=== PATIENT | male | born 1945 | race Caucasian/White ===

== ENCOUNTER 2019-06-23 10:10 | Emergency (ER) | payer MEDICARE, OTHER, SELFPAY ==
[2019-06-23] VITALS (8 sets, daily range): BP systolic 133–153; BP diastolic 56–84; PULSE 67–78; RESP 16–18; TEMP 36.6; O2SAT 96–100
--- NOTE | ~2019-06-23 | XR_ITS ---
EXAMINATION: XR knee RT 3V DATE: 06/23/2019 11:10 INDICATION: Right knee pain. TECHNIQUE: 4 views of right knee were obtained. COMPARISON: None. FINDINGS: Bone alignment is normal. No fracture. There is mild tricompartment osteoarthritis. No knee joint effusion. IMPRESSION: 1. Mild right knee osteoarthritis. Reviewed, dictated and finalized at location A. NE CARGO INSPECTOR
--- NOTE | ~2019-06-23 | XR_ITS ---
EXAMINATION: XR femur RT min 2V DATE: 06/23/2019 11:10 INDICATION: Right knee pain. TECHNIQUE: 2 views of right femur on 5 radiographs were obtained. COMPARISON: None. FINDINGS: Bone alignment is normal. No fracture. There is mild osteoarthritis of right hip and right knee. No knee joint effusion. IMPRESSION: 1. Mild polyarticular osteoarthritis. Reviewed, dictated and finalized at location A. ER OPERATOR
--- NOTE | ~2019-06-23 | XR_ITS ---
EXAMINATION: XR hand LT min 3V DATE: 06/23/2019 11:10 INDICATION: Left hand injury. TECHNIQUE: 3 views of left hand were obtained. COMPARISON: None. 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 No fracture. There is mild osteoarthritis of lunate-cap itate joint, first carpometacarpal joint, fourth metacarpophalangeal joint, and some of the interphal angeal joints. IMPRESSION: 1. Scapholunate dissociation. 2. Mild polyarticular osteoarthritis. Reviewed, dictated and finalized at location A. ER TENDER
--- NOTE | 2019-06-23 11:23 | PC.NURSE ---
assumed pt care at this time.
--- NOTE | 2019-06-23 12:46 | ED.LOWEXIN ---
HPI - Extremity Injury (Lower) General Chief Complaint: Extremity Injury, Lower Stated Complaint: Slipped on ice - right leg pain Time Seen by Provider: 06/23/19 10:18 Source: patient Mode of arrival: EMS Limitations: no limitations History of Present Illness HPI Narrative: Patient presents with chief complaint of pain to the posterior aspect of right leg, right knee and, injury to the left middle finger that he sustained after slipping while trying to get into the car just prior to arrival. Patient and deny any head impact. Denies any loss of consciousness or changes in behavior. Patient reports he twisted when he landed he is not sure exactly how he fell. He denies any chest pain, shortness of breath, change in vision or hearing, nausea, vomiting, abdominal pain, back pain, head or neck pain. 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 They report healing has been going well and patient was on his way to a doctor's appointment when he fell. Patient is a diabetic and has had prior strokes. Patient has generalized left-sided weakness from prior strokes. Denies any changes to his left side of range of motion since falling. Related Data Home Medications Medication Instructions Recorded Confirmed alprazolam 05/07/19 aspirin-dipyridamole cap PO 05/07/19 brimonidine-timolol [Combigan] drp 05/07/19 05/07/19 ezetimibe mg 05/07/19 insulin aspart U-100 [Novolog CONTINUOUS SUBCUTANEOUS INFUSION 05/07/19 U-100 Insulin aspart] latanoprost 05/07/19 sertraline mg 05/07/19 sitagliptin [Januvia] mg 05/07/19 trazodone 05/07/19 valsartan 05/07/19 Allergies Allergy/AdvReac Type Severity Reaction Status Date / Time No Known Allergies Allergy Verified 04/28/18 09:24 Review of Systems Review of Systems: Narrative: CONSTITUTIONAL: Denies fever, chills, or sweats. EYES: Denies visual changes, redness, or discharge. ENT: Denies rhinorrhea, congestion, sore throat, or otalgia. CARDIOVASCULAR: Denies chest pain, palpitations, or edema. RESPIRATORY: Denies cough or dyspnea. GASTROINTESTINAL: Denies abdominal pain, nausea, vomiting, or diarrhea. GENITOURINARY: Denies dysuria or hematuria. SKIN: Abrasion left third digit denies rash or itching. MUSCULOSKELETAL: Reports right leg, knee, left hand pain denies back pain or myalgia. NEUROLOGIC: Denies headache, numbness, dizziness, or weakness. PSYCHIATRIC: Denies anxiety or depression. [facility] Past Medical History Medical History (Updated 06/23/19 @ 14:35 by Grzegorz Delgado PA-C) Diabetes Diabetic neuropathy Stroke Family History Family History (Updated 12/07/15 @ 23:19 by DOCTOR UNKNOWN) Father Cerebrovascular accident Family history of diabetes mellitus in first degree relative Mother Family history of diabetes mellitus in first degree relative Family history of congestive heart failure Social History Social History Smoking status: Never smoker Alcohol intake: current Exam Narrative: Exam Narrative: GENERAL: Well-appearing, well-nourished, and in no acute distress. HEAD: Normocephalic, atraumatic. No hematoma, swelling, abrasions or other signs of injury. EYES: PERRLA and EOMI. ENT: Nares clear, no rhinorrhea or epistaxis. Mucous membranes moist. Oropharynx without tonsillar hypertrophy exudate or other lesions. Bilateral TMs pearly lopez nonbulging no hemotympanum NECK: Supple. No adenopathy or masses. No tenderness with palpation. CHEST: Clear to auscultation. No respiratory distress. No wheezes rales or rhonchi HEART: Regular rate and rhythm. No murmur heard. Normal peripheral pulses. ABDOMEN: Soft, nontender, nondistended, normal active bowel sounds. EXTREMITIES: Abrasion to the tip of the left third digit. No active bleeding. Nail intact. Mild tenderness with palpation of the area. Range of motion intact. pain with palpation of the posterior aspect of right leg. Patient is able to flex and
--- NOTE | 2019-06-23 12:56 | PC.NURSE ---
Spoke with MOE Delgado after attempting to ambulate pt with LOC Marino per her order. Pt very unsteady on feet, unable to take steps away from bed without x2 assistance from RN, pt very weak and unsteady. MOE Delgado has stepped down to room at this time after I informed her with LOC Marino of pt ambulation attempt.
--- NOTE | 2019-06-23 13:43 | PC.NURSE ---
Spoke with Owner Manager at this time about PT consult placed by MOE Delgado. She states that she will take care of the consult.
--- NOTE | 2019-06-23 14:14 | PC.NURSE ---
PT AMBULATING PT IN [facility] AT THIS TIME.
== END 2019-06-23 15:32 | disposition home or self-care (01) ==
PROVIDERS: Emergency Provider Emergency Medicine
DX: S76.911A Strain of unspecified muscles, fascia and tendons at thigh level, right thigh, initial encounter (principal); S60.413A Abrasion of left middle finger, initial encounter; I69.954 Hemiplegia and hemiparesis following unspecified cerebrovascular disease affecting left non-dominant side; E11.52 Type 2 diabetes mellitus with diabetic peripheral angiopathy with gangrene; I96 Gangrene, not elsewhere classified; Z79.4 Long term (current) use of insulin; Z79.82 Long term (current) use of aspirin; M17.11 Unilateral primary osteoarthritis, right knee; M18.9 Osteoarthritis of first carpometacarpal joint, unspecified; M19.042 Primary osteoarthritis, left hand; M16.11 Unilateral primary osteoarthritis, right hip; W00.0XXA Fall on same level due to ice and snow, initial encounter
CPT/HCPCS: 73130; 73552; 73562; 97161; 99284; A9270

== ENCOUNTER 2019-08-12 05:37 | Day surgery (SDC) | payer MEDICARE, OTHER, SELFPAY ==
[2019-08-09 11:58] VITALS: BMI 34.4
[2019-08-12 07:00] VITALS: BP 136/73; PULSE 63; RESP 16; TEMP 36.3; O2SAT 96
[2019-08-12 07:13] VITALS: BMI 34.6
[2019-08-12] MEDS: LACTATED RINGERS 1,000 ML 30 ML IV CONT (08:00)
--- NOTE | 2019-08-12 08:10 | WPDANESEPPF ---
Anes - Initial Pre Proc Eval Procedure: Operation Date: 08/12/19 09:00 Proposed Procedures p Partial Right Hallux Amputation - Gómez Soto JR, MD Date/Time: 08/12/19 08:10 Surgeon: Gómez Soto JR, MD Pre Op Diagnosis: gangrene right hallux Patient Data Age: 73 Gender: M Height: 1.7 m Weight: 100.3 kg Allergies Allergy/AdvReac Type Severity Reaction Status Date / Time No Known Allergies Allergy Verified 08/12/19 07:41 Home Medications Medication Instructions Recorded Confirmed Type aspirin-dipyridamole 1 cap PO BID 05/07/19 08/12/19 History brimonidine-timolol [Combigan] 1 drp OPHTHALMIC (EYE) BID 05/07/19 08/12/19 History ezetimibe 10 mg PO DAILY 05/07/19 08/12/19 History insulin aspart U-100 [Novolog See Rx Instructions .ROUTE .COMPLEX 05/07/19 08/12/19 History U-100 Insulin aspart] latanoprost 1 drp LEFTEYE DAILY 05/07/19 08/12/19 History sertraline 25 mg PO DAILY 05/07/19 08/12/19 History sitagliptin [Januvia] 100 mg PO DAILY 05/07/19 08/12/19 History trazodone 100 mg PO DAILY 05/07/19 08/12/19 History valsartan 320 mg PO DAILY 05/07/19 08/12/19 History Vitamin C 1 tablet PO DAILY 08/09/19 08/12/19 History Vitamin D3 1 tablet PO DAILY 08/09/19 08/12/19 History alprazolam 0.25 mg PO HS 08/09/19 08/12/19 History clindamycin HCl 300 mg PO Q8H 08/12/19 08/12/19 History Patient hx anesthesia problems: none Family hx anesthesia problems: none PMFSH Past Medical History Medical History (Updated 08/12/19 @ 08:16 by Bo Marte MD) Arthritis Back pain SPINAL STENOSIS, cervical stenosis CKD (chronic kidney disease) stage 3, GFR 30-59 ml/min Diabetes Diabetic neuropathy Glaucoma L EYE WITH SHUNT PLACEMENT HTN (hypertension) Hypercholesterolemia Neurological disorder NEUROPATHY Obesity Secondary polycythemia Stroke x 4 Family History Family History (Updated 12/07/15 @ 23:19 by DOCTOR UNKNOWN) Father Cerebrovascular accident Family history of diabetes mellitus in first degree relative Mother Family history of diabetes mellitus in first degree relative Family history of congestive heart failure Social History Social History Smoking status: Never smoker Alcohol intake: current Anes - Eval Final PreProcedure Day of Procedure 08/12/19 08:10 Patient weight: obese Heart: regular rate and rhythm Lungs: clear to auscultation and normal air movement Airway: Mallampati scale class II Neurological: alert and oriented Last oral intake: >/= 8 hours ASA classification: III Emergent: yes Anesthetic plan: proceed Anesthesia type and monitoring: general GIVS and LMA Informed Consent: The patient's anesthetic plan and its attendant risks and benefits were discussed with the patient/family/POA. Questions were solicited and answers provided to the satisfaction of the patient/family/POA.
--- NOTE | 2019-08-12 08:49 | WPDHPUPDATE1 ---
History and Physical Update Update Date/Time: 08/12/19 08:49 History and Physical has been reviewed, including an updated exam of the patient. There are NO changes in the patient's condition. Risks, benefits, and alternatives have been discussed and questions answered. Patient agrees to proceed with procedure.
[2019-08-12] MEDS: ceFAZolin 2 GM/D5W 50 ML 2 GM/50 ML BAG IVPB (09:15)
[2019-08-12] MEDS: LIDOCAINE HCL 2% LOCAL INJ 20 ML VIAL 10 ML INFILTRATE (09:15)
[2019-08-12 09:24] LABS: Blood Urea Nitrogen 27 mg/dL (9-20); Carbon Dioxide 29 mmol/L (22-30); Chloride 103 mmol/L (98-107); Estimated CRCL calculation 73 ml/min; Estimated Glomerular Filt Rate > 60; Glucose 138 mg/dL (75-110); Potassium 4.7 mmol/L (3.4-5.0); Sodium 138 mmol/L (137-145)
--- NOTE | 2019-08-12 09:55 | PM.OP ---
Procedure Note - Brief Procedure Note - Brief Date of procedure: 08/12/19 Pre-op diagnosis: gangrene right hallux Post-op diagnosis: same Procedure performed: Partial right hallux amputation Anesthesia: GLMA Surgeon: Gómez Soto JR, DPM Estimated blood loss (mL): 10 Complications: No immediate complications Condition: stable Disposition: same day
--- NOTE | 2019-08-12 09:56 | SUR.OPER ---
EBL:20CC
[2019-08-12 10:05] VITALS: BP 112/65; PULSE 67; RESP 16; O2SAT 99
[2019-08-12 10:30] VITALS: BP 150/91; PULSE 66; RESP 16
--- NOTE | 2019-08-12 10:47 | OP_ITS ---
DATE OF PROCEDURE: 08/12/2019 PREOPERATIVE DIAGNOSES: 1. Gangrene of the right hallux. 2. Full-thickness ulceration to the right hallux probing to the distal phalanx with the distal phalanx exposed. PROCEDURE: Partial amputation of the right hallux. PATHOLOGY: Distal right hallux sent for gross and histopathology. ANESTHESIA: MAC with local. HEMOSTASIS: Pneumatic ankle tourniquet at 250 mmHg. ESTIMATED BLOOD LOSS: 10 cc. MATERIALS USED: 4-0 Vicryl and 3-0 Prolene. INJECTABLES: 20 cc of a mixture of 2% lidocaine plain, 0.5% Marcaine plain injected preoperatively. COMPLICATIONS: None. PROCEDURE IN DETAIL: Under mild sedation, the patient was brought to the operating room, placed on the operating table in the supine position. Pneumatic ankle tourniquet was placed about the patient's right ankle. Following IV sedation, local anesthesia was obtained about the right forefoot utilizing 20 cc of a 1:1 mixture of 2% lidocaine plain and 0.5% Marcaine plain. The foot was then scrubbed, prepped, and draped in the usual aseptic manner. An Esmarch bandage was then used to examine the patient's right foot. Pneumatic ankle tourniquet was inflated. The procedure began in the following manner. Attention was directed to the distal aspect of the right hallux where the distal phalanx was protruding from the open ulceration that had fibrotic and gangrenous changes. Two convex semielliptical incisions were made just distal to the interphalangeal joint to the right hallux. This was made in a modified fishmouth type incision. The incision was continued deep down through the subcutaneous tissues using sharp and blunt dissection. All bleeders were ligated and cauterized as necessary. At this point, the interphalangeal joint was visualized and then the distal phalanx was disarticulated at the joint level. The head of the proximal phalanx was noted to be intact. There was no denudation noted to the cartilage and there were no signs of infection present proximally. Once the distal portion of the hallux was disarticulated, it was sent for gross and histopathology. The wound site was flushed with copious amounts of sterile saline. There was no purulence noted along the remaining healthy viable tissue. Next, the subcutaneous structures were reapproximated and coapted utilizing 4-0 Vicryl. Next, the skin was reapproximated and coapted utilizing 3-0 Prolene in simple interrupted suture fashion technique. Upon completion of the procedure, the tourniquet was deflated. Capillary fill time was immediate to both the dorsal and plantar flaps of the amputation site. The incision was then dressed with Adaptic, 4 x 4's, Kerlix, and Coban. The pneumatic ankle tourniquet was then deflated and a prompt hyperemic response was noted to all digits of the right foot. Postop shoe was then applied. The patient did very well with the procedure and anesthesia. He was transferred to the recovery room with vital signs stable and vascular status intact to all remaining toes of the right foot. Following a period of postoperative monitoring, the patient will be discharged home on the following written and oral postoperative instructions: 1. Keep the dressing clean, dry, and intact. 2. Avoid excessive ambulation. 3. Elevate the right foot when at rest. 4. Wear surgical shoe at all times with ambulating using a knee scooter or walker. 5. The patient to follow up in 3 days in my office to have the incision inspected. Prescriptions were written for Percocet 5/325, dispensed 10, to be taken 1 p.o. q.4-6 hours as needed for severe pain. Shayy Akin MT: Yara
== END 2019-08-12 11:13 | disposition home or self-care (01) ==
PROVIDERS: Anesthesiology; PCP Internal Medicine; Visit Provider Podiatrist Foot & Ankle Surgery
PROC: (CPT 28825; principal; 2019-08-12 09:00)
DX: E11.52 Type 2 diabetes mellitus with diabetic peripheral angiopathy with gangrene (principal); I96 Gangrene, not elsewhere classified; M86.171 Other acute osteomyelitis, right ankle and foot; I12.9 Hypertensive chronic kidney disease with stage 1 through stage 4 chronic kidney disease, or unspecified chronic kidney disease; E11.22 Type 2 diabetes mellitus with diabetic chronic kidney disease; N18.3 Chronic kidney disease, stage 3 (moderate); E11.69 Type 2 diabetes mellitus with other specified complication; E11.40 Type 2 diabetes mellitus with diabetic neuropathy, unspecified; E11.319 Type 2 diabetes mellitus with unspecified diabetic retinopathy without macular edema; E78.00 Pure hypercholesterolemia, unspecified; D75.1 Secondary polycythemia; M19.90 Unspecified osteoarthritis, unspecified site; H40.9 Unspecified glaucoma; Z86.73 Personal history of transient ischemic attack (TIA), and cerebral infarction without residual deficits; E66.9 Obesity, unspecified; Z68.34 Body mass index [BMI] 34.0-34.9, adult; Z79.4 Long term (current) use of insulin; Z79.84 Long term (current) use of oral hypoglycemic drugs; Z79.82 Long term (current) use of aspirin; Z87.891 Personal history of nicotine dependence
CPT/HCPCS: 28825; 36415; 80048; 88305; 88311; J0690; J2370; J2704; J3010; J7120

== ENCOUNTER 2019-11-21 13:38 | Outpatient (CLI) | payer MEDICARE, OTHER, SELFPAY ==
[2019-11-21 14:03] LABS: Hematocrit 56.3 % (42.0-52.0); Hemoglobin 18.9 g/dL (14.0-18.0); Mean Corpuscular HGB Conc 33.6 g/dl (32-36); Mean Corpuscular Hemoglobin 30.1 pg (26-34); Mean Corpuscular Volume 89.6 fl (80-100); Mean Platelet Volume 9.4 fl (7.4-10.4); Platelet Count Result 189 k/mm3 (150-375); Red Blood Count 6.28 M/mm3 (4.6-6.20); Red Cell Distribution Width 13.5 % (11.5-14.5); White Blood Count 8.1 K/mm3 (4.5-10.0)
[2019-11-21 14:12] LABS: Calcium 9.8 mg/dL (8.4-10.2); Uric Acid 8.9 mg/dL (3.5-8.5)
[2019-11-21 14:25] LABS: Parathyroid Intact 49.8 pg/mL (7.5-53.5)
[2019-11-24 05:52] LABS: Ionized Calcium 5.2 mg/dL (4.8-5.6)
== END 2019-11-21 13:39 | disposition home or self-care (01) ==
PROVIDERS: PCP Internal Medicine; Visit Provider Internal Medicine
DX: R78.89 Finding of other specified substances, not normally found in blood (principal)
CPT/HCPCS: 36415; 82310; 82330; 83970; 84550; 85027

== ENCOUNTER 2020-02-29 09:29 | Emergency (ER) | payer MEDICARE, OTHER, SELFPAY ==
[2020-02-29 09:42] VITALS: BP 120/57; PULSE 67; RESP 16; TEMP 36.5; O2SAT 97
--- NOTE | 2020-02-29 10:07 | ED.EAR ---
HPI - Ear Problem General Chief complaint: Ear Stated complaint: Ear Pain Time Seen by Provider: 02/29/20 09:56 Source: patient, family and RN notes reviewed Mode of arrival: ambulatory Limitations: no limitations History of Present Illness HPI Narrative: Patient presents today complaining of 4 to 5-day history of right ear pain that has been worsening since onset with decreased hearing. Denies any known drainage or blood from the ear. Currently rates his pain 7/10 and has been taking Tylenol, old Percocet, and old benzocaine drops without much relief. Denies any recent sick symptoms to include cough, congestion, rhinorrhea, sore throat. MD Complaint: ear pain Related Data Home Medications Medication Instructions Recorded Confirmed Combigan 1 drp OPHTHALMIC (EYE) BID 05/07/19 02/29/20 Januvia 100 mg PO DAILY 05/07/19 02/29/20 aspirin-dipyridamole 1 cap PO BID 05/07/19 02/29/20 ezetimibe 10 mg PO DAILY 05/07/19 02/29/20 insulin aspart U-100 [Novolog See Rx Instructions .ROUTE .COMPLEX 05/07/19 02/29/20 U-100 Insulin aspart] latanoprost 1 drp LEFTEYE DAILY 05/07/19 02/29/20 sertraline 25 mg PO DAILY 05/07/19 02/29/20 trazodone 100 mg PO DAILY 05/07/19 02/29/20 valsartan 320 mg PO DAILY 05/07/19 02/29/20 alprazolam 0.25 mg PO HS 08/09/19 02/29/20 Allergies Allergy/AdvReac Type Severity Reaction Status Date / Time No Known Allergies Allergy Verified 02/29/20 09:48 Review of Systems Review of Systems: Narrative: CONSTITUTIONAL: Denies body aches, fever, chills, or sweats. EYES: Denies visual changes, redness, or discharge. ENT: Denies rhinorrhea, congestion, sore throat. + Right ear pain CARDIOVASCULAR: Denies chest pain, palpitations, or edema. RESPIRATORY: Denies cough or dyspnea. GASTROINTESTINAL: Denies abdominal pain, nausea, vomiting, or diarrhea. GENITOURINARY: Denies dysuria or hematuria. SKIN: Denies rash, itching, or wounds. MUSCULOSKELETAL: Denies back pain, joint pain, or myalgia. NEUROLOGIC: Denies headache, numbness, tingling, or weakness. PSYCH: Denies depression or anxiety. [facility] Past Medical History Medical History (Updated 02/29/20 @ 10:17 by Deneen Simpson, [facility], ) Arthritis Back pain SPINAL STENOSIS, cervical stenosis CKD (chronic kidney disease) stage 3, GFR 30-59 ml/min Diabetes Diabetic neuropathy Glaucoma L EYE WITH SHUNT PLACEMENT HTN (hypertension) Hypercholesterolemia Neurological disorder NEUROPATHY Obesity Secondary polycythemia Stroke x 4 Family History Family History (Updated 12/07/15 @ 23:19 by DOCTOR UNKNOWN) Father Cerebrovascular accident Family history of diabetes mellitus in first degree relative Mother Family history of diabetes mellitus in first degree relative Family history of congestive heart failure Social History Social History Smoking status: Never smoker Alcohol intake: current Gender identity (if verbalized by the patient): Male Comments At time of signature, I have reviewed and agree with nursing past medical, surgical, social and family history unless otherwise noted. Please see nursing chart for further information. There is no relevant family history pertinent to the presenting complaint Exam Narrative: Exam Narrative: GENERAL: Well-appearing, well-nourished, and in no acute distress. HEAD: Normocephalic, atraumatic. EYES: EOMI. No redness or drainage. Conjunctivae normal. ENT: Mucous membranes pink and moist. Nares clear. No rhinorrhea. Left TM and canal normal. Right canal is erythematous and mildly edematous with tragal tenderness. Canal is occluded by hard white material. Throat normal. Uvula midline. NECK: Normal AROM. Supple. No lymphadenopathy. CHEST: No respiratory distress. EXTREMITIES: Normal range of motion. No edema. SKIN: Warm, dry, no rash. Capillary refill normal. Normal skin turgor. NEURO: No focal deficits. Alert and oriented x3. Gait steady. PSYCH: Normal affect. No signs of depressio
== END 2020-02-29 10:23 | disposition home or self-care (01) ==
PROVIDERS: Emergency Provider Nurse Practitioner; PCP Internal Medicine
DX: H60.501 Unspecified acute noninfective otitis externa, right ear (principal); I12.9 Hypertensive chronic kidney disease with stage 1 through stage 4 chronic kidney disease, or unspecified chronic kidney disease; E11.22 Type 2 diabetes mellitus with diabetic chronic kidney disease; N18.30 Chronic kidney disease, stage 3 unspecified; Z79.4 Long term (current) use of insulin; M19.90 Unspecified osteoarthritis, unspecified site; E11.42 Type 2 diabetes mellitus with diabetic polyneuropathy; E78.00 Pure hypercholesterolemia, unspecified; Z86.73 Personal history of transient ischemic attack (TIA), and cerebral infarction without residual deficits; E11.39 Type 2 diabetes mellitus with other diabetic ophthalmic complication; H42 Glaucoma in diseases classified elsewhere; E66.9 Obesity, unspecified; Z68.34 Body mass index [BMI] 34.0-34.9, adult
CPT/HCPCS: 99213; G0463

== ENCOUNTER 2021-01-03 08:55 | Outpatient (CLI) | payer MEDICARE, OTHER, SELFPAY ==
--- NOTE | 2021-01-03 | EST_ITS ---
Patient Info Name: Tan Mendes Age: 75 years : 1945 Gender: Male Ht: 67 in Wt: 225 lbs BSA: 2.24 m2 HR: 66 bpm BP: 131 / 60 mmHg Heart Rhythm: Right Bundle Branch Block Exam Date: 01/03/2021 10:02 AM Exam Location: [facility] Stress Patient Status: Outpatient Admit Date: 01/03/2021 Staff Ordering Physician: Scot, Chris Hernandze MD Weaver [place]: Bobbi Christiansen RDCS Attending Provider: ColetteChris MD Exercise Technologist: Tyesha Killian RDCS Exercise Physician: Dallin Gonzalez MD Exam Type: CA echo dobutamine stress Study Info Indications R07.9 - Chest pain, unspecified Dobutamine stress echocardiogram is performed. Summary 1. Left ventricular chamber size, wall thickness, systolic and diastolic function are normal with no regional wall motion abnormalities with an estimated ejection fraction of 65-70%. 2. At low-dose dobutamine there were no wall motion abnormalities induced. 3. At sub maximal heart rate, no EKG changes to indicate ischemia. 4. Test was stopped before target heart rate was achieved as he became uncomfortable with the test. Given baseline EKG abnormalities and inability to walk on a treadmill, Lexiscan myocardial perfusion study is advised. Stress Echo Findings Left Ventricle At low-dose dobutamine there were no wall motion abnormalities induced. Left Ventricle Left ventricular chamber size, wall thickness, systolic and diastolic function are normal with no regional wall motion abnormalities with an estimated ejection fraction of 65-70%. Protocol: Doubutamine Stress ECG Details Stage: REST Duration (min): 1 min : 2 sec Dixon: --- Speed (mph): 0.0 Grade (%): 0 HR (bpm): 67 SBP (mmHg): 131 DBP (mmHg): 60 METS: --- Stage: REST Duration (min): 28 min : 53 sec Dixon: --- Speed (mph): 0.0 Grade (%): 0 HR (bpm): 63 SBP (mmHg): 131 DBP (mmHg): 60 METS: --- Stage: STAGE 1 Duration (min): 1 min : 0 sec Dixon: --- Speed (mph): 0.0 Grade (%): 0 HR (bpm): 63 SBP (mmHg): 131 DBP (mmHg): 60 METS: --- Stage: STAGE 1 Duration (min): 2 min : 0 sec Dixon: --- Speed (mph): 0.0 Grade (%): 0 HR (bpm): 63 SBP (mmHg): 155 DBP (mmHg): 65 METS: --- Stage: STAGE 1 Duration (min): 3 min : 0 sec Dixon: --- Speed (mph): 0.0 Grade (%): 0 HR (bpm): 64 SBP (mmHg): 155 DBP (mmHg): 65 METS: --- Stage: STAGE 2 Duration (min): 1 min : 0 sec Dixon: --- Speed (mph): 0.0 Grade (%): 0 HR (bpm): 64 SBP (mmHg): 128 DBP (mmHg): 69 METS: --- Stage: STAGE 2 Duration (min): 2 min : 0 sec Dixon: --- Speed (mph): 0.0 Grade (%): 0 HR (bpm): 68 SBP (mmHg): 128 DBP (mmHg): 69 METS: --- Stage: STAGE 2 Duration (min): 2 min : 14 sec Dixon: --- Speed (mph): 0.0 Grade (%): 0 HR (bpm): 67 SBP (mmHg): 129 DBP (mmHg): 54 METS: --- Stage: RECOVERY Duration (min): 0 min : 2 sec Dixon: --- Speed (mph): 0.0 Grade (%): 0 HR (b
== END 2021-01-03 08:56 | disposition home or self-care (01) ==
PROVIDERS: PCP Internal Medicine; Visit Provider Internal Medicine
DX: R07.9 Chest pain, unspecified (principal)
CPT/HCPCS: 93351; J0461; J1250

== ENCOUNTER 2021-02-04 10:36 | Outpatient (CLI) | payer MEDICARE, OTHER, SELFPAY ==
[2021-02-04 11:37] LABS: Basophils Absolute Auto 0.1 K/mm3 (0.0-0.1); Basophils Percent Auto 0.7 % (0.2-1.2); Eosinophils Absolute Auto 0.3 K/mm3 (0-0.3); Hematocrit 55.2 % (42.0-52.0); Hemoglobin 17.9 g/dL (14.0-18.0); Immature Granulocyte Absolute 0.03 K/mm3 (0.00-0.031); Immature Granulocyte Percent A 0.4 % (0-0.5); Lymphocytes Absolute Auto 2.26 K/mm3 (0.9-3.2); Lymphocytes Percent Auto 33.4 % (18.3-44.2); Mean Corpuscular HGB Conc 32.4 g/dl (32-36); Mean Corpuscular Hemoglobin 30.2 pg (26-34); Mean Corpuscular Volume 93.1 fl (80-100); Mean Platelet Volume 9.5 fl (7.4-10.4); Monocytes Absolute Auto 0.6 K/mm3 (0.1-0.6); Monocytes Percent Auto 9.3 % (2.6-8.5); Neutrophils Absolute Auto 3.5 K/mm3 (1.3-6.7); Neutrophils Percent Auto 52.2 % (45.5-73.1); Platelet Count Result 200 k/mm3 (150-375); Red Blood Count 5.93 M/mm3 (4.6-6.20); Red Cell Distribution Width 12.7 % (11.5-14.5); White Blood Count 6.8 K/mm3 (4.5-10.0)
[2021-02-04 11:52] LABS: Anion Gap 13 mmol/L (8-16); Blood Urea Nitrogen 34 mg/dL (9-20); Calcium 9.7 mg/dL (8.4-10.2); Carbon Dioxide 25 mmol/L (22-30); Chloride 103 mmol/L (98-107); Estimated Glomerular Filt Rate 50; Glucose 193 mg/dL (65-110); Potassium 4.8 mmol/L (3.4-5.0); Sodium 141 mmol/L (137-145)
== END 2021-02-04 10:37 | disposition home or self-care (01) ==
PROVIDERS: PCP Internal Medicine; Visit Provider Internal Medicine Cardiovascular Disease
DX: Z01.812 Encounter for preprocedural laboratory examination (principal); R94.39 Abnormal result of other cardiovascular function study; R06.00 Dyspnea, unspecified
CPT/HCPCS: 36415; 80048; 85025

== ENCOUNTER 2021-02-18 09:15 | Inpatient (IN) | payer MEDICARE, OTHER, SELFPAY ==
[2021-02-18] VITALS (9 sets, daily range): BP systolic 101–138; BP diastolic 52–60; PULSE 67–91; RESP 12–25; TEMP 36.4–37.3; O2SAT 96–99; BMI 34.6
--- NOTE | ~2021-02-18 | CT_ITS ---
EXAMINATION: CT cervical spine wo con EXAM DATE: 02/18/2021 10:30 INDICATION: Fall, head injury. Cervical fusion hardware. TECHNIQUE: Spiral CT of the cervical spine was performed without contrast. Axial images were reviewe d. Coronal and sagittal reformatted images cervical spine were also reviewed. The dose-length produc t (DLP) for this examination was 449.50 mGy-cm. The exposure was tailored according to patient size (auto mA exposure control), and iterative reconstruction (ASIR) was used as additional dose reduction technique. There is no prior study for comparison. FINDINGS: There is no evidence of acute cervical fracture. The odontoid process is intact. Pre-dens space is normal. Prevertebral soft tissue is normal. There are no soft tissue abnormalities identi fied. There is no disc space widening or traumatic vertebral body subluxation suspected. There is i ntact fusion hardware from C4-C6. There is advanced cervical arthropathy with significant narrowing of right-sided neural foramen. A detailed level by level evaluation of spondylosis can be added as a ddendum if requested. IMPRESSION: 1. No acute cervical fracture. 2. Intact cervical fusion C4-6. 3. Advanced arthropathy. Reviewed, dictated and finalized at location A.
--- NOTE | ~2021-02-18 | US_ITS ---
EXAMINATION: US venous doppler LE EXAM DATE: 02/18/2021 14:25 INDICATION: Elevated D-dimer . TECHNIQUE: Multiple grayscale, color flow and Doppler images of the lower extremity deep venous syste ms bilaterally were obtained and reviewed. There is no prior study for comparison. FINDINGS: Right side: The right common femoral, femoral and profunda veins demonstrate normal color flow, respi ratory variation, augmentation and compressibility. Compressibility, color flow confirmed within the right popliteal, posterior tibial, peroneal, and greater saphenous veins. Left side: The left common femoral, femoral and profunda veins demonstrate normal color flow, respira tory variation, augmentation and compressibility. Compressibility, color flow confirmed within the l eft popliteal, posterior tibial, peroneal, and greater saphenous veins. IMPRESSION: 1. No lower extremity deep venous thrombosis bilaterally. Reviewed, dictated and finalized at location A.
--- NOTE | ~2021-02-18 | XR_ITS ---
EXAMINATION: XR chest 2V DATE: 02/18/2021 10:17 INDICATION: Shortness of breath and weakness TECHNIQUE: frontal and lateral views of the chest were obtained. COMPARISON: Chest radiograph dated 04/12/2018 FINDINGS: Unchanged mild elevation of the right hemidiaphragm with mild basilar atelectasis. No airspace opacit ies, pulmonary edema, pleural effusion or pneumothorax. The cardiomediastinal silhouette is normal. A therosclerotic aorta and coronary artery calcifications. Mild thoracic spondylosis. IMPRESSION: 1. Chronic elevation of the right hemidiaphragm with mild atelectasis at the right lung base. Reviewed, dictated and finalized at location A. IMPRESSION: 1. Chronic elevation of the right hemidiaphragm with mild atelectasis at the ri t lung base.
--- NOTE | ~2021-02-18 | CT_ITS ---
EXAMINATION: CTA chest PE protocol EXAM DATE: 02/18/2021 14:04 INDICATION: Elevated d-dimer. TECHNIQUE: Spiral CTA of the chest (pulmonary arteries) was performed with 100 cc Omnipaque 350 intr avenous contrast injection. Images were acquired during the pulmonary arterial phase. Coronal maxi mum intensity projection 3D-reconstructions were created by the technologist on dedicated workstation . Axial, coronal and sagittal reformatted images were reviewed. The dose-length product (DLP) for t his examination was 786.81 mGy-cm. The exposure was tailored according to patient size (auto mA exp osure control), and iterative reconstruction (ASIR) was used as additional dose reduction technique. Comparison is made to prior examination from 04/12/2018. FINDINGS: Pulmonary arteries are well opacified and without intraluminal filling defects. No thora cic aortic dissection. There is right basilar subsegmental atelectasis and bilateral dependent subse gmental atelectasis. No evidence of pneumonia. Elevated right hemidiaphragm. There are no pleural or pericardial effusions. Tracheobronchial tree is patent. There is no mediastinal, hilar or axilla ry lymphadenopathy. There is no pneumothorax. Heart normal in size. There are dense coronary arteries, could be severe coronary arterial sclerosis and/or coronary artery stent(s), which are difficult to distinguish due to cardiac motion on this non-gated exam. Correlate with cardiac history and consider cardiology consult if not recently evaluated. Small bilateral ewelina al lesions which are hyperdense, statistically most likely hemorrhagic cysts. There is thoracic spon dylosis without osteoblastic or osteolytic lesions identified. IMPRESSION: 1. Chronic right hemidiaphragm elevation, bibasilar atelectasis. 2. Small homogeneous renal lesions most likely hemorrhagic cysts. 3. No pulmonary emboli Reviewed, dictated and finalized at location A.
--- NOTE | ~2021-02-18 | CT_ITS ---
EXAMINATION: CT brain wo con DATE: 02/18/2021 10:29 INDICATION: Found down post fall. Syncope. TECHNIQUE: Computed tomography (CT) of the head was performed without intravenous contrast. Sagittal and coronal reconstructions were performed. The mA was adjusted according to patient size. Iterative reconstruction technique was employed. The dose-length product was 681.00 mGy-cm. COMPARISON: head CT dated 03/25/2017 FINDINGS: No fracture. No acute intracranial hemorrhage, acute infarction or abnormal extra axial fluid collect ion. Small region of encephalomalacia in the right frontal lobe consistent with old infarct. Addition al small old lacunar infarcts in the bilateral thalami and left kin. There is moderate scattered whi te matter hypoattenuation consistent with chronic small vessel ischemic disease. Ventricles are daksha l and symmetric. No mass/mass effect. Changes of bilateral intraocular lens replacement. Unchanged ti ny metallic density along the anterior margin of the right globe, potentially for weighting of the up per eyelid. Mild mucosal thickening at the left maxillary and bilateral ethmoid sinuses. Mastoid air cells and middle ear cavities are clear. Intracranial calcified cerebral atherosclerosis is noted. IMPRESSION: 1. No fracture or acute intracranial process. 2. Small old infarcts in the right frontal lobe, bilateral thalami and left kin. 3. Moderate scattered periventricular predominant white matter hypoattenuation consistent with chroni c small vessel ischemic disease. Reviewed, dictated and finalized at location A. IMPRESSION: 1. No fracture or acute intracranial process. 2. Small old infarcts in the right frontal lobe, bilateral thalami and left ángel s. 3. Moderate scattered periventricular predominant white matter hypoattenuation consistent with chronic small vessel ischemic disease.
--- NOTE | ~2021-02-18 | US_ITS ---
EXAMINATION: US renal BI EXAM DATE: 02/22/2021 14:41 INDICATION: QUINN. Recent contrast injection with clinical concern for contrast-induced nephropathy. TECHNIQUE: Multiple grayscale and Doppler images of the kidneys were obtained (by a technologist who performed the scan) and subsequently reviewed. There is no prior study for comparison. FINDINGS: Right kidney: There is normal contour and echogenicity. It measures 10.1 x 5.6 x 5.8 centimeters. T here are no focal renal lesions identified. There is no hydronephrosis. Left kidney: There is normal contour and echogenicity. It measures 12.6 x 6.5 x 6.4 centimeters. The re is an exophytic cyst measuring 2 cm and more centrally located cyst measuring 1.5 cm. There is n o hydronephrosis. Patrick catheter within a collapsed bladder. IMPRESSION: 1. Left renal lesions consistent with cyst, corresponding to 2 of the lesions seen on CT. 2. No hydronephrosis. Reviewed, dictated and finalized at location B.
--- NOTE | 2021-02-18 09:23 | ECG_ITS ---
Measurements Intervals Cameron Rate: 73 P: 32 MA: 209 QRS: -40 QRSD: 146 T: 5 QT: 416 QTc: 459 Interpretive Statements SINUS RHYTHM WITH FIRST DEGREE AV BLOCK RIGHT BUNDLE BRANCH BLOCK BASELINE ARTIFACT- II, III ABNORMAL ECG Electronically Signed On 02-18-2021 14:32:37 CDT by Eugene Stevens D.O.
[2021-02-18 09:35] LABS: Basophils Percent Auto 0.2 % (0.2-1.2); Eosinophils Percent Auto 0.1 % (0-4.4); Hemoglobin 17.2 g/dL (14.0-18.0); Immature Granulocyte Absolute 0.08 K/mm3 (0.00-0.031); Immature Granulocyte Percent A 0.5 % (0-0.5); Lymphocytes Absolute Auto 1.19 K/mm3 (0.9-3.2); Lymphocytes Percent Auto 7.8 % (18.3-44.2); Mean Corpuscular HGB Conc 33.7 g/dl (32-36); Mean Corpuscular Hemoglobin 31.2 pg (26-34); Mean Corpuscular Volume 92.4 fl (80-100); Mean Platelet Volume 9.7 fl (7.4-10.4); Monocytes Absolute Auto 0.8 K/mm3 (0.1-0.6); Monocytes Percent Auto 5.2 % (2.6-8.5); Neutrophils Absolute Auto 13.2 K/mm3 (1.3-6.7); Neutrophils Percent Auto 86.2 % (45.5-73.1); Platelet Count Result 173 k/mm3 (150-375); Red Blood Count 5.52 M/mm3 (4.6-6.20); Red Cell Distribution Width 12.3 % (11.5-14.5); White Blood Count 15.3 K/mm3 (4.5-10.0)
[2021-02-18 09:46] LABS: Alanine Aminotransferase 44 U/L (4-50); Albumin Level 4.5 g/dL (3.5-5.1); Alkaline Phosphatase 77 U/L (38-126); Anion Gap 13 mmol/L (8-16); Aspartate Amino Transferase 40 U/L (17-59); Blood Urea Nitrogen 26 mg/dL (9-20); Calcium 9.2 mg/dL (8.4-10.2); Carbon Dioxide 23 mmol/L (22-30); Chloride 102 mmol/L (98-107); Estimated CRCL calculation 46 ml/min; Estimated Glomerular Filt Rate 50; Glucose 243 mg/dL (65-110); Potassium 4.6 mmol/L (3.4-5.0); Sodium 138 mmol/L (137-145)
--- NOTE | 2021-02-18 09:46 | ED.GENADULT ---
HPI - General Adult General Chief complaint: Weakness Stated complaint: WEAKNESS Time Seen by Provider: 02/18/21 09:40 Source: patient and family History of Present Illness HPI narrative: Patient is a 75 y/o male complaining of several generalized weakness starting today. He state that he cannot get out bed today due to weakness. He slid out bed and fell to the floor. He was not able to get up. He denies passing out. He has some abrasions on his knees due to the floor. He has no headache, chest pain or abdominal pain. He is normally able to ambulate with a walker. He is scheduled to have bypass surgery at [facility] in 2 days. Related Data Home Medications Medication Instructions Recorded Confirmed Combigan 1 drp OPHTHALMIC (EYE) BID 05/07/19 02/29/20 Januvia 100 mg PO DAILY 05/07/19 02/29/20 insulin aspart U-100 [Novolog See Rx Instructions .ROUTE .COMPLEX 05/07/19 02/29/20 U-100 Insulin aspart] latanoprost 1 drp LEFTEYE DAILY 05/07/19 02/29/20 sertraline 25 mg PO DAILY 05/07/19 02/29/20 trazodone 100 mg PO DAILY 05/07/19 02/29/20 valsartan 320 mg PO DAILY 05/07/19 02/29/20 aspirin [Adult Aspirin] 81 mg PO BID 02/18/21 metoprolol tartrate 12.5 mg PO BID 02/18/21 rosuvastatin 40 mg PO QPM 02/18/21 02/18/21 Allergies Allergy/AdvReac Type Severity Reaction Status Date / Time No Known Allergies Allergy Verified 02/18/21 10:21 Review of Systems Constitutional: Constitutional: Denies chills, Denies fever(s), Denies headache(s) and Reports weakness Eyes: Eyes: Denies blurry vision ENT: Denies headache(s) and Denies neck pain Cardiovascular: Cardiovascular: Denies chest pain and Denies dyspnea Respiratory: Respiratory: Denies cough and Denies dyspnea Gastrointestinal: Gastrointestinal: Denies abdominal pain, Denies diarrhea, Denies nausea and Denies vomiting Genitourinary: Genitourinary: Denies hematuria and Denies dysuria Musculoskeletal: Musculoskeletal: Denies back pain and Denies neck pain Neurologic: Denies headache(s) and Reports weakness PMFSH Past Medical History Medical History (Updated 03/01/20 @ 00:00 by Background Nemo) Arthritis Back pain SPINAL STENOSIS, cervical stenosis CKD (chronic kidney disease) stage 3, GFR 30-59 ml/min Diabetes Diabetic neuropathy Glaucoma L EYE WITH SHUNT PLACEMENT HTN (hypertension) Hypercholesterolemia Neurological disorder NEUROPATHY Obesity Secondary polycythemia Stroke x 4 Family History Family History (Updated 12/07/15 @ 23:19 by DOCTOR UNKNOWN) Father Cerebrovascular accident Family history of diabetes mellitus in first degree relative Mother Family history of diabetes mellitus in first degree relative Family history of congestive heart failure Social History Social History Smoking status: Never smoker Alcohol intake: current Gender identity (if verbalized by the patient): Male Exam Const: General: no acute distress and well developed Orientation/consciousness: oriented to person, oriented to place, oriented to time and patient oriented x3 HENMT: Head: normocephalic Ears: external ears normal General nose exam: Normal external nose present Eyes: General: appearance normal, both eyes and all related structures Conjunctivae: conjunctivae normal Neck: Neck: normal visual inspection and full ROM Chest: Chest palpation & inspection: normal inspection of the chest and no tenderness Resp: Effort & Inspection: normal respiratory effort Auscultation: clear to auscultation bilaterally Cardio: Rate: regular rate Rhythm: regular rhythm GI: GI Palp: No abdominal tenderness and Yes Soft to palpation Skin: General skin exam: normal color and turgor normal Trauma: abrasion (bilateral knees) Neuro: General: oriented to person, oriented to place, oriented to time and patient oriented x3 Cognition (Neuro): normal cognition Extrem: General: normal to inspection, full ROM and no pedal edema Psych: Appearance
[2021-02-18 09:58] LABS: Troponin I 0.019 ng/mL (0.000-0.034)
[2021-02-18] MEDS: SODIUM CHLORIDE 0.9% IV 1,000 ML 999 ML IV CONT ×3 (10:09→12:32)
--- NOTE | 2021-02-18 10:15 | PC.NURSE ---
Chart faxed to [facility], [place] and was received by their intake staff. Intake number is [phone]
[2021-02-18 10:20] LABS: Add Urine Microscopic? YES; Appearance Urine Cloudy (Clear); Bacteria Urine Trace /hpf; Bilirubin Urine Negative (Negative); Blood Urine 3+ (Negative); Color Urine Yellow (Yellow); Glucose Urine UA 2+ mg/dL (Negative); Ketones Urine Negative (Negative); Leukocyte Esterase Ur 2+ LEU/UL (Negative); Nitrate Urine Negative (Negative); Protein Urine 2+ mg/dL (Negative); Specific Grav Ur 1.015 (1.001-1.035); Urobilinogen Urine Negative mg/dL (<2.0); WBC Urine >75 /hpf
[2021-02-18 12:10] LABS: D Dimer 1.62 ug/mL (<0.48)
[2021-02-18 12:31] LABS: Reflex Lactic Acid Yes or No Add Lactic
--- NOTE | 2021-02-18 12:32 | PC.NURSE ---
pt sent to floor with IVF still infusing
--- NOTE | 2021-02-18 12:39 | PM.IMHP ---
H&P: HPI History of Present Illness Date/Time: 02/18/21 12:39 this is a 75 year old male patient with a history of coronary artery disease and diabetes adult onset type 1. The patient is scheduled to have open heart surgery at [facility] on Thursday. The patient had a full workup at [facility] for his cardiac condition. The patient had a stress test and was unable to completed and then went on to have a Lexiscan which he failed. The patient then had a cardiac catheterization by Dr. Noble at [facility] which shows several severe blockages and the patient was scheduled with Dr. Lozano this next Thursday of open heart surgery. The patient had a full workup on Thursday and was told that his white count was normal and is COVID-19 test was negative. Patient's urinalysis was negative at that time. The patient spent in evening with his children out eating dinner during the weekend. The patient was recently started on metoprolol and has been feeling weak. The patient came to the hospital today complaining of severe generalized weakness that started today. He could get out of bed due to the weakness. The patient fell on the floor and struggled for 45 minutes to get up off the floor. He denied passing out. However the stated that the patient does have a history of having syncopal episodes. The patient does have some abrasions to his knees. However he is not complaining of any discomfort at this time. The stated that the patient became diaphoretic when he was trying to get off the floor. He denies any chest pain. Patient's BUN is 26 creatinine 1.4 with a GFR 50. Blood sugars 253. Lactic is 3.0. The patient does have an insulin pump however he stated that he felt too ill to be able to manage it himself and it was removed. Cervical spine CT was read as no acute cervical fracture. Intact cervical fusion C4 through C6. Advanced arthropathy. Head CT was read as no fracture or acute intracranial process. Small old infarctions in the right frontal lobe, bilateral thalami and left kin. Moderate scattered periventricular predominant white matter hypoattenuation consistent with chronic small vessel ischemic disease. Chest x-ray was read as chronic elevation the right hemidiaphragm with mild atelectasis at the right lung base. The patient does not typically wear oxygen at home but was short of breath and was placed on oxygen at 2 L per nasal cannula. Patient's D-dimer was noted to be 1.62. Urinalysis has 3+ blood 2+ leukocyte esterase rbc's 6-10 and greater than 75 wbc's. Trace bacteria. The patient was started on normal saline and ceftriaxone in the emergency room. I did speak with Dr. Richardson nurse practitioner [facility] and she stated that his open heart surgery will be canceled and she will also be contacting the . I also spoke with his Lesvai. The patient has blood and urine cultures pending. The patient is being admitted to inpatient services on 02/18/2021. Chief Complaint: Weakness Review of Systems Review of Systems: ROS unobtainable: Yes unobtainable due to medical condition PMFSH Past Medical History Medical History (Updated 02/18/21 @ 13:30 by Ariela Fofana NP) Amputation toe Partial right toe amputation Arthritis Back pain SPINAL STENOSIS, cervical stenosis CKD (chronic kidney disease) stage 3, GFR 30-59 ml/min Diabetes Adult onset type 1 according to the with an insulin pump Diabetic neuropathy Glaucoma L EYE WITH SHUNT PLACEMENT HTN (hypertension) Hypercholesterolemia Neurological disorder NEUROPATHY Obesity Secondary polycythemia Secondary to heart disease. Stroke x 4 Surgical History Surgical History (Updated 02/18/21 @ 13:16 by Ariela Fofana NP) H/O bilateral cataract extraction H/O cataract extraction H/O cervical spine surgery Fusion H/O toe surgery Partial right toe amputated due to infected H/O umbilical hernia repair Family History Family
--- NOTE | 2021-02-18 12:41 | ADMGEN ---
This patient, Tan Mendes, was admitted to [facility] Room 314-01 at 1230. Patient/family oriented to hospital policies and general routines including ID bracelet, bed and alarms, visiting hours, pain management, procedures, bathroom and other care routines, personal items, smoking policy, room service/diet, and visiting hours. Patient arrived with glucose monitor to right abdomen, insulin pump to left abdomen, hearing aid to left ear and smart watch on. Pump disconnected upon admission to room. Information on how to activate the Rapid Response Team has been discussed. Patient/Family are encouraged to report perceived risks to care and to ask questions if they do not understand what they are told or what they should do.
[2021-02-18 13:32] LABS: Lactic Acid Reflex 1.1 mmol/L (0.7-2.1)
[2021-02-18 13:46] LABS: Hemoglobin A1C 7.6 % (<5.7)
[2021-02-18] MEDS: SODIUM CHLORIDE 0.9% IV 1,000 ML 100 ML IV CONT (14:33)
[2021-02-18 16:49] LABS: Glucose Point of Care 198 mg/dl (65-105)
[2021-02-18] MEDS: LORazepam INJ (*CRX) 2 MG/ML VIAL 0.5 MG IV PUSH ×2 (17:00→22:36)
[2021-02-18] MEDS: ASPIRIN 81 MG ENTERIC TABLET PO (17:06)
[2021-02-18] MEDS: BRIMONIDINE TARTRATE 0.2% OP SOLN 5 ML BTL 2 DROP EACH EYE (17:06)
[2021-02-18] MEDS: TIMOLOL MALEATE 0.5% OP SOLN 5 ML BOTTLE 2 DROP EACH EYE (17:10)
[2021-02-18] MEDS: LATANOPROST 0.005% OP SOLN 2.5 ML BTL 1 DROP LEFT EYE (20:44)
[2021-02-18] MEDS: traZODone HCL 50 MG TABLET 100 MG PO (20:44)
[2021-02-18] MEDS: ROSUVASTATIN 10 MG TABLET 40 MG PO (20:44)
[2021-02-18 21:00] LABS: Glucose Point of Care 245 mg/dl (65-105)
[2021-02-18] MEDS: INSULIN ASPART (*BKC) 100 UNITS/ML SUB-Q (22:36)
[2021-02-19] VITALS (11 sets, daily range): BP systolic 116–161; BP diastolic 62–74; PULSE 64–89; RESP 16–20; TEMP 36.7–37.2; O2SAT 92–96
[2021-02-19] MEDS: SODIUM CHLORIDE 0.9% IV 1,000 ML 100 ML IV CONT (00:25)
[2021-02-19 06:46] LABS: Basophils Percent Auto 0.2 % (0.2-1.2); Eosinophils Percent Auto 0.3 % (0-4.4); Hematocrit 50.9 % (42.0-52.0); Hemoglobin 16.6 g/dL (14.0-18.0); Immature Granulocyte Absolute 0.06 K/mm3 (0.00-0.031); Immature Granulocyte Percent A 0.5 % (0-0.5); Lymphocytes Absolute Auto 1.62 K/mm3 (0.9-3.2); Lymphocytes Percent Auto 12.5 % (18.3-44.2); Mean Corpuscular HGB Conc 32.6 g/dl (32-36); Mean Corpuscular Hemoglobin 30.6 pg (26-34); Mean Corpuscular Volume 93.7 fl (80-100); Mean Platelet Volume 9.6 fl (7.4-10.4); Monocytes Absolute Auto 1.2 K/mm3 (0.1-0.6); Monocytes Percent Auto 9.1 % (2.6-8.5); Neutrophils Absolute Auto 10.1 K/mm3 (1.3-6.7); Neutrophils Percent Auto 77.4 % (45.5-73.1); Platelet Count Result 162 k/mm3 (150-375); Red Blood Count 5.43 M/mm3 (4.6-6.20); Red Cell Distribution Width 12.5 % (11.5-14.5)
[2021-02-19 06:47] LABS: Lactic Acid Reflex 1.1 mmol/L (0.7-2.1)
[2021-02-19 06:55] LABS: Alanine Aminotransferase 37 U/L (4-50); Albumin Level 4.2 g/dL (3.5-5.1); Alkaline Phosphatase 70 U/L (38-126); Anion Gap 11 mmol/L (8-16); Aspartate Amino Transferase 50 U/L (17-59); Bilirubin,Total 0.9 mg/dL (0.2-1.3); Blood Urea Nitrogen 19 mg/dL (9-20); CRP 6.2 mg/dL (<1.0); Calcium 8.4 mg/dL (8.4-10.2); Carbon Dioxide 24 mmol/L (22-30); Chloride 104 mmol/L (98-107); Estimated CRCL calculation 65 ml/min; Estimated Glomerular Filt Rate > 60; Glucose 190 mg/dL (65-110); Lactate Dehydrogenase 518 U/L (313-618); Magnesium 1.5 mg/dL (1.6-2.3); Potassium 3.9 mmol/L (3.4-5.0); Sodium 139 mmol/L (137-145)
[2021-02-19 07:53] LABS: Glucose Point of Care 219 mg/dl (65-105)
[2021-02-19] MEDS: METOPROLOL TARTRATE 12.5 MG TABLET PO ×2 (09:14→22:07)
[2021-02-19] MEDS: TIMOLOL MALEATE 0.5% OP SOLN 5 ML BOTTLE 2 DROP EACH EYE ×2 (09:15→18:13)
[2021-02-19] MEDS: ENOXAPARIN 40 MG/0.4 ML SYRINGE SUB-Q (09:15)
[2021-02-19] MEDS: BRIMONIDINE TARTRATE 0.2% OP SOLN 5 ML BTL 2 DROP EACH EYE ×2 (09:16→18:13)
[2021-02-19] MEDS: ASPIRIN 81 MG ENTERIC TABLET PO ×2 (09:16→18:13)
[2021-02-19] MEDS: SERTRALINE HCL 25 MG TABLET PO (09:16)
[2021-02-19] MEDS: EUCERIN CREAM 120 GM JAR 1 APPLIC TOPICAL (09:16)
[2021-02-19] MEDS: INSULIN ASPART (*BKC) 100 UNITS/ML SUB-Q ×3 (09:17→18:12)
--- NOTE | 2021-02-19 09:26 | PM.CNCAR ---
Assessment and Plan Assessment and plan (1) UTI (urinary tract infection): Code(s): N39.0 - Urinary tract infection, site not specified Status: Acute Assessment and Plan: 75-year-old male with multivessel CAD (awaiting surgical revascularization with CABG), hypertension, type 2 diabetes mellitus, history of CVA, secondary polycythemia. Patient admitted to the hospital with generalized weakness, found to have UTI. -appropriate antibiotics as per primary team -patient was scheduled to undergo CABG on 02/20/2021 which has been postponed for now. (2) CAD (coronary artery disease): Code(s): I25.10 - Atherosclerotic heart disease of [place] coronary artery without angina pectoris Status: Acute Assessment and Plan: Patient has multivessel CAD and is awaiting CABG. Surgery has been postponed due to current UTI. No active ischemic symptoms at present. No acute ST changes on the EKG. -continue aspirin, low-dose beta-suresh, statin I spoke with patient's - Yumi over the phone and updated her about patient's clinical condition and management plan. History of Present Illness History of Present Illness Consult date/time: 02/19/21 09:26 DATE OF CONSULT: 02/19/2021 REASON FOR CONSULT: Coronary artery disease REQUESTING PHYSICIAN:Ariela Fofana NP CHIEF COMPLAINT: Generalized weakness HPI: 75-year-old male with multivessel CAD (awaiting surgical revascularization with CABG), hypertension, type 2 diabetes mellitus, history of CVA, secondary polycythemia. Patient was recently found to have multivessel CAD. His cardiac catheterization was performed in the setting of symptoms and abnormal MPI. Cardiac catheterization performed on 02/07/2021 showed multivessel CAD. The case was discussed with CT surgery at [facility], and patient was scheduled to undergo surgical revascularization 02/20/2021. Patient presented to [facility] on 02/18/2021 with severe generalized weakness. Information was gathered from the patient, from the staff, from review of chart and from patient's who I called over the phone. According to patient's , patient had generalized weakness, and slid off the bed. It was difficult to get him back to the bed. Patient had abrasions on the knees. EKG on my personal evaluation showed sinus rhythm, first-degree AV block, right bundle-branch block. First set of troponins were negative. Patient was found to have leukocytosis with left shift and UA was suggestive of UTI. Lactate was elevated at 3.0. Patient is receiving antibiotic treatment for UTI. CT chest reported chronic right hemidiaphragm elevation, bibasilar atelectasis, small homogeneous renal lesions most likely hemorrhagic cysts, no pulmonary emboli. Venous Doppler negative for DVT bilaterally. CABG has CABG has been postponed. Reason For Visit: Weakness/UTI Review of Systems Review of Systems: General: Positive for generalized weakness Psychological: Positive for anxiety Ophthalmic: negative for loss of vision ENT: Negative for epistaxis, headaches Allergy and immunology: Negative for hives, nasal congestion Hematologic and lymphatic: Negative for overt bleeding problems Endocrine: Negative for hot flashes, palpitations Respiratory: Positive for dyspnea on exertion Cardiovascular: Negative for chest pain, positive for dyspnea Gastrointestinal: Positive for abdominal pain Musculoskeletal: Positive for generalized fatigue and unstable gait Neurological: Positive for generalized weakness Genitourinary: Positive for dysuria Dermatological: Abrasions on the knees PMFSH Past Medical History Medical History Amputation toe Partial right toe amputation Arthritis Back pain SPINAL STENOSIS, cervical stenosis CKD (chronic kidney disease) stage 3, GFR 30-59 ml/min Diabetes Adult onset type 1 according to the with an insulin pump Di
[2021-02-19 11:57] LABS: Glucose Point of Care 276 mg/dl (65-105)
--- NOTE | 2021-02-19 15:12 | P.PNIM_ITS ---
Progress Note: A&P Assessment and Plan (1) UTI (urinary tract infection): Code(s): N39.0 - Urinary tract infection, site not specified Status: Acute Assessment and Plan: Presented with increased weakness and found to have abnormal UA * Continue with empiric IV Rocephin * Urine cultures are pending. Await results and tailor antibiotics accordingly (2) Sepsis: Code(s): A41.9 - Sepsis, unspecified organism Status: Acute Assessment and Plan: Septic on presentation with leukocytosis, fever, hypotension. Lactic acid 3.0 on presentation, improved to 1.1. * Continue empiric IV antibiotics as above * Blood cultures pending * Discontinue IV fluids as he has been adequately rehydrated and is tolerating p.o. intake * Monitor vital signs, intake and output, and labs (3) Fall: Code(s): W19.XXXA - Unspecified fall, initial encounter Status: Acute Assessment and Plan: Fell from his bed onto the floor. He hit his knees. He had no precipitating symptoms. He did not hit his head. * Denies knee pain or other body aches * Head CT and cervical spine CT with no evidence of injury. No acute intracranial findings. * Fall precautions * Appreciate PT/OT evals (4) Generalized weakness: Code(s): R53.1 - Weakness Status: Acute Assessment and Plan: May be secondary to UTI. * Treatment for UTI as above * Fall precautions, PT/OT as above * TSH is within normal limits. Will check B12 and folate. (5) CAD (coronary artery disease): Code(s): I25.10 - Atherosclerotic heart disease of [place] coronary artery without angina pectoris Status: Acute Assessment and Plan: Was scheduled for CABG at [facility] tomorrow, 02/20. * CABG has been postponed * He is being seen in consultation by Cardiology. Input is appreciated * He is asymptomatic at this time. * Continue aspirin, metoprolol, and rosuvastatin (6) CKD (chronic kidney disease) stage 3, GFR 30-59 ml/min: Code(s): N18.3 - Chronic kidney disease, stage 3 (moderate) Status: Acute Assessment and Plan: Patient reportedly has history of CKD stage 3 per EMR. Creatinine was 1.4 on presentation but has normalized with IV fluid rehydration. Creatinine is 1.0 today and GFR is >60 * Will continue to monitor renal function * IV fluids being discontinued as above * Avoid nephrotoxic agents (7) Secondary polycythemia: Code(s): D75.1 - Secondary polycythemia Status: Chronic Assessment and Plan: He is established with Hematology. Recently underwent workup that was reportedly negative for cancer or polycythemia vera. * Continue to monitor CBC * Outpatient hematology follow-up (8) Diabetes: Code(s): E11.9 - Type 2 diabetes mellitus without complications Status: Chronic Assessment and Plan: A1c is 7.6. * Typically uses insulin pump but did not want to continue upon admission as he reported feeling too ill * Continue with Accu-Cheks, sliding scale insulin, and hypoglycemic protocol * Continue home Januvia (9) HTN (hypertension): Code(s): I10 - Essential (primary) hypertension Status: Chronic Assessment and Plan: Blood pressure has been stable. Last BP 116/62. * Resume home metoprolol * Monitor blood pressure trends and adjust as needed. Subjective Date/time seen: 02/19/21 15:12 Interval histor
--- NOTE | 2021-02-19 15:12 | PM.IMPN ---
Progress Note: A&P Assessment and Plan (1) UTI (urinary tract infection): Code(s): N39.0 - Urinary tract infection, site not specified Status: Acute Assessment and Plan: Presented with increased weakness and found to have abnormal UA Continue with empiric IV Rocephin Urine cultures are pending. Await results and tailor antibiotics accordingly (2) Sepsis: Code(s): A41.9 - Sepsis, unspecified organism Status: Acute Assessment and Plan: Septic on presentation with leukocytosis, fever, hypotension. Lactic acid 3.0 on presentation, improved to 1.1. Continue empiric IV antibiotics as above Blood cultures pending Discontinue IV fluids as he has been adequately rehydrated and is tolerating p.o. intake Monitor vital signs, intake and output, and labs (3) Fall: Code(s): W19.XXXA - Unspecified fall, initial encounter Status: Acute Assessment and Plan: Fell from his bed onto the floor. He hit his knees. He had no precipitating symptoms. He did not hit his head. Denies knee pain or other body aches Head CT and cervical spine CT with no evidence of injury. No acute intracranial findings. Fall precautions Appreciate PT/OT evals (4) Generalized weakness: Code(s): R53.1 - Weakness Status: Acute Assessment and Plan: May be secondary to UTI. Treatment for UTI as above Fall precautions, PT/OT as above TSH is within normal limits. Will check B12 and folate. (5) CAD (coronary artery disease): Code(s): I25.10 - Atherosclerotic heart disease of [place] coronary artery without angina pectoris Status: Acute Assessment and Plan: Was scheduled for CABG at [facility] tomorrow, 02/20. CABG has been postponed He is being seen in consultation by Cardiology. Input is appreciated He is asymptomatic at this time. Continue aspirin, metoprolol, and rosuvastatin (6) CKD (chronic kidney disease) stage 3, GFR 30-59 ml/min: Code(s): N18.3 - Chronic kidney disease, stage 3 (moderate) Status: Acute Assessment and Plan: Patient reportedly has history of CKD stage 3 per EMR. Creatinine was 1.4 on presentation but has normalized with IV fluid rehydration. Creatinine is 1.0 today and GFR is >60 Will continue to monitor renal function IV fluids being discontinued as above Avoid nephrotoxic agents (7) Secondary polycythemia: Code(s): D75.1 - Secondary polycythemia Status: Chronic Assessment and Plan: He is established with Hematology. Recently underwent workup that was reportedly negative for cancer or polycythemia vera. Continue to monitor CBC Outpatient hematology follow-up (8) Diabetes: Code(s): E11.9 - Type 2 diabetes mellitus without complications Status: Chronic Assessment and Plan: A1c is 7.6. Typically uses insulin pump but did not want to continue upon admission as he reported feeling too ill Continue with Accu-Cheks, sliding scale insulin, and hypoglycemic protocol Continue home Januvia (9) HTN (hypertension): Code(s): I10 - Essential (primary) hypertension Status: Chronic Assessment and Plan: Blood pressure has been stable. Last BP 116/62. Resume home metoprolol Monitor blood pressure trends and adjust as needed. Subjective Date/time seen: 02/19/21 15:12 Interval history: Date of service: 02/19/2021 Tan Mendes is a 75-year-old male with a history of CKD, diabetes, hypertension, polycythemia, and stroke who is seen in follow-up for UTI. He is feeling pretty weak today. He states he was able to get up with assistance and ate lunch in chair. He felt very wobbly on his feet. He also felt a little dizzy when he first sat up. He denies nausea or vomiting. No fevers or chills. He denies dysuria, hematuria, urgency, or frequency. He stated last night he was up multiple times g
[2021-02-19 17:45] LABS: Glucose Point of Care 341 mg/dl (65-105)
[2021-02-19] MEDS: ROSUVASTATIN 10 MG TABLET 40 MG PO (22:07)
[2021-02-19] MEDS: LATANOPROST 0.005% OP SOLN 2.5 ML BTL 1 DROP LEFT EYE (22:07)
[2021-02-19] MEDS: traZODone HCL 50 MG TABLET 100 MG PO (22:07)
[2021-02-19 22:27] LABS: Glucose Point of Care 232 mg/dl (65-105)
[2021-02-20] VITALS (11 sets, daily range): BP systolic 121–160; BP diastolic 74–95; PULSE 60–84; RESP 18–20; TEMP 36.6–36.9; O2SAT 96–97
[2021-02-20 06:28] LABS: Hematocrit 49.7 % (42.0-52.0); Hemoglobin 16.6 g/dL (14.0-18.0); Mean Corpuscular HGB Conc 33.4 g/dl (32-36); Mean Corpuscular Hemoglobin 31.1 pg (26-34); Mean Corpuscular Volume 93.1 fl (80-100); Mean Platelet Volume 9.7 fl (7.4-10.4); Platelet Count Result 149 k/mm3 (150-375); Red Blood Count 5.34 M/mm3 (4.6-6.20); Red Cell Distribution Width 12.3 % (11.5-14.5); White Blood Count 12.8 K/mm3 (4.5-10.0)
[2021-02-20 07:03] LABS: Anion Gap 13 mmol/L (8-16); Blood Urea Nitrogen 30 mg/dL (9-20); Calcium 8.7 mg/dL (8.4-10.2); Carbon Dioxide 20 mmol/L (22-30); Chloride 103 mmol/L (98-107); Estimated CRCL calculation 50 ml/min; Estimated Glomerular Filt Rate 54; Glucose 265 mg/dL (65-110); Potassium 4.3 mmol/L (3.4-5.0); Sodium 136 mmol/L (137-145)
[2021-02-20 09:51] LABS: Glucose Point of Care 271 mg/dl (65-105)
[2021-02-20] MEDS: METOPROLOL TARTRATE 12.5 MG TABLET PO ×2 (10:23→21:47)
[2021-02-20] MEDS: TIMOLOL MALEATE 0.5% OP SOLN 5 ML BOTTLE 2 DROP EACH EYE ×2 (10:23→16:45)
[2021-02-20] MEDS: BRIMONIDINE TARTRATE 0.2% OP SOLN 5 ML BTL 2 DROP EACH EYE ×2 (10:23→16:45)
[2021-02-20] MEDS: ENOXAPARIN 40 MG/0.4 ML SYRINGE SUB-Q (10:23)
[2021-02-20] MEDS: ASPIRIN 81 MG ENTERIC TABLET PO ×2 (10:23→16:47)
[2021-02-20] MEDS: INSULIN ASPART (*BKC) 100 UNITS/ML SUB-Q (10:24)
[2021-02-20] MEDS: EUCERIN CREAM 120 GM JAR 1 APPLIC TOPICAL (10:24)
[2021-02-20] MEDS: SERTRALINE HCL 25 MG TABLET PO (10:24)
--- NOTE | 2021-02-20 11:01 | P.PNIM_ITS ---
Progress Note: A&P Assessment and Plan (1) UTI (urinary tract infection): Code(s): N39.0 - Urinary tract infection, site not specified Status: Acute Assessment and Plan: Presented with increased weakness and found to have abnormal UA * Continue with empiric IV Rocephin * Urine culture with >100,000 CFU E coli, susceptible to Rocephin (2) Sepsis: Code(s): A41.9 - Sepsis, unspecified organism Status: Acute Assessment and Plan: Septic on presentation with leukocytosis, fever, hypotension. Lactic acid 3.0 on presentation, improved to 1.1. * Continue IV antibiotics as above * Blood cultures pending; no growth to date * Fever has resolved, leukocytosis improving, blood pressure is remaining stable * Monitor vital signs, intake and output, and labs (3) Fall: Code(s): W19.XXXA - Unspecified fall, initial encounter Status: Acute Assessment and Plan: Fell from his bed onto the floor. He hit his knees. He had no precipitating symptoms. He did not hit his head. * Denies knee pain or other body aches * Head CT and cervical spine CT with no evidence of injury. No acute intracranial findings. * Fall precautions * Appreciate PT/OT evals (4) Generalized weakness: Code(s): R53.1 - Weakness Status: Acute Assessment and Plan: Acute on chronic issue. May be worsended secondary to UTI. He reports chronic weakness due to stroke and his notes recent deconditioning with him having lesser and lesser activity * Treatment for UTI as above * Fall precautions * Continue PT/OT. He wishes to return home with home health but is unable to get up from bed. Discussed skilled rehab with him but he would prefer not to. We will monitor todays therapy sessions. Appreciate care coordination consultation * TSH is within normal limits. B12 and folate pending (5) CAD (coronary artery disease): Code(s): I25.10 - Atherosclerotic heart disease of [place] coronary artery without angina pectoris Status: Acute Assessment and Plan: Was scheduled for CABG at [facility] [place] today * CABG has been postponed * He is being seen in consultation by Cardiology. Input is appreciated * He is asymptomatic at this time. * Continue aspirin, metoprolol, and rosuvastatin (6) CKD (chronic kidney disease) stage 3, GFR 30-59 ml/min: Code(s): N18.3 - Chronic kidney disease, stage 3 (moderate) Status: Acute Assessment and Plan: Patient reportedly has history of CKD stage 3 per EMR. Creatinine is stable and consistent with baseline. * Continue to monitor renal function * Avoid nephrotoxic agents (7) Secondary polycythemia: Code(s): D75.1 - Secondary polycythemia Status: Chronic Assessment and Plan: He is established with Hematology. Recently underwent workup that was reportedly negative for cancer or polycythemia vera. * Continue to monitor CBC * Outpatient hematology follow-up (8) Diabetes: Code(s): E11.9 - Type 2 diabetes mellitus without complications Status: Chronic Assessment and Plan: A1c is 7.6. Blood sugars elevated above target today in the 200s. * Discussed with patient and his . Pt would like to resume insulin pump. Will place orders to do so. * Continue with Accu-Cheks, sliding scale insulin, and hypoglycemic protocol * Continue home Januvia * Monitor glucose trends and adjust medication regimen as needed (9) HTN (hypertensio
--- NOTE | 2021-02-20 11:01 | PM.IMPN ---
Progress Note: A&P Assessment and Plan (1) UTI (urinary tract infection): Code(s): N39.0 - Urinary tract infection, site not specified Status: Acute Assessment and Plan: Presented with increased weakness and found to have abnormal UA Continue with empiric IV Rocephin Urine culture with >100,000 CFU E coli, susceptible to Rocephin (2) Sepsis: Code(s): A41.9 - Sepsis, unspecified organism Status: Acute Assessment and Plan: Septic on presentation with leukocytosis, fever, hypotension. Lactic acid 3.0 on presentation, improved to 1.1. Continue IV antibiotics as above Blood cultures pending; no growth to date Fever has resolved, leukocytosis improving, blood pressure is remaining stable Monitor vital signs, intake and output, and labs (3) Fall: Code(s): W19.XXXA - Unspecified fall, initial encounter Status: Acute Assessment and Plan: Fell from his bed onto the floor. He hit his knees. He had no precipitating symptoms. He did not hit his head. Denies knee pain or other body aches Head CT and cervical spine CT with no evidence of injury. No acute intracranial findings. Fall precautions Appreciate PT/OT evals (4) Generalized weakness: Code(s): R53.1 - Weakness Status: Acute Assessment and Plan: Acute on chronic issue. May be worsended secondary to UTI. He reports chronic weakness due to stroke and his notes recent deconditioning with him having lesser and lesser activity Treatment for UTI as above Fall precautions Continue PT/OT. He wishes to return home with home health but is unable to get up from bed. Discussed skilled rehab with him but he would prefer not to. We will monitor todays therapy sessions. Appreciate care coordination consultation TSH is within normal limits. B12 and folate pending (5) CAD (coronary artery disease): Code(s): I25.10 - Atherosclerotic heart disease of [place] coronary artery without angina pectoris Status: Acute Assessment and Plan: Was scheduled for CABG at [facility] today CABG has been postponed He is being seen in consultation by Cardiology. Input is appreciated He is asymptomatic at this time. Continue aspirin, metoprolol, and rosuvastatin (6) CKD (chronic kidney disease) stage 3, GFR 30-59 ml/min: Code(s): N18.3 - Chronic kidney disease, stage 3 (moderate) Status: Acute Assessment and Plan: Patient reportedly has history of CKD stage 3 per EMR. Creatinine is stable and consistent with baseline. Continue to monitor renal function Avoid nephrotoxic agents (7) Secondary polycythemia: Code(s): D75.1 - Secondary polycythemia Status: Chronic Assessment and Plan: He is established with Hematology. Recently underwent workup that was reportedly negative for cancer or polycythemia vera. Continue to monitor CBC Outpatient hematology follow-up (8) Diabetes: Code(s): E11.9 - Type 2 diabetes mellitus without complications Status: Chronic Assessment and Plan: A1c is 7.6. Blood sugars elevated above target today in the 200s. Discussed with patient and his . Pt would like to resume insulin pump. Will place orders to do so. Continue with Accu-Cheks, sliding scale insulin, and hypoglycemic protocol Continue home Januvia Monitor glucose trends and adjust medication regimen as needed (9) HTN (hypertension): Code(s): I10 - Essential (primary) hypertension Status: Chronic Assessment and Plan: Blood pressure has been stable. Last BP 144/78 Continue home metoprolol Monitor blood pressure trends and adjust as needed. Subjective Date/time seen: 02/20/21 11:01 Interval history: Date of service: 02/20/2021 Tan Mendes is a 75-year-old male with a history of CKD, diabetes, hypertension, polycythemia, and stroke who is seen in follow-up
[2021-02-20 13:07] LABS: Glucose Point of Care 256 mg/dl (65-105)
[2021-02-20 17:57] LABS: Glucose Point of Care 227 mg/dl (65-105)
--- NOTE | 2021-02-20 18:00 | PC.NURSE ---
Pt has a continuous insulin monitor. At 1755, pt monitor was reading 166, but our monitor read 227. He said he would not slide himself at all. I called Dr. De Oliveira. She said to use his monitor reading. When I went in to change his tele battery, he pulled up his monitor which showed a reading of 225 at 1805. He slid himself 10 units. I will pass this on to manufacturing supervisor 2nd shift.
[2021-02-20] MEDS: traZODone HCL 50 MG TABLET 100 MG PO (21:47)
[2021-02-20] MEDS: ROSUVASTATIN 10 MG TABLET 40 MG PO (21:47)
[2021-02-20] MEDS: LATANOPROST 0.005% OP SOLN 2.5 ML BTL 1 DROP LEFT EYE (21:51)
[2021-02-20 23:06] LABS: Glucose Point of Care 114 mg/dl (65-105)
[2021-02-21] VITALS (11 sets, daily range): BP systolic 130–148; BP diastolic 72–81; PULSE 58–72; RESP 18–20; TEMP 35.9–36.9; O2SAT 95–99
[2021-02-21 06:39] LABS: Hematocrit 48.7 % (42.0-52.0); Hemoglobin 16.3 g/dL (14.0-18.0); Mean Corpuscular HGB Conc 33.5 g/dl (32-36); Mean Corpuscular Hemoglobin 30.5 pg (26-34); Mean Platelet Volume 9.9 fl (7.4-10.4); Platelet Count Result 195 k/mm3 (150-375); Red Blood Count 5.35 M/mm3 (4.6-6.20); Red Cell Distribution Width 12.2 % (11.5-14.5); White Blood Count 11.3 K/mm3 (4.5-10.0)
[2021-02-21 06:49] LABS: Anion Gap 13 mmol/L (8-16); Blood Urea Nitrogen 37 mg/dL (9-20); Calcium 8.9 mg/dL (8.4-10.2); Carbon Dioxide 22 mmol/L (22-30); Chloride 102 mmol/L (98-107); Estimated CRCL calculation 41 ml/min; Estimated Glomerular Filt Rate 42; Glucose 112 mg/dL (65-110); Potassium 3.6 mmol/L (3.4-5.0); Sodium 137 mmol/L (137-145)
[2021-02-21] MEDS: ENOXAPARIN 40 MG/0.4 ML SYRINGE SUB-Q (09:07)
[2021-02-21] MEDS: METOPROLOL TARTRATE 12.5 MG TABLET PO ×2 (09:08→20:53)
[2021-02-21] MEDS: BRIMONIDINE TARTRATE 0.2% OP SOLN 5 ML BTL 2 DROP EACH EYE ×2 (09:09→17:13)
[2021-02-21] MEDS: SERTRALINE HCL 25 MG TABLET PO (09:09)
[2021-02-21] MEDS: EUCERIN CREAM 120 GM JAR 1 APPLIC TOPICAL (09:09)
[2021-02-21] MEDS: TIMOLOL MALEATE 0.5% OP SOLN 5 ML BOTTLE 2 DROP EACH EYE ×2 (09:09→17:14)
[2021-02-21 10:26] LABS: Glucose Point of Care 133 mg/dl (65-105)
[2021-02-21] MEDS: SODIUM CHLORIDE 0.9% IV 1,000 ML 100 ML IV CONT ×2 (10:26→21:20)
[2021-02-21] MEDS: ASPIRIN 81 MG ENTERIC TABLET PO ×2 (10:26→17:13)
[2021-02-21 11:54] LABS: Glucose Point of Care 157 mg/dl (65-105)
[2021-02-21 15:44] LABS: Albumin Level 4.2 g/dL (3.5-5.1); Anion Gap 13 mmol/L (8-16); Blood Urea Nitrogen 41 mg/dL (9-20); Calcium 8.6 mg/dL (8.4-10.2); Carbon Dioxide 22 mmol/L (22-30); Chloride 100 mmol/L (98-107); Estimated CRCL calculation 37 ml/min; Estimated Glomerular Filt Rate 37; Glucose 113 mg/dL (65-110); Phosphorus 4.5 mg/dL (2.5-4.5); Potassium 4.1 mmol/L (3.4-5.0); Sodium 135 mmol/L (137-145)
--- NOTE | 2021-02-21 16:02 | P.PNIM_ITS ---
Progress Note: A&P Assessment and Plan (1) UTI (urinary tract infection): Code(s): N39.0 - Urinary tract infection, site not specified Status: Acute Assessment and Plan: Presented with increased weakness and found to have abnormal UA * Continue with empiric IV Rocephin * Urine culture with >100,000 CFU E coli, susceptible to Rocephin (2) Sepsis: Code(s): A41.9 - Sepsis, unspecified organism Status: Acute Assessment and Plan: Septic on presentation with leukocytosis, fever, hypotension. Lactic acid 3.0 on presentation, improved to 1.1. * Continue IV antibiotics as above * Blood cultures pending; no growth to date * Fever has resolved, leukocytosis improving, blood pressure is remaining stable * Monitor vital signs, intake and output, and labs (3) Fall: Code(s): W19.XXXA - Unspecified fall, initial encounter Status: Acute Assessment and Plan: Fell from his bed onto the floor. He hit his knees. He had no precipitating symptoms. He did not hit his head. * Denies knee pain or other body aches * Head CT and cervical spine CT with no evidence of injury. No acute intracranial findings. * Fall precautions * Appreciate PT/OT evals (4) Generalized weakness: Code(s): R53.1 - Weakness Status: Acute Assessment and Plan: Acute on chronic issue. May be worsened secondary to UTI. He reports chronic weakness due to stroke and his notes recent deconditioning with him having lesser and lesser activity * Treatment for UTI as above * Fall precautions * Continue PT/OT. * TSH is within normal limits. B12 and folate pending * He has agreed to proceed with skilled rehab and has placement at [facility]. (5) CKD (chronic kidney disease) stage 3, GFR 30-59 ml/min: Code(s): N18.3 - Chronic kidney disease, stage 3 (moderate) Status: Acute Assessment and Plan: Baseline GFR is around 50-55. Patient is unaware of history of CKD. Creatinine increased up to 1.8 today with GFR down to 37. * Restarted on IV fluids. Patient admits he has not been drinking much. This may be acute on chronic prerenal etiology * No evidence of obstructive etiology. Bladder scan performed today with no evidence of retention. * May be related to infection, although he is improving from an infectious standpoint * Consider renal US and/or nephrology consultation if no improvement * Avoid nephrotoxic agents * Repeat BMP tomorrow (6) CAD (coronary artery disease): Code(s): I25.10 - Atherosclerotic heart disease of [place] coronary artery without angina pectoris Status: Acute Assessment and Plan: Was scheduled for CABG at [facility] yesterday, 02/20/2021 * CABG has been postponed * He is being seen in consultation by Cardiology. Input is appreciated * He is asymptomatic at this time. * Continue aspirin, metoprolol, and rosuvastatin (7) Secondary polycythemia: Code(s): D75.1 - Secondary polycythemia Status: Chronic Assessment and Plan: He is established with Hematology. Recently underwent workup that was reportedly negative for cancer or polycythemia vera. * Continue to monitor CBC * Outpatient hematology follow-up (8) Diabetes: Code(s): E11.9 - Type 2 diabetes mellitus without complications Status: Chronic Assessment and Plan: A1c is 7.6. Blood sugars improved since restarting insulin pump * Initially patient removed his insulin
--- NOTE | 2021-02-21 16:02 | PM.IMPN ---
Progress Note: A&P Assessment and Plan (1) UTI (urinary tract infection): Code(s): N39.0 - Urinary tract infection, site not specified Status: Acute Assessment and Plan: Presented with increased weakness and found to have abnormal UA Continue with empiric IV Rocephin Urine culture with >100,000 CFU E coli, susceptible to Rocephin (2) Sepsis: Code(s): A41.9 - Sepsis, unspecified organism Status: Acute Assessment and Plan: Septic on presentation with leukocytosis, fever, hypotension. Lactic acid 3.0 on presentation, improved to 1.1. Continue IV antibiotics as above Blood cultures pending; no growth to date Fever has resolved, leukocytosis improving, blood pressure is remaining stable Monitor vital signs, intake and output, and labs (3) Fall: Code(s): W19.XXXA - Unspecified fall, initial encounter Status: Acute Assessment and Plan: Fell from his bed onto the floor. He hit his knees. He had no precipitating symptoms. He did not hit his head. Denies knee pain or other body aches Head CT and cervical spine CT with no evidence of injury. No acute intracranial findings. Fall precautions Appreciate PT/OT evals (4) Generalized weakness: Code(s): R53.1 - Weakness Status: Acute Assessment and Plan: Acute on chronic issue. May be worsened secondary to UTI. He reports chronic weakness due to stroke and his notes recent deconditioning with him having lesser and lesser activity Treatment for UTI as above Fall precautions Continue PT/OT. TSH is within normal limits. B12 and folate pending He has agreed to proceed with skilled rehab and has placement at [facility]. (5) CKD (chronic kidney disease) stage 3, GFR 30-59 ml/min: Code(s): N18.3 - Chronic kidney disease, stage 3 (moderate) Status: Acute Assessment and Plan: Baseline GFR is around 50-55. Patient is unaware of history of CKD. Creatinine increased up to 1.8 today with GFR down to 37. Restarted on IV fluids. Patient admits he has not been drinking much. This may be acute on chronic prerenal etiology No evidence of obstructive etiology. Bladder scan performed today with no evidence of retention. May be related to infection, although he is improving from an infectious standpoint Consider renal US and/or nephrology consultation if no improvement Avoid nephrotoxic agents Repeat BMP tomorrow (6) CAD (coronary artery disease): Code(s): I25.10 - Atherosclerotic heart disease of [place] coronary artery without angina pectoris Status: Acute Assessment and Plan: Was scheduled for CABG at [facility] yesterday, 02/20/2021 CABG has been postponed He is being seen in consultation by Cardiology. Input is appreciated He is asymptomatic at this time. Continue aspirin, metoprolol, and rosuvastatin (7) Secondary polycythemia: Code(s): D75.1 - Secondary polycythemia Status: Chronic Assessment and Plan: He is established with Hematology. Recently underwent workup that was reportedly negative for cancer or polycythemia vera. Continue to monitor CBC Outpatient hematology follow-up (8) Diabetes: Code(s): E11.9 - Type 2 diabetes mellitus without complications Status: Chronic Assessment and Plan: A1c is 7.6. Blood sugars improved since restarting insulin pump Initially patient removed his insulin pump as he was feeling ill and did not want to manage this on his own. He has improved significantly and yesterday requested to resume insulin pump. Blood sugars remaining stable on pump. Continue with Accu-Cheks, sliding scale insulin, and hypoglycemic protocol Continue home Januvia Monitor glucose trends and adjust medication regimen as needed (9) HTN (hypertension): Code(s): I10 - Essential (primary) hypertension Status: Chronic Assessme
[2021-02-21 17:00] LABS: Glucose Point of Care 116 mg/dl (65-105)
[2021-02-21] MEDS: LORazepam INJ (*CRX) 2 MG/ML VIAL 0.5 MG IV PUSH (20:51)
[2021-02-21] MEDS: ROSUVASTATIN 10 MG TABLET 40 MG PO (20:52)
[2021-02-21] MEDS: traZODone HCL 50 MG TABLET 100 MG PO (20:52)
[2021-02-21] MEDS: LATANOPROST 0.005% OP SOLN 2.5 ML BTL 1 DROP LEFT EYE (20:54)
[2021-02-21 21:32] LABS: Glucose Point of Care 98 mg/dl (65-105)
[2021-02-22] VITALS (9 sets, daily range): BP systolic 139–141; BP diastolic 59–67; PULSE 60–80; RESP 12–18; TEMP 36.4–36.6; O2SAT 96–97
[2021-02-22] MEDS: LORazepam INJ (*CRX) 2 MG/ML VIAL 0.5 MG IV PUSH (00:50)
[2021-02-22] MEDS: SODIUM CHLORIDE 0.9% IV 1,000 ML 100 ML IV CONT ×2 (07:13→19:56)
[2021-02-22 07:35] LABS: Hematocrit 50.3 % (42.0-52.0); Mean Corpuscular HGB Conc 33.8 g/dl (32-36); Mean Corpuscular Volume 91.8 fl (80-100); Mean Platelet Volume 9.7 fl (7.4-10.4); Platelet Count Result 225 k/mm3 (150-375); Red Blood Count 5.48 M/mm3 (4.6-6.20); Red Cell Distribution Width 12.1 % (11.5-14.5); White Blood Count 11.3 K/mm3 (4.5-10.0)
[2021-02-22 07:56] LABS: Anion Gap 11 mmol/L (8-16); Blood Urea Nitrogen 39 mg/dL (9-20); Calcium 8.9 mg/dL (8.4-10.2); Carbon Dioxide 25 mmol/L (22-30); Chloride 103 mmol/L (98-107); Estimated CRCL calculation 39 ml/min; Estimated Glomerular Filt Rate 40; Glucose 141 mg/dL (65-110); Magnesium 1.9 mg/dL (1.6-2.3); Sodium 139 mmol/L (137-145)
[2021-02-22 08:06] LABS: Glucose Point of Care 143 mg/dl (65-105)
--- NOTE | 2021-02-22 08:59 | P.PNIM_ITS ---
Progress Note: A&P Assessment and Plan (1) UTI (urinary tract infection): Code(s): N39.0 - Urinary tract infection, site not specified Status: Acute Assessment and Plan: Presented with increased weakness and found to have abnormal UA * Continue with empiric IV Rocephin #5 * Urine culture with >100,000 CFU E coli, susceptible to Rocephin (2) Sepsis: Code(s): A41.9 - Sepsis, unspecified organism Status: Acute Assessment and Plan: Septic on presentation with leukocytosis, fever, hypotension. Lactic acid 3.0 on presentation, improved to 1.1. * Continue IV antibiotics as above * Blood cultures pending; no growth to date * Fever has resolved, leukocytosis improving, blood pressure is remaining stable * Monitor vital signs, intake and output, and labs (3) Fall: Code(s): W19.XXXA - Unspecified fall, initial encounter Status: Acute Assessment and Plan: Fell from his bed onto the floor. He hit his knees. He had no precipitating symptoms. He did not hit his head. * Denies knee pain or other body aches * Head CT and cervical spine CT with no evidence of injury. No acute intracranial findings. * Fall precautions * Appreciate PT/OT evals (4) Generalized weakness: Code(s): R53.1 - Weakness Status: Acute Assessment and Plan: Acute on chronic issue. May be worsened secondary to UTI. He reports chronic weakness due to stroke and his notes recent deconditioning with him having lesser and lesser activity * Treatment for UTI as above * Fall precautions * Continue PT/OT. * TSH is within normal limits. * B12 was low and so he will be started on IM Cyanocobalamin 1000 mcg for 3 days, then D/c on Cyanobalamin 1000 mcg PO daily to follow up with PCP * Folate normal * He has agreed to proceed with skilled rehab and has placement at [facility]. (5) CKD (chronic kidney disease) stage 3, GFR 30-59 ml/min: Code(s): N18.3 - Chronic kidney disease, stage 3 (moderate) Status: Acute Assessment and Plan: Baseline GFR is around 50-55. Patient is unaware of history of CKD. * 02/21: Creatinine increased up to 1.8 today with GFR down to 37. Restarted on IV fluids. Patient admits he has not been drinking much. This may be acute on chronic prerenal etiology vs IV Contrast from [facility] on 02/18 afternoon. * 02/22: Slight improvement with IV fluids, Cr 1.7, BUN 39 * Will order another Bladder Scan - * May be related to infection, although he is improving from an infectious standpoint * Will order a Renal US -____ * Avoid nephrotoxic agents * Repeat BMP tomorrow (6) CAD (coronary artery disease): Code(s): I25.10 - Atherosclerotic heart disease of [place] coronary artery without angina pectoris Status: Acute Assessment and Plan: Was scheduled for CABG at [facility] yesterday, 02/20/2021 * CABG has been postponed * He is being seen in consultation by Cardiology. Input is appreciated * He is asymptomatic at this time. * Continue aspirin, metoprolol, and rosuvastatin * Denies chest pain sx (7) Secondary polycythemia: Code(s): D75.1 - Secondary polycythemia Status: Chronic Assessment and Plan: He is established with Hematology. Recently underwent workup that was reportedly negative for cancer or polycythemia vera. * Continue to monitor CBC * Outpatient hematology follow-up (8) Diabetes: Code(s): E11.9 - Type 2 diabete
--- NOTE | 2021-02-22 08:59 | PM.IMPN ---
Progress Note: A&P Assessment and Plan (1) UTI (urinary tract infection): Code(s): N39.0 - Urinary tract infection, site not specified Status: Acute Assessment and Plan: Presented with increased weakness and found to have abnormal UA Continue with empiric IV Rocephin #5 Urine culture with >100,000 CFU E coli, susceptible to Rocephin (2) Sepsis: Code(s): A41.9 - Sepsis, unspecified organism Status: Acute Assessment and Plan: Septic on presentation with leukocytosis, fever, hypotension. Lactic acid 3.0 on presentation, improved to 1.1. Continue IV antibiotics as above Blood cultures pending; no growth to date Fever has resolved, leukocytosis improving, blood pressure is remaining stable Monitor vital signs, intake and output, and labs (3) Fall: Code(s): W19.XXXA - Unspecified fall, initial encounter Status: Acute Assessment and Plan: Fell from his bed onto the floor. He hit his knees. He had no precipitating symptoms. He did not hit his head. Denies knee pain or other body aches Head CT and cervical spine CT with no evidence of injury. No acute intracranial findings. Fall precautions Appreciate PT/OT evals (4) Generalized weakness: Code(s): R53.1 - Weakness Status: Acute Assessment and Plan: Acute on chronic issue. May be worsened secondary to UTI. He reports chronic weakness due to stroke and his notes recent deconditioning with him having lesser and lesser activity Treatment for UTI as above Fall precautions Continue PT/OT. TSH is within normal limits. B12 was low and so he will be started on IM Cyanocobalamin 1000 mcg for 3 days, then D/c on Cyanobalamin 1000 mcg PO daily to follow up with PCP Folate normal He has agreed to proceed with skilled rehab and has placement at [facility]. (5) CKD (chronic kidney disease) stage 3, GFR 30-59 ml/min: Code(s): N18.3 - Chronic kidney disease, stage 3 (moderate) Status: Acute Assessment and Plan: Baseline GFR is around 50-55. Patient is unaware of history of CKD. 02/21: Creatinine increased up to 1.8 today with GFR down to 37. Restarted on IV fluids. Patient admits he has not been drinking much. This may be acute on chronic prerenal etiology vs IV Contrast from CTA on 02/18 afternoon. 02/22: Slight improvement with IV fluids, Cr 1.7, BUN 39 Will order another Bladder Scan - May be related to infection, although he is improving from an infectious standpoint Will order a Renal US -____ Avoid nephrotoxic agents Repeat BMP tomorrow (6) CAD (coronary artery disease): Code(s): I25.10 - Atherosclerotic heart disease of [place] coronary artery without angina pectoris Status: Acute Assessment and Plan: Was scheduled for CABG at [facility] yesterday, 02/20/2021 CABG has been postponed He is being seen in consultation by Cardiology. Input is appreciated He is asymptomatic at this time. Continue aspirin, metoprolol, and rosuvastatin Denies chest pain sx (7) Secondary polycythemia: Code(s): D75.1 - Secondary polycythemia Status: Chronic Assessment and Plan: He is established with Hematology. Recently underwent workup that was reportedly negative for cancer or polycythemia vera. Continue to monitor CBC Outpatient hematology follow-up (8) Diabetes: Code(s): E11.9 - Type 2 diabetes mellitus without complications Status: Chronic Assessment and Plan: A1c is 7.6. Blood sugars improved since restarting insulin pump Initially patient removed his insulin pump as he was feeling ill and did not want to manage this on his own. He has improved significantly and yesterday requested to resume insulin pump. Blood sugars remaining stable on pump. Continue with Accu-Cheks, sliding scale insulin, and hypoglycemic protocol Continue home Shabnam Jeter
[2021-02-22] MEDS: METOPROLOL TARTRATE 12.5 MG TABLET PO ×2 (09:25→19:58)
[2021-02-22] MEDS: ENOXAPARIN 40 MG/0.4 ML SYRINGE SUB-Q (09:25)
[2021-02-22] MEDS: SERTRALINE HCL 25 MG TABLET PO (09:25)
[2021-02-22] MEDS: ASPIRIN 81 MG ENTERIC TABLET PO ×2 (09:25→17:09)
[2021-02-22] MEDS: CYANOCOBALAMIN INJ 1,000 MCG/ML VIAL 1000 MCG IM (09:27)
[2021-02-22] MEDS: TIMOLOL MALEATE 0.5% OP SOLN 5 ML BOTTLE 2 DROP EACH EYE ×2 (09:27→17:09)
[2021-02-22] MEDS: BRIMONIDINE TARTRATE 0.2% OP SOLN 5 ML BTL 2 DROP EACH EYE ×2 (09:27→17:09)
[2021-02-22] MEDS: EUCERIN CREAM 120 GM JAR 1 APPLIC TOPICAL (09:28)
[2021-02-22 12:10] LABS: Add Urine Microscopic? YES; Appearance Urine Clear (Clear); Bilirubin Urine Negative (Negative); Blood Urine 2+ (Negative); Color Urine Yellow (Yellow); Glucose Urine UA 2+ mg/dL (Negative); Ketones Urine Negative (Negative); Leukocyte Esterase Ur Trace LEU/UL (NEGATIVE); Nitrate Urine Negative (Negative); Protein Urine 1+ mg/dL (Negative); Specific Grav Ur 1.009 (1.001-1.035); Squamous Epithelial Cell Urine Rare /hpf (Few); Urobilinogen Urine Negative mg/dL (<2.0)
[2021-02-22 12:14] LABS: Glucose Point of Care 151 mg/dl (65-105)
[2021-02-22 16:59] LABS: Glucose Point of Care 92 mg/dl (65-105)
--- NOTE | 2021-02-22 18:01 | PC.NURSE ---
pt's called wanting an update on pt's status specifically if he was going to be discharged today. I answered her questions. I also informed her that pt c/o abdominal pain so I did a bladder scan which revealed that pt had more than 1000 mL of urine in the bladder. I also explained that the hospitalist ordered for a gonzales catheter to be inserted into pt which caused an immediate output of 2000 mL of urine. As a result of this, it is unlikely that pt would be discharged today as she was desiring. Pt's then stated that she believed the problem to this was pt's prostate.
[2021-02-22] MEDS: LATANOPROST 0.005% OP SOLN 2.5 ML BTL 1 DROP LEFT EYE (19:57)
[2021-02-22] MEDS: ROSUVASTATIN 10 MG TABLET 40 MG PO (20:03)
[2021-02-22] MEDS: traZODone HCL 50 MG TABLET 100 MG PO (20:03)
[2021-02-22 23:05] LABS: Glucose Point of Care 148 mg/dl (65-105)
[2021-02-23] VITALS (10 sets, daily range): BP systolic 140–156; BP diastolic 76–87; PULSE 58–76; RESP 16–19; TEMP 36.3–36.9; O2SAT 97–98
[2021-02-23 00:34] LABS: Glucose Point of Care 116 mg/dl (65-105)
[2021-02-23 07:17] LABS: Anion Gap 13 mmol/L (8-16); Blood Urea Nitrogen 29 mg/dL (9-20); Carbon Dioxide 21 mmol/L (22-30); Chloride 106 mmol/L (98-107); Estimated CRCL calculation 54 ml/min; Estimated Glomerular Filt Rate 59; Glucose 114 mg/dL (65-110); Potassium 4.1 mmol/L (3.4-5.0); Sodium 140 mmol/L (137-145)
[2021-02-23 08:32] LABS: Glucose Point of Care 122 mg/dl (65-105)
[2021-02-23] MEDS: TIMOLOL MALEATE 0.5% OP SOLN 5 ML BOTTLE 2 DROP EACH EYE ×2 (08:57→17:18)
[2021-02-23] MEDS: METOPROLOL TARTRATE 12.5 MG TABLET PO ×2 (08:58→19:44)
[2021-02-23] MEDS: BRIMONIDINE TARTRATE 0.2% OP SOLN 5 ML BTL 2 DROP EACH EYE ×2 (08:58→17:18)
[2021-02-23] MEDS: ENOXAPARIN 40 MG/0.4 ML SYRINGE SUB-Q (08:59)
[2021-02-23] MEDS: SERTRALINE HCL 25 MG TABLET PO (08:59)
[2021-02-23] MEDS: EUCERIN CREAM 120 GM JAR 1 APPLIC TOPICAL (08:59)
--- NOTE | 2021-02-23 09:42 | PM.IMPN ---
Progress Note: A&P Assessment and Plan (1) Urinary retention: Code(s): R33.9 - Retention of urine, unspecified Status: Acute Assessment and Plan: Found to be retaining 2L of urine in his bladder. Gonzales catheter placed and patient feeling much better. Now patients urine is blood tinged and dark in color. Talked to the Urologist who states its normal with the bladder being that distended and compresses to have some blood. As long as Gonzales is draining then not much else to be completed right now. Started Flomax Will continue IV fluids at this time and monitor gonzales color. Consulted Urology and appreciate input. (2) UTI (urinary tract infection): Code(s): N39.0 - Urinary tract infection, site not specified Status: Acute Assessment and Plan: Presented with increased weakness and found to have abnormal UA Continue with empiric IV Rocephin #6 Urine culture with >100,000 CFU E coli, susceptible to Rocephin (3) Sepsis: Code(s): A41.9 - Sepsis, unspecified organism Status: Acute Assessment and Plan: Septic on presentation with leukocytosis, fever, hypotension. Lactic acid 3.0 on presentation, improved to 1.1. Continue IV antibiotics as above Blood cultures pending; no growth to date Fever has resolved, leukocytosis improving, blood pressure is remaining stable Monitor vital signs, intake and output, and labs (4) Fall: Code(s): W19.XXXA - Unspecified fall, initial encounter Status: Acute Assessment and Plan: Fell from his bed onto the floor. He hit his knees. He had no precipitating symptoms. He did not hit his head. Denies knee pain or other body aches Head CT and cervical spine CT with no evidence of injury. No acute intracranial findings. Fall precautions Appreciate PT/OT evals (5) Generalized weakness: Code(s): R53.1 - Weakness Status: Acute Assessment and Plan: Acute on chronic issue. May be worsened secondary to UTI. He reports chronic weakness due to stroke and his notes recent deconditioning with him having lesser and lesser activity Treatment for UTI as above Fall precautions Continue PT/OT. TSH is within normal limits. B12 was low and so he will be started on IM Cyanocobalamin 1000 mcg for 3 days, then D/c on Cyanobalamin 1000 mcg PO daily to follow up with PCP Folate normal He has agreed to proceed with skilled rehab and has placement at [place]. (6) CKD (chronic kidney disease) stage 3, GFR 30-59 ml/min: Code(s): N18.3 - Chronic kidney disease, stage 3 (moderate) Status: Acute Assessment and Plan: Baseline GFR is around 50-55. Patient is unaware of history of CKD. 02/21: Creatinine increased up to 1.8 today with GFR down to 37. Restarted on IV fluids. Patient admits he has not been drinking much. This may be acute on chronic prerenal etiology vs IV Contrast from CTA on 02/18 afternoon. 02/22: Slight improvement with IV fluids, Cr 1.7, BUN 39 02/23: Cr 1.2 after urinary retention was resolved with Gonzales. Will continue IV fluids due to color or urine in gonzales bag. Renal US showed Left renal lesions consistent with cyst, corresponding to 2 of the lesions seen on CT. No hydronephrosis. Avoid nephrotoxic agents Repeat BMP tomorrow (7) CAD (coronary artery disease): Code(s): I25.10 - Atherosclerotic heart disease of [place] coronary artery without angina pectoris Status: Acute Assessment and Plan: Was scheduled for CABG at [facility] yesterday, 02/20/2021 CABG has been postponed He is being seen in consultation by Cardiology. Input is appreciated He is asymptomatic at this time. Continue aspirin, metoprolol, and rosuvastatin Denies chest pain sx (8) Secondary polycythemia: Code(s): D75.1 - Secondary polycythemia Status: Chronic Assessment and Plan: He is established with He
[2021-02-23] MEDS: ASPIRIN 81 MG ENTERIC TABLET PO ×2 (10:02→17:18)
[2021-02-23] MEDS: CYANOCOBALAMIN INJ 1,000 MCG/ML VIAL 1000 MCG IM (10:02)
[2021-02-23] MEDS: TAMSULOSIN HCL 0.4 MG CAPSULE PO (10:02)
[2021-02-23] MEDS: SODIUM CHLORIDE 0.9% IV 1,000 ML 100 ML IV CONT ×2 (10:03→21:50)
--- NOTE | 2021-02-23 10:10 | PC.NURSE ---
pt's called and wanted to know status of pt and whether he was being discharged today. I informed her that the hospitalist had called me to tell me she was discharging pt and to ignore the order to pull the gonzales as she wanted left in for another week. When I went to give pt his meds, he informed me that the hospitalist had been in 10 minutes earlier and she said he was not going to be discharged because of the color of his urine; however, she never said anything to me. I told pt's that once I knew something definitive, I would give her a call with an update.
--- NOTE | 2021-02-23 11:43 | PC.NURSE ---
spoke with pt's who had asked that I call her once I knew what was happening with pt and his possible discharge. I explained the hospitalist's concern regarding the color of pt's urine. I informed her that a consult with a urologist had been ordered and that we were waiting for that as to how to proceed.
[2021-02-23 11:53] LABS: Add Urine Microscopic? YES; Appearance Urine Clear (Clear); Bilirubin Urine Negative (Negative); Blood Urine 3+ (Negative); Color Urine Red (Yellow); Glucose Urine UA 1+ mg/dL (Negative); Ketones Urine Negative (Negative); Leukocyte Esterase Ur Trace LEU/UL (NEGATIVE); Mucus Urine Rare /lpf; Nitrate Urine Negative (Negative); Protein Urine 2+ mg/dL (Negative); RBC Urine >75 /hpf (0-2); Urobilinogen Urine Negative mg/dL (<2.0); WBC Urine >75 /hpf (0-3)
[2021-02-23 12:14] LABS: Glucose Point of Care 127 mg/dl (65-105)
--- NOTE | 2021-02-23 14:49 | PCOTNOTE ---
Attempted to see pt 2x this PM for Occupational therapy, however, pt refused both times due to poor sleep the night before and feeling fatigued. RN was made aware of pt's refusal. Will continue per poc duration/frequency tomorrow.
[2021-02-23 17:10] LABS: Glucose Point of Care 142 mg/dl (65-105)
[2021-02-23] MEDS: ROSUVASTATIN 10 MG TABLET 40 MG PO (19:49)
[2021-02-23] MEDS: traZODone HCL 50 MG TABLET 100 MG PO (19:49)
[2021-02-23] MEDS: LATANOPROST 0.005% OP SOLN 2.5 ML BTL 1 DROP LEFT EYE (19:50)
[2021-02-23] MEDS: LORazepam INJ (*CRX) 2 MG/ML VIAL 0.5 MG IV PUSH (20:24)
[2021-02-23 22:13] LABS: Glucose Point of Care 168 mg/dl (65-105)
[2021-02-24 06:00] VITALS: BP 143/88; PULSE 69; RESP 18; TEMP 36.2; O2SAT 99
[2021-02-24 07:40] LABS: Hematocrit 47.8 % (42.0-52.0); Hemoglobin 16.2 g/dL (14.0-18.0); Mean Corpuscular HGB Conc 33.9 g/dl (32-36); Mean Corpuscular Hemoglobin 30.7 pg (26-34); Mean Corpuscular Volume 90.7 fl (80-100); Mean Platelet Volume 9.5 fl (7.4-10.4); Platelet Count Result 218 k/mm3 (150-375); Red Blood Count 5.27 M/mm3 (4.6-6.20); Red Cell Distribution Width 11.9 % (11.5-14.5); White Blood Count 11.2 K/mm3 (4.5-10.0)
[2021-02-24 07:58] LABS: Anion Gap 10 mmol/L (8-16); Blood Urea Nitrogen 17 mg/dL (9-20); Calcium 8.9 mg/dL (8.4-10.2); Carbon Dioxide 30 mmol/L (22-30); Chloride 101 mmol/L (98-107); Estimated CRCL calculation 65 ml/min; Estimated Glomerular Filt Rate > 60; Glucose 160 mg/dL (65-110); Potassium 3.6 mmol/L (3.4-5.0); Sodium 141 mmol/L (137-145)
[2021-02-24 08:21] LABS: Glucose Point of Care 149 mg/dl (65-105)
[2021-02-24] MEDS: SODIUM CHLORIDE 0.9% IV 1,000 ML 100 ML IV CONT (08:50)
[2021-02-24] MEDS: TIMOLOL MALEATE 0.5% OP SOLN 5 ML BOTTLE 2 DROP EACH EYE ×2 (08:51→17:04)
[2021-02-24 08:52] VITALS: PULSE 70
[2021-02-24] MEDS: METOPROLOL TARTRATE 12.5 MG TABLET PO ×2 (08:52→20:26)
[2021-02-24] MEDS: EUCERIN CREAM 120 GM JAR 1 APPLIC TOPICAL (08:52)
[2021-02-24] MEDS: ENOXAPARIN 40 MG/0.4 ML SYRINGE SUB-Q (08:52)
[2021-02-24] MEDS: BRIMONIDINE TARTRATE 0.2% OP SOLN 5 ML BTL 2 DROP EACH EYE ×2 (08:52→17:05)
[2021-02-24] MEDS: ASPIRIN 81 MG ENTERIC TABLET PO ×2 (08:53→17:04)
[2021-02-24] MEDS: TAMSULOSIN HCL 0.4 MG CAPSULE PO ×2 (08:54→20:25)
[2021-02-24] MEDS: SERTRALINE HCL 25 MG TABLET PO (08:54)
[2021-02-24] MEDS: CYANOCOBALAMIN INJ 1,000 MCG/ML VIAL 1000 MCG IM (08:56)
[2021-02-24 11:54] LABS: Glucose Point of Care 199 mg/dl (65-105)
--- NOTE | 2021-02-24 13:22 | P.PNIM_ITS ---
Progress Note: A&P Assessment and Plan (1) Urinary retention: Code(s): R33.9 - Retention of urine, unspecified Status: Acute Assessment and Plan: Found to be retaining 2L of urine in his bladder. Gonzales catheter placed and patient feeling much better. Now patients urine is blood tinged and dark in color. * Talked to the Urologist who states its normal with the bladder being that distended and compresses to have some blood. As long as Gonzales is draining then not much else to be completed right now. * Continue Flomax Will continue IV fluids at this time and monitor gonzales color. Consulted Urology and appreciate input. (2) UTI (urinary tract infection): Code(s): N39.0 - Urinary tract infection, site not specified Status: Acute Assessment and Plan: Presented with increased weakness and found to have abnormal UA * Continue with empiric IV Rocephin #7- Will need 10 days for UTI in males * Urine culture with >100,000 CFU E coli, susceptible to Rocephin (3) Sepsis: Code(s): A41.9 - Sepsis, unspecified organism Status: Acute Assessment and Plan: Septic on presentation with leukocytosis, fever, hypotension. Lactic acid 3.0 on presentation, improved to 1.1. * Continue IV antibiotics as above * Blood cultures pending; no growth to date * Fever has resolved, leukocytosis improving, blood pressure is remaining stable * Monitor vital signs, intake and output, and labs (4) Fall: Code(s): W19.XXXA - Unspecified fall, initial encounter Status: Acute Assessment and Plan: Fell from his bed onto the floor. He hit his knees. He had no precipitating symptoms. He did not hit his head. * Denies knee pain or other body aches * Head CT and cervical spine CT with no evidence of injury. No acute intracranial findings. * Fall precautions * Appreciate PT/OT evals (5) Generalized weakness: Code(s): R53.1 - Weakness Status: Acute Assessment and Plan: Acute on chronic issue. May be worsened secondary to UTI. He reports chronic weakness due to stroke and his notes recent deconditioning with him having lesser and lesser activity * Treatment for UTI as above * Fall precautions * Continue PT/OT. * TSH is within normal limits. * B12 was low and so he will be started on IM Cyanocobalamin 1000 mcg for 3 days, then D/c on Cyanobalamin 1000 mcg PO daily to follow up with PCP * Folate normal * He has agreed to proceed with skilled rehab and has placement at [facility]. (6) CKD (chronic kidney disease) stage 3, GFR 30-59 ml/min: Code(s): N18.3 - Chronic kidney disease, stage 3 (moderate) Status: Acute Assessment and Plan: Baseline GFR is around 50-55. Patient is unaware of history of CKD. * 02/21: Creatinine increased up to 1.8 today with GFR down to 37. Restarted on IV fluids. Patient admits he has not been drinking much. This may be acute on chronic prerenal etiology vs IV Contrast from CTA on 02/18 afternoon. * 02/22: Slight improvement with IV fluids, Cr 1.7, BUN 39 * 02/23: Cr 1.2 after urinary retention was resolved with Gonzales. Will continue IV fluids due to color or urine in gonzales bag. * 02/24: Cr 1.0 improved. Will discontinue IV fluids * Renal US showed Left renal lesions consistent with cyst, corresponding to 2 of the lesions seen on CT. No hydronephrosis. * Avoid nephrotoxic agents * Repeat BMP tomorrow (7) CAD (coronary artery disease): Code(s): I25.10 - Atherosclerotic heart disease of [place]
--- NOTE | 2021-02-24 13:22 | PM.IMPN ---
Progress Note: A&P Assessment and Plan (1) Urinary retention: Code(s): R33.9 - Retention of urine, unspecified Status: Acute Assessment and Plan: Found to be retaining 2L of urine in his bladder. Gonzales catheter placed and patient feeling much better. Now patients urine is blood tinged and dark in color. Talked to the Urologist who states its normal with the bladder being that distended and compresses to have some blood. As long as Gonzales is draining then not much else to be completed right now. Continue Flomax Will continue IV fluids at this time and monitor gonzales color. Consulted Urology and appreciate input. (2) UTI (urinary tract infection): Code(s): N39.0 - Urinary tract infection, site not specified Status: Acute Assessment and Plan: Presented with increased weakness and found to have abnormal UA Continue with empiric IV Rocephin #7- Will need 10 days for UTI in males Urine culture with >100,000 CFU E coli, susceptible to Rocephin (3) Sepsis: Code(s): A41.9 - Sepsis, unspecified organism Status: Acute Assessment and Plan: Septic on presentation with leukocytosis, fever, hypotension. Lactic acid 3.0 on presentation, improved to 1.1. Continue IV antibiotics as above Blood cultures pending; no growth to date Fever has resolved, leukocytosis improving, blood pressure is remaining stable Monitor vital signs, intake and output, and labs (4) Fall: Code(s): W19.XXXA - Unspecified fall, initial encounter Status: Acute Assessment and Plan: Fell from his bed onto the floor. He hit his knees. He had no precipitating symptoms. He did not hit his head. Denies knee pain or other body aches Head CT and cervical spine CT with no evidence of injury. No acute intracranial findings. Fall precautions Appreciate PT/OT evals (5) Generalized weakness: Code(s): R53.1 - Weakness Status: Acute Assessment and Plan: Acute on chronic issue. May be worsened secondary to UTI. He reports chronic weakness due to stroke and his notes recent deconditioning with him having lesser and lesser activity Treatment for UTI as above Fall precautions Continue PT/OT. TSH is within normal limits. B12 was low and so he will be started on IM Cyanocobalamin 1000 mcg for 3 days, then D/c on Cyanobalamin 1000 mcg PO daily to follow up with PCP Folate normal He has agreed to proceed with skilled rehab and has placement at [place]. (6) CKD (chronic kidney disease) stage 3, GFR 30-59 ml/min: Code(s): N18.3 - Chronic kidney disease, stage 3 (moderate) Status: Acute Assessment and Plan: Baseline GFR is around 50-55. Patient is unaware of history of CKD. 02/21: Creatinine increased up to 1.8 today with GFR down to 37. Restarted on IV fluids. Patient admits he has not been drinking much. This may be acute on chronic prerenal etiology vs IV Contrast from CTA on 02/18 afternoon. 02/22: Slight improvement with IV fluids, Cr 1.7, BUN 39 02/23: Cr 1.2 after urinary retention was resolved with Gonzales. Will continue IV fluids due to color or urine in gonzales bag. 02/24: Cr 1.0 improved. Will discontinue IV fluids Renal US showed Left renal lesions consistent with cyst, corresponding to 2 of the lesions seen on CT. No hydronephrosis. Avoid nephrotoxic agents Repeat BMP tomorrow (7) CAD (coronary artery disease): Code(s): I25.10 - Atherosclerotic heart disease of [place] coronary artery without angina pectoris Status: Acute Assessment and Plan: Was scheduled for CABG at [facility] yesterday, 02/20/2021 CABG has been postponed He is being seen in consultation by Cardiology. Input is appreciated He is asymptomatic at this time. Continue aspirin, metoprolol, and rosuvastatin Denies chest pain sx (8) Secondary polycythemia: Code(s): D75.1 - Secondary
[2021-02-24 14:00] VITALS: BP 140/73; PULSE 66; RESP 24; TEMP 36.5; O2SAT 97
--- NOTE | 2021-02-24 14:27 | WPDURCON ---
Assessment and Plan Assessment and plan (1) Urinary retention: Code(s): R33.9 - Retention of urine, unspecified Status: Acute Assessment and Plan: Multifactorial. Could be due to a combination of things including BPH, urinary tract infection, weakness. Two years noted upon Patrick catheter placement. His urine is clearing. His prostate is 30 g on exam. I would initiate tamsulosin 0.4 mg nightly. Continue Patrick catheter for now. Can have a voiding trial once he has been on tamsulosin for 4-5 days. If he still here in the hospital should be discharged home with a Patrick catheter and outpatient follow-up. If still hospital CT was voiding trial here (2) UTI (urinary tract infection): Code(s): N39.0 - Urinary tract infection, site not specified Status: Acute Assessment and Plan: Previous culture showed E coli. Current culture is pending. Treat with culture specific antibiotics Urology Consult Note HPI Date Seen: 02/24/21 Requesting Physician: Shira Krishna PA-C Primary Care Provider: Chris Ellison, Consult Narrative Narrative: Tan Mendes is a 75 year old male who is admitted to the hospital for weakness and a fall. He was said to have open heart surgery a week ago. He was found have a positive urine culture of E coli on 02/18/2021. Patrick catheter was placed during this admission with 2 L residual urine. The patient states he has not been on prostate medication in the past. He does not to torse a weak urinary stream that is been going on for quite a while. It is somewhat difficult to get a full history from him. He denies symptoms of urinary tract infection or recurrent urinary tract infections. He is tolerating his Patrick catheter. Review of Systems Review of Systems: As per history of present illness. But most notable for generalized weakness All systems reviewed & are unremarkable except as noted in HPI and below PMFSH Past Medical History Medical History Amputation toe Partial right toe amputation Arthritis Back pain SPINAL STENOSIS, cervical stenosis CKD (chronic kidney disease) stage 3, GFR 30-59 ml/min Diabetes Adult onset type 1 according to the with an insulin pump Diabetic neuropathy Glaucoma L EYE WITH SHUNT PLACEMENT HTN (hypertension) Hypercholesterolemia Neurological disorder NEUROPATHY Obesity Secondary polycythemia Secondary to heart disease. Stroke x 4 Surgical History Surgical History H/O bilateral cataract extraction H/O cataract extraction H/O cervical spine surgery Fusion H/O toe surgery Partial right toe amputated due to infected H/O umbilical hernia repair Family History Family History Father Cerebrovascular accident Family history of diabetes mellitus in first degree relative Mother Family history of diabetes mellitus in first degree relative Family history of congestive heart failure Social History Social History Social History: The patient lives with his Lesvia who is the durable power upholstery department supervisor for healthcare. She is agreeable to keeping the patient full code at this time however the patient does not want to live in a vegetative state. The patient is a former smoker. He occasionally has a glass wine maybe twice a month. He has 4 children. 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 Code status full Years smoked: 20 Smoking status: Former smoker Alcohol intake: current Drinks per week: 2 Substance use: never Gender identity (if verbalized by the patient): Male Spiritual care concerns: No Meds Home Medications and Allergies Home Medications Medication Instructions Recorded Confirmed Type Combigan 2 drp OPHTHALMIC (EYE) BID 05/07/19 02/18/21 History Januvia 100 mg PO
[2021-02-24 17:10] LABS: Glucose Point of Care 173 mg/dl (65-105)
[2021-02-24 20:00] VITALS: PULSE 64; RESP 18; O2SAT 96
[2021-02-24 20:19] LABS: Glucose Point of Care 153 mg/dl (65-105)
[2021-02-24] MEDS: ROSUVASTATIN 10 MG TABLET 40 MG PO (20:23)
[2021-02-24] MEDS: LATANOPROST 0.005% OP SOLN 2.5 ML BTL 1 DROP LEFT EYE (20:23)
[2021-02-24] MEDS: traZODone HCL 50 MG TABLET 100 MG PO (20:25)
[2021-02-24 20:26] VITALS: PULSE 60
[2021-02-24] MEDS: LORazepam INJ (*CRX) 2 MG/ML VIAL 0.5 MG IV PUSH (21:57)
[2021-02-24 22:00] VITALS: BP 150/54; PULSE 64; RESP 18; TEMP 36.7; O2SAT 96
[2021-02-25 06:00] VITALS: BP 128/70; PULSE 73; RESP 18; TEMP 36.2; O2SAT 96
[2021-02-25 06:47] LABS: Anion Gap 11 mmol/L (8-16); Blood Urea Nitrogen 15 mg/dL (9-20); Calcium 8.9 mg/dL (8.4-10.2); Carbon Dioxide 27 mmol/L (22-30); Chloride 100 mmol/L (98-107); Estimated CRCL calculation 71 ml/min; Estimated Glomerular Filt Rate > 60; Glucose 149 mg/dL (65-110); Potassium 3.6 mmol/L (3.4-5.0); Sodium 138 mmol/L (137-145)
[2021-02-25 08:22] LABS: Glucose Point of Care 157 mg/dl (65-105)
[2021-02-25 09:23] VITALS: PULSE 70
[2021-02-25] MEDS: CYANOCOBALAMIN 1,000 MCG TABLET 1000 MCG PO (09:23)
[2021-02-25] MEDS: METOPROLOL TARTRATE 12.5 MG TABLET PO (09:23)
[2021-02-25] MEDS: ASPIRIN 81 MG ENTERIC TABLET PO (09:23)
[2021-02-25] MEDS: BRIMONIDINE TARTRATE 0.2% OP SOLN 5 ML BTL 2 DROP EACH EYE (09:24)
[2021-02-25] MEDS: ENOXAPARIN 40 MG/0.4 ML SYRINGE SUB-Q (09:24)
[2021-02-25] MEDS: TIMOLOL MALEATE 0.5% OP SOLN 5 ML BOTTLE 2 DROP EACH EYE (09:25)
[2021-02-25] MEDS: EUCERIN CREAM 120 GM JAR 1 APPLIC TOPICAL (09:25)
[2021-02-25] MEDS: SERTRALINE HCL 25 MG TABLET PO (09:25)
--- NOTE | 2021-02-25 09:53 | PM.DS ---
DS: Admitting Diagnosis Discharge Date 02/25/21 Admitting Diagnosis Weakness DS: Discharge Diagnosis Discharge Diagnosis (1) Urinary retention: Code(s): R33.9 - Retention of urine, unspecified Status: Acute Assessment and Plan: Patient is a 75-year-old man with a history of coronary artery disease, who is scheduled to have an open heart surgery for CABG on 02/21/2021 at [facility], who presented to the emergency room with increased weakness and he had fallen and was unable to get himself up. He is brought to emergency room by his for further evaluation and monitoring. Initial vitals showed low-normal blood pressure 102/52, normal heart rate 70, low-grade fever 99.2, and 96% on 4 L of oxygen after being found hypoxic via EMS in 80s. Initial labs showed leukocytosis at 15,000, normal H&H. Elevated D-dimer 1.62. Creatinine 1.4, BUN 26 which shows QUINN. Elevated lactic at 3.0. Normal LFTs. Normal troponin. Urinalysis showing cloudy urine with 3+ blood, 2+ leukocyte esterase, greater than 75 WBCs concerning for UTI. Chest x-ray showed no acute signs of pneumonia. CT brain and cervical spine showed no acute changes. CTA chest showed no PE and no acute changes. The patient was admitted to the hospital with IV antibiotics with improvement of his symptoms. Urine culture grew E coli with sensitivity to IV Rocephin. During the patient's admission he reported some lower abdominal pain and was found to have urinary retention retaining 2 L of urine in his bladder. A Patrick catheter was placed and Flomax was started. His urine remained dark in color and blood tinged so Urology was consulted for further recommendations. Each day his urine has cleared up and was last dark today. Urology recommends continuing Patrick catheter at this time for at least 5 days and can attempt a voiding trial. I also recommend follow up with Urology in 1 week for further Urology testing and workup. Continue on Flomax. Continue on oral antibiotics for few more days for UTI treatment, 10 days in men. He is otherwise feeling well without any concerns at this time. He needs to follow-up with cardiology for further recommendations and rescheduling of his CABG surgery. Follow-up with PCP in 1 week. Return to ER warnings given. The patient understands agrees the plan all questions answered. (2) UTI (urinary tract infection): Code(s): N39.0 - Urinary tract infection, site not specified Status: Acute Assessment and Plan: Presented with increased weakness and found to have abnormal UA Continue with empiric IV Rocephin #8- Will need 10 days for UTI in males Urine culture with >100,000 CFU E coli, susceptible to Rocephin (3) Sepsis: Code(s): A41.9 - Sepsis, unspecified organism Status: Acute Assessment and Plan: Resolved. (4) Fall: Code(s): W19.XXXA - Unspecified fall, initial encounter Status: Acute Assessment and Plan: He is going to [facility] facility for further PT/OT therapy. (5) Generalized weakness: Code(s): R53.1 - Weakness Status: Acute Assessment and Plan: Chronic from UTI but also found to have low B12 and was again IM Cyanocobalamin 1000 mcg for 3 days, then D/c on Cyanobalamin 1000 mcg PO daily to follow up with PCP (6) CKD (chronic kidney disease) stage 3, GFR 30-59 ml/min: Code(s): N18.3 - Chronic kidney disease, stage 3 (moderate) Status: Acute Assessment and Plan: Baseline GFR is around 50-55. Patient is unaware of history of CKD. 02/21: Creatinine increased up to 1.8 today with GFR down to 37. Restarted on IV fluids. Patient admits he has not been drinking much. This may be acute on chronic prerenal etiology vs IV Contrast from CTA on 02/18 afternoon. 02/22: Slight improvement with IV fluids, Cr 1.7, BUN 39 02/23: Cr 1.2 after urinary retention was resolved with Patrick. Will continue IV fluids due to color
[2021-02-25 10:41] LABS: EDCOVIDSCREEN Negative (Negative)
== END 2021-02-25 11:20 | DRG 872 ==
LOC: ANHED 09:40 → ANH3MEDSUR 02-19 07:55
PROVIDERS: Nurse Practitioner; Physician Assistant; Admitting Provider Internal Medicine; Emergency Provider Emergency Medicine; PCP Internal Medicine; Visit Provider Physician Assistant
DX: A41.9 Sepsis, unspecified organism (principal); N39.0 Urinary tract infection, site not specified; B96.20 Unspecified Escherichia coli [E. coli] as the cause of diseases classified elsewhere; Z20.822 Contact with and (suspected) exposure to COVID-19; I12.9 Hypertensive chronic kidney disease with stage 1 through stage 4 chronic kidney disease, or unspecified chronic kidney disease; E10.22 Type 1 diabetes mellitus with diabetic chronic kidney disease; N18.30 Chronic kidney disease, stage 3 unspecified; E10.42 Type 1 diabetes mellitus with diabetic polyneuropathy; D75.1 Secondary polycythemia; I25.10 Atherosclerotic heart disease of native coronary artery without angina pectoris; R33.9 Retention of urine, unspecified; W19.XXXA Unspecified fall, initial encounter; M19.90 Unspecified osteoarthritis, unspecified site; H40.9 Unspecified glaucoma; E66.9 Obesity, unspecified; Z68.34 Body mass index [BMI] 34.0-34.9, adult; Z95.1 Presence of aortocoronary bypass graft; Z86.73 Personal history of transient ischemic attack (TIA), and cerebral infarction without residual deficits; Z98.42 Cataract extraction status, left eye; Z98.41 Cataract extraction status, right eye; Z98.1 Arthrodesis status; Z87.891 Personal history of nicotine dependence; Z79.4 Long term (current) use of insulin
CPT/HCPCS: 36415; 70450; 71046; 71275; 72125; 76775; 80048; 80053; 80069; 81001; 82607; 82728; 82746; 82948; 83036; 83605; 83615; 83735; 84443; 84484; 85025; 85027; 85380; 86140; 87040; 87077; 87086; 87088; 87186; 87426; 93005; 93970; 96360; 97110; 97116; 97162; 97166; 97530; 97535; 99285; A9270; C9803; J0696; J1650; J1815; J2060; J3420; J7030; J7050; Q9967

== ENCOUNTER 2021-07-23 07:14 | Emergency (ER) | payer MEDICARE, SELFPAY ==
[2021-07-23] VITALS (12 sets, daily range): BP systolic 102–132; BP diastolic 52–78; PULSE 72–77; RESP 14–25; TEMP 37.2; O2SAT 92–98
--- NOTE | ~2021-07-23 | CT_ITS ---
EXAMINATION: CT cervical spine wo con DATE: 07/23/2021 07:46 INDICATION: Fall with head injury TECHNIQUE: Computed tomography (CT) of the cervical spine was performed without intravenous contrast. Automated exposure control and iterative reconstruction technique were employed. The dose-length pro duct was 453.71 mGy-cm. COMPARISON: 02/18/2021 FINDINGS: Alignment is normal. Severe osteoarthritis at the atlantoaxial articulation. Anterior spinal fusion w ith anterior plate and screw fixation at C4-C6. Vertebral body heights are normal. No fracture. Moder ate disc height loss at C6-C7, mild disc height loss at C2-C3, C3-C4 and at the visualized upper thor acic spine. Severe facet osteoarthritis on the right at C2-C3 and C3-C4 and bilaterally at C7-T1 and moderate throughout the remainder of the cervical spine. Disc bulges at C2-C3, C3-C4 and C6-C7 result ing in mild central canal stenosis at these levels. There is also multilevel mild to moderate neural foraminal stenosis throughout the cervical spine with slight right-sided predominance. A few likely b enign subcentimeter thyroid nodules. Atherosclerotic calcification at the bilateral carotid bulbs. Ce rvical soft tissues are otherwise unremarkable. Visualized airway and apices of the lungs are clear. IMPRESSION: 1. No acute osseous abnormality. 2. Intact instrumented anterior spinal fusion at C4-C6. 3. Moderate to severe cervical spondylosis. Reviewed, dictated and finalized at location A.
--- NOTE | ~2021-07-23 | CT_ITS ---
EXAMINATION: CT brain wo con DATE: 07/23/2021 07:46 INDICATION: Anticoagulated patient with head injury post fall with facial abrasions. TECHNIQUE: Computed tomography (CT) of the head was performed without intravenous contrast. Sagittal and coronal reconstructions were performed. The mA was adjusted according to patient size. Iterative reconstruction technique was employed. The dose-length product was 605.33 mGy-cm. COMPARISON: head CT dated 02/18/2021 FINDINGS: Left frontal scalp hematoma. High attenuation layering fluid likely blood within the right maxillary sinus. No evident calvarial or maxillofacial fractures identified. Small regions of encephalomalacia in the right frontal lobe consistent with chronic infarcts. Additional small old lacunar infarcts at the bilateral thalami and left kin. There is moderate scattered white matter hypoattenuation consist ent with chronic small vessel ischemic disease. No acute intracranial hemorrhage, acute infarction or abnormal extra axial fluid collection. Symmetric prominence of the sulci consistent with mild age-ap propriate diffuse cerebral volume loss. Ventricles are normal and symmetric. No mass/mass effect. Th e orbits and mastoid air cells are normal. Additional mild mucosal thickening the left maxillary and bilateral ethmoid sinuses. Intracranial calcified cerebral atherosclerosis is noted. IMPRESSION: 1. Left frontal scalp hematoma and layering blood in the right maxillary sinus without evident calvar ial or maxillofacial fractures. 2. Chronic infarcts in the right frontal lobe, bilateral thalami and left kin. No acute intracranial process. 3. Age-related changes including mild diffuse volume loss and moderate scattered white matter hypoatt enuation consistent with chronic small vessel ischemic disease. Reviewed, dictated and finalized at location A. IMPRESSION: 1. Left frontal scalp hematoma and layering blood in the right maxillary sinus without evident calvarial or maxillofacial fractures. 2. Chronic infarcts in the right frontal lobe, bilateral thalami and left kin. No acute intracranial process. 3. Age-related changes including mild diffuse volume loss and moderate scattere d white matter hypoattenuation consistent with chronic small vessel ischemic di sease.
--- NOTE | 2021-07-23 07:32 | PC.NURSE ---
Bed alarm pt under pt. Yellow sign placed outside door. Yellow fall risk band applied. Pt informed to stay in strecher. Pt continues to ask Can you please take me outside RN informed pt of need to stay in bed and be seen by doctor. Pt verbalized understadning
--- NOTE | 2021-07-23 08:04 | ED.FALL ---
HPI - Fall General Chief Complaint: Fall Stated Complaint: fall with head injury Time Seen by Provider: 07/23/21 07:32 Source: family, EMS, RN notes reviewed and old records reviewed Mode of arrival: EMS Limitations: clinical condition History of Present Illness HPI Narrative: Patient is wheelchair-bound, somehow fell out of it, no loss of consciousness, presents with left forehead hematoma. Patient does not look in pain or distress on arrival to the emergency room. Patient is DNR, Related Data Home Medications Medication Instructions Recorded Confirmed Combigan 2 drp OPHTHALMIC (EYE) BID 05/07/19 02/18/21 latanoprost 1 drp LEFTEYE HS 05/07/19 02/18/21 Allergies Allergy/AdvReac Type Severity Reaction Status Date / Time No Known Allergies Allergy Verified 07/23/21 07:23 Review of Systems Review of Systems: ROS unobtainable: Yes unobtainable due to mental status PMFSH Past Medical History Medical History Amputation toe Partial right toe amputation Arthritis Back pain SPINAL STENOSIS, cervical stenosis CKD (chronic kidney disease) stage 3, GFR 30-59 ml/min CVA, old, 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 Stroke x 4 Surgical History Surgical History H/O bilateral cataract extraction H/O cataract extraction H/O cervical spine surgery Fusion H/O toe surgery Partial right toe amputated due to infected H/O umbilical hernia repair Family History Family History Father Cerebrovascular accident Family history of diabetes mellitus in first degree relative Mother Family history of diabetes mellitus in first degree relative Family history of congestive heart failure Social History Social History Social History: The patient lives with his Lesvia who is the durable power associate attorney for healthcare. She is agreeable to keeping the patient full code at this time however the patient does not want to live in a vegetative state. The patient is a former smoker. He occasionally has a glass wine maybe twice a month. He has 4 children. 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 Code status full Years smoked: 20 Smoking status: Former smoker Tobacco type: cigarettes Alcohol intake: current Drinks per week: 2 Substance use: never Gender identity (if verbalized by the patient): Male Spiritual care concerns: No Exam Narrative: General appearance: Well-developed, well-nourished Skin: Normal color Head: Normocephalic, left forehead hematoma, abrasion Neck: Supple, nontender Chest and respiratory: Airway patent, no respiratory distress, no accessory muscle use Heart: Regular rate/rhythm Abdomen: Soft, nontender, no organomegaly, quiet bowel sounds Vascular: Normal peripheral pulses, normal capillary refill. Neurologic: Alert, disoriented x4, left hemiplegia Course Course Emergency Course: Stable Vital Signs Vital signs: Vital Signs Temperature 37.2 C 07/23/21 07:23 Pulse Rate 74 07/23/21 07:23 Respiratory Rate 18 07/23/21 07:23 Blood Pressure 113/61 07/23/21 07:23 Pulse Oximetry 94 07/23/21 07:23 Temperature 37.2 C 07/23/21 07:23 Pulse Rate 74 07/23/21 09:21 Respiratory Rate 17 07/23/21 09:21 Blood Pressure 132/6
[2021-07-23] MEDS: TETANUS,DIPHTHERIA,AC PERTUSSIS ADULT (0.5 ML) BOOSTRIX IM (08:30)
== END 2021-07-23 11:01 ==
PROVIDERS: Emergency Provider Emergency Medicine; PCP Family Medicine
DX: S00.83XA Contusion of other part of head, initial encounter (principal); Z23 Encounter for immunization; I12.9 Hypertensive chronic kidney disease with stage 1 through stage 4 chronic kidney disease, or unspecified chronic kidney disease; N18.30 Chronic kidney disease, stage 3 unspecified; E10.22 Type 1 diabetes mellitus with diabetic chronic kidney disease; E10.40 Type 1 diabetes mellitus with diabetic neuropathy, unspecified; Z79.4 Long term (current) use of insulin; Z96.41 Presence of insulin pump (external) (internal); Z66 Do not resuscitate; E78.00 Pure hypercholesterolemia, unspecified; E66.9 Obesity, unspecified; Z68.30 Body mass index [BMI] 30.0-30.9, adult; I69.919 Unspecified symptoms and signs involving cognitive functions following unspecified cerebrovascular disease; D75.1 Secondary polycythemia; H40.9 Unspecified glaucoma; M19.90 Unspecified osteoarthritis, unspecified site; Z89.421 Acquired absence of other right toe(s); Z98.42 Cataract extraction status, left eye; Z98.41 Cataract extraction status, right eye; Z98.1 Arthrodesis status; Z87.891 Personal history of nicotine dependence; Z79.82 Long term (current) use of aspirin; M47.812 Spondylosis without myelopathy or radiculopathy, cervical region; W05.0XXA Fall from non-moving wheelchair, initial encounter
CPT/HCPCS: 70450; 72125; 90471; 90715; 99284

== ENCOUNTER 2022-01-11 09:58 | Emergency (ER) | payer MEDICARE, SELFPAY ==
[2022-01-11] VITALS (19 sets, daily range): BP systolic 120–139; BP diastolic 63–73; PULSE 59–63; RESP 16–22; TEMP 36.6; O2SAT 98
[2022-01-11 10:41] LABS: Basophils Percent Auto 0.3 % (0.2-1.2); Eosinophils Absolute Auto 0.1 K/mm3 (0-0.3); Eosinophils Percent Auto 1.3 % (0-4.4); Hematocrit 43.5 % (42.0-52.0); Hemoglobin 12.9 g/dL (14.0-18.0); Immature Granulocyte Absolute 0.02 K/mm3 (0.00-0.031); Immature Granulocyte Percent A 0.3 % (0-0.5); Immature Platelet Fraction Pct 2.7 % (0.9-11.2); Lymphocytes Absolute Auto 1.94 K/mm3 (0.9-3.2); Lymphocytes Percent Auto 28.9 % (18.3-44.2); Mean Corpuscular HGB Conc 29.7 g/dl (32-36); Mean Corpuscular Hemoglobin 23.7 pg (26-34); Mean Platelet Volume 9.3 fl (7.4-10.4); Monocytes Absolute Auto 0.5 K/mm3 (0.1-0.6); Monocytes Percent Auto 6.7 % (2.6-8.5); Neutrophils Absolute Auto 4.2 K/mm3 (1.3-6.7); Neutrophils Percent Auto 62.5 % (45.5-73.1); Platelet Count Result 237 k/mm3 (150-375); Red Blood Count 5.44 M/mm3 (4.6-6.20); Red Cell Distribution Width 21.9 % (11.5-14.5); White Blood Count 6.7 K/mm3 (4.5-10.0)
[2022-01-11 10:50] LABS: INR 1.1; Prothrombin Time 13.4 Seconds (11.1-14.7)
[2022-01-11 10:51] LABS: Partial Thromboplastin Time 28.1 SECONDS (22.3-36.8)
[2022-01-11 10:53] LABS: Alanine Aminotransferase 24 U/L (6-50); Albumin Level 3.4 g/dL (3.5-5.1); Alkaline Phosphatase 159 U/L (38-126); Anion Gap 10 mmol/L (8-16); Aspartate Amino Transferase 27 U/L (17-59); Bilirubin,Total 0.4 mg/dL (0.2-1.3); Blood Urea Nitrogen 19 mg/dL (9-20); Calcium 8.5 mg/dL (8.4-10.2); Carbon Dioxide 25 mmol/L (22-30); Chloride 105 mmol/L (98-107); Estimated CRCL calculation 73 ml/min; Estimated Glomerular Filt Rate > 60; Glucose 209 mg/dL (65-110); Potassium 3.8 mmol/L (3.4-5.0); Sodium 140 mmol/L (137-145)
[2022-01-11 10:56] LABS: Add Urine Microscopic? YES; Appearance Urine Cloudy (Clear); Bilirubin Urine 2+ (Negative); Blood Urine 3+ (Negative); Color Urine Red (Yellow); Glucose Urine UA Negative (Negative); Ketones Urine Trace mg/dL (Negative); Leukocyte Esterase Ur 3+ LEU/UL (Negative); Nitrate Urine Positive (Negative); Protein Urine 3+ mg/dL (Negative); pH Urine 5.5 (5.0-9.0)
--- NOTE | 2022-01-11 11:02 | PC.NURSE ---
Patient report given to LOC Fatima. All questions answered and care of patient transferred.
[2022-01-11 11:17] LABS: Crenated RBC 1+ (NORMAL); Ovalocytes 1+ (NORMAL); Platelet Estimate Adequate (Adequate)
[2022-01-11 11:33] LABS: WBC Clumps Urine Present /hpf
[2022-01-11 11:34] LABS: RBC Urine >75 /hpf (0-2); WBC Urine >75 /hpf (0-3)
[2022-01-11 11:52] LABS: Bacteria Urine 1+ /hpf; Mucus Urine Few /lpf
--- NOTE | 2022-01-11 12:28 | ED.GENADULT ---
HPI - General Adult General Chief complaint: Urogenital-Male Stated complaint: blood in catheter Source: RN notes reviewed History of Present Illness HPI narrative: Patient presents emergency room from [facility] via EMS for hematuria. Patient states he has a history of chronic indwelling Patrick catheter he states that this morning it was noted that he had blood in his Patrick patient states has had the Patrick catheter for over a year states that he did notice blood in this morning but it is flowing he denies any fevers or chills abdominal pain nausea vomiting or any other symptoms he had been sent to the emergency department for further evaluation he is on Plavix and aspirin Related Data Home Medications Medication Instructions Recorded Confirmed brimonidine 0.2 %-timolol 0.5 % 2 drp ophthalmic (eye) BID 05/07/19 02/18/21 eye drops (Combigan) latanoprost 0.005 % eye drops 1 drp LEFT EYE HS 05/07/19 02/18/21 Allergies Allergy/AdvReac Type Severity Reaction Status Date / Time No Known Allergies Allergy Verified 07/23/21 07:23 Review of Systems Review of Systems: Gen.: Denies fevers or chills ENT: Denies congestion Respiratory: Denies shortness of breath or cough CV: Denies chest pain or palpitations GI: Denies abdominal pain nausea, emesis or diarrhea see HPI Musculoskeletal: Denies back pain or muscle pain Neuro: Denies numbness, tingling, weakness or focal weakness Skin: Denies rash Except as documented, all other systems reviewed and negative PMFSH Past Medical History Medical History Amputation toe Partial right toe amputation Arthritis Back pain SPINAL STENOSIS, cervical stenosis CKD (chronic kidney disease) stage 3, GFR 30-59 ml/min CVA, old, 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 Stroke x 4 Surgical History Surgical History H/O bilateral cataract extraction H/O cataract extraction H/O cervical spine surgery Fusion H/O toe surgery Partial right toe amputated due to infected H/O umbilical hernia repair Family History Family History Father Cerebrovascular accident Family history of diabetes mellitus in first degree relative Mother Family history of diabetes mellitus in first degree relative Family history of congestive heart failure Social History Social History Social History: The patient lives with his Lesvia who is the durable power ip technology transactions attorney for healthcare. She is agreeable to keeping the patient full code at this time however the patient does not want to live in a vegetative state. The patient is a former smoker. He occasionally has a glass wine maybe twice a month. He has 4 children. 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 Code status full Years smoked: 20 Smoking status: Former smoker Tobacco type: cigarettes Alcohol intake: current Drinks per week: 2 Substance use: never Gender identity (if verbalized by the patient): Male Spiritual care concerns: No Exam Narrative: APPEARANCE: No acute distress, nontoxic, resting in bed EYES: EOMI HEENT: Normocephalic, atraumatic, OMM RESPIRATORY: No respiratory distress Clear to auscultation bilaterally with no rhonchi wheezing or rales. CARDIOVASCULAR: Regular rate and rhythm without murmurs rubs or gallops. ABDOMINAL: Soft, nontender, nondistended, no rebound or guarding : Patrick catheter present and draining red urine no skin lesions no scrotal swelling MUSCULOSKELETAl: Moves all extremities. No clubbing, cyanosis or edema. NEURO: Awake and alert. F
--- NOTE | 2022-01-11 13:12 | PC.NURSE ---
report called to [facility]. ems enroute to transport
== END 2022-01-11 13:44 ==
PROVIDERS: Emergency Provider Emergency Medicine; PCP Family Medicine
DX: N39.0 Urinary tract infection, site not specified (principal); Z87.891 Personal history of nicotine dependence; Z98.42 Cataract extraction status, left eye; Z98.41 Cataract extraction status, right eye; M19.90 Unspecified osteoarthritis, unspecified site; I12.9 Hypertensive chronic kidney disease with stage 1 through stage 4 chronic kidney disease, or unspecified chronic kidney disease; E10.22 Type 1 diabetes mellitus with diabetic chronic kidney disease; N18.30 Chronic kidney disease, stage 3 unspecified; Z79.4 Long term (current) use of insulin; Z96.41 Presence of insulin pump (external) (internal); E78.00 Pure hypercholesterolemia, unspecified; I69.319 Unspecified symptoms and signs involving cognitive functions following cerebral infarction; E66.9 Obesity, unspecified; Z68.34 Body mass index [BMI] 34.0-34.9, adult; E10.39 Type 1 diabetes mellitus with other diabetic ophthalmic complication; H40.9 Unspecified glaucoma; E10.40 Type 1 diabetes mellitus with diabetic neuropathy, unspecified; Z96.0 Presence of urogenital implants
CPT/HCPCS: 36415; 80053; 81001; 85025; 85055; 85610; 85730; 87077; 87086; 87186; 96365; 99284; J0696

== ENCOUNTER 2022-12-17 02:43 | Inpatient (IN) | payer MEDICARE, SELFPAY ==
[2022-12-17] VITALS (20 sets, daily range): BP systolic 93–147; BP diastolic 48–85; PULSE 64–74; RESP 12–22; TEMP 36.2–37.1; O2SAT 95–100
--- NOTE | ~2022-12-17 | CT_ITS ---
CT of the Abdomen and Pelvis: Indication: Hematuria Technique: 2.5 mm axial scans were obtained through the abdomen and pelvis prior to and following in travenous administration of 100 cc of Omnipaque 350. Dose reduction technique was used on this scan b y utilizing automated exposure control and iterative reconstruction technique. The dose-length produc t (DLP) was 2232.44 mGy-cm. Findings: Scans through the lung bases are unremarkable. The liver, spleen, pancreas, and adrenal glands are within normal limits. Gallbladder is absent. Ther e are bilateral hyperdense renal cysts. No renal stones or hydronephrosis seen. There are atheroscler otic calcifications of the aorta. No lymphadenopathy. No bowel obstruction or bowel wall thickening. There is sigmoid diverticulosis. Large stool burden vieira ggests constipation.. Images through the pelvis were performed. Patrick catheter in place. Large amount of hyperdense hemorrh agic material/blood products is present within the urinary bladder lumen. No definite bladder wall th ickening. Prostate gland is markedly enlarged, and appears to indent through the bladder base. Impression: Large amount of hemorrhagic material/blood products in the urinary bladder lumen. Patrick catheter in p lace. Markedly enlarged prostate gland which appears to into the bladder base. Large stool burden suggests constipation. Hyperdense bilateral renal cysts. Reviewed, dictated and finalized at location M. Impression: Large amount of hemorrhagic material/blood products in the urinary bladder lume n. Patrick catheter in place. Markedly enlarged prostate gland which appears to into the bladder base. Large stool burden suggests constipation. Hyperdense bilateral renal cysts.
[2022-12-17 03:30] LABS: Basophils Percent Auto 0.2 % (0.2-1.2); Eosinophils Absolute Auto 0.2 K/mm3 (0-0.3); Eosinophils Percent Auto 2.2 % (0-4.4); Hemoglobin 14.6 g/dL (14.0-18.0); Immature Granulocyte Absolute 0.06 K/mm3 (0.00-0.031); Immature Granulocyte Percent A 0.7 % (0-0.5); Lymphocytes Absolute Auto 3.33 K/mm3 (0.9-3.2); Lymphocytes Percent Auto 38.2 % (18.3-44.2); Mean Corpuscular HGB Conc 31.1 g/dl (32-36); Mean Corpuscular Hemoglobin 27.2 pg (26-34); Mean Corpuscular Volume 87.5 fl (80-100); Mean Platelet Volume 10.2 fl (7.4-10.4); Monocytes Absolute Auto 0.6 K/mm3 (0.1-0.6); Monocytes Percent Auto 6.9 % (2.6-8.5); Neutrophils Absolute Auto 4.5 K/mm3 (1.3-6.7); Neutrophils Percent Auto 51.8 % (45.5-73.1); Platelet Count Result 227 k/mm3 (150-375); Red Blood Count 5.37 M/mm3 (4.6-6.20); Red Cell Distribution Width 18.6 % (11.5-14.5); White Blood Count 8.7 K/mm3 (4.5-10.0)
[2022-12-17 03:39] LABS: Anion Gap 6 mmol/L (8-16); Blood Urea Nitrogen 20 mg/dL (9-20); Calcium 8.3 mg/dL (8.4-10.2); Carbon Dioxide 27 mmol/L (22-30); Chloride 104 mmol/L (98-107); Estimated CRCL calculation 59 ml/min; Estimated Glomerular Filt Rate > 60; Glucose 151 mg/dL (65-110); Potassium 3.9 mmol/L (3.4-5.0); Sodium 137 mmol/L (137-145)
[2022-12-17 04:34] LABS: Bilirubin Urine 1+ (Negative); Blood Urine 3+ (Negative); Glucose Urine UA Negative (Negative); Ketones Urine Trace mg/dL (Negative); Leukocyte Esterase Ur Trace LEU/UL (Negative); Nitrate Urine Positive (Negative); Protein Urine 3+ mg/dL (Negative)
[2022-12-17 04:37] LABS: Color Urine Red (Yellow)
[2022-12-17 04:38] LABS: Add Urine Microscopic? YES; Appearance Urine Turbid (Clear); RBC Urine >100 /hpf (0-2)
[2022-12-17 04:44] LABS: Need Manual Microscopic Yes
[2022-12-17 05:00] LABS: Squamous Epithelial Cell Urine Occasional /hpf (Few); WBC Urine Unable to determine /hpf (0-3)
--- NOTE | 2022-12-17 06:19 | ED.MALEGU ---
HPI - Male Genitourinary General Chief complaint: Urogenital-Male Stated complaint: BLOOD IN BUNDY Time Seen by Provider: 12/17/22 02:48 History of Present Illness HPI Narrative: Patient sent from residential for large amount of hematuria. He is on aspirin and Plavix. He is denying any pain he does have a chronic indwelling Bundy catheter. Related Data Home Medications Medication Instructions Recorded Confirmed brimonidine 0.2 %-timolol 0.5 % 2 drp ophthalmic (eye) BID 05/07/19 02/18/21 eye drops (Combigan) latanoprost 0.005 % eye drops 1 drp LEFT EYE HS 05/07/19 02/18/21 Allergies Allergy/AdvReac Type Severity Reaction Status Date / Time No Known Allergies Allergy Verified 12/17/22 02:54 Review of Systems Review of Systems: CONST: No fever. HEENT: No sore throat C/V: No chest pain RESP: No cough GI: No abdominal pain : Hematuria. M/S: No joint pain. SKIN: No rash. NEURO: [No headache or focal numbness or weakness] PSYCH: [No depression] [facility] Past Medical History Medical History Amputation toe Partial right toe amputation Arthritis Back pain SPINAL STENOSIS, cervical stenosis CKD (chronic kidney disease) stage 3, GFR 30-59 ml/min CVA, old, 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 Stroke x 4 Surgical History Surgical History H/O bilateral cataract extraction H/O cataract extraction H/O cervical spine surgery Fusion H/O toe surgery Partial right toe amputated due to infected H/O umbilical hernia repair Family History Family History Father Cerebrovascular accident Family history of diabetes mellitus in first degree relative Mother Family history of diabetes mellitus in first degree relative Family history of congestive heart failure Social History Social History Social History: The patient lives with his Lesvia who is the durable power adult probation officer for healthcare. She is agreeable to keeping the patient full code at this time however the patient does not want to live in a vegetative state. The patient is a former smoker. He occasionally has a glass wine maybe twice a month. He has 4 children. 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 Code status full Years smoked: 20 Smoking status: Former smoker Tobacco type: cigarettes Alcohol intake: current Drinks per week: 2 Substance use: never Gender identity (if verbalized by the patient): Male Spiritual care concerns: No Exam Narrative: EXAMINATION OF ORGAN SYSTEMS/BODY AREAS: Constitutional: Vital signs per nursing GENERAL:[No acute distress, non-toxic appearing.] HEAD: Normal with no signs of head trauma. EYES: EOMI, conjunctiva normal ENT: Hearing grossly intact LUNGS: Nonlabored breathing. HEART: [Regular rate and rhythm] ABD: [Soft], [nontender to palpation] : Bundy eroded through phallus with purulent drainage and gross blood in Bundy SKIN: [No rashes or lesions.] NEURO: [Alert.] PSYCH: Normal affect Course Vital Signs Vital signs: Vital Signs Temperature 97.2 F L 12/17/22 02:46 Pulse Rate 65 12/17/22 02:46 Respiratory Rate 22 H 12/17/22 02:46 Blood Pressure 93/48 L 12/17/22 02:46 Pulse Oximetry 98 12/17/22 02:46 Oxygen Delivery Room Air 12/17/22 02:46 Temperature 97.2 F L 12/17/22 02:46 Pulse Rate 64 12/17/22 04:01 Respiratory Rate 22 H 12/17/22 02:46 Blood Pressure 103/71 12/17/22 04:01 Pulse Oximetry 97 12/17/22 05:20 Oxygen Delivery Room Air 12/17/22 02:46 MDM -
--- NOTE | 2022-12-17 06:30 | PC.NURSE ---
Pt arrived to Ed with a urinary catheter intake, pt was noted to have bright red urine draining from urinary catheter. Per EDP catheter was discontinued and a new 3 way catheter was initiated along with a continuous bladder irrigation.
--- NOTE | 2022-12-17 08:05 | ADMGEN ---
This patient, Tan Mendes, was admitted to Medical Room 261-01. Patient/family oriented to hospital policies and general routines including ID bracelet, bed and alarms, visiting hours, pain management, procedures, bathroom and other care routines, personal items, smoking policy, room service/diet, and visiting hours. Information on how to activate the Rapid Response Team has been discussed. Patient/Family are encouraged to report perceived risks to care and to ask questions if they do not understand what they are told or what they should do.
--- NOTE | 2022-12-17 08:20 | WPDURCON ---
Assessment and Plan Assessment and plan (1) Gross hematuria: Code(s): R31.0 - Gross hematuria Status: Acute Assessment and Plan: Proceed with cysto with clot evacuation in the operating room today. Will need upper tract studies if he has not had that done. (2) Clot retention of urine: Code(s): R33.8 - Other retention of urine Status: Acute Assessment and Plan: See above Urology Consult Note HPI Date Seen: 12/17/22 Time Seen: 08:20 Requesting Physician: Lisa Collier MD Primary Care Provider: Gabby Benavidez MD Consult Narrative Reason for consult: Gross hematuria with clots Narrative: Tan Mendes is a 77 year old male with history of CVA and chronic indwelling Patrick who resides in a custodial. Patient is on blood thinners and developed gross hematuria. Evaluation emergency room with a CT scan reveals significant clot burden with difficulty irrigating catheter. Patient will be taken to the operating room for cysto with clot evacuation this morning Review of Systems Review of Systems: All systems reviewed & are unremarkable except as noted in HPI and below PMFSH Past Medical History Medical History Amputation toe Partial right toe amputation Arthritis Back pain SPINAL STENOSIS, cervical stenosis CKD (chronic kidney disease) stage 3, GFR 30-59 ml/min CVA, old, 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 Stroke x 4 Surgical History Surgical History H/O bilateral cataract extraction H/O cataract extraction H/O cervical spine surgery Fusion H/O toe surgery Partial right toe amputated due to infected H/O umbilical hernia repair Family History Family History Father Cerebrovascular accident Family history of diabetes mellitus in first degree relative Mother Family history of diabetes mellitus in first degree relative Family history of congestive heart failure Social History Social History Social History: The patient lives with his Lesvia who is the durable power trust and estates attorney for healthcare. She is agreeable to keeping the patient full code at this time however the patient does not want to live in a vegetative state. The patient is a former smoker. He occasionally has a glass wine maybe twice a month. He has 4 children. 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 Code status full Smoking packs per day: 1 Smoking cigarettes per day: 20.0 Years smoked: 15 Smoking pack-years: 15.00 Smoking status: Former smoker Tobacco type: cigarettes Alcohol intake: never Drinks per week: 2 Substance use: never Substance use type: does not use Lack of Transportation: No Lack of Food: Never True Current Housing: I Have Housing Concerned About Future Housing: No Difficulty Paying Gas/Electric Bills: No Difficulty Paying for Meds: No Currently Unemployed: No Education: Don't Know Difficulty w/ Childcare or Family Care: No Gender identity (if verbalized by the patient): Male Spiritual care concerns: No Meds Home Medications and Allergies Home Medications Medication Instructions Recorded Confirmed Type brimonidine 0.2 %-timolol 0.5 % 2 drp ophthalmic (eye) BID 05/07/19 02/18/21 History eye drops (Combigan) latanoprost 0.005 % eye drops 1 drp LEFT EYE HS 05/07/19 02/18/21 History Saccharomyces boulardii 250 mg 250 mg PO BID 6 days #12 caps 02/23/21 Rx capsule (Florastor) Nonformulary Drug 1 ea topical BID ##0 05/20/21 R
[2022-12-17 08:43] LABS: Glucose Point of Care 184 mg/dl (65-105)
--- NOTE | 2022-12-17 08:44 | PM.IMHP ---
H&P: HPI History of Present Illness Date/Time: 12/17/22 08:44 Chief Complaint: hematuria Narrative: Tan Mendes is a 77 year old male with history of CVA and chronic indwelling Patrick who resides in a intermediate.? Patient is on blood thinners and developed gross hematuria.? Evaluation in emergency room with a CT scan reveals significant clot burden with difficulty irrigating catheter.? Urology consulted. patient will be taken to the operating room for cysto with clot evacuation this morning Review of Systems Review of Systems: All systems reviewed & are unremarkable except as noted in HPI and below PMFSH Past Medical History Medical History Amputation toe Partial right toe amputation Arthritis Back pain SPINAL STENOSIS, cervical stenosis CKD (chronic kidney disease) stage 3, GFR 30-59 ml/min CVA, old, 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 Stroke x 4 Surgical History Surgical History H/O bilateral cataract extraction H/O cataract extraction H/O cervical spine surgery Fusion H/O toe surgery Partial right toe amputated due to infected H/O umbilical hernia repair Family History Family History Father Cerebrovascular accident Family history of diabetes mellitus in first degree relative Mother Family history of diabetes mellitus in first degree relative Family history of congestive heart failure Social History Social History Social History: The patient lives with his Lesvia who is the durable power certified maintenance welder for healthcare. She is agreeable to keeping the patient full code at this time however the patient does not want to live in a vegetative state. The patient is a former smoker. He occasionally has a glass wine maybe twice a month. He has 4 children. 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 Code status full Smoking packs per day: 1 Smoking cigarettes per day: 20.0 Years smoked: 15 Smoking pack-years: 15.00 Smoking status: Former smoker Tobacco type: cigarettes Alcohol intake: never Drinks per week: 2 Substance use: never Substance use type: does not use Lack of Transportation: No Lack of Food: Never True Current Housing: I Have Housing Concerned About Future Housing: No Difficulty Paying Gas/Electric Bills: No Difficulty Paying for Meds: No Currently Unemployed: No Education: Don't Know Difficulty w/ Childcare or Family Care: No Gender identity (if verbalized by the patient): Male Spiritual care concerns: No Meds Home Medications and Allergies Home Medications Medication Instructions Recorded Confirmed Type brimonidine 0.2 %-timolol 0.5 % 2 drp ophthalmic (eye) BID 05/07/19 02/18/21 History eye drops (Combigan) latanoprost 0.005 % eye drops 1 drp LEFT EYE HS 05/07/19 02/18/21 History Saccharomyces boulardii 250 mg 250 mg PO BID 6 days #12 caps 02/23/21 Rx capsule (Florastor) Nonformulary Drug 1 ea topical BID ##0 05/20/21 Rx acetaminophen 325 mg tablet (Mapap 650 mg PO Q6H PRN Mild Pain (1-3) 05/20/21 Rx (acetaminophen)) Or Fever #0 tabs amiodarone 200 mg tablet (Pacerone) 200 mg PO DAILY@0800 #0 tabs 05/20/21 Rx aspirin 81 mg chewable tablet 81 mg PO DAILY@0800 #0 tabs 05/20/21 Rx (Children's Aspirin) atorvastatin 40 mg tablet 40 mg PO DAILY #0 tabs 05/20/21 Rx baclofen 10 mg tablet 5 mg PO Q8HR #0 tabs 05/20/21 Rx bisacodyl 10 mg rectal suppository 10 mg RECTAL QPM PRN Constipation 05/20/21 Rx #0 ea carvedilol 3.125 mg tablet (Coreg) 3.125 mg PO BID
--- NOTE | 2022-12-17 09:22 | WPDANESEPPF ---
Anes - Initial Pre Proc Eval Procedure: Operation Date: 12/17/22 10:00 Proposed Procedures p Cystoscopy, Evacuation Bladder Clot - Juanjose Cote MD Date/Time: 12/17/22 09:22 Surgeon: Lisa Collier MD Pre Op Diagnosis: Hematuria Patient Data Age: 77 Gender: M Height: 1.73 m Weight: 84 kg Last Vital Signs Temp 36.3 C L 12/17/22 08:42 Pulse 67 12/17/22 08:42 Resp 16 12/17/22 08:42 BP 136/70 12/17/22 08:42 Pulse Ox 98 12/17/22 08:42 O2 Del Method Room Air 12/17/22 08:42 Allergies Allergy/AdvReac Type Severity Reaction Status Date / Time No Known Allergies Allergy Verified 12/17/22 02:54 Home Medications Medication Instructions Recorded Confirmed Type brimonidine 0.2 %-timolol 0.5 % 2 drp ophthalmic (eye) BID 05/07/19 02/18/21 History eye drops (Combigan) latanoprost 0.005 % eye drops 1 drp LEFT EYE HS 05/07/19 02/18/21 History Saccharomyces boulardii 250 mg 250 mg PO BID 6 days #12 caps 02/23/21 Rx capsule (Florastor) Nonformulary Drug 1 ea topical BID ##0 05/20/21 Rx acetaminophen 325 mg tablet (Mapap 650 mg PO Q6H PRN Mild Pain (1-3) 05/20/21 Rx (acetaminophen)) Or Fever #0 tabs amiodarone 200 mg tablet (Pacerone) 200 mg PO DAILY@0800 #0 tabs 05/20/21 Rx aspirin 81 mg chewable tablet 81 mg PO DAILY@0800 #0 tabs 05/20/21 Rx (Children's Aspirin) atorvastatin 40 mg tablet 40 mg PO DAILY #0 tabs 05/20/21 Rx baclofen 10 mg tablet 5 mg PO Q8HR #0 tabs 05/20/21 Rx bisacodyl 10 mg rectal suppository 10 mg RECTAL QPM PRN Constipation 05/20/21 Rx #0 ea carvedilol 3.125 mg tablet (Coreg) 3.125 mg PO BIDAC #0 tabs 05/20/21 Rx cholecalciferol (vitamin D3) 25 2,000 units PO DAILY #0 tabs 05/20/21 Rx mcg (1,000 unit) tablet (Vitamin D3) ciprofloxacin HCl 500 mg tablet 500 mg PO Q12HR #5 tabs 05/20/21 Rx clopidogrel 75 mg tablet 75 mg PO QAM #0 tabs 05/20/21 Rx dextrose 40 % oral gel (Glutose-15) 15 g PO PRN PRN Hypoglycemia #0 05/20/21 Rx grams gabapentin 100 mg capsule 100 mg PO HS #0 caps 05/20/21 Rx glucagon 1 mg/mL solution for 1 mg IM PRN PRN Hypoglycemia #0 ea 05/20/21 Rx injection (GlucaGen Diagnostic Kit) insulin glargine 100 unit/mL 32 units (0.32 mL) subcut BIDAC #0 05/20/21 Rx subcutaneous solution (Semglee mL U-100 Insulin) insulin lispro 100 unit/mL 2 - 5 units subcut TID.ARISSI #0 mL 05/20/21 Rx subcutaneous solution (Humalog U-100 Insulin) melatonin 3 mg tablet 6 mg PO HS #0 tabs 05/20/21 Rx midodrine 5 mg tablet 20 mg PO QID #0 tabs 05/20/21 Rx polyethylene glycol 3350 17 gram 17 g PO QAM #0 ea 05/20/21 Rx oral powder packet (Miralax) quetiapine 50 mg tablet 12.5 mg PO BID #0 tabs 05/20/21 Rx sennosides 8.6 mg-docusate sodium 1 tab PO HS #0 tabs 05/20/21 Rx 50 mg tablet (Senokot-S) tamsulosin 0.4 mg capsule 0.4 mg PO QAM #0 caps 05/20/21 Rx trazodone 50 mg tablet 50 mg PO HS #0 tabs 05/20/21 Rx lorazepam 0.5 mg tablet 0.5 mg PO Q12H PRN Anxiety #60 tabs 05/21/21 Rx temazepam 15 mg capsule 45 mg PO QHS PRN sleep #90 caps 09/03/21 Rx sulfamethoxazole 800 1 tablet PO Q12H #14 tabs 01/11/22 Rx mg-trimethoprim 160 mg tablet (Bactrim DS) sulfamethoxazole 800 1 tablet PO Q12H #14 tabs 01/11/22 Rx mg-trimethoprim 160 mg tablet (Bactrim DS) Laboratory Tests 12/17/22 12/17/22 12/17/22 03:21 03:22 08:37 WBC 8.7 K/mm3 (4.5-10.0) RBC 5.37 M/mm3 (4.6-6.20) Hgb 14.6 g/dL (14.0-18.0) Hct 47.0 % (42.0-52.0) MCV 87.5 fl (80-100) MCH 27.2 pg (26-34) MCHC 31.1 L g/dl (32-36) RDW 18.6 H % (11.5-14.5) Plt Count 227 k/mm3 (150-375) MPV 10.2 fl (7.4-10.4) Immature Gran % (Auto) 0.7 H % (0-0.5) Neut % (Auto) 51.8 % (45.5-73.1) Lymph % (Auto) 38.2 % (18.3-44.2) [place] % (Auto) 6.9 % (2.6-8.5) Eos % (Auto) 2.2 %
--- NOTE | 2022-12-17 09:35 | WPDHPUPDATE1 ---
History and Physical Update Update Date/Time: 12/17/22 09:35 History and Physical has been reviewed, including an updated exam of the patient. There are NO changes in the patient's condition. Risks, benefits, and alternatives have been discussed and questions answered. Patient agrees to proceed with procedure. Proceed with cystoscopy with clot evacuation
[2022-12-17] MEDS: fentaNYL CITRATE INJ (*CRX) 100 MCG/2 ML VIAL 25 MCG IV PUSH ×2 (09:49→09:50)
[2022-12-17] MEDS: LACTATED RINGERS 1,000 ML 30 ML IV CONT (09:50)
--- NOTE | 2022-12-17 10:26 | P.OP_ITS ---
Procedure Note - Detailed Date of Procedure 12/17/22 Pre-op Diagnosis Hematuria with clot retention Post-op Diagnosis Same Procedure Performed Cystoscopy with fulguration of prostate at 6:00 o'oclock position at bladder neck location, clot evacuation, Patrick placement [address] Surgeon Juanjose Cote MD Anesthesia General Description of Procedure Patient is taken to the operative suite correctly identified. Once anesthesia was obtained was placed in dorsal lithotomy position prepped draped usual sterile fashion. Prior CIS catheter had been removed. Twenty-two Italian scope was inserted in direct vision. No urethral strictures prostate has some lateral lobe hypertrophy and a little vascularity at the bladder neck area. Using a Vega syringe we evacuated out approximately 400 cc of clots. Reinspection revealed no tumors in the bladder. He has moderate trabeculation. There was some mild oozing at the bladder neck at 6:00 a.m. position. Using a Bugbee electrode I fulgurated this area. There appeared to be good hemostasis at this point time. 2% viscous lidocaine was inserted into the urethra. Twenty-two Italian Patrick was inserted inflated with 15 cc sterile water. This was connected to continuous bladder irrigation. Patient is taken recovery room stable condition. Estimated Blood Loss 0 Urine Output 1,200 Drains Yes Packing No Pathology None sent Complications No immediate complications Condition Stable Disposition PACU
[2022-12-17 12:10] LABS: Glucose Point of Care 204 mg/dl (65-105)
[2022-12-17 17:18] LABS: Glucose Point of Care 177 mg/dl (65-105)
[2022-12-17 20:09] LABS: Glucose Point of Care 293 mg/dl (65-105)
[2022-12-18] VITALS (10 sets, daily range): BP systolic 105–133; BP diastolic 63–81; PULSE 54–73; RESP 16–18; TEMP 36–37.1; O2SAT 95–99
[2022-12-18 08:03] LABS: Glucose Point of Care 193 mg/dl (65-105)
--- NOTE | 2022-12-18 08:11 | PM.IMPN ---
Progress Note: A&P Assessment and Plan (1) Clot retention of urine: Code(s): R33.8 - Other retention of urine Status: Acute Assessment and Plan: Urology consulted, cystoscopy 12/17 clot removal. Hold aspirin and Plavix. 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 Hold aspirin Plavix for now. (3) Atrial fibrillation: Code(s): I48.91 - Unspecified atrial fibrillation Status: Acute Assessment and Plan: Rate controlled. Resume amiodarone 1 med rec available. Hold aspirin Plavix for now Plan DVT prophylaxis with SCDs GI prophylaxis not indicated Code status DNR Subjective Date/time seen: 12/18/22 08:11 Interval history: 77-year-old male history of CVA and indwelling [place] from a nursing facility is presenting with hematuria being treated for UTI with bladder clot burden and urology consult. No overnight events noted. No chest pain or shortness of breath. No nausea, vomiting or diarrhea. No fevers or chills. Eager to go home. Still with blood in gonzales bag. Review of Systems Review of Systems: 12 point review of systems was assessed and was negative except as noted in the HPI Exam Narrative: General: No acute distress, alert and oriented per baseline HEENT: Atraumatic, normocephalic, mucous membranes moist CV: Regular rate and rhythm, S1, S2 Lungs: Clear to auscultation bilaterally, no rales or crackles noted, no wheezes, good air entry Abdomen: Soft, nontender, nondistended Extremities: Normal to inspection, blood noted in gonzales bag Skin: No rashes noted, no lesions or wounds seen Psych: Euthymic, normal affect Objective Data Vital Signs Vital Signs: Vital Signs - 24 hr 12/17/22 08:42 12/17/22 10:33 12/17/22 10:48 Temperature 97.4 F L 98.7 F Pulse Rate 67 72 68 Respiratory Rate 16 12 13 Blood Pressure 136/70 137/68 127/65 Pulse Oximetry 98 100 100 Oxygen Delivery Room Air Simple Face Mask Simple Face Mask Oxygen Flow Rate 8 8 12/17/22 11:01 12/17/22 11:15 12/17/22 11:30 Temperature Pulse Rate 69 69 67 Respiratory Rate 14 14 15 Blood Pressure 133/75 126/69 134/70 Pulse Oximetry 97 96 96 Oxygen Delivery Room Air Room Air Room Air Oxygen Flow Rate 12/17/22 11:45 12/17/22 12:05 12/17/22 12:20 Temperature 97.6 F 97.6 F Pulse Rate 69 66 67 Respiratory Rate 14 14 15 Blood Pressure 128/71 141/67 H 128/85 Pulse Oximetry 96 95 98 Oxygen Delivery Room Air Oxygen Flow Rate 12/17/22 12:50 12/17/22 13:50 12/17/22 18:05 Temperature 97.6 F 97.6 F 97.6 F Pulse Rate 67 68 64 Respiratory Rate 15 15 16 Blood Pressure 134/61 147/70 H 138/68 Pulse Oximetry 99 97 98 Oxygen Delivery Oxygen Flow Rate 12/17/22 21:21 12/17/22 20:00 12/18/22 01:48 Temperature 98.4 F 98.1 F Pulse Rate 74 72 Respiratory Rate 18 17 Blood Pressure 142/75 H 133/63 Pulse Oximetry 96 96 Oxygen Delivery Room Air Oxygen Flow Rate 12/18/22 05:39 12/18/22 07:56 Temperature 98.8 F 96.8 F L Pulse Rate 70 65 Respiratory Rate 18 16 Blood Pressure 131/71 122/81 Pulse Oximetry 95 98 Oxygen Delivery Oxygen Flow Rate Intake/Output Intake/Output: Intake & Output 12/15/22 12/16/22 12/17/22 12/18/22 23:59 23:59 23:59 23:59 Intake Total 390 100 Output Total 9825 Balance -9435 100 Meds/Results Medications: Active Medications Generic Name Dose Route Start Last Admin Trade Name Freq PRN Reason Stop Dose Admin Fentanyl Citrate 25 mcg 12/17/22 09:21 12/17/22 09:50 Fentanyl Citrate Inj (*Crx) 100 Mcg/2 Ml Vial IV PUSH 25 mcg Q2M PRN Administration Pain Fentanyl Citrate 25 mcg 12/17/22 09:38 Fentanyl Citrate Inj (*Crx) 100 Mcg/2 Ml Vial IV PUSH ONCE PRN Pain Rated 7-10 Ondansetron HCl 4 mg 12/17/22 09:21 Ondansetron Inj 4 M
[2022-12-18] MEDS: MIDODRINE HCL 10 MG TABLET 20 MG PO ×4 (09:25→20:11)
[2022-12-18] MEDS: AMIODARONE HCL 200 MG TABLET PO (09:25)
[2022-12-18] MEDS: ASPIRIN 81 MG CHEWABLE TABLET PO (09:25)
[2022-12-18] MEDS: GABAPENTIN 100 MG CAPSULE PO ×3 (09:26→17:56)
[2022-12-18] MEDS: CHOLECALCIFEROL 1,000 UNITS TABLET 2000 UNITS PO (09:26)
[2022-12-18] MEDS: carvediloL 3.125 MG TABLET PO ×2 (09:27→17:56)
[2022-12-18] MEDS: MULTIVITAMINS /C LUTEIN (CENTRUM SILVER) TABLET *BKC 1 TAB PO (09:28)
[2022-12-18] MEDS: LORATADINE 10 MG TABLET PO (09:28)
[2022-12-18] MEDS: ATORVASTATIN 40 MG TABLET PO (09:28)
[2022-12-18] MEDS: ZINC OXIDE 20% OINT 30 GM TUBE 1 APPLIC TOPICAL ×2 (09:30→18:02)
[2022-12-18] MEDS: BRIMONIDINE TARTRATE 0.2% OP SOLN 5 ML BTL 2 DROP LEFT EYE ×2 (09:31→17:57)
[2022-12-18] MEDS: TIMOLOL MALEATE 0.5% OP SOLN 5 ML BOTTLE 2 DROP LEFT EYE ×2 (09:33→17:57)
[2022-12-18 09:36] LABS: Alanine Aminotransferase 29 U/L (6-50); Albumin Level 3.8 g/dL (3.5-5.1); Alkaline Phosphatase 164 U/L (38-126); Anion Gap 7 mmol/L (8-16); Aspartate Amino Transferase 31 U/L (17-59); Bilirubin,Total 0.7 mg/dL (0.2-1.3); Blood Urea Nitrogen 14 mg/dL (9-20); Calcium 8.8 mg/dL (8.4-10.2); Carbon Dioxide 28 mmol/L (22-30); Chloride 99 mmol/L (98-107); Estimated CRCL calculation 54 ml/min; Estimated Glomerular Filt Rate > 60; Glucose 225 mg/dL (65-110); Sodium 134 mmol/L (137-145)
[2022-12-18 09:49] LABS: Basophils Percent Auto 0.5 % (0.2-1.2); Eosinophils Absolute Auto 0.1 K/mm3 (0-0.3); Eosinophils Percent Auto 0.8 % (0-4.4); Hematocrit 46.2 % (42.0-52.0); Hemoglobin 14.3 g/dL (14.0-18.0); Immature Granulocyte Absolute 0.04 K/mm3 (0.00-0.031); Immature Granulocyte Percent A 0.5 % (0-0.5); Lymphocytes Absolute Auto 2.54 K/mm3 (0.9-3.2); Mean Corpuscular Hemoglobin 27.2 pg (26-34); Mean Platelet Volume 10.2 fl (7.4-10.4); Monocytes Absolute Auto 0.7 K/mm3 (0.1-0.6); Monocytes Percent Auto 7.9 % (2.6-8.5); Neutrophils Absolute Auto 5.1 K/mm3 (1.3-6.7); Neutrophils Percent Auto 60.3 % (45.5-73.1); Platelet Count Result 242 k/mm3 (150-375); Red Blood Count 5.25 M/mm3 (4.6-6.20); Red Cell Distribution Width 18.5 % (11.5-14.5); White Blood Count 8.5 K/mm3 (4.5-10.0)
[2022-12-18] MEDS: TAMSULOSIN HCL 0.4 MG CAPSULE PO (11:11)
[2022-12-18 12:16] LABS: Glucose Point of Care 243 mg/dl (65-105)
[2022-12-18] MEDS: INSULIN GLARGINE (*BKC) 100 UNITS/ML 25 UNITS SUB-Q (14:01)
--- NOTE | 2022-12-18 15:06 | WPDANESPN ---
Anes - Prog Note Post-Op Date/Time: 12/18/22 15:06 Cardiovascular status: normal Respiratory status: normal Airway patency: baseline Mental status: baseline Post-Op hydration status: normal Vital Signs: Last Vital Signs Temp 36.2 C L 12/18/22 12:17 Pulse 62 12/18/22 12:17 Resp 17 12/18/22 12:17 BP 125/67 12/18/22 12:17 Pulse Ox 99 12/18/22 12:17 O2 Del Method Room Air 12/18/22 09:20 O2 Flow Rate 8 12/17/22 10:48 Pain Score (VAS): 07/18 I/O: Intake & Output 12/17/22 12/18/22 12/18/22 23:59 07:59 15:59 Intake Total 240 100 360 Output Total 225 Balance 15 100 360 Laboratory Tests 12/18/22 09:10 12/18/22 09:10 12/17/22 12/17/22 12/18/22 17:05 20:07 07:59 WBC RBC Hgb Hct MCV MCH MCHC RDW Plt Count MPV Immature Gran % (Auto) Neut % (Auto) Lymph % (Auto) [place] % (Auto) Eos % (Auto) Baso % (Auto) Lymph # (Auto) [place] # (Auto) Eos # (Auto) Baso # (Auto) Abs Immat Gran (auto) Absolute Neuts (auto) Absolute Nucleated RBC Nucleated RBC % Sodium Potassium Chloride Carbon Dioxide Anion Gap BUN Creatinine Estim Creat Clear Calc Estimated GFR Glucose POC Capillary Glucose 177 H 293 H 193 H Calcium Total Bilirubin AST ALT Alkaline Phosphatase Total Protein Albumin 12/18/22 12/18/22 09:10 12:13 WBC 8.5 RBC 5.25 Hgb 14.3 Hct 46.2 MCV 88.0 MCH 27.2 MCHC 31.0 L RDW 18.5 H Plt Count 242 MPV 10.2 Immature Gran % (Auto) 0.5 Neut % (Auto) 60.3 Lymph % (Auto) 30.0 [place] % (Auto) 7.9 Eos % (Auto) 0.8 Baso % (Auto) 0.5 Lymph # (Auto) 2.54 [place] # (Auto) 0.7 H Eos # (Auto) 0.1 Baso # (Auto) 0.0 Abs Immat Gran (auto) 0.04 H Absolute Neuts (auto) 5.1 Absolute Nucleated RBC 0.0 Nucleated RBC % 0.0 Sodium 134 L Potassium 4.0 Chloride 99 Carbon Dioxide 28 Anion Gap 7 L BUN 14 D Creatinine 1.00 Estim Creat Clear Calc 54 Estimated GFR > 60 Glucose 225 H POC Capillary Glucose 243 H Calcium 8.8 Total Bilirubin 0.7 AST 31 ALT 29 Alkaline Phosphatase 164 H Total Protein 7.0 Albumin 3.8 Post-procedural complaints: none Patient Feedback: Patient satisfied with anesthetic care.
--- NOTE | 2022-12-18 15:51 | WPDUROPN2 ---
Progress Note: A&P Assessment and Plan (1) Clot retention of urine: Code(s): R33.8 - Other retention of urine Status: Acute Assessment and Plan: Resolved. (2) Gross hematuria: Code(s): R31.0 - Gross hematuria Status: Acute Assessment and Plan: Continue CBI until urine clears, then wean to off. If bleeding re-occurs restart CBI then wean to off. Hold Plavix until urine is clear off CBI. Subjective Subjective Date/Time Seen: 12/18/22 15:51 Post Op day: 1 Interval history: POD #1 Cystoscopy with fulguration of prostate at 6:00 o'clock position at bladder neck location, clot evacuation, Patrick placement [address] [place] [address] Patient doing well, no pain, tolerating diet and activity, urine is pink on CBI. Review of Systems Cardiovascular: Cardiovascular: Reports no additional cardiovascular complaints Respiratory: Respiratory: Reports no additional respiratory complaints Gastrointestinal: Gastrointestinal: Denies abdominal pain, Denies nausea and Denies vomiting Genitourinary: Genitourinary: Reports hematuria, Denies dysuria, Denies flank pain, Denies urinary frequency, Denies urinary hesitancy and Denies urinary urgency Exam Const: General: cooperative and comfortable Resp: Effort & Inspection: normal respiratory effort Cardio: Rate: regular rate GI: GI Palp: Yes Soft to palpation and No Tenderness to palpation present (GI) : Meatus: meatus normal Urinary Catheter: Urinary Catheter: patent and draining and urine pink Extrem: Right lower extremity: no edema Left lower extremity: no edema Objective Data Vital Signs Vital Signs: Vital Signs - 24 hr 12/17/22 18:05 12/17/22 21:21 12/17/22 20:00 Temperature 97.6 F 98.4 F Pulse Rate 64 74 Respiratory Rate 16 18 Blood Pressure 138/68 142/75 H Pulse Oximetry 98 96 Oxygen Delivery Room Air 12/18/22 01:48 12/18/22 05:39 12/18/22 07:56 Temperature 98.1 F 98.8 F 96.8 F L Pulse Rate 72 70 65 Respiratory Rate 17 18 16 Blood Pressure 133/63 131/71 122/81 Pulse Oximetry 96 95 98 Oxygen Delivery 12/18/22 09:18 12/18/22 09:25 12/18/22 09:27 Temperature Pulse Rate 73 73 73 Respiratory Rate Blood Pressure 121/69 Pulse Oximetry 97 Oxygen Delivery 12/18/22 09:20 12/18/22 12:17 Temperature 97.2 F L Pulse Rate 62 Respiratory Rate 17 Blood Pressure 125/67 Pulse Oximetry 99 Oxygen Delivery Room Air Intake/Output Intake/Output: Intake & Output 12/15/22 12/16/22 12/17/22 12/18/22 23:59 23:59 23:59 23:59 Intake Total 390 460 Output Total 9840 Balance -9435 460 Meds/Results Medications: Active Medications Generic Name Dose Route Start Last Admin Trade Name Freq PRN Reason Stop Dose Admin Acetaminophen 650 mg 12/18/22 08:29 Acetaminophen 325 Mg Tablet PO Q6H PRN Mild Pain (1-3) Or Fever Amiodarone HCl 200 mg 12/18/22 08:40 12/18/22 09:25 Amiodarone Hcl 200 Mg Tablet PO 200 mg DAILY@0800 CASA Administration Aspirin 81 mg 12/18/22 08:40 12/18/22 09:25 Aspirin 81 Mg Chewable Tablet PO 81 mg DAILY@0800 CASA Administration Atorvastatin Calcium 40 mg 12/18/22 09:00 12/18/22 09:28 Atorvastatin 40 Mg Tablet PO 40 mg DAILY CASA Administration Bisacodyl 10 mg 12/18/22 08:29 Bisacodyl 10 Mg Suppository RECTAL QPM PRN Constipation Brimonidine Tartrate 2 drop 12/18/22 09:00 12/18/22 09:31 Brimonidine Tartrate 0.2% Op Soln 5 Ml Btl LEFT EYE 01/17/23 08:59 2 drop BID CASA Administration Carvedilol 3.125 mg 12/18/22 09:00 12/18/22 09:27 Carvedilol 3.125 Mg Tablet PO 3.125 mg BID CASA Administration Clopidogrel Bisulfate 75 mg 12/18/22 09:00 12/18/22 11:07 Clopidogrel Bisulfate 75 Mg Tablet PO Not Given QAM [facility] Dextrose 12.5 gm 12/18/22 11:10 Dextrose 50% 25 Gm/50 Ml Syringe IV PUSH PRN PRN Hypoglycemia Protocol Gabapentin 100 mg 12/18/22 09:00 08
[2022-12-18 16:48] LABS: Glucose Point of Care 234 mg/dl (65-105)
[2022-12-18] MEDS: INSULIN ASPART (*BKC) 100 UNITS/ML SUB-Q (17:57)
[2022-12-18 19:55] LABS: Glucose Point of Care 245 mg/dl (65-105)
[2022-12-18] MEDS: ZOLPIDEM TARTRATE (*CRX) 5 MG TABLET PO (20:12)
[2022-12-18] MEDS: MELATONIN 3 MG TABLET 6 MG PO (20:12)
[2022-12-18] MEDS: SENNA/DOCUSATE SODIUM TABLET 1 TAB PO (20:12)
[2022-12-18] MEDS: LATANOPROST 0.005% OP SOLN 2.5 ML BTL 1 DROP LEFT EYE (21:41)
[2022-12-19] VITALS (8 sets, daily range): BP systolic 108–122; BP diastolic 54–69; PULSE 52–68; RESP 16–18; TEMP 36.4–37.3; O2SAT 95–97
--- NOTE | 2022-12-19 02:48 | PC.NURSE ---
12/18/22 at 0600: reviewed all charting and documentation by mady vivar
[2022-12-19 05:27] LABS: Alanine Aminotransferase 27 U/L (6-50); Albumin Level 3.2 g/dL (3.5-5.1); Alkaline Phosphatase 123 U/L (38-126); Anion Gap 2 mmol/L (8-16); Aspartate Amino Transferase 28 U/L (17-59); Bilirubin,Total 0.6 mg/dL (0.2-1.3); Blood Urea Nitrogen 15 mg/dL (9-20); Calcium 8.7 mg/dL (8.4-10.2); Carbon Dioxide 31 mmol/L (22-30); Chloride 100 mmol/L (98-107); Estimated CRCL calculation 54 ml/min; Estimated Glomerular Filt Rate > 60; Glucose 133 mg/dL (65-110); Potassium 3.6 mmol/L (3.4-5.0); Sodium 133 mmol/L (137-145)
[2022-12-19] MEDS: LEVOTHYROXINE SODIUM 25 MCG TABLET PO (05:38)
[2022-12-19 06:11] LABS: Basophils Percent Auto 0.4 % (0.2-1.2); Eosinophils Absolute Auto 0.1 K/mm3 (0-0.3); Eosinophils Percent Auto 1.3 % (0-4.4); Hematocrit 41.7 % (42.0-52.0); Hemoglobin 12.7 g/dL (14.0-18.0); Immature Granulocyte Absolute 0.04 K/mm3 (0.00-0.031); Immature Granulocyte Percent A 0.4 % (0-0.5); Lymphocytes Percent Auto 29.1 % (18.3-44.2); Mean Corpuscular HGB Conc 30.5 g/dl (32-36); Mean Corpuscular Hemoglobin 26.8 pg (26-34); Mean Corpuscular Volume 88.2 fl (80-100); Mean Platelet Volume 10.3 fl (7.4-10.4); Monocytes Absolute Auto 0.6 K/mm3 (0.1-0.6); Monocytes Percent Auto 7.2 % (2.6-8.5); Neutrophils Absolute Auto 5.5 K/mm3 (1.3-6.7); Neutrophils Percent Auto 61.6 % (45.5-73.1); Platelet Count Result 199 k/mm3 (150-375); Red Blood Count 4.73 M/mm3 (4.6-6.20); Red Cell Distribution Width 17.9 % (11.5-14.5)
[2022-12-19 08:19] LABS: Glucose Point of Care 129 mg/dl (65-105)
--- NOTE | 2022-12-19 09:23 | PM.IMPN ---
Progress Note: A&P Assessment and Plan (1) Clot retention of urine: Code(s): R33.8 - Other retention of urine Status: Acute Assessment and Plan: Hematuria with cystoscopy 12/17 clot removal. Hold aspirin and Plavix. 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 Hold aspirin Plavix for now. (3) Atrial fibrillation: Code(s): I48.91 - Unspecified atrial fibrillation Status: Acute Assessment and Plan: Rate controlled, continue amio. Hold aspirin Plavix for now Plan DVT prophylaxis with SCDs GI prophylaxis not indicated Code status DNR Subjective Date/time seen: 12/19/22 09:23 Interval history: 77-year-old male history of CVA and indwelling [place] from a nursing facility is presenting with hematuria being treated for UTI with bladder clot burden and urology consult. No overnight events noted. No chest pain or shortness of breath. No nausea, vomiting or diarrhea. No fevers or chills. Still with blood in gonzales bag. Review of Systems Review of Systems: 12 point review of systems was assessed and was negative except as noted in the HPI Exam Narrative: General: No acute distress, alert and oriented per baseline HEENT: Atraumatic, normocephalic, mucous membranes moist CV: Regular rate and rhythm, S1, S2 Lungs: Clear to auscultation bilaterally, no rales or crackles noted, no wheezes, good air entry Abdomen: Soft, nontender, nondistended Extremities: Normal to inspection, blood noted in gonzales bag Skin: No rashes noted, no lesions or wounds seen Psych: Euthymic, normal affect Objective Data Vital Signs Vital Signs: Vital Signs - 24 hr 12/18/22 09:25 12/18/22 09:27 12/18/22 12:17 Temperature 97.2 F L Pulse Rate 73 73 62 Respiratory Rate 17 Blood Pressure 125/67 Pulse Oximetry 99 Oxygen Delivery 12/18/22 16:49 12/18/22 17:56 12/18/22 20:50 Temperature 96.8 F L 98.4 F Pulse Rate 63 63 54 L Respiratory Rate 16 17 Blood Pressure 108/78 105/63 Pulse Oximetry 97 98 Oxygen Delivery 12/18/22 20:00 12/19/22 04:00 Temperature 98.0 F Pulse Rate 52 L Respiratory Rate 17 Blood Pressure 109/69 Pulse Oximetry 95 Oxygen Delivery Room Air Intake/Output Intake/Output: Intake & Output 12/16/22 12/17/22 12/18/22 12/19/22 23:59 23:59 23:59 23:59 Intake Total 390 1250 360 Output Total 9825 1250 950 Balance -9435 0 -590 Meds/Results Medications: Active Medications Generic Name Dose Route Start Last Admin Trade Name Freq PRN Reason Stop Dose Admin Acetaminophen 650 mg 12/18/22 08:29 Acetaminophen 325 Mg Tablet PO Q6H PRN Mild Pain (1-3) Or Fever Amiodarone HCl 200 mg 12/18/22 08:40 12/18/22 09:25 Amiodarone Hcl 200 Mg Tablet PO 200 mg DAILY@0800 CASA Administration Aspirin 81 mg 12/18/22 08:40 12/18/22 09:25 Aspirin 81 Mg Chewable Tablet PO 81 mg DAILY@0800 CASA Administration Atorvastatin Calcium 40 mg 12/18/22 09:00 12/18/22 09:28 Atorvastatin 40 Mg Tablet PO 40 mg DAILY CASA Administration Bisacodyl 10 mg 12/18/22 08:29 Bisacodyl 10 Mg Suppository RECTAL QPM PRN Constipation Brimonidine Tartrate 2 drop 12/18/22 09:00 12/18/22 17:57 Brimonidine Tartrate 0.2% Op Soln 5 Ml Btl LEFT EYE 01/17/23 08:59 2 drop BID CASA Administration Carvedilol 3.125 mg 12/18/22 09:00 12/18/22 17:56 Carvedilol 3.125 Mg Tablet PO 3.125 mg BID CASA Administration Clopidogrel Bisulfate 75 mg 12/18/22 09:00 12/18/22 11:07 Clopidogrel Bisulfate 75 Mg Tablet PO Not Given QAM [facility] Dextrose 12.5 gm 12/18/22 11:10 Dextrose 50% 25 Gm/50 Ml Syringe IV PUSH PRN PRN Hypoglycemia Protocol Gabapentin 100 mg 12/18/22 09:00 12/18/22 17:56 G
[2022-12-19] MEDS: INSULIN GLARGINE (*BKC) 100 UNITS/ML 25 UNITS SUB-Q (10:41)
[2022-12-19] MEDS: polyethylene glycoL 3350 17 GM POWD.PACK PO (10:43)
[2022-12-19] MEDS: AMIODARONE HCL 200 MG TABLET PO (10:43)
[2022-12-19] MEDS: CLOPIDOGREL BISULFATE 75 MG TABLET PO (10:43)
[2022-12-19] MEDS: ATORVASTATIN 40 MG TABLET PO (10:43)
[2022-12-19] MEDS: MIDODRINE HCL 10 MG TABLET 20 MG PO ×4 (10:43→20:38)
[2022-12-19] MEDS: TAMSULOSIN HCL 0.4 MG CAPSULE PO (10:43)
[2022-12-19] MEDS: LORATADINE 10 MG TABLET PO (10:44)
[2022-12-19] MEDS: GABAPENTIN 100 MG CAPSULE PO ×3 (10:44→17:43)
[2022-12-19] MEDS: carvediloL 3.125 MG TABLET PO ×2 (10:44→17:43)
[2022-12-19] MEDS: BRIMONIDINE TARTRATE 0.2% OP SOLN 5 ML BTL 2 DROP LEFT EYE ×2 (10:44→17:43)
[2022-12-19] MEDS: CHOLECALCIFEROL 1,000 UNITS TABLET 2000 UNITS PO (10:44)
[2022-12-19] MEDS: MULTIVITAMINS /C LUTEIN (CENTRUM SILVER) TABLET *BKC 1 TAB PO (10:44)
[2022-12-19] MEDS: ASPIRIN 81 MG CHEWABLE TABLET PO (10:44)
[2022-12-19] MEDS: ZINC OXIDE 20% OINT 30 GM TUBE 1 APPLIC TOPICAL ×2 (10:45→17:44)
[2022-12-19] MEDS: TIMOLOL MALEATE 0.5% OP SOLN 5 ML BOTTLE 2 DROP LEFT EYE ×2 (10:45→17:43)
[2022-12-19 12:05] LABS: Glucose Point of Care 172 mg/dl (65-105)
--- NOTE | 2022-12-19 16:00 | WPDUROPN2 ---
Progress Note: A&P Assessment and Plan (1) Clot retention of urine: Code(s): R33.8 - Other retention of urine Status: Acute Assessment and Plan: Resolved. Continue CBI until urine is clear, then wean to off. Will plan to do a voiding trial when urine is clear off CBI. (2) Gross hematuria: Code(s): R31.0 - Gross hematuria Status: Acute Subjective Subjective Date/Time Seen: 12/19/22 16:00 Post Op day: 2 Interval history: POD #2 Cystoscopy with fulguration of prostate at 6:00 o'clock position at bladder neck location, clot evacuation, Patrick placement [address] Patient doing well, no pain, tolerating diet and activity, urine is pink on CBI. Review of Systems Review of Systems: 12 point review of systems was assessed and was negative except as noted in the HPI Cardiovascular: Cardiovascular: Denies chest pain Respiratory: Respiratory: Reports no additional respiratory complaints Gastrointestinal: Gastrointestinal: Denies abdominal pain, Denies nausea and Denies vomiting Genitourinary: Genitourinary: Denies hematuria, Denies dysuria, Denies flank pain, Denies urinary frequency, Denies urinary hesitancy, Denies urinary incontinence and Denies urinary urgency Exam Const: General: cooperative and comfortable Resp: Effort & Inspection: normal respiratory effort Cardio: Rate: regular rate GI: GI Palp: Yes Soft to palpation and No Tenderness to palpation present (GI) : General: Yes no CVA tenderness Urinary Catheter: Urinary Catheter: patent and draining, urine clear and urine pink Extrem: Right lower extremity: no edema Left lower extremity: no edema Objective Data Vital Signs Vital Signs: Vital Signs - 24 hr 12/18/22 16:49 12/18/22 17:56 12/18/22 20:50 Temperature 96.8 F L 98.4 F Pulse Rate 63 63 54 L Respiratory Rate 16 17 Blood Pressure 108/78 105/63 Pulse Oximetry 97 98 Oxygen Delivery 12/18/22 20:00 12/19/22 04:00 12/19/22 10:40 Temperature 98.0 F Pulse Rate 52 L 64 Respiratory Rate 17 16 Blood Pressure 109/69 122/57 L Pulse Oximetry 95 95 Oxygen Delivery Room Air 12/19/22 10:43 12/19/22 10:44 12/19/22 13:23 Temperature 97.5 F L Pulse Rate 68 68 62 Respiratory Rate 16 Blood Pressure 113/57 L Pulse Oximetry 96 Oxygen Delivery 12/19/22 10:30 Temperature Pulse Rate Respiratory Rate Blood Pressure Pulse Oximetry Oxygen Delivery Room Air Intake/Output Intake/Output: Intake & Output 12/16/22 12/17/22 12/18/22 12/19/22 23:59 23:59 23:59 23:59 Intake Total 390 1250 600 Output Total 9825 1250 950 Balance -9435 0 -350 Meds/Results Medications: Active Medications Generic Name Dose Route Start Last Admin Trade Name Freq PRN Reason Stop Dose Admin Acetaminophen 650 mg 12/18/22 08:29 Acetaminophen 325 Mg Tablet PO Q6H PRN Mild Pain (1-3) Or Fever Amiodarone HCl 200 mg 12/18/22 08:40 12/19/22 10:43 Amiodarone Hcl 200 Mg Tablet PO 200 mg DAILY@0800 CASA Administration Aspirin 81 mg 12/18/22 08:40 12/19/22 10:44 Aspirin 81 Mg Chewable Tablet PO 81 mg DAILY@0800 CASA Administration Atorvastatin Calcium 40 mg 12/18/22 09:00 12/19/22 10:43 Atorvastatin 40 Mg Tablet PO 40 mg DAILY CASA Administration Bisacodyl 10 mg 12/18/22 08:29 Bisacodyl 10 Mg Suppository RECTAL QPM PRN Constipation Brimonidine Tartrate 2 drop 12/18/22 09:00 12/19/22 10:44 Brimonidine Tartrate 0.2% Op Soln 5 Ml Btl LEFT EYE 01/17/23 08:59 2 drop BID CASA Administration Carvedilol 3.125 mg 12/18/22 09:00 12/19/22 10:44 Carvedilol 3.125 Mg Tablet PO 3.125 mg BID CASA Administration Clopidogrel Bisulfate 75 mg 12/18/22 09:00 12/19/22 10:43 Clopidogrel Bisulfate 75 Mg Tablet PO 75 mg QAM CSAA Administration Dextrose 12.5 gm 12/18/22 11:10 Dextrose 50% 25 Gm/50 Ml Syringe IV PUSH PRN PRN Hypoglycemia Anibal
[2022-12-19 16:51] LABS: Glucose Point of Care 193 mg/dl (65-105)
[2022-12-19] MEDS: MELATONIN 3 MG TABLET 6 MG PO (20:37)
[2022-12-19] MEDS: LATANOPROST 0.005% OP SOLN 2.5 ML BTL 1 DROP LEFT EYE (20:37)
[2022-12-19] MEDS: ZOLPIDEM TARTRATE (*CRX) 5 MG TABLET PO (20:38)
[2022-12-19] MEDS: SENNA/DOCUSATE SODIUM TABLET 1 TAB PO (20:38)
[2022-12-19 21:02] LABS: Glucose Point of Care 332 mg/dl (65-105)
[2022-12-20] MEDS: LEVOTHYROXINE SODIUM 25 MCG TABLET PO (05:37)
[2022-12-20 05:40] LABS: Basophils Percent Auto 0.3 % (0.2-1.2); Eosinophils Absolute Auto 0.1 K/mm3 (0-0.3); Eosinophils Percent Auto 1.4 % (0-4.4); Hemoglobin 12.5 g/dL (14.0-18.0); Immature Granulocyte Absolute 0.05 K/mm3 (0.00-0.031); Immature Granulocyte Percent A 0.6 % (0-0.5); Lymphocytes Absolute Auto 3.16 K/mm3 (0.9-3.2); Lymphocytes Percent Auto 35.6 % (18.3-44.2); Mean Corpuscular HGB Conc 31.3 g/dl (32-36); Mean Corpuscular Hemoglobin 27.5 pg (26-34); Mean Corpuscular Volume 88.1 fl (80-100); Monocytes Absolute Auto 0.7 K/mm3 (0.1-0.6); Monocytes Percent Auto 7.3 % (2.6-8.5); Neutrophils Absolute Auto 4.9 K/mm3 (1.3-6.7); Neutrophils Percent Auto 54.8 % (45.5-73.1); Platelet Count Result 194 k/mm3 (150-375); Red Blood Count 4.54 M/mm3 (4.6-6.20); Red Cell Distribution Width 17.7 % (11.5-14.5); White Blood Count 8.9 K/mm3 (4.5-10.0)
[2022-12-20 05:50] LABS: Alanine Aminotransferase 33 U/L (6-50); Albumin Level 3.2 g/dL (3.5-5.1); Alkaline Phosphatase 128 U/L (38-126); Anion Gap 3 mmol/L (8-16); Aspartate Amino Transferase 34 U/L (17-59); Bilirubin,Total 0.6 mg/dL (0.2-1.3); Blood Urea Nitrogen 16 mg/dL (9-20); Calcium 8.7 mg/dL (8.4-10.2); Carbon Dioxide 30 mmol/L (22-30); Chloride 101 mmol/L (98-107); Estimated CRCL calculation 54 ml/min; Estimated Glomerular Filt Rate > 60; Glucose 140 mg/dL (65-110); Potassium 3.8 mmol/L (3.4-5.0); Sodium 134 mmol/L (137-145)
[2022-12-20 06:00] VITALS: BP 114/64; PULSE 65; RESP 18; TEMP 36.5; O2SAT 95
[2022-12-20 08:27] LABS: Glucose Point of Care 121 mg/dl (65-105)
--- NOTE | 2022-12-20 09:24 | PM.IMPN ---
Progress Note: A&P Assessment and Plan (1) Clot retention of urine: Code(s): R33.8 - Other retention of urine Status: Acute Assessment and Plan: Hematuria with cystoscopy 12/17 clot removal. Hold aspirin and Plavix. 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 Hold aspirin Plavix for now. (3) Atrial fibrillation: Code(s): I48.91 - Unspecified atrial fibrillation Status: Acute Assessment and Plan: Rate controlled, continue amio. Hold aspirin Plavix for now Plan DVT prophylaxis with SCDs GI prophylaxis not indicated Code status DNR Subjective Date/time seen: 12/20/22 09:24 Interval history: 77-year-old male history of CVA and indwelling Gonzales from a nursing facility is presenting with hematuria being treated for UTI with bladder clot burden and urology consult. No overnight events noted. No chest pain or shortness of breath. No nausea, vomiting or diarrhea. No fevers or chills. Gonzales bag almost clear, pink-tinged. Review of Systems Review of Systems: 12 point review of systems was assessed and was negative except as noted in the HPI Exam Narrative: General: No acute distress, alert and oriented per baseline HEENT: Atraumatic, normocephalic, mucous membranes moist CV: Regular rate and rhythm, S1, S2 Lungs: Clear to auscultation bilaterally, no rales or crackles noted, no wheezes, good air entry Abdomen: Soft, nontender, nondistended Extremities: Normal to inspection, blood noted in gonzales bag Skin: No rashes noted, no lesions or wounds seen Psych: Euthymic, normal affect Objective Data Vital Signs Vital Signs: Vital Signs - 24 hr 12/19/22 10:40 12/19/22 10:43 12/19/22 10:44 Temperature Pulse Rate 64 68 68 Respiratory Rate 16 Blood Pressure 122/57 L Pulse Oximetry 95 Oxygen Delivery 12/19/22 13:23 12/19/22 10:30 12/19/22 17:43 Temperature 97.5 F L Pulse Rate 62 68 Respiratory Rate 16 Blood Pressure 113/57 L Pulse Oximetry 96 Oxygen Delivery Room Air 12/19/22 19:40 12/19/22 20:00 12/20/22 06:00 Temperature 99.2 F 97.7 F Pulse Rate 62 62 65 Respiratory Rate 18 18 18 Blood Pressure 108/54 L 114/64 Pulse Oximetry 97 97 95 Oxygen Delivery Room Air Intake/Output Intake/Output: Intake & Output 12/17/22 12/18/22 12/19/22 12/20/22 23:59 23:59 23:59 23:59 Intake Total 390 1250 1190 Output Total 9854 1257 8146 3069 [facility] -95 9 -[phone] -9737 Meds/Results Medications: Active Medications Generic Name Dose Route Start Last Admin Trade Name Freq PRN Reason Stop Dose Admin Acetaminophen 650 mg 12/18/22 08:29 Acetaminophen 325 Mg Tablet PO Q6H PRN Mild Pain (1-3) Or Fever Amiodarone HCl 200 mg 12/18/22 08:40 12/19/22 10:43 Amiodarone Hcl 200 Mg Tablet PO 200 mg DAILY@0800 CASA Administration Aspirin 81 mg 12/18/22 08:40 12/19/22 10:44 Aspirin 81 Mg Chewable Tablet PO 81 mg DAILY@0800 CASA Administration Atorvastatin Calcium 40 mg 12/18/22 09:00 12/19/22 10:43 Atorvastatin 40 Mg Tablet PO 40 mg DAILY CASA Administration Bisacodyl 10 mg 12/18/22 08:29 Bisacodyl 10 Mg Suppository RECTAL QPM PRN Constipation Brimonidine Tartrate 2 drop 12/18/22 09:00 12/19/22 17:43 Brimonidine Tartrate 0.2% Op Soln 5 Ml Btl LEFT EYE 01/17/23 08:59 2 drop BID CASA Administration Carvedilol 3.125 mg 12/18/22 09:00 12/19/22 17:43 Carvedilol 3.125 Mg Tablet PO 3.125 mg BID CASA Administration Clopidogrel Bisulfate 75 mg 12/18/22 09:00 12/19/22 10:43 Clopidogrel Bisulfate 75 Mg Tablet PO 75 mg QAM CASA Administration Dextrose 12.5 gm 12/18/22 11:10 Dextrose 50% 25 Gm/50 Ml Syringe IV PUSH PRN PRN Hypoglycemia Protocol
[2022-12-20 10:07] VITALS: BP 104/64; PULSE 68; RESP 16; O2SAT 96
[2022-12-20 10:09] VITALS: PULSE 70
[2022-12-20] MEDS: CLOPIDOGREL BISULFATE 75 MG TABLET PO (10:09)
[2022-12-20] MEDS: MULTIVITAMINS /C LUTEIN (CENTRUM SILVER) TABLET *BKC 1 TAB PO (10:09)
[2022-12-20] MEDS: LORATADINE 10 MG TABLET PO (10:09)
[2022-12-20] MEDS: carvediloL 3.125 MG TABLET PO ×2 (10:09→17:55)
[2022-12-20] MEDS: ATORVASTATIN 40 MG TABLET PO (10:09)
[2022-12-20] MEDS: GABAPENTIN 100 MG CAPSULE PO ×3 (10:09→17:55)
[2022-12-20] MEDS: ASPIRIN 81 MG CHEWABLE TABLET PO (10:09)
[2022-12-20] MEDS: MIDODRINE HCL 10 MG TABLET 20 MG PO ×4 (10:09→20:33)
[2022-12-20] MEDS: TAMSULOSIN HCL 0.4 MG CAPSULE PO (10:09)
[2022-12-20] MEDS: CHOLECALCIFEROL 1,000 UNITS TABLET 2000 UNITS PO (10:09)
[2022-12-20] MEDS: AMIODARONE HCL 200 MG TABLET PO (10:09)
[2022-12-20] MEDS: TIMOLOL MALEATE 0.5% OP SOLN 5 ML BOTTLE 2 DROP LEFT EYE ×2 (10:10→17:56)
[2022-12-20] MEDS: BRIMONIDINE TARTRATE 0.2% OP SOLN 5 ML BTL 2 DROP LEFT EYE ×2 (10:10→17:56)
[2022-12-20] MEDS: INSULIN GLARGINE (*BKC) 100 UNITS/ML 25 UNITS SUB-Q (10:11)
[2022-12-20] MEDS: ZINC OXIDE 20% OINT 30 GM TUBE 1 APPLIC TOPICAL ×2 (10:11→17:56)
[2022-12-20 11:51] LABS: Glucose Point of Care 208 mg/dl (65-105)
[2022-12-20] MEDS: INSULIN ASPART (*BKC) 100 UNITS/ML SUB-Q (12:05)
[2022-12-20 14:00] VITALS: BP 105/68; PULSE 60; RESP 17; TEMP 36.5; O2SAT 97
[2022-12-20 16:54] LABS: Glucose Point of Care 146 mg/dl (65-105)
[2022-12-20 17:55] VITALS: PULSE 66
--- NOTE | 2022-12-20 18:09 | WPDUROPN2 ---
Progress Note: A&P Assessment and Plan (1) Clot retention of urine: Code(s): R33.8 - Other retention of urine Status: Acute Assessment and Plan: Doing well at this time. Wean CBI to off in a.m.. If urine remains clear can be discharged home from urology standpoint with Patrick catheter. He can follow up with Dr. Hunter for further management and possible suprapubic tube placement (2) Urinary retention: Code(s): R33.9 - Retention of urine, unspecified Status: Acute Assessment and Plan: See above Subjective Subjective Date/Time Seen: 12/20/22 18:09 Principal diagnosis: Hematuria with clot retention Interval history: Patient is doing well at this time. Patrick is draining fairly clear urine. Will wean CBI to off in morning. If remains clear can be discharged home with Patrick catheter. This is chronic in nature. Will not attempt any voiding trials here in the hospital. Review of Systems Review of Systems: All systems reviewed & are unremarkable except as noted in HPI and below Exam Const: General: cooperative and comfortable Resp: Effort & Inspection: normal respiratory effort Cardio: Rate: regular rate Rhythm: regular rhythm : Meatus: other (Urethral erosion secondary to chronic Patrick catheter) Urinary Catheter: Urinary Catheter: patent and draining and urine clear Objective Data Vital Signs Vital Signs: Vital Signs - 24 hr 12/19/22 19:40 12/19/22 20:00 12/20/22 06:00 Temperature 37.3 C 36.5 C Pulse Rate 62 62 65 Respiratory Rate 18 18 18 Blood Pressure 108/54 L 114/64 Pulse Oximetry 97 97 95 Oxygen Delivery Room Air 12/20/22 10:07 12/20/22 10:09 12/20/22 10:09 Temperature Pulse Rate 68 70 70 Respiratory Rate 16 Blood Pressure 104/64 Pulse Oximetry 96 Oxygen Delivery 12/20/22 10:30 12/20/22 14:00 12/20/22 17:55 Temperature 36.5 C Pulse Rate 60 66 Respiratory Rate 17 Blood Pressure 105/68 Pulse Oximetry 97 Oxygen Delivery Room Air Intake/Output Intake/Output: Intake & Output 12/17/22 12/18/22 12/19/22 12/20/22 23:59 23:59 23:59 23:59 Intake Total 390 1250 1190 360 Output Total 6589 9033 6985 8022 Balance -3569 3 -7144 -7531 Meds/Results Medications: Active Medications Generic Name Dose Route Start Last Admin Trade Name Freq PRN Reason Stop Dose Admin Acetaminophen 650 mg 12/18/22 08:29 Acetaminophen 325 Mg Tablet PO Q6H PRN Mild Pain (1-3) Or Fever Amiodarone HCl 200 mg 12/18/22 08:40 12/20/22 10:09 Amiodarone Hcl 200 Mg Tablet PO 200 mg DAILY@0800 CASA Administration Aspirin 81 mg 12/18/22 08:40 12/20/22 10:09 Aspirin 81 Mg Chewable Tablet PO 81 mg DAILY@0800 CASA Administration Atorvastatin Calcium 40 mg 12/18/22 09:00 12/20/22 10:09 Atorvastatin 40 Mg Tablet PO 40 mg DAILY CASA Administration Bisacodyl 10 mg 12/18/22 08:29 Bisacodyl 10 Mg Suppository RECTAL QPM PRN Constipation Brimonidine Tartrate 2 drop 12/18/22 09:00 12/20/22 17:56 Brimonidine Tartrate 0.2% Op Soln 5 Ml Btl LEFT EYE 01/17/23 08:59 2 drop BID CASA Administration Carvedilol 3.125 mg 12/18/22 09:00 12/20/22 17:55 Carvedilol 3.125 Mg Tablet PO 3.125 mg BID CASA Administration Clopidogrel Bisulfate 75 mg 12/18/22 09:00 12/20/22 10:09 Clopidogrel Bisulfate 75 Mg Tablet PO 75 mg QAM CASA Administration Dextrose 12.5 gm 12/18/22 11:10 Dextrose 50% 25 Gm/50 Ml Syringe IV PUSH PRN PRN Hypoglycemia Protocol Gabapentin 100 mg 12/18/22 09:00 12/20/22 17:55 Gabapentin 100 Mg Capsule PO 100 mg TID CASA Administration Glucagon 1 mg 12/18/22 11:10 Glucagon For Inj 1 Mg Vial IM PRN PRN Hypoglycemia Protocol Glucose 15 gm 12/18/22 11:10 Glucose Oral Gel 15 Gm Of Glucse In 37.5 Gm Tube PO PRN PRN Hypoglycemia Protocol Dextrose 1,000 mls @ 100 mls/hr 12/18/22 11:10
[2022-12-20 20:13] VITALS: BP 118/79; PULSE 51; RESP 18; TEMP 36.6; O2SAT 97
[2022-12-20 20:23] LABS: Glucose Point of Care 173 mg/dl (65-105)
[2022-12-20] MEDS: ZOLPIDEM TARTRATE (*CRX) 5 MG TABLET PO (20:33)
[2022-12-20] MEDS: MELATONIN 3 MG TABLET 6 MG PO (20:33)
[2022-12-20] MEDS: LATANOPROST 0.005% OP SOLN 2.5 ML BTL 1 DROP LEFT EYE (20:34)
[2022-12-21 05:26] LABS: Basophils Percent Auto 0.4 % (0.2-1.2); Eosinophils Absolute Auto 0.2 K/mm3 (0-0.3); Eosinophils Percent Auto 2.5 % (0-4.4); Hematocrit 41.8 % (42.0-52.0); Immature Granulocyte Absolute 0.04 K/mm3 (0.00-0.031); Immature Granulocyte Percent A 0.5 % (0-0.5); Lymphocytes Absolute Auto 3.02 K/mm3 (0.9-3.2); Lymphocytes Percent Auto 37.8 % (18.3-44.2); Mean Corpuscular HGB Conc 31.1 g/dl (32-36); Mean Corpuscular Hemoglobin 27.5 pg (26-34); Mean Corpuscular Volume 88.4 fl (80-100); Mean Platelet Volume 10.1 fl (7.4-10.4); Monocytes Absolute Auto 0.7 K/mm3 (0.1-0.6); Monocytes Percent Auto 8.4 % (2.6-8.5); Neutrophils Percent Auto 50.4 % (45.5-73.1); Platelet Count Result 201 k/mm3 (150-375); Red Blood Count 4.73 M/mm3 (4.6-6.20); Red Cell Distribution Width 17.8 % (11.5-14.5)
[2022-12-21 05:38] LABS: Alanine Aminotransferase 38 U/L (6-50); Albumin Level 3.3 g/dL (3.5-5.1); Alkaline Phosphatase 135 U/L (38-126); Anion Gap 6 mmol/L (8-16); Aspartate Amino Transferase 33 U/L (17-59); Bilirubin,Total 0.5 mg/dL (0.2-1.3); Blood Urea Nitrogen 17 mg/dL (9-20); Calcium 8.7 mg/dL (8.4-10.2); Carbon Dioxide 27 mmol/L (22-30); Chloride 102 mmol/L (98-107); Estimated CRCL calculation 49 ml/min; Estimated Glomerular Filt Rate > 60; Glucose 102 mg/dL (65-110); Potassium 3.8 mmol/L (3.4-5.0); Sodium 135 mmol/L (137-145)
[2022-12-21 05:53] VITALS: BP 124/64; PULSE 52; RESP 18; TEMP 36.6; O2SAT 94
[2022-12-21] MEDS: LEVOTHYROXINE SODIUM 25 MCG TABLET PO (06:05)
[2022-12-21 08:16] LABS: Glucose Point of Care 100 mg/dl (65-105)
[2022-12-21 09:59] VITALS: PULSE 58
[2022-12-21] MEDS: AMIODARONE HCL 200 MG TABLET PO (09:59)
[2022-12-21] MEDS: ASPIRIN 81 MG CHEWABLE TABLET PO (09:59)
[2022-12-21 10:00] VITALS: PULSE 58
[2022-12-21] MEDS: ATORVASTATIN 40 MG TABLET PO (10:00)
[2022-12-21] MEDS: carvediloL 3.125 MG TABLET PO ×2 (10:00→17:10)
[2022-12-21] MEDS: BRIMONIDINE TARTRATE 0.2% OP SOLN 5 ML BTL 2 DROP LEFT EYE ×2 (10:00→17:09)
[2022-12-21] MEDS: CHOLECALCIFEROL 1,000 UNITS TABLET 2000 UNITS PO (10:00)
[2022-12-21] MEDS: TIMOLOL MALEATE 0.5% OP SOLN 5 ML BOTTLE 2 DROP LEFT EYE ×2 (10:01→17:09)
[2022-12-21] MEDS: TAMSULOSIN HCL 0.4 MG CAPSULE PO (10:01)
[2022-12-21] MEDS: MULTIVITAMINS /C LUTEIN (CENTRUM SILVER) TABLET *BKC 1 TAB PO (10:01)
[2022-12-21] MEDS: MIDODRINE HCL 10 MG TABLET 20 MG PO ×3 (10:01→17:10)
[2022-12-21] MEDS: polyethylene glycoL 3350 17 GM POWD.PACK PO (10:01)
[2022-12-21] MEDS: LORATADINE 10 MG TABLET PO (10:01)
[2022-12-21] MEDS: CLOPIDOGREL BISULFATE 75 MG TABLET PO (10:01)
[2022-12-21] MEDS: GABAPENTIN 100 MG CAPSULE PO ×3 (10:01→17:10)
[2022-12-21] MEDS: ZINC OXIDE 20% OINT 30 GM TUBE 1 APPLIC TOPICAL (10:02)
[2022-12-21] MEDS: INSULIN GLARGINE (*BKC) 100 UNITS/ML 25 UNITS SUB-Q (10:10)
--- NOTE | 2022-12-21 10:13 | PM.DS ---
DS: Admitting Diagnosis Discharge Date 12/21/22 Admitting Diagnosis hematuria DS: Discharge Diagnosis Discharge Diagnosis (1) Clot retention of urine: Code(s): R33.8 - Other retention of urine Status: Acute Assessment and Plan: Hematuria with cystoscopy 12/17 clot removal. Hold aspirin and Plavix. 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 Hold aspirin Plavix for now. (3) Atrial fibrillation: Code(s): I48.91 - Unspecified atrial fibrillation Status: Acute Assessment and Plan: Rate controlled, continue amio. Hold aspirin Plavix for now Plan DVT prophylaxis with SCDs GI prophylaxis not indicated Code status DNR DS: Summary Hospital Course Hospital Course: 77-year-old male history of CVA and indwelling Gonzales from a nursing facility is presenting with hematuria being treated for UTI with bladder clot burden and urology consult. Patient is doing well at this time.? Gonzales is draining fairly clear urine.? Will wean CBI to off in morning.? If remains clear can be discharged home with Gonzales catheter.? This is chronic in nature.? Will not attempt any voiding trials here in the hospital. Follow up with Dr Hunter for further management and discussion of possible suprapubic catheter placement. Please see above and med rec for details. Time Spent with Patient Time attestation: Total time spent providing and/or coordinating discharge services: Exam Narrative: General: No acute distress, alert and oriented per baseline HEENT: Atraumatic, normocephalic, mucous membranes moist CV: Regular rate and rhythm, S1, S2 Lungs: Clear to auscultation bilaterally, no rales or crackles noted, no wheezes, good air entry Abdomen: Soft, nontender, nondistended Extremities: Normal to inspection, blood noted in gonzales bag Skin: No rashes noted, no lesions or wounds seen Psych: Euthymic, normal affect DS: Data Data Completed and Pending Labs on day of discharge: Labs from last 24 hours 12/21/22 12/21/22 12/20/22 08:12 05:11 20:20 WBC 8.0 RBC 4.73 Hgb 13.0 L Hct 41.8 L MCV 88.4 MCH 27.5 MCHC 31.1 L RDW 17.8 H Plt Count 201 MPV 10.1 Immature Gran % (Auto) 0.5 Neut % (Auto) 50.4 Lymph % (Auto) 37.8 [place] % (Auto) 8.4 Eos % (Auto) 2.5 Baso % (Auto) 0.4 Lymph # (Auto) 3.02 [place] # (Auto) 0.7 H Eos # (Auto) 0.2 Baso # (Auto) 0.0 Abs Immat Gran (auto) 0.04 H Absolute Neuts (auto) 4.0 Absolute Nucleated RBC 0.0 Nucleated RBC % 0.0 Sodium 135 L Potassium 3.8 Chloride 102 Carbon Dioxide 27 Anion Gap 6 L BUN 17 Creatinine 1.10 Estim Creat Clear Calc 49 Estimated GFR > 60 Glucose 102 POC Capillary Glucose 100 173 H Calcium 8.7 Total Bilirubin 0.5 AST 33 ALT 38 Alkaline Phosphatase 135 H Total Protein 6.0 L Albumin 3.3 L 12/20/22 12/20/22 16:41 11:47 WBC RBC Hgb Hct MCV MCH MCHC RDW Plt Count MPV Immature Gran % (Auto) Neut % (Auto) Lymph % (Auto) [place] % (Auto) Eos % (Auto) Baso % (Auto) Lymph # (Auto) [place] # (Auto) Eos # (Auto) Baso # (Auto) Abs Immat Gran (auto) Absolute Neuts (auto) Absolute Nucleated RBC Nucleated RBC % Sodium Potassium Chloride Carbon Dioxide Anion Gap BUN Creatinine Estim Creat Clear Calc Estimated GFR Glucose POC Capillary Glucose 146 H 208 H Calcium Total Bilirubin AST ALT Alkaline Phosphatase Total Protein Albumin Discharge Plan Discharge Attending physician on discharge: Cathy Jaramillo Consulting providers: Juanjose Cote Discharging Clinician: Cathy Jaramillo Patient Disposition: Home, Self-Care
[2022-12-21 11:50] LABS: Glucose Point of Care 184 mg/dl (65-105)
[2022-12-21 14:00] VITALS: BP 113/68; PULSE 56; RESP 17; TEMP 36.8; O2SAT 94
--- NOTE | 2022-12-21 14:12 | PC.NURSE ---
engineering writer reviewed Alisia Garg charting/ assessments and agree with findings
[2022-12-21 15:39] LABS: SARS-CoV-2 RNA PCR Negative (Negative)
[2022-12-21 17:03] LABS: Glucose Point of Care 152 mg/dl (65-105)
[2022-12-21 17:10] VITALS: PULSE 62
== END 2022-12-21 17:20 | disposition home or self-care (01) | DRG 663 ==
LOC: ANHED 03:30 → ANH2MED 07:24
PROVIDERS: Urology; Admitting Provider Internal Medicine; Emergency Provider Emergency Medicine; PCP Family Medicine; Visit Provider Student in an Organized Health Care Education/Training Program
PROC: 0TCB8ZZ Extirpation of Matter from Bladder, Via Natural or Artificial Opening Endoscopic (ICD-10-PCS; CPT 52001; principal; 2022-12-17 10:00)
DX: T83.83XA Hemorrhage due to genitourinary prosthetic devices, implants and grafts, initial encounter (principal); I48.20 Chronic atrial fibrillation, unspecified; R31.0 Gross hematuria; N32.89 Other specified disorders of bladder; I12.9 Hypertensive chronic kidney disease with stage 1 through stage 4 chronic kidney disease, or unspecified chronic kidney disease; N18.30 Chronic kidney disease, stage 3 unspecified; I69.319 Unspecified symptoms and signs involving cognitive functions following cerebral infarction; H40.9 Unspecified glaucoma; E10.40 Type 1 diabetes mellitus with diabetic neuropathy, unspecified; E78.5 Hyperlipidemia, unspecified; D75.1 Secondary polycythemia; E10.22 Type 1 diabetes mellitus with diabetic chronic kidney disease; Y84.6 Urinary catheterization as the cause of abnormal reaction of the patient, or of later complication, without mention of misadventure at the time of the procedure; Z20.822 Contact with and (suspected) exposure to COVID-19; Z79.01 Long term (current) use of anticoagulants; Z79.82 Long term (current) use of aspirin; Z79.4 Long term (current) use of insulin; Z89.421 Acquired absence of other right toe(s); Z98.1 Arthrodesis status; Z87.891 Personal history of nicotine dependence
CPT/HCPCS: 36415; 74178; 80048; 80053; 81001; 82948; 85025; 86850; 86900; 86901; 87635; 96365; 99285; A9270; J0696; J1100; J1815; J2371; J2405; J2704; J3010; J7120; Q9967

== ENCOUNTER 2022-12-30 17:43 | Inpatient (IN) | payer MEDICARE, SELFPAY ==
--- NOTE | ~2022-12-30 | CT_ITS ---
EXAMINATION: CT abdomen pelvis wo/w con DATE: 12/31/2022 11:50 INDICATION: Gross hematuria TECHNIQUE: Computed tomography (CT) of the abdomen and pelvis was performed without and with 130 cc O mnipaque 350 intravenous contrast. The dose-length product was 1308.63 mGy-cm. Automated exposure con trol and iterative reconstruction technique were employed. COMPARISON: CT dated 12/17/2022. FINDINGS: There are multiple bilateral hyperdense masses which are indeterminate for enhancement post contrast, most likely complicated cysts, although further evaluation with MRI without and with contra st recommended. There is a large amount of debris in the bladder lumen, most likely blood clots. Ther e is hyperdense material in the gallbladder which may represent vicarious excretion of contrast. Mode rate colonic fecal loading. Enlarged prostate gland. Moderate atherosclerosis of the aorta without an eurysm. Mild lumbar spondylosis. No focal lytic or blastic lesions. No free air or free fluid. IMPRESSION: 1. Large amount of persistent debris in the bladder lumen, likely blood clot. Severely enlarged prost ate gland. 2: Multiple hyperdense bilateral renal masses with indeterminate enhancement. Recommend correlation w ith MRI without and with contrast. 3: Fecal impaction of the colon. Colonic diverticulosis. Reviewed, dictated and finalized at location B. IMPRESSION: 1. Large amount of persistent debris in the bladder lumen, likely blood clot. S everely enlarged prostate gland. 2: Multiple hyperdense bilateral renal masses with indeterminate enhancement. R ecommend correlation with MRI without and with contrast. 3: Fecal impaction of the colon. Colonic diverticulosis.
--- NOTE | ~2022-12-30 | XR_ITS ---
XR abdomen/kub 1V 12/31/2022 10:42 INDICATION: Gross hematuria TECHNIQUE: KUB COMPARISON: None FINDINGS: Bowel gas pattern is normal. Large amount of retained fecal material in the colon. There is no evidence of free air, mass, organomegaly, ascites or obstruction. No abnormal calculi are seen. The bones appear intact. There is atherosclerosis. Mild lumbar spondylosis. IMPRESSION: 1: No acute abdominal abnormality identified. Reviewed, dictated and finalized at location B.
[2022-12-30 18:38] VITALS: BP 117/67; PULSE 60; RESP 18; TEMP 36.6; O2SAT 99
[2022-12-30 18:56] LABS: Basophils Percent Auto 0.5 % (0.2-1.2); Eosinophils Absolute Auto 0.2 K/mm3 (0-0.3); Eosinophils Percent Auto 2.5 % (0-4.4); Hematocrit 40.8 % (42.0-52.0); Hemoglobin 12.8 g/dL (14.0-18.0); Immature Granulocyte Absolute 0.04 K/mm3 (0.00-0.031); Immature Granulocyte Percent A 0.5 % (0-0.5); Lymphocytes Absolute Auto 2.72 K/mm3 (0.9-3.2); Lymphocytes Percent Auto 30.9 % (18.3-44.2); Mean Corpuscular HGB Conc 31.4 g/dl (32-36); Mean Corpuscular Hemoglobin 27.3 pg (26-34); Mean Platelet Volume 9.4 fl (7.4-10.4); Monocytes Absolute Auto 0.6 K/mm3 (0.1-0.6); Monocytes Percent Auto 6.8 % (2.6-8.5); Neutrophils Absolute Auto 5.2 K/mm3 (1.3-6.7); Neutrophils Percent Auto 58.8 % (45.5-73.1); Platelet Count Result 315 k/mm3 (150-375); Red Blood Count 4.69 M/mm3 (4.6-6.20); Red Cell Distribution Width 17.2 % (11.5-14.5); White Blood Count 8.8 K/mm3 (4.5-10.0)
[2022-12-30 19:09] LABS: Alanine Aminotransferase 23 U/L (6-50); Albumin Level 3.6 g/dL (3.5-5.1); Alkaline Phosphatase 159 U/L (38-126); Anion Gap 8 mmol/L (8-16); Aspartate Amino Transferase 26 U/L (17-59); Bilirubin,Total 0.4 mg/dL (0.2-1.3); Blood Urea Nitrogen 24 mg/dL (9-20); Calcium 8.6 mg/dL (8.4-10.2); Carbon Dioxide 25 mmol/L (22-30); Chloride 103 mmol/L (98-107); Estimated CRCL calculation 54 ml/min; Estimated Glomerular Filt Rate 59; Glucose 222 mg/dL (65-110); Potassium 4.5 mmol/L (3.4-5.0); Sodium 136 mmol/L (137-145)
[2022-12-30 22:26] VITALS: BP 125/72; PULSE 61; RESP 12; TEMP 36.6; O2SAT 94
--- NOTE | 2022-12-30 23:10 | ED.MALEGU ---
HPI - Male Genitourinary General Chief complaint: Urogenital-Male <Brittany Isabel PA-C - Last Filed: 12/31/22 01:58> Stated complaint: hematuria <ABDIRAHMAN Bunch Last Filed: 12/31/22 01:58> Time Seen by Provider: 12/30/22 22:50 <Brittany Isabel PA-C - Last Filed: 12/31/22 01:58> Source: patient and family <ABDIRAHMAN Bunch Last Filed: 12/31/22 01:58> Mode of arrival: EMS <ABDIRAHMAN Bunch Last Filed: 12/31/22 01:58> Limitations: other (history of CVA) <ABDIRAHMAN Bunch Last Filed: 12/31/22 01:58> History of Present Illness HPI Narrative: This is a 77 year old male that presents to the ER for hematuria. Patient's reports he was recently admitted for same. Had cystoscopy and CBI for several days. Urine had cleared, today noted to have hematuria once again and was sent in for evaluation. He takes aspirin and plavix. Denies fever. <Brittany Isabel PA-C - Last Filed: 12/31/22 01:58> Related Data Home medications: Home Medications Medication Instructions Recorded Confirmed latanoprost 0.005 % eye drops 1 drp LEFT EYE HS 05/07/19 12/31/22 brimonidine-timolol 2 drp LEFT EYE BID 12/17/22 12/31/22 carvedilol 3.125 mg tablet (Coreg) 3.125 mg PO BID 12/17/22 12/31/22 gabapentin 100 mg capsule 100 mg PO TID 12/17/22 12/31/22 insulin glargine 100 unit/mL (3 25 unit subcut DAILY 12/17/22 12/31/22 mL) subcutaneous pen (Lantus Solostar U-100 Insulin) insulin lispro 100 unit/mL 0 - 18 units subcut TID.ARISSI 12/17/22 12/31/22 subcutaneous solution (Humalog U-100 Insulin) levothyroxine 25 mcg tablet 25 mcg PO DAILY 12/17/22 12/31/22 loratadine 10 mg tablet 10 mg PO DAILY 12/17/22 12/31/22 multivit with minerals-iron 18 1 tablet PO DAILY 12/17/22 12/31/22 mg-folic ac 400 mcg-vit K 25 mcg tablet (Adults Multivitamin) zolpidem 6.25 mg tablet,extended 6.25 mg PO HS 12/17/22 12/31/22 release,multiphase amino acids-protein hydrolysate 17 1 ea PO DAILY 12/31/22 12/31/22 gram-100 kcal/30 mL oral liquid (Pro-Stat AWC) artificial tears solution eye drops 2 drp ophthalmic (eye) PRN PRN Dry 12/31/22 12/31/22 Eyes collagenase clostridium histo. 250 1 applic topical DAILY 12/31/22 12/31/22 unit/gram topical ointment (Santyl) ferrous sulfate 325 tablet PO DAILY 12/31/22 12/31/22 menthol 0.44 %-zinc oxide 20.6 % 1 applic topical DAILY 12/31/22 12/31/22 topical ointment (CalProtect) zinc oxide 1 applic topical BID 12/31/22 12/31/22 zinc oxide 5 % topical cream (Skin 1 applic topical DAILY 12/31/22 12/31/22 Protectant) <Brittany Isabel PA-C - Last Filed: 12/31/22 01:58> Allergies/Adverse reactions: Allergies Allergy/AdvReac Type Severity Reaction Status Date / Time No Known Allergies Allergy Verified 12/30/22 18:43 <Brittany Isabel PA-C - Last Filed: 12/31/22 01:58> Review of Systems Review of Systems: CONSTITUTIONAL: Denies fever GASTROINTESTINAL: Reports bladder discomfort. Denies vomiting GENITOURINARY: Reports hematuria. <ABDIRAHMAN Bunch Last Filed: 12/31/22 01:58> All systems reviewed & are unremarkable except as noted in HPI and below <Brittany Isabel PA-C - Last Filed: 12/31/22 01:58> PMFSH Past Medical History Medical History: Medical History Amputation toe Partial right toe amputation Arthritis Back pain SPINAL STENOSIS, cervical stenosis CKD (chronic kidney disease) stage 3, GFR 30-59 ml/min CVA, old, 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 Stroke x 4 <Brittany Isabel PA-C - Last Filed: 12/31/22 01:58> Surgical History Surgical History: Surgical History (Reviewed
--- NOTE | 2022-12-30 23:31 | PC.NURSE ---
Patient is draining with three way Patrick catheter. Per EDP MOE Green bladder scan not needed at patient is irrigating well.
[2022-12-30 23:32] LABS: Prothrombin Time 13.8 Seconds (11.1-14.7)
[2022-12-30 23:33] LABS: Partial Thromboplastin Time 27.2 SECONDS (22.3-36.8)
[2022-12-31] VITALS (11 sets, daily range): BP systolic 106–141; BP diastolic 51–76; PULSE 60–71; RESP 13–18; TEMP 36.4–37.1; O2SAT 95–100; BMI 27.5; BMI 27.1
--- NOTE | 2022-12-31 00:58 | PM.IMHP ---
H&P: HPI History of Present Illness Date/Time: 12/31/22 00:58 Chief Complaint: Hematuria Narrative: This is a 77-year-old male with past medical history significant for insulin-dependent diabetes mellitus, a stroke, aphasia, chronic kidney disease, peripheral diabetic neuropathy, hypertension, secondary polycythemia, benign prostatic hyperplasia, glaucoma. Patient comes to the emergency room after having episode of lisa hematuria. Review of Systems Review of Systems: Hematuria Constitutional: Constitutional: Denies chills, Denies fatigue, Denies fever(s) and Denies night sweats Eyes: Eyes: Denies change in vision ENT: Denies dysphagia, Denies vertigo and Denies dizziness Cardiovascular: Cardiovascular: Denies chest pain at rest, Denies pedal edema, Denies radiating jaw, neck or arm pain and Denies palpitations Respiratory: Respiratory: Denies chest congestion, Denies cough, Denies excessive phlegm production and Denies dyspnea on exertion Gastrointestinal: Gastrointestinal: Denies dyspepsia, Denies heartburn, Denies diarrhea, Denies nausea and Denies vomiting Genitourinary: Genitourinary: Reports other (Hematuria suprapubic pain) Musculoskeletal: Musculoskeletal: Denies back pain, Denies myalgias, Denies arthralgias and Denies joint swelling Integumentary/Breasts: Skin/Breast: Denies rash Neurologic: Denies focal weakness and Denies Sensory deficit (Neuro) Psychiatric: Psychiatric: Reports no additional psychiatric complaints and Reports as per HPI Endocrine: Endocrine: Denies cold intolerance, Denies excessive sweating, Denies fatigue, Denies heat intolerance, Denies polyuria and Denies palpitations Hematologic/Lymphatic: Hematologic/Lymphatic: Reports no additional hematologic/lymphatic complaints and Reports as per HPI Allergic/Immunologic: Allergic/Immunologic: Reports no additional allergic/immunologic complaints and Reports as per HPI PMF Past Medical History Medical History Amputation toe Partial right toe amputation Arthritis Back pain SPINAL STENOSIS, cervical stenosis CKD (chronic kidney disease) stage 3, GFR 30-59 ml/min CVA, old, 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 Stroke x 4 Surgical History Surgical History H/O bilateral cataract extraction H/O cataract extraction H/O cervical spine surgery Fusion H/O toe surgery Partial right toe amputated due to infected H/O umbilical hernia repair Family History Family History Father Cerebrovascular accident Family history of diabetes mellitus in first degree relative Mother Family history of diabetes mellitus in first degree relative Family history of congestive heart failure Social History Social History Social History: The patient lives with his Lesvia who is the durable power district attorney for healthcare. She is agreeable to keeping the patient full code at this time however the patient does not want to live in a vegetative state. The patient is a former smoker. He occasionally has a glass wine maybe twice a month. He has 4 children. 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 Code status full Smoking packs per day: 1 Smoking cigarettes per day: 20.0 Years smoked: 40 Smoking pack-years: 40.00 Smoking status: Former smoker Tobacco type: cigarettes Alcohol intake: never Drinks per week: 2 Substance use: never Substance use type: does not use Lack of Transportation: No Lack of Food: Never True Current Housing: I Have Housing
[2022-12-31 01:30] LABS: Appearance Urine Turbid (Clear); Bilirubin Urine 1+ (Negative); Blood Urine 3+ (Negative); Glucose Urine UA Negative (Negative); Ketones Urine Negative (Negative); Leukocyte Esterase Ur 2+ LEU/UL (Negative); Nitrate Urine Negative (Negative); Protein Urine 1+ mg/dL (Negative); Specific Grav Ur 1.005 (1.001-1.035); Urobilinogen Urine 0.2 mg/dL (<2.0)
[2022-12-31 01:31] LABS: Bacteria Urine None Seen /hpf; Color Urine Light Red (Yellow); Non Pathogenic Casts 0-2; RBC Urine >100 /hpf (0-2); Squamous Epithelial Cell Urine None seen /hpf (Few); WBC Urine 21-50 /hpf
[2022-12-31 01:32] LABS: Add Urine Microscopic? YES
--- NOTE | 2022-12-31 02:59 | ADMGEN ---
This patient, Tan Mendes, was admitted to Medical Room 345-01. Patient/family oriented to hospital policies and general routines including ID bracelet, bed and alarms, visiting hours, pain management, procedures, bathroom and other care routines, personal items, smoking policy, room service/diet, and visiting hours. Information on how to activate the Rapid Response Team has been discussed. Patient/Family are encouraged to report perceived risks to care and to ask questions if they do not understand what they are told or what they should do.
[2022-12-31] MEDS: SODIUM CHLORIDE 0.9% IV 1,000 ML 100 ML IV CONT ×2 (04:02→17:05)
[2022-12-31 08:11] LABS: Glucose Point of Care 165 mg/dl (65-105)
--- NOTE | 2022-12-31 09:42 | PM.IMPN ---
Progress Note: A&P Assessment and Plan (1) Gross hematuria: Code(s): R31.0 - Gross hematuria Status: Acute Assessment and Plan: Urology consultation, will continue to hold aspirin and Plavix at present time and re start once clot is better. (2) Clot retention of urine: Code(s): R33.8 - Other retention of urine Status: Acute Assessment and Plan: Urology consultation, continue irrigation. (3) S/P CABG x 3: Code(s): Z95.1 - Presence of aortocoronary bypass graft Status: Acute Assessment and Plan: Stable on current meds, continue current treatment. (4) Atrial fibrillation: Code(s): I48.91 - Unspecified atrial fibrillation Status: Acute Assessment and Plan: Stable, continue current treatment. Will hold aspirin and Plavix for now because of hematuria. (5) Back pain: Code(s): M54.9 - Dorsalgia, unspecified Status: Acute Assessment and Plan: Stable, continue current treatment. (6) Diabetic neuropathy: Code(s): E11.40 - Type 2 diabetes mellitus with diabetic neuropathy, unspecified Status: Chronic Assessment and Plan: Stable, continue current treatment. (7) HTN (hypertension): Code(s): I10 - Essential (primary) hypertension Status: Chronic Assessment and Plan: Stable, continue current treatment. 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 Subjective Date/time seen: 12/31/22 09:42 Interval history: Patient was seen during the morning rounds today. Patient urine is much better. Patient denies any shortness of breath or chest pain. No abdominal pain, nausea, no vomiting. Mood stable. Review of Systems Review of Systems: All systems reviewed & are unremarkable except as noted in HPI and below (the history and physical exam.) Exam Narrative: GENERAL: Elderly, well-nourished, and in no acute distress. HEAD: Normocephalic, atraumatic. EYES: EOMI. CHEST: Clear to auscultation. No respiratory distress. No wheezes rales or rhonchi HEART: irregular rate and rhythm. No murmur heard. Normal peripheral pulses. ABDOMEN: Soft, nondistended, normal active bowel sounds. Tender to palpation of the lower abdomen/bladder. Gross blood noted in Patrick catheter EXTREMITIES: Right big toe partial amp SKIN: Warm, dry, no rash. NEURO: Old Cva with residual left side weakness Alert and oriented x3. PSYCH: Normal mood and affect Objective Data Vital Signs Vital Signs: Vital Signs - 24 hr 12/30/22 18:38 12/30/22 22:26 12/31/22 00:27 Temperature 36.6 C 36.6 C Pulse Rate 60 61 65 Respiratory Rate 18 12 13 Blood Pressure 117/67 125/72 120/74 Pulse Oximetry 99 94 100 Oxygen Delivery Room Air 12/31/22 06:00 12/31/22 08:00 Temperature 36.8 C Pulse Rate 60 Respiratory Rate 18 Blood Pressure 141/76 H Pulse Oximetry 100 Oxygen Delivery Room Air Intake/Output Intake/Output: Intake & Output 12/28/22 12/29/22 12/30/22 12/31/22 23:59 23:59 23:59 23:59 Output Total 4050 Balance -4050 Meds/Results Medications: Active Medications Generic Name Dose Route Start Last Admin Trade Name Freq PRN Reason Stop Dose Admin Acetaminophen 650 mg 12/31/22 09:38 Acetaminophen 325 Mg Tablet PO Q6H PRN Mild Pain (1-3) Or Fever Amiodarone HCl 200 mg 01/01/23 08:00 Amiodarone Hcl 200 Mg Tablet PO DAILY@0800 [facility] Aspirin 81 mg 01/01/23 08:00 Aspirin 81 Mg Chewable Tablet PO DAILY@0800 [facility] Collagenase 1 applic 01/01/23 09:00 Co
--- NOTE | 2022-12-31 09:52 | WPDURCON ---
Assessment and Plan Assessment and plan (1) Gross hematuria: Code(s): R31.0 - Gross hematuria Status: Acute Assessment and Plan: Continue CBI at this time. Irrigated with >300cc of saline and 60cc catheter tip syringe removing many small to medium sized clots. I was unable to clear urine. Patient remains tender in his abdomen. Get a STAT CT to confirm bladder clots. Keep NPO. Obtain Consent for Cystoscopy with clot evacuation. (2) Clot retention of urine: Code(s): R33.8 - Other retention of urine Status: Acute Urology Consult Note HPI Date Seen: 12/31/22 Time Seen: 09:52 Requesting Physician: Lisa Collier MD Primary Care Provider: Gabby Benavidez MD Consult Narrative Reason for consult: Hematuria Narrative: Tan Mendes is a 77 year old male who presented to the ER yesterday for acute onset of gross hematuria. He was recently admitted for the same diagnosis at [place] and underwent a Cystoscopy with fulguration of prostate and 0600 o'clock position at the bladder neck, clot evacuation and gonzales placement. He remained on CBI after the procedure until his urine was clear then he was discharged home on 12/21/22. He is on ASA and Plavix at home. A previous CT scan on 12/17/22 shows a large amount of hemorrhagic material/blood products in the urinary bladder lumen, gonzales catheter in place and markedly enlarged prostate gland which appears to into the bladder base. Otherwise upper tracts appears normal. He c/o a tender lower abdomen at this time, but is afebrile, WBC is 8.8 and creatinine is 1.20 as of yesterday, no labs were drawn today. Urine culture is pending. Review of Systems Cardiovascular: Cardiovascular: Denies chest pain Respiratory: Respiratory: Reports no additional respiratory complaints Gastrointestinal: Gastrointestinal: Reports abdominal pain, Denies nausea and Denies vomiting Genitourinary: Genitourinary: Reports hematuria and Reports urinary hesitancy PMFSH Past Medical History Medical History Amputation toe Partial right toe amputation Arthritis Back pain SPINAL STENOSIS, cervical stenosis CKD (chronic kidney disease) stage 3, GFR 30-59 ml/min CVA, old, 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 Stroke x 4 Surgical History Surgical History H/O bilateral cataract extraction H/O cataract extraction H/O cervical spine surgery Fusion H/O toe surgery Partial right toe amputated due to infected H/O umbilical hernia repair Family History Family History Father Cerebrovascular accident Family history of diabetes mellitus in first degree relative Mother Family history of diabetes mellitus in first degree relative Family history of congestive heart failure Social History Social History Social History: The patient lives with his Lesvia who is the durable power cutter inspector for healthcare. She is agreeable to keeping the patient full code at this time however the patient does not want to live in a vegetative state. The patient is a former smoker. He occasionally has a glass wine maybe twice a month. He has 4 children. 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 Code status full Smoking packs per day: 1 Smoking cigarettes per day: 20.0 Years smoked: 40 Smoking pack-years: 40.00 Smoking status: Former smoker Tobacco type: cigarettes Alcohol intake: never Drinks per week: 2 Substance use: never Substance use type: does not use Lack of Transportation: No
--- NOTE | 2022-12-31 10:27 | PHAR ---
TALKED TO DR ANDRADE ABOUT HIGH HOME DOSE OF MIDODRINE (20 MG QID). ORDER WAS CHANGED TO 10 MG TID (= MANUFACTURES MAX RECOMMENDED DAILY DOSE).
[2022-12-31 12:14] LABS: Glucose Point of Care 138 mg/dl (65-105)
[2022-12-31] MEDS: LACTATED RINGERS 1,000 ML 30 ML IV CONT (13:00)
--- NOTE | 2022-12-31 13:12 | WPDANESEPPF ---
Anes - Initial Pre Proc Eval Procedure: Operation Date: 12/31/22 13:30 Proposed Procedures p Cystoscopy, Evacuation Bladder Clots - Guerda Brock MD Date/Time: 12/31/22 13:12 Surgeon: Lias Collier MD Pre Op Diagnosis: Hematuria Patient Data Age: 77 Gender: M Height: 1.73 m Weight: 81 kg Last Vital Signs Temp 36.8 C 12/31/22 06:00 Pulse 60 12/31/22 06:00 Resp 18 12/31/22 06:00 BP 141/76 H 12/31/22 06:00 Pulse Ox 100 12/31/22 06:00 O2 Del Method Room Air 12/31/22 08:00 Allergies Allergy/AdvReac Type Severity Reaction Status Date / Time No Known Allergies Allergy Verified 12/31/22 13:22 Home Medications Medication Instructions Recorded Confirmed Type latanoprost 0.005 % eye drops 1 drp LEFT EYE HS 05/07/19 12/31/22 History acetaminophen 325 mg tablet (Mapap 650 mg PO Q6H PRN Mild Pain (1-3) 05/20/21 12/31/22 Rx (acetaminophen)) Or Fever #0 tabs amiodarone 200 mg tablet (Pacerone) 200 mg PO DAILY@0800 #0 tabs 05/20/21 12/31/22 Rx aspirin 81 mg chewable tablet 81 mg PO DAILY@0800 #0 tabs 05/20/21 12/31/22 Rx (Children's Aspirin) atorvastatin 40 mg tablet 40 mg PO DAILY #0 tabs 05/20/21 12/31/22 Rx bisacodyl 10 mg rectal suppository 10 mg RECTAL QPM PRN Constipation 05/20/21 12/31/22 Rx #0 ea cholecalciferol (vitamin D3) 25 2,000 units PO DAILY #0 tabs 05/20/21 12/31/22 Rx mcg (1,000 unit) tablet (Vitamin D3) clopidogrel 75 mg tablet 75 mg PO QAM #0 tabs 05/20/21 12/31/22 Rx dextrose 40 % oral gel (Glutose-15) 15 g PO PRN PRN Hypoglycemia #0 05/20/21 12/31/22 Rx grams glucagon 1 mg/mL solution for 1 mg IM PRN PRN Hypoglycemia #0 ea 05/20/21 12/31/22 Rx injection (GlucaGen Diagnostic Kit) melatonin 3 mg tablet 6 mg PO HS #0 tabs 05/20/21 12/31/22 Rx midodrine 5 mg tablet 20 mg PO QID #0 tabs 05/20/21 12/31/22 Rx polyethylene glycol 3350 17 gram 17 g PO QAM #0 ea 05/20/21 12/31/22 Rx oral powder packet (Miralax) sennosides 8.6 mg-docusate sodium 1 tab PO HS #0 tabs 05/20/21 12/31/22 Rx 50 mg tablet (Senokot-S) tamsulosin 0.4 mg capsule 0.4 mg PO QAM #0 caps 05/20/21 12/31/22 Rx brimonidine-timolol 2 drp LEFT EYE BID 12/17/22 12/31/22 History carvedilol 3.125 mg tablet (Coreg) 3.125 mg PO BID 12/17/22 12/31/22 History gabapentin 100 mg capsule 100 mg PO TID 12/17/22 12/31/22 History insulin glargine 100 unit/mL (3 25 unit subcut DAILY 12/17/22 12/31/22 History mL) subcutaneous pen (Lantus Solostar U-100 Insulin) insulin lispro 100 unit/mL 0 - 18 units subcut TID.ARISSI 12/17/22 12/31/22 History subcutaneous solution (Humalog U-100 Insulin) levothyroxine 25 mcg tablet 25 mcg PO DAILY 12/17/22 12/31/22 History loratadine 10 mg tablet 10 mg PO DAILY 12/17/22 12/31/22 History multivit with minerals-iron 18 1 tablet PO DAILY 12/17/22 12/31/22 History mg-folic ac 400 mcg-vit K 25 mcg tablet (Adults Multivitamin) zolpidem 6.25 mg tablet,extended 6.25 mg PO HS 12/17/22 12/31/22 History release,multiphase amino acids-protein hydrolysate 17 1 ea PO DAILY 12/31/22 12/31/22 History gram-100 kcal/30 mL oral liquid (Pro-Stat AWC) artificial tears solution eye drops 2 drp ophthalmic (eye) PRN PRN Dry 12/31/22 12/31/22 History Eyes collagenase clostridium histo. 250 1 applic topical DAILY 12/31/22 12/31/22 History unit/gram topical ointment (Santyl) ferrous sulfate 325 tablet PO DAILY 12/31/22 12/31/22 History menthol 0.44 %-zinc oxide 20.6 % 1 applic topical DAILY 12/31/22 12/31/22 History topical ointment (CalProtect) zinc oxide 1 applic topical BID 12/31/22 12/31/22 History zinc oxide 5 % topical cream (Skin 1 applic topical DAILY 12/31/22 12/31/22 History Protectant) Laboratory Tests 12/30/22 12/30/22 12/31/22 18:48 23:18 01:14 WBC 8.8 K/mm3 (4.5-10.0) RBC 4.69 M/mm3 (4.6-6.20) Hgb 12.8 L g/dL (14.0-18.0) Hct 40.8 L % (42.0-52.0) MCV 87.0 fl (80-
--- NOTE | 2022-12-31 13:22 | WPDHPUPDATE1 ---
History and Physical Update Update Date/Time: 12/31/22 13:22 History and Physical has been reviewed, including an updated exam of the patient. There are NO changes in the patient's condition. Risks, benefits, and alternatives have been discussed and questions answered. Patient agrees to proceed with procedure.
[2022-12-31] MEDS: LIDOCAINE HCL 2% GEL UROJET 10 ML PKG MUCOUS MEM (13:54)
--- NOTE | 2022-12-31 14:05 | W.PM.PROC2 ---
Procedure Note - Detailed Date of Procedure 12/31/22 Pre-op Diagnosis Hematuria with clot retention Post-op Diagnosis Same Procedure Performed Cystoscopy, clot evacuation Surgeon Guerda Brock MD Anesthesia General Findings 200cc of clot. No active bleeding. Enlarged prostate Description of Procedure Informed consent was obtained. Patient taken. He was given preoperative IV antibiotics on the floor. He was induced anesthesia. He was placed in dorsal thigh incision. He was prepped and draped normal sterile fashion. Patient had a penile hypospadias due to chronic Patrick catheter. We then entered with a 22 F cystoscope and encountered significantly enlarged bilobar prostatic hyperplasia. Inspection the bladder revealed significant clot present. We then advanced a 24 F resectoscope into the bladder and used a Vega syringe turned to evacuate clot. [id number] of dark clot were be removed. We then inspected the bladder and there was no residual clot. Inspection was performed with a 30degree and 70degree lens and no areas of active bleeding were noted. The patient had bilateral orthotopic ureteral orifices, there was bladder trabeculation and no other mucosal abnormalities. We placed a [address] Patrick catheter with 30cc in the balloon. This point CBI was restarted and the urine was clear. The patient was taken to recovery room in stable condition Complications No immediate complications Condition Stable Disposition PACU
[2022-12-31 14:28] LABS: Glucose Point of Care 110 mg/dl (65-105)
[2022-12-31 17:03] LABS: Glucose Point of Care 120 mg/dl (65-105)
[2022-12-31] MEDS: SILVERGEL (ELTA) 45 ML 1 APPLIC TOPICAL (17:05)
[2022-12-31] MEDS: GABAPENTIN 100 MG CAPSULE PO (17:06)
[2022-12-31] MEDS: MIDODRINE HCL 10 MG TABLET PO (17:06)
[2022-12-31] MEDS: ZINC OXIDE 20% OINT 30 GM TUBE 1 APPLIC TOPICAL (17:07)
[2022-12-31] MEDS: LATANOPROST 0.005% OP SOLN 2.5 ML BTL 1 DROP LEFT EYE (19:59)
[2022-12-31] MEDS: MELATONIN 3 MG TABLET 6 MG PO (20:00)
[2022-12-31] MEDS: carvediloL 3.125 MG TABLET PO (20:00)
[2022-12-31] MEDS: SENNA/DOCUSATE SODIUM TABLET 1 TAB PO (20:01)
[2022-12-31] MEDS: TIMOLOL MALEATE 0.5% OP SOLN 5 ML BOTTLE 2 DROP LEFT EYE (20:01)
[2022-12-31 20:59] LABS: Glucose Point of Care 93 mg/dl (65-105)
[2023-01-01 05:04] VITALS: BP 109/56; PULSE 57; RESP 17; TEMP 36.9; O2SAT 95
[2023-01-01] MEDS: LEVOTHYROXINE SODIUM 25 MCG TABLET PO (05:48)
[2023-01-01] MEDS: SODIUM CHLORIDE 0.9% IV 1,000 ML 100 ML IV CONT ×2 (05:49→17:30)
[2023-01-01 05:59] LABS: Hematocrit 35.7 % (42.0-52.0); Hemoglobin 10.9 g/dL (14.0-18.0); Mean Corpuscular HGB Conc 30.5 g/dl (32-36); Mean Corpuscular Hemoglobin 27.4 pg (26-34); Mean Corpuscular Volume 89.7 fl (80-100); Mean Platelet Volume 9.2 fl (7.4-10.4); Platelet Count Result 248 k/mm3 (150-375); Red Blood Count 3.98 M/mm3 (4.6-6.20); Red Cell Distribution Width 17.2 % (11.5-14.5); White Blood Count 8.2 K/mm3 (4.5-10.0)
[2023-01-01 06:21] LABS: Alanine Aminotransferase 17 U/L (6-50); Albumin Level 2.9 g/dL (3.5-5.1); Alkaline Phosphatase 110 U/L (38-126); Anion Gap -1 mmol/L (8-16); Aspartate Amino Transferase 20 U/L (17-59); Bilirubin,Total 0.4 mg/dL (0.2-1.3); Blood Urea Nitrogen 14 mg/dL (9-20); Calcium 8.1 mg/dL (8.4-10.2); Carbon Dioxide 27 mmol/L (22-30); Chloride 107 mmol/L (98-107); Estimated CRCL calculation 59 ml/min; Estimated Glomerular Filt Rate > 60; Glucose 71 mg/dL (65-110); Sodium 133 mmol/L (137-145)
[2023-01-01 08:55] LABS: Glucose Point of Care 82 mg/dl (65-105)
[2023-01-01] MEDS: LORATADINE 10 MG TABLET PO (09:07)
[2023-01-01] MEDS: GABAPENTIN 100 MG CAPSULE PO ×3 (09:08→17:29)
[2023-01-01] MEDS: polyethylene glycoL 3350 17 GM POWD.PACK PO (09:08)
[2023-01-01] MEDS: MIDODRINE HCL 10 MG TABLET PO ×3 (09:08→17:29)
[2023-01-01] MEDS: ATORVASTATIN 40 MG TABLET PO (09:08)
[2023-01-01] MEDS: FERROUS SULFATE 325 MG TABLET DR PO (09:08)
[2023-01-01] MEDS: CHOLECALCIFEROL 1,000 UNITS TABLET 2000 UNITS PO (09:08)
[2023-01-01] MEDS: MULTIVITAMINS /C LUTEIN (CENTRUM SILVER) TABLET *BKC 1 TAB PO (09:08)
[2023-01-01] MEDS: ZINC OXIDE 20% OINT 30 GM TUBE 1 APPLIC TOPICAL ×4 (09:09→17:29)
[2023-01-01 09:32] VITALS: PULSE 63
[2023-01-01] MEDS: AMIODARONE HCL 200 MG TABLET PO (09:32)
[2023-01-01 09:33] VITALS: PULSE 63
[2023-01-01] MEDS: carvediloL 3.125 MG TABLET PO ×2 (09:33→20:45)
[2023-01-01] MEDS: TIMOLOL MALEATE 0.5% OP SOLN 5 ML BOTTLE 2 DROP LEFT EYE ×2 (09:33→20:36)
[2023-01-01 11:51] LABS: Glucose Point of Care 93 mg/dl (65-105)
--- NOTE | 2023-01-01 12:41 | WPDANESPN ---
Anes - Prog Note Post-Op Date/Time: 01/01/23 12:41 Cardiovascular status: normal Respiratory status: normal Airway patency: baseline Mental status: baseline Post-Op hydration status: normal Vital Signs: Last Vital Signs Temp 36.9 C 01/01/23 05:04 Pulse 63 01/01/23 09:33 Resp 17 01/01/23 05:04 BP 109/56 L 01/01/23 05:04 Pulse Ox 95 01/01/23 05:04 O2 Del Method Room Air 01/01/23 08:00 O2 Flow Rate 8 12/31/22 14:11 Pain Score (VAS): 0 I/O: Intake & Output 12/31/22 01/01/23 01/01/23 23:59 07:59 15:59 Intake Total 50 1000 Output Total 8475 1300 Balance -8425 -300 Laboratory Tests 01/01/23 05:45 01/01/23 05:45 12/31/22 12/31/22 12/31/22 14:24 16:58 20:57 WBC RBC Hgb Hct MCV MCH MCHC RDW Plt Count MPV Sodium Potassium Chloride Carbon Dioxide Anion Gap BUN Creatinine Estim Creat Clear Calc Estimated GFR Glucose POC Capillary Glucose 110 H 120 H 93 Calcium Total Bilirubin AST ALT Alkaline Phosphatase Total Protein Albumin 01/01/23 01/01/23 01/01/23 05:45 08:45 11:47 WBC 8.2 RBC 3.98 L Hgb 10.9 L Hct 35.7 L MCV 89.7 MCH 27.4 MCHC 30.5 L RDW 17.2 H Plt Count 248 MPV 9.2 Sodium 133 L Potassium 4.0 Chloride 107 Carbon Dioxide 27 Anion Gap -1 L BUN 14 D Creatinine 0.90 Estim Creat Clear Calc 59 Estimated GFR > 60 Glucose 71 POC Capillary Glucose 82 93 Calcium 8.1 L Total Bilirubin 0.4 AST 20 ALT 17 Alkaline Phosphatase 110 Total Protein 6.0 L Albumin 2.9 L Microbiology 12/31/22 01:14 Urine Catheterized Urine Culture - Final Post-procedural complaints: none Patient Feedback: Patient satisfied with anesthetic care.
--- NOTE | 2023-01-01 12:57 | WPDUROPN2 ---
Progress Note: A&P Assessment and Plan (1) Clot retention of urine: Code(s): R33.8 - Other retention of urine Status: Acute Assessment and Plan: Resolved s/p clot evacuation yesterday. This is his second one in three weeks. Dr. Brock recommends d/t his immobility, to be transferred to [place] for a PAE (Prostate Artery Embolization), to prevent further bleeding and clot evacuations. He has a chronic gonzales. CBI was turned to off today. (2) Gross hematuria: Code(s): R31.0 - Gross hematuria Status: Acute Assessment and Plan: Resolved Cystoscopy was otherwise normal. (3) BPH (benign prostatic hyperplasia): Code(s): N40.0 - Benign prostatic hyperplasia without lower urinary tract symptoms Status: Acute (4) Bilateral renal masses: Code(s): N28.89 - Other specified disorders of kidney and ureter Status: Acute Assessment and Plan: Will get an MRI to further evaluate while in house, likely complicated cysts. Subjective Subjective Date/Time Seen: 01/01/23 12:57 Post Op day: 1 Interval history: S/P Cytsoscopy with clot evacuation. Patient doing well, urine is clear on slow CBI. He has no pain or bladder distention today. Review of Systems Cardiovascular: Cardiovascular: Denies chest pain Respiratory: Respiratory: Reports no additional respiratory complaints Gastrointestinal: Gastrointestinal: Denies abdominal pain, Denies nausea and Denies vomiting Genitourinary: Genitourinary: Denies hematuria, Denies dysuria, Denies flank pain, Denies urinary frequency, Denies urinary hesitancy, Denies urinary incontinence and Denies urinary urgency Exam Const: General: cooperative and comfortable Resp: Effort & Inspection: normal respiratory effort Cardio: Rate: regular rate GI: GI Palp: Yes Soft to palpation and No Tenderness to palpation present (GI) : General: Yes no CVA tenderness Urinary Catheter: Urinary Catheter: patent and draining and urine clear Extrem: Right lower extremity: no edema Left lower extremity: no edema Objective Data Vital Signs Vital Signs: Vital Signs - 24 hr 12/31/22 13:00 12/31/22 14:11 12/31/22 14:26 Temperature 98.8 F 97.6 F Pulse Rate 62 71 68 Respiratory Rate 16 14 17 Blood Pressure 133/60 117/54 L 119/51 L Pulse Oximetry 100 100 98 Oxygen Delivery Room Air Simple Face Mask Room Air Oxygen Flow Rate 8 12/31/22 14:41 12/31/22 15:30 12/31/22 15:30 Temperature 97.7 F Pulse Rate 64 65 65 Respiratory Rate 15 16 16 Blood Pressure 106/56 L 124/57 L 124/57 L Pulse Oximetry 96 97 97 Oxygen Delivery Room Air Oxygen Flow Rate 12/31/22 15:45 12/31/22 16:15 12/31/22 20:00 Temperature 97.7 F 97.9 F Pulse Rate 63 62 64 Respiratory Rate 16 16 Blood Pressure 133/58 L 122/62 Pulse Oximetry 97 98 Oxygen Delivery Oxygen Flow Rate 12/31/22 21:22 12/31/22 20:00 01/01/23 05:04 Temperature 98.2 F 98.4 F Pulse Rate 61 61 57 L Respiratory Rate 16 16 17 Blood Pressure 120/64 109/56 L Pulse Oximetry 95 95 95 Oxygen Delivery Room Air Oxygen Flow Rate 01/01/23 09:32 01/01/23 09:33 01/01/23 08:00 Temperature Pulse Rate 63 63 Respiratory Rate Blood Pressure Pulse Oximetry Oxygen Delivery Room Air Oxygen Flow Rate Intake/Output Intake/Output: Intake & Output 12/29/22 12/30/22 12/31/22 01/01/23 23:59 23:59 23:59 23:59 Intake Total 1450 1000 Output Total 61984 1300 Balance -19615 -300 Meds/Results Medications: Active Medications Generic Name Dose Route Start Last Admin Trade Name Jasvirq PRN Reason Stop Dose Admin Acetaminophen 650 mg 12/31/22 09:38 Acetaminophen 325 Mg Tablet PO Q6H PRN Mild Pain (1-3) Or Fever Amiodarone HCl 200 mg 01/01/23 08:00 01/01/23 09:32 Amiodarone Hcl 200 Mg Tablet PO 200 mg DAILY@0800 [facility] Administration Artificial Tears 2 drop 12/31/22 09:53 Artificial Tears Ophth S
--- NOTE | 2023-01-01 13:41 | PM.IMPN ---
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 He was recently admitted for the same. He has chronic Patrick. Takes aspirin Plavix. Underlying insulin-dependent diabetes mellitus stroke aphasia chronic kidney disease peripheral diabetic neuropathy hypertension secondary polycythemia benign prostatic hyperplasia and glaucoma. Urology was consulted. Underwent cystoscopy and clot evacuation 12/31/2022. He had similar procedure on 12/17/2022. Given recurrence and underlying etiology being prostate gland hyperplasia urology suggest prostate artery embolization annual will plan to be transferred to [facility] for the same. Transfer center contacted and awaiting their call back. Hemodynamics stable. H&H remains stable. Subjective Date/time seen: 01/01/23 13:41 Interval history: No overnight events. Discussed with Urology. Transfer to [facility] recommended. Review of Systems Review of Systems: All systems reviewed & are unremarkable except as noted in HPI and below (the history and physical exam.) Exam Narrative: GENERAL: Elderly, well-nourished, and in no acute distress. HEAD: Normocephalic, atraumatic. EYES: EOMI. CHEST: Clear to auscultation. No respiratory distress. No wheezes rales or rhonchi HEART: irregular rate and rhythm. No murmur heard. Normal peripheral pulses. ABDOMEN: Soft, nondistended, normal active bowel sounds. Nontender will in place bleeding around the Patrick catheter EXTREMITIES: Right big toe partial amp SKIN: Warm, dry, no rash. 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 PSYCH: Normal mood and affect Objective Data Vital Signs Vital Signs: Vital Signs - 24 hr 12/31/22 14:11 12/31/22 14:26 12/31/22 14:41 Temperature 97.6 F Pulse Rate 71 68 64 Respiratory Rate 14 17 15 Blood Pressure 117/54 L 119/51 L 106/56 L Pulse Oximetry 100 98 96 Oxygen Delivery Simple Face Mask Room Air Room Air Oxygen Flow Rate 8 12/31/22 15:30 12/31/22 15:30 12/31/22 15:45 Temperature 97.7 F 97.7 F Pulse Rate 65 65 63 Respiratory Rate 16 16 16 Blood Pressure 124/57 L 124/57 L 133/58 L Pulse Oximetry 97 97 97 Oxygen Delivery Oxygen Flow Rate 12/31/22 16:15 12/31/22 20:00 12/31/22 21:22 Temperature 97.9 F 98.2 F Pulse Rate 62 64 61 Respiratory Rate 16 16 Blood Pressure 122/62 120/64 Pulse Oximetry 98 95 Oxygen Delivery Oxygen Flow Rate 12/31/22 20:00 01/01/23 05:04 01/01/23 09:32 Temperature 98.4 F Pulse Rate 61 57 L 63 Respiratory Rate 16 17 Blood Pressure 109/56 L Pulse Oximetry 95 95 Oxygen Delivery Room Air Oxygen Flow Rate 01/01/23 09:33 01/01/23 08:00 Temperature Pulse Rate 63 Respiratory Rate Blood Pressure Pulse Oximetry Oxygen Delivery Room Air Oxygen Flow Rate Intake/Output Intake/Output: Intake & Output 12/29/22 12/30/22 12/31/22 01/01/23 23:59 23:59 23:59 23:59 Intake Total 1450 1000 Output Total 31163 1300 Balance -20231 -300 Meds/Results Medications: Active Medications Generic Name Dose Route Start Last Admin Trade Name Freq PRN Reason Stop Dose Admin Acetaminophen 650 mg 12/31/22 09:38 Acetaminophen 325 Mg
[2023-01-01 13:47] VITALS: BP 117/50; PULSE 62; RESP 16; TEMP 37; O2SAT 95
[2023-01-01 16:58] LABS: Glucose Point of Care 100 mg/dl (65-105)
[2023-01-01] MEDS: COLLAGENASE OINT 30 GM TUBE 1 APPLIC TOPICAL (17:31)
[2023-01-01] MEDS: SILVERGEL (ELTA) 45 ML 1 APPLIC TOPICAL (17:31)
[2023-01-01] MEDS: LATANOPROST 0.005% OP SOLN 2.5 ML BTL 1 DROP LEFT EYE (20:36)
[2023-01-01] MEDS: MELATONIN 3 MG TABLET 6 MG PO (20:39)
[2023-01-01 20:45] VITALS: PULSE 61
[2023-01-01 20:58] VITALS: BP 112/55; PULSE 62; RESP 18; TEMP 36.7; O2SAT 97
[2023-01-01 20:58] LABS: Glucose Point of Care 206 mg/dl (65-105)
[2023-01-02] VITALS (7 sets, daily range): BP systolic 102–143; BP diastolic 51–59; PULSE 49–80; RESP 14–18; TEMP 36.3–37.1; O2SAT 96–99
[2023-01-02] MEDS: SODIUM CHLORIDE 0.9% IV 1,000 ML 100 ML IV CONT ×2 (05:47→20:13)
[2023-01-02 05:51] LABS: Basophils Percent Auto 0.4 % (0.2-1.2); Eosinophils Absolute Auto 0.1 K/mm3 (0-0.3); Hematocrit 33.5 % (42.0-52.0); Hemoglobin 10.2 g/dL (14.0-18.0); Immature Granulocyte Absolute 0.05 K/mm3 (0.00-0.031); Immature Granulocyte Percent A 0.7 % (0-0.5); Lymphocytes Absolute Auto 2.56 K/mm3 (0.9-3.2); Lymphocytes Percent Auto 35.9 % (18.3-44.2); Mean Corpuscular HGB Conc 30.4 g/dl (32-36); Mean Corpuscular Hemoglobin 27.3 pg (26-34); Mean Corpuscular Volume 89.8 fl (80-100); Mean Platelet Volume 9.4 fl (7.4-10.4); Monocytes Absolute Auto 0.5 K/mm3 (0.1-0.6); Monocytes Percent Auto 7.4 % (2.6-8.5); Neutrophils Absolute Auto 3.8 K/mm3 (1.3-6.7); Neutrophils Percent Auto 53.6 % (45.5-73.1); Platelet Count Result 242 k/mm3 (150-375); Red Blood Count 3.73 M/mm3 (4.6-6.20); Red Cell Distribution Width 17.1 % (11.5-14.5); White Blood Count 7.1 K/mm3 (4.5-10.0)
[2023-01-02 06:04] LABS: Alanine Aminotransferase 18 U/L (6-50); Albumin Level 2.9 g/dL (3.5-5.1); Alkaline Phosphatase 111 U/L (38-126); Anion Gap 1 mmol/L (8-16); Aspartate Amino Transferase 19 U/L (17-59); Bilirubin,Total 0.3 mg/dL (0.2-1.3); Blood Urea Nitrogen 14 mg/dL (9-20); Calcium 7.8 mg/dL (8.4-10.2); Carbon Dioxide 26 mmol/L (22-30); Chloride 107 mmol/L (98-107); Estimated CRCL calculation 54 ml/min; Estimated Glomerular Filt Rate > 60; Glucose 186 mg/dL (65-110); Magnesium 1.9 mg/dL (1.6-2.3); Potassium 4.1 mmol/L (3.4-5.0); Sodium 134 mmol/L (137-145)
[2023-01-02] MEDS: LEVOTHYROXINE SODIUM 25 MCG TABLET PO (06:09)
[2023-01-02 08:17] LABS: Glucose Point of Care 185 mg/dl (65-105)
[2023-01-02] MEDS: AMIODARONE HCL 200 MG TABLET PO (09:20)
[2023-01-02] MEDS: CHOLECALCIFEROL 1,000 UNITS TABLET 2000 UNITS PO (09:20)
[2023-01-02] MEDS: ATORVASTATIN 40 MG TABLET PO (09:20)
[2023-01-02] MEDS: GABAPENTIN 100 MG CAPSULE PO ×3 (09:20→16:59)
[2023-01-02] MEDS: LORATADINE 10 MG TABLET PO (09:20)
[2023-01-02] MEDS: MULTIVITAMINS /C LUTEIN (CENTRUM SILVER) TABLET *BKC 1 TAB PO (09:20)
[2023-01-02] MEDS: FERROUS SULFATE 325 MG TABLET DR PO (09:20)
[2023-01-02] MEDS: MIDODRINE HCL 10 MG TABLET PO ×3 (09:20→16:59)
[2023-01-02] MEDS: polyethylene glycoL 3350 17 GM POWD.PACK PO (09:20)
[2023-01-02] MEDS: TIMOLOL MALEATE 0.5% OP SOLN 5 ML BOTTLE 2 DROP LEFT EYE ×2 (09:21→20:14)
[2023-01-02] MEDS: SILVERGEL (ELTA) 45 ML 1 APPLIC TOPICAL (09:21)
[2023-01-02] MEDS: carvediloL 3.125 MG TABLET PO ×2 (09:21→20:14)
[2023-01-02] MEDS: COLLAGENASE OINT 30 GM TUBE 1 APPLIC TOPICAL (09:21)
[2023-01-02] MEDS: ZINC OXIDE 20% OINT 30 GM TUBE 1 APPLIC TOPICAL ×3 (09:22→17:00)
[2023-01-02 12:19] LABS: Glucose Point of Care 193 mg/dl (65-105)
--- NOTE | 2023-01-02 15:17 | PM.IMPN ---
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 He was recently admitted for the same. He has chronic Patrick. Takes aspirin Plavix. Underlying insulin-dependent diabetes mellitus stroke aphasia chronic kidney disease peripheral diabetic neuropathy hypertension secondary polycythemia benign prostatic hyperplasia and glaucoma. Urology was consulted. Underwent cystoscopy and clot evacuation 12/31/2022. He had similar procedure on 12/17/2022. Given recurrence and underlying etiology being prostate gland hyperplasia urology suggest prostate artery embolization and discussed the case at [place]. Accepted at [facility]. Awaiting bed placement. H&H remains stable. Subjective Date/time seen: 01/02/23 15:17 Interval history: No overnight events. Discussed with Urology. Discussed with the transfer line at [place]. Discussed with at bedside no further hematuria Review of Systems Review of Systems: All systems reviewed & are unremarkable except as noted in HPI and below (the history and physical exam.) Exam Narrative: GENERAL: Elderly, well-nourished, and in no acute distress. HEAD: Normocephalic, atraumatic. EYES: EOMI. CHEST: Clear to auscultation. No respiratory distress. No wheezes rales or rhonchi HEART: irregular rate and rhythm. No murmur heard. Normal peripheral pulses. ABDOMEN: Soft, nondistended, normal active bowel sounds. Nontender will in place bleeding around the Patrick catheter EXTREMITIES: Right big toe partial amp SKIN: Warm, dry, no rash. 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 PSYCH: Normal mood and affect Objective Data Vital Signs Vital Signs: Vital Signs - 24 hr 01/01/23 20:45 01/01/23 20:58 01/02/23 05:50 Temperature 98.1 F 97.3 F L Pulse Rate 61 62 49 L Respiratory Rate 18 14 Blood Pressure 112/55 L 102/51 L Pulse Oximetry 97 98 Oxygen Delivery 01/02/23 09:20 01/02/23 09:21 01/02/23 08:00 Temperature Pulse Rate 80 80 80 Respiratory Rate 14 Blood Pressure Pulse Oximetry 98 Oxygen Delivery Room Air 01/02/23 14:00 Temperature 97.6 F Pulse Rate 51 L Respiratory Rate 16 Blood Pressure 139/53 L Pulse Oximetry 99 Oxygen Delivery Intake/Output Intake/Output: Intake & Output 12/30/22 12/31/22 01/01/23 01/02/23 23:59 23:59 23:59 23:59 Intake Total 1450 2222 1342 Output Total 39523 3750 1350 [id number] -1528 -8 Meds/Results Medications: Active Medications Generic Name Dose Route Start Last Admin Trade Name Freq PRN Reason Stop Dose Admin Acetaminophen 650 mg 12/31/22 09:38 Acetaminophen 325 Mg Tablet PO Q6H PRN Mild Pain (1-3) Or Fever Amiodarone HCl 200 mg 01/01/23 08:00 01/02/23 09:20 Amiodarone Hcl 200 Mg Tablet PO 200 mg DAILY@0800 [facility] Administration Artificial Tears 2 drop 12/31/22 09:53 Artificial Tears Ophth Soln 15 Ml Bottle EACH EYE PRN PRN Dry Eyes Atorvastatin Calcium 40 mg 01/01/23 09:00 01/02/23 09:20 Atorvastatin 40 Mg Tablet PO 40 mg DAILY [facility] Administration Bisacodyl 10 mg 12/31/22 09:38 Bisacodyl 10 Mg Suppository RECTAL QPM PRN Constipation Carvedilol
[2023-01-02 17:04] LABS: Glucose Point of Care 182 mg/dl (65-105)
[2023-01-02] MEDS: MELATONIN 3 MG TABLET 6 MG PO (20:14)
[2023-01-02] MEDS: LATANOPROST 0.005% OP SOLN 2.5 ML BTL 1 DROP LEFT EYE (20:14)
[2023-01-02 22:13] LABS: Glucose Point of Care 175 mg/dl (65-105)
[2023-01-03 05:32] LABS: Basophils Percent Auto 0.5 % (0.2-1.2); Eosinophils Absolute Auto 0.2 K/mm3 (0-0.3); Eosinophils Percent Auto 2.9 % (0-4.4); Hematocrit 35.3 % (42.0-52.0); Hemoglobin 10.7 g/dL (14.0-18.0); Immature Granulocyte Absolute 0.05 K/mm3 (0.00-0.031); Immature Granulocyte Percent A 0.8 % (0-0.5); Lymphocytes Absolute Auto 2.34 K/mm3 (0.9-3.2); Lymphocytes Percent Auto 35.7 % (18.3-44.2); Mean Corpuscular HGB Conc 30.3 g/dl (32-36); Mean Corpuscular Hemoglobin 27.2 pg (26-34); Mean Corpuscular Volume 89.8 fl (80-100); Mean Platelet Volume 9.3 fl (7.4-10.4); Monocytes Absolute Auto 0.5 K/mm3 (0.1-0.6); Monocytes Percent Auto 7.3 % (2.6-8.5); Neutrophils Absolute Auto 3.5 K/mm3 (1.3-6.7); Neutrophils Percent Auto 52.8 % (45.5-73.1); Platelet Count Result 258 k/mm3 (150-375); Red Blood Count 3.93 M/mm3 (4.6-6.20); White Blood Count 6.6 K/mm3 (4.5-10.0)
[2023-01-03 05:34] VITALS: BP 129/60; PULSE 53; RESP 18; TEMP 36.2; O2SAT 97
[2023-01-03 05:47] LABS: Alanine Aminotransferase 19 U/L (6-50); Alkaline Phosphatase 110 U/L (38-126); Anion Gap 1 mmol/L (8-16); Aspartate Amino Transferase 22 U/L (17-59); Bilirubin,Total 0.4 mg/dL (0.2-1.3); Blood Urea Nitrogen 13 mg/dL (9-20); Calcium 8.3 mg/dL (8.4-10.2); Carbon Dioxide 27 mmol/L (22-30); Chloride 105 mmol/L (98-107); Estimated CRCL calculation 59 ml/min; Estimated Glomerular Filt Rate > 60; Glucose 133 mg/dL (65-110); Potassium 3.9 mmol/L (3.4-5.0); Sodium 133 mmol/L (137-145)
[2023-01-03] MEDS: LEVOTHYROXINE SODIUM 25 MCG TABLET PO (05:55)
[2023-01-03 07:58] LABS: Glucose Point of Care 133 mg/dl (65-105)
[2023-01-03] MEDS: MULTIVITAMINS /C LUTEIN (CENTRUM SILVER) TABLET *BKC 1 TAB PO (08:44)
[2023-01-03] MEDS: FERROUS SULFATE 325 MG TABLET DR PO (08:44)
[2023-01-03] MEDS: CHOLECALCIFEROL 1,000 UNITS TABLET 2000 UNITS PO (08:44)
[2023-01-03] MEDS: polyethylene glycoL 3350 17 GM POWD.PACK PO (08:44)
[2023-01-03] MEDS: MIDODRINE HCL 10 MG TABLET PO ×3 (08:44→17:18)
[2023-01-03] MEDS: ATORVASTATIN 40 MG TABLET PO (08:45)
[2023-01-03] MEDS: LORATADINE 10 MG TABLET PO (08:45)
[2023-01-03] MEDS: ZINC OXIDE 20% OINT 30 GM TUBE 1 APPLIC TOPICAL ×4 (08:45→17:19)
[2023-01-03] MEDS: GABAPENTIN 100 MG CAPSULE PO ×3 (08:46→17:18)
[2023-01-03] MEDS: TIMOLOL MALEATE 0.5% OP SOLN 5 ML BOTTLE 2 DROP LEFT EYE ×2 (08:47→20:23)
[2023-01-03 08:50] VITALS: PULSE 54
[2023-01-03] MEDS: carvediloL 3.125 MG TABLET PO ×2 (08:50→20:23)
[2023-01-03] MEDS: AMIODARONE HCL 200 MG TABLET PO (08:50)
[2023-01-03] MEDS: SODIUM CHLORIDE 0.9% IV 1,000 ML 100 ML IV CONT ×2 (08:53→21:00)
[2023-01-03 11:41] LABS: Glucose Point of Care 174 mg/dl (65-105)
[2023-01-03 14:00] VITALS: BP 119/52; PULSE 55; RESP 16; TEMP 36.2; O2SAT 100
[2023-01-03 16:33] LABS: Glucose Point of Care 191 mg/dl (65-105)
[2023-01-03] MEDS: COLLAGENASE OINT 30 GM TUBE 1 APPLIC TOPICAL (17:18)
[2023-01-03] MEDS: SILVERGEL (ELTA) 45 ML 1 APPLIC TOPICAL (17:18)
--- NOTE | 2023-01-03 18:23 | PM.IMPN ---
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 He was recently admitted for the same. He has chronic Patrick. Takes aspirin Plavix. Underlying insulin-dependent diabetes mellitus stroke aphasia chronic kidney disease peripheral diabetic neuropathy hypertension secondary polycythemia benign prostatic hyperplasia and glaucoma. Urology was consulted. Underwent cystoscopy and clot evacuation 12/31/2022. He had similar procedure on 12/17/2022. Given recurrence and underlying etiology being prostate gland hyperplasia urology suggest prostate artery embolization and discussed the case at [place]. Accepted at [facility]. Awaiting bed placement. H&H remains stable. CBI is removed and urine output to Patrick is clear. ? Patient seen and examined at bedside during my morning rounds ? Collaborated with patient's nurse at the bedside in detail and addressed all concerns ? Labs, electrolytes, radiology, investigations and test results reviewed ? Consult notes on the case reviewed and appreciated ? Spoke with patient/family at the bedside and answered all the questions that they had Repeat labs in a.m. Electrolyte replacement as per protocol. Patient will be monitored very closely on the floor. Further recommendations as per the hospital course. Time Spent With Patient Time with patient: 15 - 25 minutes Subjective Date/time seen: 01/03/23 18:23 Interval history: 01/02/2023: No overnight events. Discussed with Urology. Discussed with the transfer line at [place]. Discussed with at bedside no further hematuria. 01/03/2023: patient seen and evaluated at bedside. He is off CBI and the urine outflow to Patrick is clear. Awaiting bed at [facility]. Discussed with with the patient and the at the bedside in detail. Review of Systems Review of Systems: All systems reviewed & are unremarkable except as noted in HPI and below (the history and physical exam.) Exam Narrative: PHYSICAL EXAMINATION: General physical exam: Well-developed, well-nourished, and in no acute distress. Vital signs: Please see the chart. Head/eyes: Atraumatic, EOMI, PERRLA. ENT: Moist mucous membranes, nasal passages clear. Neck: Supple, full range of motion, trachea midline. CVS: S1 + S2 + 0, regular rate and rhythm, no murmurs Respiratory: Bilaterally fair air entry in both lung heredia, mild B/L crackles, symmetric expansion of chest, no distress Abdomen: Soft, non-tender, bowel sounds +ve, no organomegaly. Urology: Patrick catheter in place with clear output, no CVA tenderness Extremities: No clubbing, no cyanosis, no edema, no calf tenderness Musculoskeletal: Moves all, full range of motion, no muscle spasms Skin: Warm, dry, no jaundice, no cyanosis Neurological: Awake, alert, oriented x 3, cranial nerves II-XII intact, no focal neurological deficits. Psychiatric: Normal mood, non suicidal. Objective Data Vital Signs Vital Signs: Vital Signs - 24 hr 01/02/23 19:31 01/02/23 20:14 01/03/23 05:34 Temperature 37.1 C 36.2 C L Pulse Rate 55 L 55 L 53 L Respiratory Rate 18 18 Blood Pressure 143/59 H 129/60 Pulse Oximetry 96 97 Oxygen Delivery 01/03/23 08:50 01/03/23 08:
[2023-01-03 20:23] VITALS: PULSE 60
[2023-01-03] MEDS: MELATONIN 3 MG TABLET 6 MG PO (20:23)
[2023-01-03] MEDS: LATANOPROST 0.005% OP SOLN 2.5 ML BTL 1 DROP LEFT EYE (20:23)
[2023-01-03 21:13] LABS: Glucose Point of Care 240 mg/dl (65-105)
[2023-01-03 21:41] VITALS: BP 113/56; PULSE 55; RESP 20; TEMP 36.5; O2SAT 97
[2023-01-04] VITALS (7 sets, daily range): BP systolic 106–116; BP diastolic 50–57; PULSE 51–86; RESP 16–20; TEMP 36.3–37; O2SAT 97–99
[2023-01-04] MEDS: LEVOTHYROXINE SODIUM 25 MCG TABLET PO (05:43)
[2023-01-04 05:47] LABS: Alanine Aminotransferase 19 U/L (6-50); Albumin Level 2.9 g/dL (3.5-5.1); Alkaline Phosphatase 107 U/L (38-126); Anion Gap -1 mmol/L (8-16); Aspartate Amino Transferase 21 U/L (17-59); Bilirubin,Total 0.3 mg/dL (0.2-1.3); Blood Urea Nitrogen 13 mg/dL (9-20); Calcium 8.2 mg/dL (8.4-10.2); Carbon Dioxide 26 mmol/L (22-30); Chloride 107 mmol/L (98-107); Estimated CRCL calculation 59 ml/min; Estimated Glomerular Filt Rate > 60; Glucose 157 mg/dL (65-110); Potassium 3.9 mmol/L (3.4-5.0); Sodium 132 mmol/L (137-145)
[2023-01-04 08:20] LABS: Glucose Point of Care 153 mg/dl (65-105)
[2023-01-04] MEDS: MULTIVITAMINS /C LUTEIN (CENTRUM SILVER) TABLET *BKC 1 TAB PO (09:17)
[2023-01-04] MEDS: FERROUS SULFATE 325 MG TABLET DR PO (09:17)
[2023-01-04] MEDS: GABAPENTIN 100 MG CAPSULE PO ×3 (09:17→17:38)
[2023-01-04] MEDS: ATORVASTATIN 40 MG TABLET PO (09:17)
[2023-01-04] MEDS: LORATADINE 10 MG TABLET PO (09:17)
[2023-01-04] MEDS: AMIODARONE HCL 200 MG TABLET PO (09:18)
[2023-01-04] MEDS: MIDODRINE HCL 10 MG TABLET PO ×3 (09:18→17:38)
[2023-01-04] MEDS: CHOLECALCIFEROL 1,000 UNITS TABLET 2000 UNITS PO (09:18)
[2023-01-04] MEDS: ZINC OXIDE 20% OINT 30 GM TUBE 1 APPLIC TOPICAL ×3 (09:19→17:38)
[2023-01-04] MEDS: SILVERGEL (ELTA) 45 ML 1 APPLIC TOPICAL (09:19)
[2023-01-04] MEDS: COLLAGENASE OINT 30 GM TUBE 1 APPLIC TOPICAL (09:19)
[2023-01-04] MEDS: carvediloL 3.125 MG TABLET PO ×2 (09:19→20:11)
[2023-01-04] MEDS: TIMOLOL MALEATE 0.5% OP SOLN 5 ML BOTTLE 2 DROP LEFT EYE ×2 (09:19→20:11)
[2023-01-04] MEDS: polyethylene glycoL 3350 17 GM POWD.PACK PO (09:19)
[2023-01-04] MEDS: SODIUM CHLORIDE 0.9% IV 1,000 ML 100 ML IV CONT ×2 (10:00→21:00)
[2023-01-04 12:06] LABS: Glucose Point of Care 219 mg/dl (65-105)
--- NOTE | 2023-01-04 13:37 | PM.IMPN ---
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 He was recently admitted for the same. He has chronic Patrick. Takes aspirin Plavix. Underlying insulin-dependent diabetes mellitus stroke aphasia chronic kidney disease peripheral diabetic neuropathy hypertension secondary polycythemia benign prostatic hyperplasia and glaucoma. Urology was consulted. Underwent cystoscopy and clot evacuation 12/31/2022. He had similar procedure on 12/17/2022. Given recurrence and underlying etiology being prostate gland hyperplasia urology suggest prostate artery embolization and discussed the case at [place]. Accepted at [facility]. Awaiting bed placement. H&H remains stable. CBI is removed and urine output to Patrick is clear. Labs, electrolytes and vitals reviewed which remain stable. ? Patient seen and examined at bedside during my morning rounds ? Collaborated with patient's nurse at the bedside in detail and addressed all concerns ? Labs, electrolytes, radiology, investigations and test results reviewed ? Consult notes on the case reviewed and appreciated ? Spoke with patient/family at the bedside and answered all the questions that they had Repeat labs in a.m. Electrolyte replacement as per protocol. Patient will be monitored very closely on the floor. Further recommendations as per the hospital course. Subjective Date/time seen: 01/04/23 13:37 Interval history: 01/02/2023: No overnight events. Discussed with Urology. Discussed with the transfer line at [place]. Discussed with at bedside no further hematuria. 01/03/2023: patient seen and evaluated at bedside. He is off CBI and the urine outflow to Patrick is clear. Awaiting bed at [facility]. Discussed with with the patient and the at the bedside in detail. 01/04/2023: Patient playing cards at his bedside with his 3 daughters. No major issues at this time. Still awaiting for bed at [facility]. No bleeding from the catheter overnight. I am signing off. Patient's medical care will be taken over by my covering hospitalist attending, Dr. Joseluis Howell, in am. Review of Systems Review of Systems: Hematuria All systems reviewed & are unremarkable except as noted in HPI and below (the history and physical exam.) Constitutional: Constitutional: Denies chills, Denies excessive sweating, Denies fatigue, Denies fever(s) and Denies night sweats Eyes: Eyes: Denies change in vision ENT: Denies dysphagia, Denies vertigo and Denies dizziness Cardiovascular: Cardiovascular: Denies chest pain at rest, Denies pedal edema, Denies radiating jaw, neck or arm pain, Denies palpitations and Denies dyspnea on exertion Respiratory: Respiratory: Denies chest congestion, Denies cough, Denies excessive phlegm production and Denies dyspnea on exertion Gastrointestinal: Gastrointestinal: Denies dysphagia, Denies dyspepsia, Denies heartburn, Denies diarrhea, Denies nausea and Denies vomiting Genitourinary: Genitourinary: Reports other (Hematuria suprapubic pain) Musculoskeletal: Musculoskeletal: Denies back pain, Denies myalgias, Denies arthralgias and Denies joint swelling Integumentary/Breasts: Skin/Breast: Denies r
[2023-01-04 17:26] LABS: Glucose Point of Care 183 mg/dl (65-105)
[2023-01-04] MEDS: MELATONIN 3 MG TABLET 6 MG PO (20:11)
[2023-01-04] MEDS: LATANOPROST 0.005% OP SOLN 2.5 ML BTL 1 DROP LEFT EYE (20:11)
[2023-01-04 21:17] LABS: Glucose Point of Care 210 mg/dl (65-105)
[2023-01-05] VITALS (7 sets, daily range): BP systolic 102–125; BP diastolic 46–67; PULSE 42–54; RESP 14–18; TEMP 36.4–36.8; O2SAT 97–99
[2023-01-05] MEDS: LEVOTHYROXINE SODIUM 25 MCG TABLET PO (05:29)
[2023-01-05 06:05] LABS: Hematocrit 34.7 % (42.0-52.0); Hemoglobin 10.6 g/dL (14.0-18.0); Mean Corpuscular HGB Conc 30.5 g/dl (32-36); Mean Corpuscular Volume 91.6 fl (80-100); Mean Platelet Volume 9.5 fl (7.4-10.4); Platelet Count Result 268 k/mm3 (150-375); Red Blood Count 3.79 M/mm3 (4.6-6.20); Red Cell Distribution Width 17.5 % (11.5-14.5)
[2023-01-05 06:17] LABS: Anion Gap 1 mmol/L (8-16); Blood Urea Nitrogen 15 mg/dL (9-20); Calcium 8.1 mg/dL (8.4-10.2); Carbon Dioxide 25 mmol/L (22-30); Chloride 107 mmol/L (98-107); Estimated CRCL calculation 66 ml/min; Estimated Glomerular Filt Rate > 60; Glucose 205 mg/dL (65-110); Sodium 133 mmol/L (137-145)
--- NOTE | 2023-01-05 08:06 | PM.IMPN ---
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 He was recently admitted for the same. He has chronic Patrick. Takes aspirin Plavix. Underlying insulin-dependent diabetes mellitus stroke aphasia chronic kidney disease peripheral diabetic neuropathy hypertension secondary polycythemia benign prostatic hyperplasia and glaucoma. Urology was consulted. Underwent cystoscopy and clot evacuation 12/31/2022. He had similar procedure on 12/17/2022. Given recurrence and underlying etiology being prostate gland hyperplasia urology suggest prostate artery embolization and discussed the case at [place]. Accepted at [facility]. Awaiting bed placement. H&H remains stable. CBI is removed and urine output to Patrick is clear. Labs, electrolytes and vitals reviewed which remain stable. Subjective Date/time seen: 01/05/23 08:06 Interval history: 01/02/2023: No overnight events. Discussed with Urology. Discussed with the transfer line at [place]. Discussed with at bedside no further hematuria. 01/03/2023: patient seen and evaluated at bedside. He is off CBI and the urine outflow to Patrick is clear. Awaiting bed at [facility]. Discussed with with the patient and the at the bedside in detail. 01/04/2023: Patient playing cards at his bedside with his 3 daughters. No major issues at this time. Still awaiting for bed at [facility]. No bleeding from the catheter overnight. 01/05: No further hematuria. Still waiting for bed at [place]. Review of Systems Review of Systems: All systems reviewed & are unremarkable except as noted in HPI and below (the history and physical exam.) Exam Narrative: General physical exam: Well-developed, well-nourished, and in no acute distress. Head/eyes: Atraumatic, EOMI, PERRLA. ENT: Moist mucous membranes, nasal passages clear. Neck: Supple, full range of motion, trachea midline. CVS: S1 + S2 + 0, regular rate and rhythm, no murmurs Respiratory: Bilaterally fair air entry in both lung heredia, mild B/L crackles, symmetric expansion of chest, no distress Abdomen: Soft, non-tender, bowel sounds +ve, no organomegaly. Urology:? Patrick catheter in place with clear output, no CVA tenderness Extremities: No clubbing, no cyanosis, no edema, no calf tenderness Musculoskeletal: Moves all, full range of motion, no muscle spasms Skin: Warm, dry, no jaundice, no cyanosis Neurological: Awake, alert, oriented x 3, cranial nerves II-XII intact, no focal neurological deficits. Psychiatric: Normal mood, non suicidal. Objective Data Vital Signs Vital Signs: Vital Signs - 24 hr 01/04/23 09:18 01/04/23 09:19 01/04/23 14:00 Temperature 98.6 F Pulse Rate 86 86 56 L Respiratory Rate 16 Blood Pressure 113/50 L Pulse Oximetry 98 01/04/23 20:01 01/04/23 20:11 01/05/23 04:42 Temperature 97.8 F 97.6 F Pulse Rate 55 L 52 L 52 L Respiratory Rate 18 18 Blood Pressure 116/57 L 111/52 L Pulse Oximetry 97 99 Intake/Output Intake/Output: Intake & Output 01/02/23 01/03/23 01/04/23 01/05/23 23:59 23:59 23:59 23:59 Intake Total 7314 9920 3052 550 Output Total 0328 4674 1999 1200 Rxnlcjr -765 -9410 1058 -261 Meds/R
[2023-01-05 08:15] LABS: Glucose Point of Care 166 mg/dl (65-105)
[2023-01-05] MEDS: AMIODARONE HCL 200 MG TABLET PO (09:28)
[2023-01-05] MEDS: ATORVASTATIN 40 MG TABLET PO (09:28)
[2023-01-05] MEDS: CHOLECALCIFEROL 1,000 UNITS TABLET 2000 UNITS PO (09:28)
[2023-01-05] MEDS: carvediloL 3.125 MG TABLET PO (09:28)
[2023-01-05] MEDS: FERROUS SULFATE 325 MG TABLET DR PO (09:29)
[2023-01-05] MEDS: COLLAGENASE OINT 30 GM TUBE 1 APPLIC TOPICAL (09:29)
[2023-01-05] MEDS: GABAPENTIN 100 MG CAPSULE PO ×3 (09:30→17:44)
[2023-01-05] MEDS: LORATADINE 10 MG TABLET PO (09:31)
[2023-01-05] MEDS: MIDODRINE HCL 10 MG TABLET PO ×3 (09:31→17:44)
[2023-01-05] MEDS: polyethylene glycoL 3350 17 GM POWD.PACK PO (09:31)
[2023-01-05] MEDS: MULTIVITAMINS /C LUTEIN (CENTRUM SILVER) TABLET *BKC 1 TAB PO (09:31)
[2023-01-05] MEDS: SILVERGEL (ELTA) 45 ML 1 APPLIC TOPICAL (09:31)
[2023-01-05] MEDS: TIMOLOL MALEATE 0.5% OP SOLN 5 ML BOTTLE 2 DROP LEFT EYE (09:32)
[2023-01-05] MEDS: ZINC OXIDE 20% OINT 30 GM TUBE 1 APPLIC TOPICAL ×4 (09:32→17:43)
[2023-01-05] MEDS: SODIUM CHLORIDE 0.9% IV 1,000 ML 83 ML IV CONT ×2 (09:46→21:08)
[2023-01-05 12:18] LABS: Glucose Point of Care 210 mg/dl (65-105)
[2023-01-05] MEDS: INSULIN ASPART (*BKC) 100 UNITS/ML SUB-Q (13:33)
[2023-01-05 17:17] LABS: Glucose Point of Care 177 mg/dl (65-105)
[2023-01-05] MEDS: MELATONIN 3 MG TABLET 6 MG PO (21:09)
[2023-01-05 21:34] LABS: Glucose Point of Care 231 mg/dl (65-105)
[2023-01-06 05:34] LABS: Hemoglobin 10.8 g/dL (14.0-18.0); Mean Corpuscular HGB Conc 30.9 g/dl (32-36); Mean Corpuscular Hemoglobin 27.8 pg (26-34); Mean Platelet Volume 9.3 fl (7.4-10.4); Platelet Count Result 268 k/mm3 (150-375); Red Blood Count 3.89 M/mm3 (4.6-6.20); Red Cell Distribution Width 17.6 % (11.5-14.5); White Blood Count 6.9 K/mm3 (4.5-10.0)
[2023-01-06 05:46] LABS: Anion Gap 4 mmol/L (8-16); Blood Urea Nitrogen 11 mg/dL (9-20); Calcium 8.2 mg/dL (8.4-10.2); Carbon Dioxide 26 mmol/L (22-30); Chloride 108 mmol/L (98-107); Estimated CRCL calculation 66 ml/min; Estimated Glomerular Filt Rate > 60; Glucose 146 mg/dL (65-110); Potassium 3.7 mmol/L (3.4-5.0); Sodium 138 mmol/L (137-145)
[2023-01-06 06:00] VITALS: BP 125/58; PULSE 51; RESP 16; TEMP 35.7; O2SAT 96
[2023-01-06] MEDS: LEVOTHYROXINE SODIUM 25 MCG TABLET PO (06:23)
[2023-01-06 08:45] LABS: Glucose Point of Care 175 mg/dl (65-105)
[2023-01-06] MEDS: polyethylene glycoL 3350 17 GM POWD.PACK PO (09:00)
[2023-01-06 09:03] VITALS: BP 115/98; PULSE 56
[2023-01-06] MEDS: SILVERGEL (ELTA) 45 ML 1 APPLIC TOPICAL (09:03)
[2023-01-06] MEDS: CHOLECALCIFEROL 1,000 UNITS TABLET 2000 UNITS PO (09:03)
[2023-01-06] MEDS: GABAPENTIN 100 MG CAPSULE PO ×3 (09:03→18:00)
[2023-01-06] MEDS: carvediloL 3.125 MG TABLET PO ×2 (09:03→20:58)
[2023-01-06] MEDS: MULTIVITAMINS /C LUTEIN (CENTRUM SILVER) TABLET *BKC 1 TAB PO (09:03)
[2023-01-06] MEDS: MIDODRINE HCL 10 MG TABLET PO ×3 (09:03→18:00)
[2023-01-06] MEDS: FERROUS SULFATE 325 MG TABLET DR PO (09:03)
[2023-01-06] MEDS: LORATADINE 10 MG TABLET PO (09:03)
[2023-01-06] MEDS: AMIODARONE HCL 200 MG TABLET PO (09:03)
[2023-01-06] MEDS: ATORVASTATIN 40 MG TABLET PO (09:03)
[2023-01-06] MEDS: COLLAGENASE OINT 30 GM TUBE 1 APPLIC TOPICAL (09:04)
[2023-01-06] MEDS: ZINC OXIDE 20% OINT 30 GM TUBE 1 APPLIC TOPICAL ×4 (09:05→18:00)
[2023-01-06] MEDS: TIMOLOL MALEATE 0.5% OP SOLN 5 ML BOTTLE 2 DROP LEFT EYE ×2 (09:05→21:04)
[2023-01-06] MEDS: SODIUM CHLORIDE 0.9% IV 1,000 ML 83 ML IV CONT ×2 (11:14→23:27)
[2023-01-06 12:02] LABS: Glucose Point of Care 205 mg/dl (65-105)
[2023-01-06] MEDS: INSULIN ASPART (*BKC) 100 UNITS/ML SUB-Q (12:19)
--- NOTE | 2023-01-06 14:15 | PM.IMPN ---
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 He was recently admitted for the same. He has chronic Patrick. Takes aspirin Plavix. Underlying insulin-dependent diabetes mellitus stroke aphasia chronic kidney disease peripheral diabetic neuropathy hypertension secondary polycythemia benign prostatic hyperplasia and glaucoma. Urology was consulted. Underwent cystoscopy and clot evacuation 12/31/2022. He had similar procedure on 12/17/2022. Given recurrence and underlying etiology being prostate gland hyperplasia urology suggest prostate artery embolization and discussed the case at [place]. Accepted at [facility]. Awaiting bed placement. H&H remains stable. CBI is removed and urine output to Patrick is clear. Labs, electrolytes and vitals reviewed which remain stable. Subjective Date/time seen: 01/06/23 14:15 Interval history: 01/02/2023: No overnight events. Discussed with Urology. Discussed with the transfer line at [place]. Discussed with at bedside no further hematuria. 01/03/2023: patient seen and evaluated at bedside. He is off CBI and the urine outflow to Patrick is clear. Awaiting bed at [facility]. Discussed with with the patient and the at the bedside in detail. 01/04/2023: Patient playing cards at his bedside with his 3 daughters. No major issues at this time. Still awaiting for bed at [facility]. No bleeding from the catheter overnight. 01/05: No further hematuria. Still waiting for bed at [place]. 01/06/2023: No overnight events. No fever chills. No abdominal pain nausea vomiting no further hematuria. Review of Systems Review of Systems: All systems reviewed & are unremarkable except as noted in HPI and below (the history and physical exam.) Exam Narrative: General physical exam: Well-developed, well-nourished, and in no acute distress. Head/eyes: Atraumatic, EOMI, PERRLA. ENT: Moist mucous membranes, nasal passages clear. Neck: Supple, full range of motion, trachea midline. CVS: S1 + S2 + 0, regular rate and rhythm, no murmurs Respiratory: Bilaterally fair air entry in both lung heredia, mild B/L crackles, symmetric expansion of chest, no distress Abdomen: Soft, non-tender, bowel sounds +ve, no organomegaly. Urology:? Patrick catheter in place with clear output, no CVA tenderness Extremities: No clubbing, no cyanosis, no edema, no calf tenderness Musculoskeletal: Moves all, full range of motion, no muscle spasms Skin: Warm, dry, no jaundice, no cyanosis Neurological: Awake, alert, oriented x 3, cranial nerves II-XII intact, no focal neurological deficits. Psychiatric: Normal mood, non suicidal. Objective Data Vital Signs Vital Signs: Vital Signs - 24 hr 01/05/23 21:12 01/05/23 21:51 01/05/23 20:00 Temperature 97.5 F L Pulse Rate 42 L 52 L Respiratory Rate 18 Blood Pressure 125/60 Pulse Oximetry 97 Oxygen Delivery Room Air 01/06/23 06:00 01/06/23 09:03 01/06/23 09:03 Temperature 96.3 F L Pulse Rate 51 L 56 L 56 L Respiratory Rate 16 Blood Pressure 125/58 L Pulse Oximetry 96 Oxygen Delivery 01/06/23 08:00 01/06/23 09:03 Temperature Pulse Rate Respiratory Rat
[2023-01-06 14:40] VITALS: BP 109/50; PULSE 56; RESP 16; TEMP 36.2; O2SAT 97
[2023-01-06 17:13] LABS: Glucose Point of Care 200 mg/dl (65-105)
[2023-01-06 19:30] VITALS: BP 133/76; PULSE 54; RESP 16; TEMP 36.6; O2SAT 97
[2023-01-06 20:00] VITALS: PULSE 58; RESP 16; O2SAT 97
[2023-01-06 20:58] VITALS: PULSE 58
[2023-01-06] MEDS: SENNA/DOCUSATE SODIUM TABLET 1 TAB PO (20:58)
[2023-01-06] MEDS: MELATONIN 3 MG TABLET 6 MG PO (20:58)
[2023-01-06] MEDS: LATANOPROST 0.005% OP SOLN 2.5 ML BTL 1 DROP LEFT EYE (21:04)
[2023-01-06 21:15] LABS: Glucose Point of Care 200 mg/dl (65-105)
[2023-01-07] VITALS (7 sets, daily range): BP systolic 102–135; BP diastolic 47–87; PULSE 48–58; RESP 14–18; TEMP 35.6–36.4; O2SAT 96–99
[2023-01-07 05:41] LABS: Hematocrit 34.9 % (42.0-52.0); Hemoglobin 10.8 g/dL (14.0-18.0); Mean Corpuscular HGB Conc 30.9 g/dl (32-36); Mean Corpuscular Hemoglobin 28.1 pg (26-34); Mean Corpuscular Volume 90.6 fl (80-100); Mean Platelet Volume 9.4 fl (7.4-10.4); Platelet Count Result 251 k/mm3 (150-375); Red Blood Count 3.85 M/mm3 (4.6-6.20); White Blood Count 7.3 K/mm3 (4.5-10.0)
[2023-01-07 05:57] LABS: Anion Gap 5 mmol/L (8-16); Blood Urea Nitrogen 12 mg/dL (9-20); Calcium 8.2 mg/dL (8.4-10.2); Carbon Dioxide 27 mmol/L (22-30); Chloride 107 mmol/L (98-107); Estimated CRCL calculation 66 ml/min; Estimated Glomerular Filt Rate > 60; Glucose 139 mg/dL (65-110); Potassium 3.8 mmol/L (3.4-5.0); Sodium 139 mmol/L (137-145)
[2023-01-07] MEDS: LEVOTHYROXINE SODIUM 25 MCG TABLET PO (06:12)
[2023-01-07] MEDS: ATORVASTATIN 40 MG TABLET PO (08:24)
[2023-01-07] MEDS: FERROUS SULFATE 325 MG TABLET DR PO (08:24)
[2023-01-07] MEDS: MULTIVITAMINS /C LUTEIN (CENTRUM SILVER) TABLET *BKC 1 TAB PO (08:24)
[2023-01-07] MEDS: CHOLECALCIFEROL 1,000 UNITS TABLET 2000 UNITS PO (08:24)
[2023-01-07] MEDS: LORATADINE 10 MG TABLET PO (08:24)
[2023-01-07] MEDS: GABAPENTIN 100 MG CAPSULE PO ×3 (08:24→17:39)
[2023-01-07] MEDS: MIDODRINE HCL 10 MG TABLET PO ×3 (08:24→17:39)
[2023-01-07] MEDS: COLLAGENASE OINT 30 GM TUBE 1 APPLIC TOPICAL (08:25)
[2023-01-07] MEDS: ZINC OXIDE 20% OINT 30 GM TUBE 1 APPLIC TOPICAL ×4 (08:26→17:39)
[2023-01-07] MEDS: TIMOLOL MALEATE 0.5% OP SOLN 5 ML BOTTLE 2 DROP LEFT EYE ×2 (08:26→21:33)
[2023-01-07] MEDS: polyethylene glycoL 3350 17 GM POWD.PACK PO (08:26)
[2023-01-07] MEDS: SILVERGEL (ELTA) 45 ML 1 APPLIC TOPICAL (08:26)
[2023-01-07 08:32] LABS: Glucose Point of Care 148 mg/dl (65-105)
--- NOTE | 2023-01-07 12:08 | PC.NURSE ---
Emergency Department spoke with [facility] via telephone and there is still no bed available at this time.
[2023-01-07 12:09] LABS: Glucose Point of Care 160 mg/dl (65-105)
[2023-01-07] MEDS: SODIUM CHLORIDE 0.9% IV 1,000 ML 83 ML IV CONT (12:45)
--- NOTE | 2023-01-07 12:54 | PM.IMPN ---
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 He was recently admitted for the same. He has chronic Patrick. Takes aspirin Plavix. Underlying insulin-dependent diabetes mellitus stroke aphasia chronic kidney disease peripheral diabetic neuropathy hypertension secondary polycythemia benign prostatic hyperplasia and glaucoma. Urology was consulted. Underwent cystoscopy and clot evacuation 12/31/2022. He had similar procedure on 12/17/2022. Given recurrence and underlying etiology being prostate gland hyperplasia urology suggest prostate artery embolization and discussed the case at [place]. Accepted at [facility]. Awaiting bed placement. H&H remains stable. CBI is removed and urine output to Patrick is clear. Labs, electrolytes and vitals reviewed which remain stable. Subjective Date/time seen: 01/07/23 12:54 Interval history: 01/07/2023: No overnight events. Discussed with Urology. Discussed with the transfer line at [place]. Discussed with at bedside no further hematuria. No sob or chest pain. Waiting for transfer Review of Systems Review of Systems: Hematuria All systems reviewed & are unremarkable except as noted in HPI and below (the history and physical exam.) Constitutional: Constitutional: Denies chills, Denies excessive sweating, Denies fatigue, Denies fever(s) and Denies night sweats Eyes: Eyes: Denies change in vision ENT: Denies dysphagia, Denies vertigo and Denies dizziness Cardiovascular: Cardiovascular: Denies chest pain at rest, Denies pedal edema, Denies radiating jaw, neck or arm pain, Denies palpitations and Denies dyspnea on exertion Respiratory: Respiratory: Denies chest congestion, Denies cough, Denies excessive phlegm production and Denies dyspnea on exertion Gastrointestinal: Gastrointestinal: Denies dysphagia, Denies dyspepsia, Denies heartburn, Denies diarrhea, Denies nausea and Denies vomiting Genitourinary: Genitourinary: Reports other (Hematuria suprapubic pain) Musculoskeletal: Musculoskeletal: Denies back pain, Denies myalgias, Denies arthralgias and Denies joint swelling Integumentary/Breasts: Skin/Breast: Denies rash Neurologic: Denies vertigo, Denies dizziness, Denies focal weakness and Denies Sensory deficit (Neuro) Psychiatric: Psychiatric: Reports no additional psychiatric complaints and Reports as per HPI Endocrine: Endocrine: Denies cold intolerance, Denies excessive sweating, Denies fatigue, Denies heat intolerance, Denies polyuria and Denies palpitations Hematologic/Lymphatic: Hematologic/Lymphatic: Reports no additional hematologic/lymphatic complaints and Reports as per HPI Allergic/Immunologic: Allergic/Immunologic: Reports no additional allergic/immunologic complaints and Reports as per HPI Exam Narrative: General physical exam: Well-developed, well-nourished, and in no acute distress. Head/eyes: Atraumatic, EOMI, PERRLA. ENT: Moist mucous membranes, nasal passages clear. Neck: Supple, full range of motion, trachea midline. CVS: S1 + S2 + 0, regular rate and rhythm, no murmurs Respiratory: Bilaterally fair air entry in both lung heredia, mild B/L crackles, symmetric expansion of chest, no di
[2023-01-07 17:39] LABS: Glucose Point of Care 175 mg/dl (65-105)
[2023-01-07] MEDS: MELATONIN 3 MG TABLET 6 MG PO (21:32)
[2023-01-07] MEDS: LATANOPROST 0.005% OP SOLN 2.5 ML BTL 1 DROP LEFT EYE (21:32)
[2023-01-07] MEDS: carvediloL 3.125 MG TABLET PO (21:32)
[2023-01-07 21:48] LABS: Glucose Point of Care 197 mg/dl (65-105)
[2023-01-07] MEDS: ACETAMINOPHEN 325 MG TABLET 650 MG PO (23:24)
[2023-01-08] MEDS: SODIUM CHLORIDE 0.9% IV 1,000 ML 83 ML IV CONT ×2 (00:52→13:07)
[2023-01-08] MEDS: LEVOTHYROXINE SODIUM 25 MCG TABLET PO (05:52)
[2023-01-08 05:55] LABS: Anion Gap 5 mmol/L (8-16); Blood Urea Nitrogen 12 mg/dL (9-20); Carbon Dioxide 26 mmol/L (22-30); Chloride 108 mmol/L (98-107); Estimated CRCL calculation 66 ml/min; Estimated Glomerular Filt Rate > 60; Glucose 129 mg/dL (65-110); Potassium 3.7 mmol/L (3.4-5.0); Sodium 139 mmol/L (137-145)
[2023-01-08 06:00] VITALS: BP 133/62; PULSE 48; RESP 18; TEMP 36.3; O2SAT 95
[2023-01-08 08:09] LABS: Glucose Point of Care 132 mg/dl (65-105)
[2023-01-08] MEDS: TIMOLOL MALEATE 0.5% OP SOLN 5 ML BOTTLE 2 DROP LEFT EYE ×2 (08:17→20:10)
[2023-01-08 08:18] VITALS: PULSE 49
[2023-01-08 08:19] VITALS: BP 113/60; PULSE 49
[2023-01-08] MEDS: GABAPENTIN 100 MG CAPSULE PO ×3 (08:19→18:39)
[2023-01-08] MEDS: polyethylene glycoL 3350 17 GM POWD.PACK PO (08:19)
[2023-01-08] MEDS: FERROUS SULFATE 325 MG TABLET DR PO (08:19)
[2023-01-08] MEDS: COLLAGENASE OINT 30 GM TUBE 1 APPLIC TOPICAL (08:19)
[2023-01-08] MEDS: ATORVASTATIN 40 MG TABLET PO (08:19)
[2023-01-08] MEDS: MULTIVITAMINS /C LUTEIN (CENTRUM SILVER) TABLET *BKC 1 TAB PO (08:19)
[2023-01-08] MEDS: CHOLECALCIFEROL 1,000 UNITS TABLET 2000 UNITS PO (08:19)
[2023-01-08] MEDS: ZINC OXIDE 20% OINT 30 GM TUBE 1 APPLIC TOPICAL ×4 (08:19→18:32)
[2023-01-08] MEDS: MIDODRINE HCL 10 MG TABLET PO ×3 (08:19→18:39)
[2023-01-08] MEDS: SILVERGEL (ELTA) 45 ML 1 APPLIC TOPICAL (08:19)
[2023-01-08] MEDS: LORATADINE 10 MG TABLET PO (08:19)
--- NOTE | 2023-01-08 08:57 | PM.IMPN ---
Progress Note: A&P Assessment and Plan (1) Gross hematuria: Code(s): R31.0 - Gross hematuria Status: Acute (2) Clot retention of urine: Code(s): R33.8 - Other retention of urine Status: Acute (3) S/P CABG x 3: Code(s): Z95.1 - Presence of aortocoronary bypass graft Status: Acute (4) Atrial fibrillation: Code(s): I48.91 - Unspecified atrial fibrillation Status: Acute (5) Back pain: Code(s): M54.9 - Dorsalgia, unspecified Status: Acute (6) Diabetic neuropathy: Code(s): E11.40 - Type 2 diabetes mellitus with diabetic neuropathy, unspecified Status: Chronic (7) HTN (hypertension): Code(s): I10 - Essential (primary) hypertension Status: Chronic Plan Hematuria 77-year-old male presents to the ER with hematuria. He was recently admitted for the same. benign prostatic hyperplasia He has chronic Patrick. Urology was consulted. Underwent cystoscopy and clot evacuation 12/31/2022. He had similar procedure on 12/17/2022. Given recurrence and underlying etiology being prostate gland hyperplasia urology suggest a was not well glucose level in a blood glucose of of the holidays S and discussed the case at [place]. Accepted at [facility]. Awaiting bed placement. H&H remains stable. CBI is removed and urine output to Patrick is clear. History of CVA Residual weakness of left-sided body and dysarthria Takes aspirin Plavix. Underlying insulin-dependent diabetes Insulin sliding scale a.c. q.h.s. chronic kidney disease Stable Follow-up BMP Atrial fibrillation Continue abdominal p.o. Hold carvedilol because of bradycardia Follow-up EKG Subjective Date/time seen: 01/08/23 08:57 Interval history: 01/07/2023: I saw examined patient today, patient has no obvious distress, Patrick catheter in-situ, clear urine drained out, patient is afebrile, hemodynamically stable, Exam Narrative: General physical exam: Well-developed, well-nourished, and in no acute distress. Head/eyes: Atraumatic, EOMI, PERRLA. ENT: Moist mucous membranes, nasal passages clear. Neck: Supple, full range of motion, trachea midline. CVS: S1 + S2 + 0, regular rate and rhythm, no murmurs Respiratory: Bilaterally fair air entry in both lung heredia, mild B/L crackles, symmetric expansion of chest, no distress Abdomen: Soft, non-tender, bowel sounds +ve, no organomegaly. Urology:? Patrick catheter in place with clear output, no CVA tenderness Extremities: No clubbing, no cyanosis, no edema, no calf tenderness Musculoskeletal: Moves all, full range of motion, no muscle spasms Skin: Warm, dry, no jaundice, no cyanosis Neurological: Awake, alert, oriented x 3, cranial nerves II-XII intact, no focal neurological deficits. Psychiatric: Normal mood, non suicidal. Objective Data Vital Signs Vital Signs: Vital Signs - 24 hr 01/07/23 12:45 01/07/23 14:00 01/07/23 21:32 Temperature 96.1 F L Pulse Rate 54 L 58 L Respiratory Rate 14 Blood Pressure 102/54 L 103/47 L Pulse Oximetry 96 Oxygen Delivery 01/07/23 20:00 01/07/23 21:54 01/08/23 06:00 Temperature 97.6 F 97.3 F L Pulse Rate 58 L 53 L 48 L Respiratory Rate 14 18 18 Blood Pressure 135/66 133/62 Pulse Oximetry 96 96 95 Oxygen Delivery Room Air 01/08/23 08:18 01/08/23 08:18 01/08/23 08:19 Temperature Pulse Rate 49 L 49 L 49 L Respiratory Rate Blood Pressure Pulse Oximetry Oxygen Delivery Room Air 01/08/23 08:19 Temperature Pulse Rate Respiratory Rate Blood Pressure 113/60 Pulse Oximetry Oxygen Delivery Intake/Output Intake/Output: Intake & Output 01/05/23 01/06/23 01/07/23 01/08/23 23:59 23:59 23:59 23:59 Intake Total 3996 3060 1680 1500 Output Total 4150 2250 2400 1200 Balance -154 810 -720 300 Meds/Results Medications: Active Medications Generic Name Dose Route Start Last Admin Trade N
[2023-01-08 11:52] LABS: Glucose Point of Care 175 mg/dl (65-105)
[2023-01-08 14:23] VITALS: BP 128/53; PULSE 51; RESP 18; TEMP 36.6; O2SAT 96
[2023-01-08 17:17] LABS: Glucose Point of Care 181 mg/dl (65-105)
[2023-01-08] MEDS: MELATONIN 3 MG TABLET 6 MG PO (20:09)
[2023-01-08] MEDS: LATANOPROST 0.005% OP SOLN 2.5 ML BTL 1 DROP LEFT EYE (20:09)
[2023-01-08] MEDS: SENNA/DOCUSATE SODIUM TABLET 1 TAB PO (20:10)
[2023-01-08 20:17] LABS: Glucose Point of Care 239 mg/dl (65-105)
[2023-01-08 21:06] VITALS: BP 142/57; PULSE 53; RESP 20; TEMP 36.9; O2SAT 93
--- NOTE | 2023-01-08 23:12 | PC.NURSE ---
CONTACTED BY [facility] FROM [facility]. UPDATED ON PATIENTS CURRENT CONDITIONS. NO BEDS AVAILABLE AT THIS TIME.
[2023-01-09] MEDS: SODIUM CHLORIDE 0.9% IV 1,000 ML 83 ML IV CONT ×2 (01:05→12:30)
[2023-01-09 04:40] VITALS: BP 117/63; PULSE 51; RESP 18; TEMP 36.6; O2SAT 95
[2023-01-09] MEDS: LEVOTHYROXINE SODIUM 25 MCG TABLET PO (06:02)
[2023-01-09 08:23] VITALS: PULSE 56
[2023-01-09] MEDS: AMIODARONE HCL 200 MG TABLET PO (08:23)
[2023-01-09] MEDS: polyethylene glycoL 3350 17 GM POWD.PACK PO (08:23)
[2023-01-09] MEDS: ATORVASTATIN 40 MG TABLET PO (08:24)
[2023-01-09] MEDS: MULTIVITAMINS /C LUTEIN (CENTRUM SILVER) TABLET *BKC 1 TAB PO (08:24)
[2023-01-09] MEDS: CHOLECALCIFEROL 1,000 UNITS TABLET 2000 UNITS PO (08:24)
[2023-01-09] MEDS: GABAPENTIN 100 MG CAPSULE PO ×3 (08:25→16:06)
[2023-01-09] MEDS: FERROUS SULFATE 325 MG TABLET DR PO (08:25)
[2023-01-09] MEDS: LORATADINE 10 MG TABLET PO (08:25)
[2023-01-09] MEDS: MIDODRINE HCL 10 MG TABLET PO ×3 (08:25→16:06)
[2023-01-09] MEDS: TIMOLOL MALEATE 0.5% OP SOLN 5 ML BOTTLE 2 DROP LEFT EYE (08:26)
[2023-01-09] MEDS: COLLAGENASE OINT 30 GM TUBE 1 APPLIC TOPICAL (08:28)
[2023-01-09] MEDS: SILVERGEL (ELTA) 45 ML 1 APPLIC TOPICAL (08:29)
[2023-01-09 08:30] VITALS: RESP 18; O2SAT 95
[2023-01-09] MEDS: ZINC OXIDE 20% OINT 30 GM TUBE 1 APPLIC TOPICAL ×4 (08:30→16:07)
[2023-01-09 08:46] LABS: Glucose Point of Care 142 mg/dl (65-105)
--- NOTE | 2023-01-09 08:47 | ECG_ITS ---
Measurements Intervals [place] Rate: 53 P: 88 IL: 260 QRS: -89 QRSD: 158 T: -11 QT: 463 QTc: 437 Interpretive Statements SINUS BRADYCARDIA WITH FIRST DEGREE AV BLOCK LEFT AXIS DEVIATION RIGHT BUNDLE BRANCH BLOCK INFERIOR INFARCT, AGE INDETERMINATE BASELINE ARTIFACT- I, II, III, AVR, AVL, AVF ABNORMAL ECG COMPARED TO ECG 02/18/2021 09:21:09 SINUS BRADYCARDIA NOW PRESENT Electronically Signed On 01-09-2023 12:38:55 CDT by Eugene Stevens D.O.
--- NOTE | 2023-01-09 08:47 | PM.IMPN ---
Progress Note: A&P Assessment and Plan (1) Gross hematuria: Code(s): R31.0 - Gross hematuria Status: Acute (2) Clot retention of urine: Code(s): R33.8 - Other retention of urine Status: Acute (3) S/P CABG x 3: Code(s): Z95.1 - Presence of aortocoronary bypass graft Status: Acute (4) Atrial fibrillation: Code(s): I48.91 - Unspecified atrial fibrillation Status: Acute (5) Back pain: Code(s): M54.9 - Dorsalgia, unspecified Status: Acute (6) Diabetic neuropathy: Code(s): E11.40 - Type 2 diabetes mellitus with diabetic neuropathy, unspecified Status: Chronic (7) HTN (hypertension): Code(s): I10 - Essential (primary) hypertension Status: Chronic Plan Hematuria 77-year-old male presents to the ER with hematuria. He was recently admitted for the same. benign prostatic hyperplasia He has chronic Patrick. Urology was consulted. Underwent cystoscopy and clot evacuation 12/31/2022. He had similar procedure on 12/17/2022. Given recurrence and underlying etiology being prostate gland hyperplasia urology suggest a was not well glucose level in a blood glucose of of the holidays S and discussed the case at [place]. Accepted at [facility]. Awaiting bed placement. H&H remains stable. CBI is removed and urine output to Patrick is clear. f/u cbc bmp mild anemia History of CVA Residual weakness of left-sided body and dysarthria Takes aspirin Plavix. Underlying insulin-dependent diabetes Insulin sliding scale a.c. q.h.s. chronic kidney disease Stable Follow-up BMP Atrial fibrillation Continue abdominal p.o. Hold carvedilol because of bradycardia Follow-up EKG Subjective Date/time seen: 01/09/23 08:47 Interval history: I saw examined patient today, patient has no obvious distress, clear urine drained out from foely cath. patient is afebrile, hemodynamically stable, reviewed the labs Exam Narrative: General physical exam: Well-developed, well-nourished, and in no acute distress. Head/eyes: Atraumatic, EOMI, PERRLA. ENT: Moist mucous membranes, nasal passages clear. Neck: Supple, full range of motion, trachea midline. CVS: S1 + S2 + 0, regular rate and rhythm, no murmurs Respiratory: Bilaterally fair air entry in both lung heredia, mild B/L crackles, symmetric expansion of chest, no distress Abdomen: Soft, non-tender, bowel sounds +ve, no organomegaly. Urology:? Patrick catheter in place with clear output, no CVA tenderness Extremities: No clubbing, no cyanosis, no edema, no calf tenderness Musculoskeletal: Moves all, full range of motion, no muscle spasms Skin: Warm, dry, no jaundice, no cyanosis Neurological: Awake, alert, oriented x 3, cranial nerves II-XII intact, no focal neurological deficits. Psychiatric: Normal mood, non suicidal. Objective Data Vital Signs Vital Signs: Vital Signs - 24 hr 01/08/23 14:23 01/08/23 21:06 01/09/23 04:40 Temperature 97.8 F 98.5 F 97.9 F Pulse Rate 51 L 53 L 51 L Respiratory Rate 18 20 18 Blood Pressure 128/53 L 142/57 H 117/63 Pulse Oximetry 96 93 95 01/09/23 08:23 Temperature Pulse Rate 56 L Respiratory Rate Blood Pressure Pulse Oximetry Intake/Output Intake/Output: Intake & Output 01/06/23 01/07/23 01/08/23 01/09/23 23:59 23:59 23:59 23:59 Intake Total 3060 1680 3460 1000 Output Total 2250 2400 2500 1500 Balance 810 -720 960 -500 Meds/Results Medications: Active Medications Generic Name Dose Route Start Last Admin Trade Name Freq PRN Reason Stop Dose Admin Acetaminophen 650 mg 12/31/22 09:38 01/07/23 23:24 Acetaminophen 325 Mg Tablet PO 650 mg Q6H PRN Administration Mild Pain (1-3) Or Fever Amiodarone HCl 200 mg 01/01/23 08:00 01/09/23 08:23 Amiodarone Hcl 200 Mg Tablet PO 200 mg DAILY@0800 CASA Administration Artificial Tears 2 drop 12/31/22 09:53 Artificial T
[2023-01-09 09:13] LABS: Basophils Percent Auto 0.4 % (0.2-1.2); Eosinophils Absolute Auto 0.2 K/mm3 (0-0.3); Eosinophils Percent Auto 2.7 % (0-4.4); Hematocrit 37.7 % (42.0-52.0); Hemoglobin 11.6 g/dL (14.0-18.0); Immature Granulocyte Absolute 0.04 K/mm3 (0.00-0.031); Immature Granulocyte Percent A 0.5 % (0-0.5); Lymphocytes Absolute Auto 2.12 K/mm3 (0.9-3.2); Lymphocytes Percent Auto 26.2 % (18.3-44.2); Mean Corpuscular HGB Conc 30.8 g/dl (32-36); Mean Corpuscular Hemoglobin 27.9 pg (26-34); Mean Corpuscular Volume 90.6 fl (80-100); Mean Platelet Volume 9.3 fl (7.4-10.4); Monocytes Absolute Auto 0.6 K/mm3 (0.1-0.6); Monocytes Percent Auto 6.9 % (2.6-8.5); Neutrophils Absolute Auto 5.1 K/mm3 (1.3-6.7); Neutrophils Percent Auto 63.3 % (45.5-73.1); Platelet Count Result 248 k/mm3 (150-375); Red Blood Count 4.16 M/mm3 (4.6-6.20); Red Cell Distribution Width 17.9 % (11.5-14.5); White Blood Count 8.1 K/mm3 (4.5-10.0)
[2023-01-09 09:22] LABS: Anion Gap 4 mmol/L (8-16); Blood Urea Nitrogen 9 mg/dL (9-20); Calcium 8.2 mg/dL (8.4-10.2); Carbon Dioxide 28 mmol/L (22-30); Chloride 105 mmol/L (98-107); Estimated CRCL calculation 66 ml/min; Estimated Glomerular Filt Rate > 60; Glucose 150 mg/dL (65-110); Potassium 3.7 mmol/L (3.4-5.0); Sodium 137 mmol/L (137-145)
[2023-01-09 11:14] LABS: Glucose Point of Care 182 mg/dl (65-105)
[2023-01-09 14:00] VITALS: BP 131/63; PULSE 51; RESP 18; TEMP 36.9; O2SAT 99
[2023-01-09 16:34] LABS: Glucose Point of Care 195 mg/dl (65-105)
--- NOTE | 2023-01-13 15:37 | PM.TDS ---
Transfer Discharge Sum: Prov Provider Date of admission: 01/02/23 16:18 Primary care physician: Gabby Benavidez MD Admitting clinician: Lisa Collier MD Consults: 12/31/22 01:16 Consult to Physician Routine Comment: Consulting Provider: Kenton Love Reason for consultation: Hematuria Has provider been notified: Yes DS: Admitting Diagnosis Discharge Date 01/09/23 Admitting Diagnosis (1) Gross hematuria: ?Code(s): R31.0 - Gross hematuria ?Status:?Acute (2) Clot retention of urine: ?Code(s): R33.8 - Other retention of urine ?Status:?Acute (3) S/P CABG x 3: ?Code(s): Z95.1 - Presence of aortocoronary bypass graft ?Status:?Acute (4) Atrial fibrillation: ?Code(s): I48.91 - Unspecified atrial fibrillation ?Status:?Acute (5) Back pain: ?Code(s): M54.9 - Dorsalgia, unspecified ?Status:?Acute (6) Diabetic neuropathy: ?Code(s): E11.40 - Type 2 diabetes mellitus with diabetic neuropathy, unspecified ?Status:?Chronic (7) HTN (hypertension): ?Code(s): I10 - Essential (primary) hypertension ?Status:?Chronic Transfer Discharge Sum: Med Medications Active and Home Medications: Home Medications latanoprost 0.005 % eye drops 1 drp LEFT EYE HS 05/07/19 [History Confirmed 12/31/22] acetaminophen 325 mg tablet (Mapap (acetaminophen)) 650 mg PO Q6H PRN Mild Pain (1-3) Or Fever #0 tabs 05/20/21 [Rx Confirmed 12/31/22] amiodarone 200 mg tablet (Pacerone) 200 mg PO DAILY@0800 #0 tabs 05/20/21 [Rx Confirmed 12/31/22] aspirin 81 mg chewable tablet (Children's Aspirin) 81 mg PO DAILY@0800 #0 tabs 05/20/21 [Rx Confirmed 12/31/22] atorvastatin 40 mg tablet 40 mg PO DAILY #0 tabs 05/20/21 [Rx Confirmed 12/31/22] bisacodyl 10 mg rectal suppository 10 mg RECTAL QPM PRN Constipation #0 ea 05/20/21 [Rx Confirmed 12/31/22] cholecalciferol (vitamin D3) 25 mcg (1,000 unit) tablet (Vitamin D3) 2,000 units PO DAILY #0 tabs 05/20/21 [Rx Confirmed 12/31/22] clopidogrel 75 mg tablet 75 mg PO QAM #0 tabs 05/20/21 [Rx Confirmed 12/31/22] dextrose 40 % oral gel (Glutose-15) 15 g PO PRN PRN Hypoglycemia #0 grams 05/20/21 [Rx Confirmed 12/31/22] glucagon 1 mg/mL solution for injection (GlucaGen Diagnostic Kit) 1 mg IM PRN PRN Hypoglycemia #0 ea 05/20/21 [Rx Confirmed 12/31/22] melatonin 3 mg tablet 6 mg PO HS #0 tabs 05/20/21 [Rx Confirmed 12/31/22] midodrine 5 mg tablet 20 mg PO QID #0 tabs 05/20/21 [Rx Confirmed 12/31/22] polyethylene glycol 3350 17 gram oral powder packet (Miralax) 17 g PO QAM #0 ea 05/20/21 [Rx Confirmed 12/31/22] sennosides 8.6 mg-docusate sodium 50 mg tablet (Senokot-S) 1 tab PO HS #0 tabs 05/20/21 [Rx Confirmed 12/31/22] tamsulosin 0.4 mg capsule 0.4 mg PO QAM #0 caps 05/20/21 [Rx Confirmed 12/31/22] brimonidine-timolol 2 drp LEFT EYE BID 12/17/22 [History Confirmed 12/31/22] carvedilol 3.125 mg tablet (Coreg) 3.125 mg PO BID 12/17/22 [History Confirmed 12/31/22] gabapentin 100 mg capsule 100 mg PO TID 12/17/22 [History Confirmed 12/31/22] insulin glargine 100 unit/mL (3 mL) subcutaneous pen (Lantus Solostar U-100 Insulin) 25 unit subcut DAILY 12/17/22 [History Confirmed 12/31/22] insulin lispro 100 unit/mL subcutaneous solution (Humalog U-100 Insulin) 0 - 18 units subcut TID.ARISSI 12/17/22 [History Confirmed 12/31/22] levothyroxine 25 mcg tablet 25 mcg PO DAILY 12/17/22 [History Confirmed 12/31/22] loratadine 10 mg tablet 10 mg PO DAILY 12/17/22 [History Confirmed 12/31/22] multivit with minerals-iron 18 mg-folic ac 400 mcg-vit K 25 mcg tablet (Adults Multivitamin) 1 tablet PO DAILY 12/17/22 [History Confirmed 12/31/22] zolpidem 6.25 mg tablet,extended release,multiphase 6.25 mg PO HS 12/17/22 [History Confirmed 12/31/22] amino acids-protein hydrolysate 17 gram-100 kcal/30 mL oral liquid (Pro-Stat AWC) 1 ea PO DAILY 12/31/22 [History Confirmed 12/31/22] artificial tears solution eye drops 2 drp ophthalmic (eye) PRN PRN Dry Eyes 12/31/22 [History Confirmed 0
== END 2023-01-09 18:15 | disposition short-term general hospital (02) | DRG 726 ==
LOC: ANHED 12-31 01:20 → ANH3MED 12-31 01:56
PROVIDERS: Emergency Medicine; Family Medicine; Internal Medicine; Urology; Admitting Provider Internal Medicine; Emergency Provider Physician Assistant; PCP Family Medicine; Visit Provider Hospitalist
PROC: 0TCB8ZZ Extirpation of Matter from Bladder, Via Natural or Artificial Opening Endoscopic (ICD-10-PCS; CPT 52001; principal; 2022-12-31 13:30)
DX: N40.1 Benign prostatic hyperplasia with lower urinary tract symptoms (principal); I69.354 Hemiplegia and hemiparesis following cerebral infarction affecting left non-dominant side; R31.0 Gross hematuria; I48.91 Unspecified atrial fibrillation; E11.42 Type 2 diabetes mellitus with diabetic polyneuropathy; M54.9 Dorsalgia, unspecified; E11.22 Type 2 diabetes mellitus with diabetic chronic kidney disease; I12.9 Hypertensive chronic kidney disease with stage 1 through stage 4 chronic kidney disease, or unspecified chronic kidney disease; N18.30 Chronic kidney disease, stage 3 unspecified; I69.322 Dysarthria following cerebral infarction; H40.9 Unspecified glaucoma; N28.9 Disorder of kidney and ureter, unspecified; D75.1 Secondary polycythemia; E66.9 Obesity, unspecified; Z68.27 Body mass index [BMI] 27.0-27.9, adult; I69.319 Unspecified symptoms and signs involving cognitive functions following cerebral infarction; I69.320 Aphasia following cerebral infarction; Z95.1 Presence of aortocoronary bypass graft; Z98.42 Cataract extraction status, left eye; Z98.41 Cataract extraction status, right eye; Z98.1 Arthrodesis status; Z87.891 Personal history of nicotine dependence; Z79.82 Long term (current) use of aspirin; Z79.02 Long term (current) use of antithrombotics/antiplatelets
CPT/HCPCS: 36415; 51702; 74018; 74178; 80048; 80053; 81001; 82948; 83735; 85025; 85027; 85610; 85730; 87086; 93005; 96374; 99285; A9270; G0378; J0696; J1815; J2405; J2704; J3010; J7030; J7120; Q9967

== ENCOUNTER 2023-02-17 14:29 | Emergency (ER) | payer MEDICARE, SELFPAY ==
[2023-02-17 14:52] VITALS: BP 151/77; PULSE 51; RESP 20; TEMP 36.7; O2SAT 100
--- NOTE | 2023-02-17 15:01 | PC.NURSE ---
at bedside, states pt currently on Augmentin for UTI. states pt baker 240 ml at lunch time in liquids.
--- NOTE | 2023-02-17 16:20 | ED.MALEGU ---
HPI - Male Genitourinary General Chief complaint: Urogenital-Male Stated complaint: gonzales catheter issue Time Seen by Provider: 02/17/23 15:59 History of Present Illness HPI Narrative: Patient is a 77-year-old male presenting with Gonzales catheter problems. Patient's is at bedside who assists with the history. 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 States that he has an indwelling catheter due to prostamegaly. States that she received a call this morning from the nursing facility stating that he had only had 50 cc of urine output. They were unable to irrigate the Gonzales so they brought him in for evaluation. Upon arrival, he had 400 cc in his Gonzales bag. Currently complains of some suprapubic pain but otherwise denies complaints. Related Data Home Medications Medication Instructions Recorded Confirmed latanoprost 0.005 % eye drops 1 drp LEFT EYE HS 05/07/19 12/31/22 brimonidine-timolol 2 drp LEFT EYE BID 12/17/22 12/31/22 carvedilol 3.125 mg tablet (Coreg) 3.125 mg PO BID 12/17/22 12/31/22 gabapentin 100 mg capsule 100 mg PO TID 12/17/22 12/31/22 insulin glargine 100 unit/mL (3 25 unit subcut DAILY 12/17/22 12/31/22 mL) subcutaneous pen (Lantus Solostar U-100 Insulin) insulin lispro 100 unit/mL 0 - 18 units subcut TID.ARISSI 12/17/22 12/31/22 subcutaneous solution (Humalog U-100 Insulin) levothyroxine 25 mcg tablet 25 mcg PO DAILY 12/17/22 12/31/22 loratadine 10 mg tablet 10 mg PO DAILY 12/17/22 12/31/22 multivit with minerals-iron 18 1 tablet PO DAILY 12/17/22 12/31/22 mg-folic ac 400 mcg-vit K 25 mcg tablet (Adults Multivitamin) zolpidem 6.25 mg tablet,extended 6.25 mg PO HS 12/17/22 12/31/22 release,multiphase amino acids-protein hydrolysate 17 1 ea PO DAILY 12/31/22 12/31/22 gram-100 kcal/30 mL oral liquid (Pro-Stat AWC) artificial tears solution eye drops 2 drp ophthalmic (eye) PRN PRN Dry 12/31/22 12/31/22 Eyes collagenase clostridium histo. 250 1 applic topical DAILY 12/31/22 12/31/22 unit/gram topical ointment (Santyl) ferrous sulfate 325 tablet PO DAILY 12/31/22 12/31/22 menthol 0.44 %-zinc oxide 20.6 % 1 applic topical DAILY 12/31/22 12/31/22 topical ointment (CalProtect) zinc oxide 1 applic topical BID 12/31/22 12/31/22 zinc oxide 5 % topical cream (Skin 1 applic topical DAILY 12/31/22 12/31/22 Protectant) Allergies Allergy/AdvReac Type Severity Reaction Status Date / Time No Known Allergies Allergy Verified 02/17/23 15:12 Review of Systems Review of Systems: All systems reviewed & are unremarkable except as noted in HPI and below PMFSH Past Medical History Medical History Amputation toe Partial right toe amputation Arthritis Back pain SPINAL STENOSIS, cervical stenosis CKD (chronic kidney disease) stage 3, GFR 30-59 ml/min CVA, old, 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 Stroke x 4 Surgical History Surgical History H/O bilateral cataract extraction H/O cataract extraction H/O cervical spine surgery Fusion H/O toe surgery Partial right toe amputated due to infected H/O umbilical hernia repair Family History Family History Father Cerebrovascular accident Family history of diabetes mellitus in first degree relative Mother Family history of diabetes mellitus in first degree relative Family history of congestive heart failure Social History Social History Social History: The patient li
[2023-02-17] MEDS: LIDOCAINE HCL 2% GEL UROJET 10 ML PKG (16:47)
[2023-02-17 18:16] VITALS: BP 148/88; PULSE 77; RESP 20; O2SAT 96
--- NOTE | 2023-02-17 19:05 | PC.NURSE ---
1647: Pt gonzales removed. #[address] gonzales with 30 ml balloon inserted without difficulty 100ml of blood tinge urine obtained. Secured to right leg
== END 2023-02-17 20:37 ==
PROVIDERS: Emergency Provider Emergency Medicine
DX: T83.098A Other mechanical complication of other urinary catheter, initial encounter (principal); M19.90 Unspecified osteoarthritis, unspecified site; I12.9 Hypertensive chronic kidney disease with stage 1 through stage 4 chronic kidney disease, or unspecified chronic kidney disease; E10.22 Type 1 diabetes mellitus with diabetic chronic kidney disease; N18.30 Chronic kidney disease, stage 3 unspecified; Z79.4 Long term (current) use of insulin; E78.5 Hyperlipidemia, unspecified
CPT/HCPCS: 51700; 99283

== ENCOUNTER 2023-03-24 02:27 | Emergency (ER) | payer MEDICARE, SELFPAY ==
--- NOTE | ~2023-03-24 | CT_ITS ---
Non-contrast CT scan of the Abdomen and Pelvis Clinical indication: Pain Technique: 2.5 mm axial scans were obtained through the abdomen and pelvis without intravenous or or al contrast. Dose reduction technique was used on this scan by utilizing automated exposure control a nd iterative reconstruction technique. The dose-length product (DLP) was 757.49 mGy-cm. COMPARISON: 12/31/2022 Findings: Images through the lung bases reveal minimal pleural effusions, right greater than left. There is no evidence of renal or ureteral calculi. The kidneys and the ureters are nondilated. Probab le hyperdense bilateral renal cysts are present, unchanged. The liver, spleen, pancreas, gallbladder, and adrenals appear normal. There are atherosclerotic calci fications of the aorta. There is no evidence of bowel obstruction. Large amount of stool throughout large bowel is consistent with constipation. Images through the pelvis were performed. There is no evidence of ascites or lymphadenopathy. Patrick c atheter present within the urinary bladder. Probable tiny stones present within the urinary bladder. Prostate gland is markedly enlarged. Impression: Tiny stones versus minimal layering hyperdense acute blood in the urinary bladder. Markedly enlarged prostate gland. Large amount of stool suggests constipation. Probable hyperdense bilateral renal cysts, unchanged. Reviewed, dictated and finalized at location . [employer] IN[employer]STIGATOR Impression: Tiny stones versus minimal layering hyperdense acute blood in the urinary bladd er. Markedly enlarged prostate gland. Large amount of stool suggests constipation. Probable hyperdense bilateral renal cysts, unchanged.
[2023-03-24 02:29] VITALS: PULSE 72; RESP 23; TEMP 36.6; O2SAT 93
--- NOTE | 2023-03-24 02:52 | ED.MALEGU ---
HPI - Male Genitourinary General Chief complaint: Urogenital-Male Stated complaint: NO URINE OUTPUT, BLEEDING FROM PENIS Time Seen by Provider: 03/24/23 02:38 History of Present Illness HPI Narrative: Patient brought to the emergency department by EMS. Patient is alert and oriented x1 at baseline. He has a chronic indwelling Patrick catheter. Tonight it stopped draining and they replaced it. The second catheter resulted in blood return with no urine. After EMS placed patient on the bed the Patrick fell out with the bulb partially inflated. Small amount of bleeding came with the Patrick catheter. Patient's abdomen is soft but generally tender on exam. Related Data Home Medications Medication Instructions Recorded Confirmed latanoprost 0.005 % eye drops 1 drp LEFT EYE HS 05/07/19 12/31/22 brimonidine-timolol 2 drp LEFT EYE BID 12/17/22 12/31/22 carvedilol 3.125 mg tablet (Coreg) 3.125 mg PO BID 12/17/22 12/31/22 gabapentin 100 mg capsule 100 mg PO TID 12/17/22 12/31/22 insulin glargine 100 unit/mL (3 25 unit subcut DAILY 12/17/22 12/31/22 mL) subcutaneous pen (Lantus Solostar U-100 Insulin) insulin lispro 100 unit/mL 0 - 18 units subcut TID.ARISSI 12/17/22 12/31/22 subcutaneous solution (Humalog U-100 Insulin) levothyroxine 25 mcg tablet 25 mcg PO DAILY 12/17/22 12/31/22 loratadine 10 mg tablet 10 mg PO DAILY 12/17/22 12/31/22 multivit with minerals-iron 18 1 tablet PO DAILY 12/17/22 12/31/22 mg-folic ac 400 mcg-vit K 25 mcg tablet (Adults Multivitamin) zolpidem 6.25 mg tablet,extended 6.25 mg PO HS 12/17/22 12/31/22 release,multiphase amino acids-protein hydrolysate 17 1 ea PO DAILY 12/31/22 12/31/22 gram-100 kcal/30 mL oral liquid (Pro-Stat AWC) artificial tears solution eye drops 2 drp ophthalmic (eye) PRN PRN Dry 12/31/22 12/31/22 Eyes collagenase clostridium histo. 250 1 applic topical DAILY 12/31/22 12/31/22 unit/gram topical ointment (Santyl) ferrous sulfate 325 tablet PO DAILY 12/31/22 12/31/22 menthol 0.44 %-zinc oxide 20.6 % 1 applic topical DAILY 12/31/22 12/31/22 topical ointment (CalProtect) zinc oxide 1 applic topical BID 12/31/22 12/31/22 zinc oxide 5 % topical cream (Skin 1 applic topical DAILY 12/31/22 12/31/22 Protectant) Allergies Allergy/AdvReac Type Severity Reaction Status Date / Time No Known Allergies Allergy Verified 02/17/23 15:12 Review of Systems Review of Systems: Due to patient's baseline altered mental status unable to review full review of systems PMFSH Past Medical History Medical History Amputation toe Partial right toe amputation Arthritis Back pain SPINAL STENOSIS, cervical stenosis CKD (chronic kidney disease) stage 3, GFR 30-59 ml/min CVA, old, 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 Stroke x 4 Surgical History Surgical History H/O bilateral cataract extraction H/O cataract extraction H/O cervical spine surgery Fusion H/O toe surgery Partial right toe amputated due to infected H/O umbilical hernia repair Family History Family History Father Cerebrovascular accident Family history of diabetes mellitus in first degree relative Mother Family history of diabetes mellitus in first degree relative Family history of congestive heart failure Social History Social History Social History: The patient lives with his Lesvia who is the durable power shoulder puncher for healthcare. She is agreeable to keeping the patient full code at this time however the patie
[2023-03-24 03:01] LABS: Add Urine Microscopic? YES; Appearance Urine Cloudy (Clear); Bacteria Urine None Seen /hpf; Bilirubin Urine Negative (Negative); Blood Urine 2+ (Negative); Color Urine Yellow (Yellow); Glucose Urine UA Negative (Negative); Ketones Urine Negative (Negative); Leukocyte Esterase Ur 1+ LEU/UL (Negative); Need Manual Microscopic Reviewed; Nitrate Urine Positive (Negative); Non Pathogenic Casts 0-2; Protein Urine 1+ mg/dL (Negative); RBC Urine 51-100 /hpf (0-2); Specific Grav Ur 1.015 (1.001-1.035); Squamous Epithelial Cell Urine None seen /hpf (Few); WBC Urine 21-50 /hpf
[2023-03-24 04:08] LABS: Basophils Percent Auto 0.3 % (0.2-1.2); Eosinophils Absolute Auto 0.1 K/mm3 (0-0.3); Eosinophils Percent Auto 0.7 % (0-4.4); Hematocrit 41.8 % (42.0-52.0); Hemoglobin 12.5 g/dL (14.0-18.0); Immature Granulocyte Absolute 0.03 K/mm3 (0.00-0.031); Immature Granulocyte Percent A 0.4 % (0-0.5); Lymphocytes Absolute Auto 0.87 K/mm3 (0.9-3.2); Lymphocytes Percent Auto 12.4 % (18.3-44.2); Mean Corpuscular HGB Conc 29.9 g/dl (32-36); Mean Corpuscular Volume 87.1 fl (80-100); Mean Platelet Volume 9.2 fl (7.4-10.4); Monocytes Absolute Auto 0.5 K/mm3 (0.1-0.6); Monocytes Percent Auto 7.4 % (2.6-8.5); Neutrophils Absolute Auto 5.5 K/mm3 (1.3-6.7); Neutrophils Percent Auto 78.8 % (45.5-73.1); Platelet Count Result 186 k/mm3 (150-375); Red Cell Distribution Width 16.3 % (11.5-14.5)
[2023-03-24 04:18] LABS: Alanine Aminotransferase 20 U/L (6-50); Albumin Level 3.3 g/dL (3.5-5.1); Alkaline Phosphatase 126 U/L (38-126); Anion Gap 11 mmol/L (8-16); Aspartate Amino Transferase 18 U/L (17-59); Bilirubin,Total 0.8 mg/dL (0.2-1.3); Blood Urea Nitrogen 18 mg/dL (9-20); Calcium 8.7 mg/dL (8.4-10.2); Carbon Dioxide 24 mmol/L (22-30); Chloride 104 mmol/L (98-107); Estimated Glomerular Filt Rate > 60; Glucose 130 mg/dL (65-110); Potassium 3.9 mmol/L (3.4-5.0); Sodium 139 mmol/L (137-145)
[2023-03-24 04:37] LABS: Anisocytosis 1+ (NORMAL); Platelet Estimate Adequate (Adequate)
[2023-03-24 04:38] LABS: Schistocytes None Seen (NORMAL)
[2023-03-24 04:40] VITALS: BP 120/74; PULSE 80; RESP 19; O2SAT 99
[2023-03-24] MEDS: CIPROFLOXACIN 500 MG TAB PO (05:45)
== END 2023-03-24 06:40 ==
PROVIDERS: Emergency Provider Emergency Medicine
DX: T83.511A Infection and inflammatory reaction due to indwelling urethral catheter, initial encounter (principal); T83.9XXA Unspecified complication of genitourinary prosthetic device, implant and graft, initial encounter; I12.9 Hypertensive chronic kidney disease with stage 1 through stage 4 chronic kidney disease, or unspecified chronic kidney disease; E11.22 Type 2 diabetes mellitus with diabetic chronic kidney disease; N18.30 Chronic kidney disease, stage 3 unspecified; Z86.73 Personal history of transient ischemic attack (TIA), and cerebral infarction without residual deficits; Z87.891 Personal history of nicotine dependence
CPT/HCPCS: 36415; 51702; 74176; 80053; 81001; 85025; 87077; 87086; 87186; 99284; A9270

== ENCOUNTER 2023-06-07 14:12 | Emergency (ER) | payer MEDICARE, SELFPAY ==
[2023-06-07 14:11] VITALS: PULSE 64; RESP 15; O2SAT 97
--- NOTE | 2023-06-07 14:35 | ED.GENADULT ---
HPI - General Adult General Chief complaint: Urogenital-Male Stated complaint: ?uti History of Present Illness HPI narrative: 77-year-old male with prior history of CVA and urinary retention presented to the ED for evaluation for a Patrick catheter that is not draining. Patient has Patrick catheter exchanged this morning but states he has had no urinary output from this. Patient does describe pelvic pain. Related Data Home Medications Medication Instructions Recorded Confirmed latanoprost 0.005 % eye drops 1 drp LEFT EYE HS 05/07/19 12/31/22 brimonidine-timolol 2 drp LEFT EYE BID 12/17/22 12/31/22 carvedilol 3.125 mg tablet (Coreg) 3.125 mg PO BID 12/17/22 12/31/22 gabapentin 100 mg capsule 100 mg PO TID 12/17/22 12/31/22 insulin glargine 100 unit/mL (3 25 unit subcut DAILY 12/17/22 12/31/22 mL) subcutaneous pen (Lantus Solostar U-100 Insulin) insulin lispro 100 unit/mL 0 - 18 units subcut TID.ARISSI 12/17/22 12/31/22 subcutaneous solution (Humalog U-100 Insulin) levothyroxine 25 mcg tablet 25 mcg PO DAILY 12/17/22 12/31/22 loratadine 10 mg tablet 10 mg PO DAILY 12/17/22 12/31/22 multivit with minerals-iron 18 1 tablet PO DAILY 12/17/22 12/31/22 mg-folic ac 400 mcg-vit K 25 mcg tablet (Adults Multivitamin) zolpidem 6.25 mg tablet,extended 6.25 mg PO HS 12/17/22 12/31/22 release,multiphase amino acids-protein hydrolysate 17 1 ea PO DAILY 12/31/22 12/31/22 gram-100 kcal/30 mL oral liquid (Pro-Stat AWC) artificial tears solution eye drops 2 drp ophthalmic (eye) PRN PRN Dry 12/31/22 12/31/22 Eyes collagenase clostridium histo. 250 1 applic topical DAILY 12/31/22 12/31/22 unit/gram topical ointment (Santyl) ferrous sulfate 325 tablet PO DAILY 12/31/22 12/31/22 menthol 0.44 %-zinc oxide 20.6 % 1 applic topical DAILY 12/31/22 12/31/22 topical ointment (CalProtect) zinc oxide 1 applic topical BID 12/31/22 12/31/22 zinc oxide 5 % topical cream (Skin 1 applic topical DAILY 12/31/22 12/31/22 Protectant) Allergies Allergy/AdvReac Type Severity Reaction Status Date / Time No Known Allergies Allergy Verified 02/17/23 15:12 Review of Systems Review of Systems: All systems reviewed & are unremarkable except as noted in HPI and below PMFSH Past Medical History Medical History Amputation toe Partial right toe amputation Arthritis Back pain SPINAL STENOSIS, cervical stenosis CKD (chronic kidney disease) stage 3, GFR 30-59 ml/min CVA, old, 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 Stroke x 4 Surgical History Surgical History H/O bilateral cataract extraction H/O cataract extraction H/O cervical spine surgery Fusion H/O toe surgery Partial right toe amputated due to infected H/O umbilical hernia repair Family History Family History Father Cerebrovascular accident Family history of diabetes mellitus in first degree relative Mother Family history of diabetes mellitus in first degree relative Family history of congestive heart failure Social History Social History Social History: The patient lives with his Lesvia who is the durable power gas attendant for healthcare. She is agreeable to keeping the patient full code at this time however the patient does not want to live in a vegetative state. The patient is a former smoker. He occasionally has a glass wine maybe twice a month. He has 4 children. 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 Code status full Smoking packs per day: 1 Smoking cigarettes per
[2023-06-07 15:04] VITALS: BP 114/63; PULSE 63; RESP 20; O2SAT 97
[2023-06-07 15:14] LABS: Appearance Urine Turbid (Clear); Bacteria Urine 4+ /hpf; Bilirubin Urine Negative (Negative); Blood Urine 3+ (Negative); Color Urine Yellow (Yellow); Glucose Urine UA 2+ mg/dL (Negative); Ketones Urine Negative (Negative); Leukocyte Esterase Ur 3+ LEU/UL (Negative); Nitrate Urine Negative (Negative); Non Pathogenic Casts 0-2; Protein Urine 2+ mg/dL (Negative); RBC Urine 51-100 /hpf (0-2); Specific Grav Ur 1.011 (1.001-1.035); Squamous Epithelial Cell Urine None seen /hpf (Few); Urobilinogen Urine 0.2 mg/dL (<2.0); WBC Urine >100 /hpf
[2023-06-07 15:42] LABS: Add Urine Microscopic? YES
[2023-06-07 17:05] VITALS: BP 112/64; PULSE 67; RESP 19; O2SAT 97
== END 2023-06-07 17:07 ==
PROVIDERS: Emergency Provider Emergency Medicine
DX: T83.518A Infection and inflammatory reaction due to other urinary catheter, initial encounter (principal); N39.0 Urinary tract infection, site not specified; I13.10 Hypertensive heart and chronic kidney disease without heart failure, with stage 1 through stage 4 chronic kidney disease, or unspecified chronic kidney disease; E11.22 Type 2 diabetes mellitus with diabetic chronic kidney disease; N18.30 Chronic kidney disease, stage 3 unspecified; E11.40 Type 2 diabetes mellitus with diabetic neuropathy, unspecified; E11.39 Type 2 diabetes mellitus with other diabetic ophthalmic complication; H42 Glaucoma in diseases classified elsewhere; I69.319 Unspecified symptoms and signs involving cognitive functions following cerebral infarction; E78.00 Pure hypercholesterolemia, unspecified; E66.9 Obesity, unspecified; Z68.32 Body mass index [BMI] 32.0-32.9, adult; D75.1 Secondary polycythemia; M19.90 Unspecified osteoarthritis, unspecified site; Z98.42 Cataract extraction status, left eye; Z98.41 Cataract extraction status, right eye; Z98.1 Arthrodesis status; Z87.891 Personal history of nicotine dependence; Z79.4 Long term (current) use of insulin; Z79.82 Long term (current) use of aspirin; Y84.6 Urinary catheterization as the cause of abnormal reaction of the patient, or of later complication, without mention of misadventure at the time of the procedure
CPT/HCPCS: 51702; 81001; 87086; 96365; 99284; J0696

== ENCOUNTER 2023-10-08 00:36 | Day surgery (SDC) | payer MEDICARE, SELFPAY ==
--- NOTE | 2023-09-24 12:32 | PC.NURSE ---
PRE-OP INSTRUCTIONS, PLEASE READ CAREFULLY Report to the Outpatient Waiting Room, entrance under the green pavilion located off [facility], at time _0815_ on date _10/08/23_. Planned Procedure Time: _1115_. Time changes happen often and if your time is changed the preop area will call you the afternoon before. - You and your visitor will be asked to self-screen and do not enter if you have any COVID symptoms. - A mask is optional within the hospital at this time. Patients may have clear liquids (water, carbonated beverages, clear teas, apple juice) until 3 hours prior to surgery (0815 AM) with a maximum of 20 ounces. - No food from midnight until time of surgery Take the following medications with a SIP of water the morning of surgery: -*NO DIABETIC MEDICATIONS DAY OF SURGERY*, AMIODARONE, ESCITALOPRAM, GABAPENTIN, LEVOTHYROXINE, EYE DROPS, & TYLENOL, MIDODRINE IF NEEDED_ DO NOT STOP ANY OF YOUR OTHER PRESCRIPTION MEDICATIONS PRIOR TO SURGERY ?EXCEPT THE FOLLOWING Medications to discontinue per DR. DOTSON - _ASPIRIN INSTRUCTED - CALL OFFICE [phone] IF NEEDED_ Medications to discontinue per ANESTHESIA -_MULTIVITAMIN 3 DAYS PRIOR TO SURGERY, Date to take last dose 10/04/23_ Please no make-up, nail greenlandic, hairspray, perfume, deodorant, or body powder the day of surgery. No jewelry (including any body piercings) or valuables the day of surgery, leave them at home. Please take a shower or bath the night before, or the morning of, surgery with an antibacterial soap. Wear comfortable, loose fitting clothing. - Jewelry must be removed prior to entering the operating room. Rings and piercings that are not removed may be cut off. - The hospital will not accept responsibility for valuables. - Please leave all valuables, including medications, at home the day of surgery. If you are going home after surgery, a licensed crude oil driver must drive you home. - NO public transportation without another adult if you receive anesthesia. - We recommend that an adult stay with you for 24 hours following discharge. - We also recommend that you do not drive, make important decision, drink alcoholic beverages, or take any drugs that were not prescribed by your health care provider for at least 24 hours after your discharge time. Follow any additional instructions given to you from your surgeon. If you or anyone in your household have experienced Covid symptoms in the past week, please notify your surgeon or the nurse liaison at the phone number below for possible testing. Telephone instructions given/FAXED to _[facility]_and asked if any additional questions and then verbalized understanding. Patient advised to call surgeon office or pre surgery nurse liaison [phone] if any additional questions.
--- NOTE | 2023-10-08 06:21 | WPDHPUPDATE1 ---
History and Physical Update Update Date/Time: 10/08/23 06:21 History and Physical has been reviewed, including an updated exam of the patient. There are NO changes in the patient's condition. Risks, benefits, and alternatives have been discussed and questions answered. Patient agrees to proceed with procedure.
--- NOTE | 2023-10-08 08:57 | WPDANESEPPF ---
Anes - Initial Pre Proc Eval Procedure: Operation Date: 10/08/23 10:30 Proposed Procedures p Cystoscopy, Placement Suprapubic Catheter - Martin Maguire MD Date/Time: 10/08/23 08:57 Surgeon: Martin Maguire MD Pre Op Diagnosis: Neurogenic Bladder, Urethral Erosion by Catheter Patient Data Age: 77 Gender: M Height: Weight: 87.45 kg Allergies Allergy/AdvReac Type Severity Reaction Status Date / Time No Known Allergies Allergy Verified 09/24/23 12:11 Home Medications Medication Instructions Recorded Confirmed Type latanoprost 0.005 % eye drops 1 drp LEFT EYE HS 05/07/19 09/24/23 History acetaminophen 325 mg tablet (Mapap 650 mg PO Q6H PRN Mild Pain (1-3) 05/20/21 09/24/23 Rx (acetaminophen)) Or Fever #0 tabs amiodarone 200 mg tablet (Pacerone) 200 mg PO DAILY@0800 #0 tabs 05/20/21 09/24/23 Rx aspirin 81 mg chewable tablet 81 mg PO DAILY@0800 #0 tabs 05/20/21 09/24/23 Rx (Children's Aspirin) atorvastatin 40 mg tablet 40 mg PO DAILY #0 tabs 05/20/21 09/24/23 Rx glucagon 1 mg/mL solution for 1 mg IM PRN PRN Hypoglycemia #0 ea 05/20/21 09/24/23 Rx injection (GlucaGen Diagnostic Kit) melatonin 3 mg tablet 6 mg PO HS #0 tabs 05/20/21 09/24/23 Rx midodrine 5 mg tablet 20 mg PO QID #0 tabs 05/20/21 09/24/23 Rx polyethylene glycol 3350 17 gram 17 g PO QAM #0 ea 05/20/21 09/24/23 Rx oral powder packet (Miralax) sennosides 8.6 mg-docusate sodium 1 tab PO HS #0 tabs 05/20/21 09/24/23 Rx 50 mg tablet (Senokot-S) tamsulosin 0.4 mg capsule 0.4 mg PO QAM #0 caps 05/20/21 09/24/23 Rx brimonidine-timolol 2 drp LEFT EYE BID 12/17/22 09/24/23 History gabapentin 100 mg capsule 100 mg PO TID 12/17/22 09/24/23 History insulin glargine 100 unit/mL (3 25 unit subcut DAILY 12/17/22 09/24/23 History mL) subcutaneous pen (Lantus Solostar U-100 Insulin) insulin lispro 100 unit/mL 0 - 18 units subcut TID.ARISSI 12/17/22 09/24/23 History subcutaneous solution (Humalog U-100 Insulin) levothyroxine 25 mcg tablet 25 mcg PO DAILY 12/17/22 09/24/23 History artificial tears solution eye drops 2 drp ophthalmic (eye) PRN PRN Dry 12/31/22 09/24/23 History Eyes ferrous sulfate 325 tablet PO DAILY 12/31/22 09/24/23 History menthol 0.44 %-zinc oxide 20.6 % 1 applic topical DAILY PRN SKIN 12/31/22 09/24/23 History topical ointment (CalProtect) BREAKDOWN zinc oxide 1 applic topical BID 12/31/22 09/24/23 History zinc oxide 5 % topical cream (Skin 1 applic topical DAILY 12/31/22 09/24/23 History Protectant) cetirizine 10 mg tablet 10 mg PO DAILY 09/24/23 09/24/23 History dextromethorphan-guaifenesin ER 60 1 tablet PO Q12H PRN Congestion 09/24/23 09/24/23 History mg-1,200 mg tab,extend release,12hr (Mucinex DM) dextrose 15 gram/33 gram oral gel 33 g PO PRN PRN Hypoglycemia 09/24/23 09/24/23 History packet escitalopram oxalate 20 mg tablet 20 mg PO DAILY 09/24/23 09/24/23 History lidocaine HCl 2 % topical gel 1 applic topical TID PRN Pain 09/24/23 09/24/23 History multivitamin 1 tablet DAILY 09/24/23 09/24/23 History ondansetron 4 mg disintegrating 4 mg PO Q6H PRN Nausea 09/24/23 09/24/23 History tablet trazodone 50 mg tablet 50 mg HS 09/24/23 09/24/23 History Patient hx anesthesia problems: none Family hx anesthesia problems: none Results Review: All pre-operative results and documents have been reviewed as part of the pre-operative evaluation. PMFSH Past Medical History Medical History Amputation toe Partial right toe amputation Arthritis Back pain SPINAL STENOSIS, cervical stenosis CKD (chronic kidney disease) stage 3, GFR 30-59 ml/min CVA, old, 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
[2023-10-08 09:00] VITALS: BP 134/69; PULSE 61; RESP 14; TEMP 36.4; O2SAT 98
[2023-10-08 09:00] LABS: Glucose Point of Care 196 mg/dl (65-105)
[2023-10-08] MEDS: LACTATED RINGERS 1,000 ML 30 ML IV CONT ×2 (09:00→11:20)
[2023-10-08] MEDS: ceFAZolin 2 GM/D5W 50 ML 2 GM/50 ML BAG IVPB (10:25)
[2023-10-08] MEDS: LIDOCAINE HCL 1% LOCAL INJ 10 ML VIAL INFILTRATE (10:53)
[2023-10-08 11:12] VITALS: BP 90/53; PULSE 49; RESP 16; TEMP 36.3; O2SAT 99
[2023-10-08 11:22] LABS: Glucose Point of Care 221 mg/dl (65-105)
--- NOTE | 2023-10-08 11:22 | P.OP_ITS ---
Procedure Note - Detailed Date of Procedure 10/08/23 Pre-op Diagnosis Neurogenic Bladder, Urethral Erosion by Catheter Post-op Diagnosis Same Procedure Performed Cystoscopy, placement suprapubic catheter Surgeon Martin Maguire MD Anesthesia General Description of Procedure Patient is brought to the operative suite where he has prepped and draped in routine sterile fashion while in a dorsal lithotomy position. Cystoscopy is undertaken with a 21 F rigid cystoscope. He has no urethral strictures with mo derate lateral lobe hyperplasia of the prostate. Bladder mucosa is normal with only minimal hyperemia in the posterior wall consistent with catheter cystitis. There is no intravesical foreign body or neoplasm. I filled his bladder with saline and placed a spinal needle through the dome of the bladder 1035 in glidewire was advanced through that and grasped with the cystoscope. I dilated the suprapubic tract with Amplatz dilators to from 8F to 22F. I then placed an 16F Councill tip catheter through the dome. The suprapubic catheter secured with a 3-O nylon. Scopes wires removed. Blood loss was approximately 5 cc. Drains No Packing No Pathology None sent
[2023-10-08 11:25] VITALS: BP 110/61; PULSE 50; RESP 15; O2SAT 99
--- NOTE | 2023-10-08 11:26 | SUR.PHASEI ---
Patient BGL 221. Dr Harden made aware. No new orders at this time.
[2023-10-08 11:40] VITALS: BP 112/57; PULSE 51; RESP 14; O2SAT 100
[2023-10-08 11:55] VITALS: BP 135/79; PULSE 53; RESP 14; O2SAT 99
[2023-10-08 12:00] VITALS: BP 144/79; PULSE 54
== END 2023-10-08 12:30 ==
PROVIDERS: PCP Family Medicine; Visit Provider Urology
PROC: 0T9B30Z Drainage of Bladder with Drainage Device, Percutaneous Approach (ICD-10-PCS; CPT 51102; principal; 2023-10-08 10:30)
DX: N31.9 Neuromuscular dysfunction of bladder, unspecified (principal); T83.511A Infection and inflammatory reaction due to indwelling urethral catheter, initial encounter; Y83.8 Other surgical procedures as the cause of abnormal reaction of the patient, or of later complication, without mention of misadventure at the time of the procedure; I12.9 Hypertensive chronic kidney disease with stage 1 through stage 4 chronic kidney disease, or unspecified chronic kidney disease; N18.30 Chronic kidney disease, stage 3 unspecified; E11.9 Type 2 diabetes mellitus without complications; E78.00 Pure hypercholesterolemia, unspecified; D75.1 Secondary polycythemia; Z79.82 Long term (current) use of aspirin; Z79.4 Long term (current) use of insulin; Z98.890 Other specified postprocedural states; Z98.1 Arthrodesis status; Z95.1 Presence of aortocoronary bypass graft; Z87.891 Personal history of nicotine dependence; Z86.79 Personal history of other diseases of the circulatory system; Z86.73 Personal history of transient ischemic attack (TIA), and cerebral infarction without residual deficits; Z82.49 Family history of ischemic heart disease and other diseases of the circulatory system
CPT/HCPCS: 51102; 82948; C1726; C1769; C2627; J0690; J2405; J2704; J3010; J7120

== ENCOUNTER 2024-09-02 22:45 | Emergency (ER) | payer MEDICARE, SELFPAY ==
[2024-09-02 22:56] VITALS: BP 165/88; PULSE 70; RESP 18; TEMP 37; O2SAT 92
--- NOTE | 2024-09-02 23:11 | ED_ITS ---
HPI - Recheck/Abnormal Lab/Rx General Chief Complaint: Recheck/Abnormal Lab/Rx Stated Complaint: PULLED OUT SUPRAPUBIC CATHETER Time Seen by Provider: 09/02/24 23:00 Source: patient Mode of arrival: ambulatory Limitations: dementia History of Present Illness HPI narrative: This is a 78-year-old male who presents to the ED via EMS from [place] for dislodged chronic suprapubic Patrick catheter. Patient has advanced dementia and is at his mental baseline. He is currently on hospice and was sent in by the natural resource specialist unable to replace the catheter. Related Data Home Medications ?Medication ?Instructions ?Recorded ?Confirmed ?Last Taken ?Type latanoprost 0.005 % eye drops 1 drp LEFT EYE HS 05/07/19 09/24/23 08/12/19 History brimonidine-timolol 2 drp LEFT EYE BID 12/17/22 09/24/23 Unknown History gabapentin 100 mg capsule 100 mg PO TID 12/17/22 09/24/23 Unknown History insulin glargine 100 unit/mL (3 25 unit subcut DAILY 12/17/22 09/24/23 Unknown History mL) subcutaneous pen (Lantus Solostar U-100 Insulin) insulin lispro 100 unit/mL 0 - 18 units subcut TID.ARISSI 12/17/22 09/24/23 Unknown History subcutaneous solution (Humalog U-100 Insulin) levothyroxine 25 mcg tablet 25 mcg PO DAILY 12/17/22 09/24/23 Unknown History artificial tears solution eye drops 2 drp ophthalmic (eye) PRN PRN Dry 12/31/22 09/24/23 Unknown History Eyes ferrous sulfate 325 tablet PO DAILY 12/31/22 09/24/23 Unknown History menthol 0.44 %-zinc oxide 20.6 % 1 applic topical DAILY PRN SKIN 12/31/22 09/24/23 Unknown History topical ointment (CalProtect) BREAKDOWN zinc oxide 1 applic topical BID 12/31/22 09/24/23 Unknown History zinc oxide 5 % topical cream (Skin 1 applic topical DAILY 12/31/22 09/24/23 Unknown History Protectant) cetirizine 10 mg tablet 10 mg PO DAILY 09/24/23 09/24/23 Unknown History dextromethorphan-guaifenesin ER 60 1 tablet PO Q12H PRN Congestion 09/24/23 09/24/23 Unknown History mg-1,200 mg tab,extend release,12hr (Mucinex DM) dextrose 15 gram/33 gram oral gel 33 g PO PRN PRN Hypoglycemia 09/24/23 09/24/23 Unknown History packet escitalopram oxalate 20 mg tablet 20 mg PO DAILY 09/24/23 09/24/23 Unknown History lidocaine HCl 2 % topical gel 1 applic topical TID PRN Pain 09/24/23 09/24/23 Unknown History multivitamin 1 tablet DAILY 09/24/23 09/24/23 Unknown History ondansetron 4 mg disintegrating 4 mg PO Q6H PRN Nausea 09/24/23 09/24/23 Unknown History tablet trazodone 50 mg tablet 50 mg HS 09/24/23 09/24/23 Unknown History Allergies Allergy/AdvReac Type Severity Reaction Status Date / Time No Known Allergies Allergy Verified 09/24/23 12:11 [facility] Past Medical History Medical History Amputation toe Partial right toe amputation Arthritis Back pain SPINAL STENOSIS, cervical stenosis CKD (chronic kidney disease) stage 3, GFR 30-59 ml/min CVA, old, 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 Stroke x 4 Surgical History Surgical History H/O bilateral cataract extraction H/O cataract extraction H/O cervical spine surgery Fusion H/O toe surgery Partial right toe amputated due to infected H/O umbilical hernia repair Family History Family History Father Cerebrovascular accident Family history of diabetes mellitus in first degree relative Mother Family history of diabetes mellitus in first degree relative Family history of congestive heart failure Social History Social History Social History: The patient lives with his Lesvia who is the durable [facility] information clerk for healthcare. She is agreeable to keeping the patient full code at this time however the patient does not want to live in a vegetative state. The patient is a former smoker. He occasionally has a glass wine maybe twice a month. He has 4 children. 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 Code status full Smoking packs per day: 1 Smoking cigarettes per day: 20.0 Years smoked: 40 Smoking pack-years: 40.00 Smoking status: Former smoker Tobacco type: cigarettes Second hand tobacco smoke exposure: No Additional smoking assessment comments: DATE PT QUIT SMOKING - UNKNOWN Alcohol intake: never Drinks per week: 2 Substance use: never Substance use type: does not use Lack of Transportation: No Lack of Food: Never True Current Housing: I Have Housing Concerned About Future Housing: No Difficulty Paying Gas/Electric Bills: No Difficulty Paying for Meds: No Currently Unemployed: No Education: Trade/Vocational Certificate Difficulty w/ Childcare or Family Care: No Living arrangements: retirement Gender identity (if verbalized by the patient): Male Spiritual care concerns: No Exam Narrative: GENERAL: Well-appearing, well-nourished, and in no acute distress. HEAD: Normocephalic, atraumatic. EYES: PERRLA and EOMI. ENT: Nares clear, no rhinorrhea or epistaxis. Mucous membranes moist. Oropharynx without tonsillar hypertrophy exudate or other lesions. NECK: Supple. No adenopathy or masses. CHEST: No respiratory distress. Clear to auscultation. No wheezes rales or rhonchi HEART: Regular rate and rhythm. No murmur heard. Normal peripheral pulses. ABDOMEN: Suprapubic catheter site without redness, swelling or drainage. The catheter is dislodged Soft, nontender, nondistended, normal active bowel sounds. MSK: Normal range of motion. No edema. SKIN: Warm, dry, no rash. NEURO: Alert and oriented x1, at baseline. No focal deficits. PSYCH: Normal mood and affect. Course Vital Signs Vital signs: Vital Signs Temperature 98.6 F 09/02/24 22:56 Pulse Rate 70 09/02/24 22:56 Respiratory Rate 18 09/02/24 22:56 Blood Pressure 165/88 H 09/02/24 22:56 Pulse Oximetry 92 09/02/24 22:56 Oxygen Delivery Room Air 09/02/24 22:56 Temperature 98.6 F 09/02/24 22:56 Pulse Rate 70 09/02/24 22:56 Respiratory Rate 18 09/02/24 22:56 Blood Pressure 165/88 H 09/02/24 22:56 Pulse Oximetry 92 09/02/24 22:56 Oxygen Delivery Room Air 09/02/24 22:56 Procedures Catheter Insertion (Urinary) Urinary Catheter 1: Date of insertion: 09/02/24 Time of insertion: 23:57 Reason for placing: Yes (Replacement of dislodged catheter) Reason for placing indwelling catheter: End of life care Bladder scan/ultrasound used before catheterization: No Antiseptic solution prep: Povidone-Iodine Topical anesthesia used: No Catheter type/location: Suprapubic Size (Vietnamese): 16 Catheter balloon amount: 5 Results: successfully catheterized-immediate flow Procedure performed: without complications MDM - Recheck/Abnormal Lab/Rx MDM Narrative Medical decision making narrative: 78-year-old male on hospice with dementia presents for dislodged suprapubic catheter. Vitals are normal. Exam remarkable for the above. A new 16 Vietnamese suprapubic catheter was reinserted with good immediate flow of urine. Discharged in stable condition Discharge Plan Discharge Clinical Impression: Suprapubic catheter dysfunction Patient Disposition: NH Halfway/Asst Living Condition: Stable Instructions: Antibiotic Form Additional Instructions: A new 16 Vietnamese suprapubic catheter was inserted. If you have any new or worsening symptoms please return to the ER for further evaluation. Patient Language: Kiswahili Prescriptions: No Action latanoprost 0.005 % drops 1 drp LEFTEYE HS levothyroxine 25 mcg Tablet 25 mcg PO DAILY brimonidine-timolol 2 drp LEFT EYE BID gabapentin 100 mg capsule 100 mg PO TID insulin glargine [Lantus Solostar U-100 Insulin] 100 unit/mL (3 mL) Insulin Pen 25 unit SUBCUT DAILY insulin lispro [Humalog U-100 Insulin] 100 unit/mL solution 0 - 18 units subcut TID.ARISSI Protocol: Insulin Corrective Low-Dose Condition: glucose < 70 mg/dl Dose/Route: Follow Hypoglycemia Order Condition: glucose 70-200 mg/dl Dose/Route: No additional insulin Condition: glucose 201-250 mg/dl Dose/Route: 2 units sub-Q Condition: glucose 251-300 mg/dl Dose/Route: 3 units sub-Q Condition: glucose 301-350 mg/dl Dose/Route: 4 units sub-Q Condition: glucose 351-400 mg/dl Dose/Route: 5 units sub-Q Condition: glucose > 400 mg/dl Dose/Route: Call MD Protocol Text: *No Correction Dose at Bedtime* Rx Instructions: SEE [facility] DOCUMENTS artificial tears solution Drops 2 drp OPHTHALMIC (EYE) PRN PRN (Reason: Dry Eyes) zinc oxide Cream 1 applic TOPICAL BID Rx Instructions: apply to scrotum menthol-zinc oxide [CalProtect] 0.44-20.6 % Ointment 1 applic TOPICAL DAILY PRN (Reason: SKIN BREAKDOWN) Rx Instructions: apply to buttocks Skin Protectant 5 % Cream 1 applic TOPICAL DAILY Rx Instructions: apply to buttocks ferrous sulfate 325 tablet PO DAILY multivitamin Tablet 1 tablet DAILY trazodone 50 mg Tablet 50 mg HS cetirizine 10 mg Tablet 10 mg PO DAILY dextromethorphan-guaifenesin [Mucinex DM] 60-1,200 mg Tablet Extended Release 12 Hr 1 tablet PO Q12H PRN (Reason: Congestion) ondansetron 4 mg Tablet,Disintegrating 4 mg PO Q6H PRN (Reason: Nausea) escitalopram oxalate 20 mg Tablet 20 mg PO DAILY dextrose 15 gram/33 gram Gel In Packet 33 g PO PRN PRN (Reason: Hypoglycemia) lidocaine HCl 2 % Gel 1 applic TOPICAL TID PRN (Reason: Pain) hydrocodone-acetaminophen 5-325 mg tablet 1 - 2 tablet PO Q6H PRN (Reason: pain) Qty: 20 0RF sulfamethoxazole-trimethoprim 800-160 mg tablet 1 tablet PO Q12H Qty: 6 0RF atorvastatin 40 mg Tablet 40 mg PO DAILY Qty: 0 0RF acetaminophen [Mapap (acetaminophen)] 325 mg Tablet 650 mg PO Q6H PRN (Reason: Mild Pain (1-3) Or Fever) Qty: 0 0RF amiodarone [Pacerone] 200 mg Tablet 200 mg PO DAILY@0800 Qty: 0 0RF aspirin [Children's Aspirin] 81 mg Tablet,Chewable 81 mg PO DAILY@0800 Qty: 0 0RF polyethylene glycol 3350 [Miralax] 17 gram Powder In Packet 17 g PO QAM Qty: 0 0RF sennosides-docusate sodium [Senokot-S] 8.6-50 mg Tablet 1 tab PO HS Qty: 0 0RF midodrine 5 mg Tablet 20 mg PO QID Qty: 0 0RF melatonin 3 mg Tablet 6 mg PO HS Qty: 0 0RF tamsulosin 0.4 mg Capsule 0.4 mg PO QAM Qty: 0 0RF GlucaGen Diagnostic Kit 1 mg/mL Recon Soln 1 mg IM PRN PRN (Reason: Hypoglycemia) Qty: 0 0RF Follow-up/Referrals: Sergio Hong MD [Primary Care Provider] - Stand Alone Forms: [facility] Discharge Time of Disposition: 00:01
--- OUTSIDE RECORDS SUMMARY | 2024-09-02 23:16 | XMS_ITS | Clinical Summary ---
Author Organization [facility] Address [address] [place] [address] Phone Care Team Providers Care Grinding And Polishing Laborer Name Role Phone Chris Ellison MD Primary Care Provider [phone] Allergies No known active allergies Medications acetaminophen (TYLENOL) 325 MG tablet 2 tablets (650 mg total) by PO/Per Tube route every 6 (six) hours as needed for moderate pain. 0 1 Active amiodarone (PACERONE) 200 MG tablet 1 tablet (200 mg total) by PO/Per Tube route daily. 0 1 Active aspirin 81 MG chewable tablet 1 tablet (81 mg total) by PO/Per Tube route daily. 0 1 Active atorvastatin (LIPITOR) 40 MG tablet 1 tablet (40 mg total) by PO/Per Tube route daily. 0 1 Active carvedilol (COREG) 3.125 MG tablet 1 tablet (3.125 mg total) by PO/Per Tube route 2 (two) times a day with Breakfast and Dinner. 0 1 Active clopidogrel (PLAVIX) 75 MG tablet 1 tablet (75 mg total) by PO/Per Tube route daily. 0 1 Active insulin glargine (LANTUS) 100 UNIT/ML injection Inject 45 Units under the skin 2 (two) times a day with Breakfast and Dinner. 10 mL 1 Active insulin lispro 100 UNIT/ML injection Inject 0-6 Units under the skin 3 (three) times a day before meals. 10 mL 1 Active insulin lispro 100 UNIT/ML injection Inject 25 Units under the skin 3 (three) times a day with meals. 10 mL 1 Active melatonin tablet 2 tablets (6 mg total) by PO/Per Tube route nightly. 0 1 Active midodrine (PROAMATINE) 10 MG tablet 2 tablets (20 mg total) by PO/Per Tube route 4 (four) times a day. 0 1 Active QUEtiapine (SEROquel) 25 MG tablet 0.5 tablets (12.5 mg total) by PO/Per Tube route 2 (two) times a day. 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 04/19/2021 Dysphagia 04/19/2021 Weakness 04/19/2021 Decreased hearing 04/19/2021 Atrial fibrillation 04/19/2021 Hypertension 04/19/2021 Acute respiratory failure 04/18/2021 Immunizations Immunization Administration Dates Next Due Influenza Whole 04/18/2021 Pfizer SARS-CoV-2 Vaccination 07/16/2020, 021 Social History Tobacco Use Types Packs/Day Years Used Date Smoking Tobacco: Former Cigarettes 0.3 20 0 05/19/1978 - 05/19/1998 Smokeless Tobacco: Never Tobacco Cessation:Counseling Given: No Alcohol Use Standard Drinks/Week Comments Yes 2 (1 standard drink = 0.6 oz pur e alcohol) Sex and Gender Information Value Date Recorded Sex Assigned at Not on file Legal Sex Male 12:02 PM EST Gender Identity Not on file Sexual Orientation Not on file Last Filed Vital Signs Vital Sign Reading Time Taken Comments Blood Pressure 126/49 05/06/2021 5:22 PM FRONT END WHEEL LOADER OPERATOR Pulse 82 05/06/2021 5:22 PM FRONT END WHEEL LOADER OPERATOR Temperature 36.2 C (97.2 F) 05/06/2021 7:51 AM FRONT END WHEEL LOADER OPERATOR Respiratory Rate 16 05/06/2021 8:00 AM FRONT END WHEEL LOADER OPERATOR Oxygen Saturation 95% 05/06/2021 8:00 AM FRONT END WHEEL LOADER OPERATOR Inhaled Oxygen Concentration - - Weight 82.6 kg (182 lb) 04/22/2021 4:43 AM FRONT END WHEEL LOADER OPERATOR Height 170.2 cm (5' 7 ) 04/22/2021 11:17 AM FRONT END WHEEL LOADER OPERATOR Body Mass Index 28.51 04/22/2021 4:43 AM FRONT END WHEEL LOADER OPERATOR Plan of Treatment Health Maintenance Due Date Last Done Comments Annual Visit Topic 11/17/1946 DTaP/Tdap/Td Vaccines (1 - Tdap) 1953 Ophthalmology Exam 1956 Urine Microalbumin 1956 Hepatitis C Screening 1964 Pneumococcal Vaccine: 65+ Ye ars (1 of 4 - PCV) 1996 HIB Vaccines Aged Out No longer eligi ble based on patient's age to complete this topic HPV Vaccines Aged Out No longer eligi ble based on patient's age to complete this topic Hepatitis A Vaccines Aged Out No long er eligible based on patient's age to complete this topic Hepatitis B Vaccines Aged Out No long er eligible based on patient's age to complete this topic IPV Vaccines Aged Out No longer eligi ble based on patient's age to complete this topic Meningococcal Vaccine Aged Out No ramon edgar eligible based on patient's age to complete this topic Advance Directives * Limited Resuscitation (Latest Code Status on File) Date Activated Date Inactivated Comments 04/19/2021 5:20 PM 05/07/2021 12:28 AM Question Answer Comments Resuscitation Technique: Intravenous Med ications as IndicatedVentilation with Ambu-Bag I have discussed this order with the patient or his/her surrogate and have received informed consent. Yes Justine Mendes (spouse) * Full Resuscitation Date Activated Date Inactivated Comments 04/18/2021 7:42 PM 04/19/2021 5:20 PM RN to [facility] Care Teams Grinding And Polishing Laborer Relationship Specialty Start Date End Date Chris Ellison MD [address] [address] PCP - General 04/22/21
--- OUTSIDE RECORDS SUMMARY | 2024-09-02 23:16 | XMS_ITS | Encounter Summary ---
Author Organization [facility] Address [address] [place] [address] Phone Care Team Providers Care Captain'S Assistant Name Role Phone Chris Ellison MD Primary Care Provider [phone] Shobha Walsh NP Unavailable [phone] Sergio Hong MD Primary Care Provider Encounter Details Date Type Department Care Team (Latest Contact Info) Description 11/21/2019 Orders Only [facility] Scanning, Provider Social History Tobacco Use Types Packs/Day Years Used Date Smoking Tobacco: Former Smokeless Tobacco: Never Sex and Gender Information Value Date Recorded Sex Assigned at Not on file 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 Gender Identity Not on file Sexual Orientation Straight 02/13/2021 7: 38 AM CDT documented as of this encounter Plan of Treatment Scheduled Procedures Name Priority Associated Diagnoses Date/Ti me COLONOSCOPY Encounter for screening colonoscopy documented as of this encounter Procedures Procedure Name Priority Date/Time Associated Diagnosis Comments SCAN - LABS 11/21/2019 documented in this encounter Results * SCAN - LABS (11/21/2019) us Provider Scanning Final Result documented in this encounter Visit Diagnoses Not on filedocumented in this encounter Additional Health Concerns Infection Onset Date Last Indicated Resolved Time Diarrhea 04/11/2021 04/11/202105/0805/08/2021 3:06 AM CITY MAIL CARRIER documented as of this encounter Care Teams Captain'S Assistant Relationship Specialty Start Date End Date Chris Ellison MD [address] [address] PCP - General 09/05/16 01/11/23 Sergio Hong MD [address] [address] PCP - General Family Medicine 01/12/23 Shobha Walsh NP [address] [address] Nurse Practitioner Hematology 06/19/20 documented as of this encounter
--- OUTSIDE RECORDS SUMMARY | 2024-09-02 23:16 | XMS_ITS | Referral Summary ---
Author Organization [facility] Address [address] [place] [address] Care Team Providers Care Early Learning Teacher Name Role Phone Shobha Walsh NP Unavailable [phone] Sergio Hong MD Primary Care Provider [phone] Allergies No known active allergies Medications brimonidine-khadar lol (COMBIGAN) 0.2-0.5 % ophthalmic solution Administer 2 drops into the left eye 2 (two) times a day Active latanoprost (XALATAN) 0.005 % ophthalmic solution Administer 1 drop into the left eye nightly Active amiodarone (PACERONE) 200 mg tablet Take 1 tablet (200 mg total) by mouth daily for 9 days 9 tablet 1 Active atorvastatin (LIPITOR) 40 mg tablet Take 1 tablet (40 mg total) by mouth nightly 30 tablet 1 Active insulin lispro (HumaLOG, ADMELOG) 100 unit/mL pen for injectionIndicat ions:type 1 diabetes mellitus Inject 1-4 Units under the skin 3 (three) times a day with meals (1 unit for every 50 mg/dL blood glucose greater than 150 mg/dL up to max 4 units) Refer to After Visit Summary for Sliding Scale Insulin Instructions. 3.6 mL 1 Active aspirin 81 mg chewable tablet Take 1 tablet (81 mg total) by mouth daily 30 tablet 11 1 Active levothyroxine (SYNTHROID) 25 mcg tablet Take 1 tablet (25 mcg total) by mouth early childhood director before breakfast 3 Active melatonin tablet Administer per tube 1 tablet (3 mg total) nightly 1 Active tamsulosin (FLOMAX) 0.4 mg extended release capsule Take 1 capsule (0.4 mg total) by mouth with evening meal 3 Active LANTUS 100 unit/mL (3 mL) pen for injection Inject 25 Units under the skin nightly 3 Active gabapentin (NEURONTIN) 100 mg capsule Take 1 capsule (100 mg total) by mouth 3 (three) times a day Active zolpidem CR (AMBIEN CR) 6.25 mg CR tablet Take 1 tablet (6.25 mg total) by mouth nightly as needed for sleep Active artificial tears (ISOPTO TEARS) 0.5 % ophthalmic solution Administer 1 drop into both eyes 3 (three) times a day as needed Active loratadine (CLARITIN) 10 mg tablet Take 1 tablet (10 mg total) by mouth daily Active ferrous sulfate 325 mg (65 mg of elemental iron) tablet Take 1 tablet (325 mg total) by mouth daily with breakfast Active multivitamin tablet Take 1 tablet by mouth Active cholecalciferol (VITAMIN D-3) 2000 unit tablet Take 1 tablet (2,000 Units total) by mouth daily Active midodrine (PROAMATINE) 10 mg tabletIndication s:Symptomatic Orthostatic Hypotension Take 1 tablet (10 mg total) by mouth every 6 (six) hours 120 tablet 3 Active Active Problems Problem Noted Date Diagnosed Date Hematuria 01/09/2023 Coronary artery disease invo lving wainwright heart without angina pectoris 02/07/2021 Overview (02/07/2021): Added automatically from request for surgery [id number] Abnormal cardiovascular stress test 01/24/2021 Overview (01/24/2021): Added automatically from request for surgery [id number] BARBOZA (dyspnea on exertion) 01/24/2021 Overview (01/24/2021): Added automatically from request for surgery [id number] History of stroke 02/22/2020 Assessment & Plan (02/22/2020 3:24 PM CDT): stable at the present time. His blood pressure is at target. He is not on a statin due to intolerance. Type 2 diabetes mellitus wit hout complication, with long-term current use of insulin 02/22/2020 Assessment & Plan (02/22/2020 3:24 PM CDT): Blood sugar slightly elevated have encouraged him to become more aggressive in checking his blood sugars and he now has the dex, back on Hyperlipidemia 02/22/2020 Assessment & Plan (02/22/2020 3:25 PM CDT): Lipid panel reviewed. His total cholesterol is quite low dose, however his HDL is also quite low Depression 02/22/2020 Assessment & Plan (02/22/2020 3:25 PM CDT): Mood currently stable Essential hypertension 02/22/2020 Assessment & Plan (02/22/2020 3:25 PM CDT): Blood pressure reviewed at target Secondary polycythemia 02/22/2020 Assessment & Plan (02/22/2020 3:25 PM CDT): Encouraged again to have him rethink his sleep study. He continues to decline to do the sleep study. 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 05/26/2019 Dyslipidemia 05/26/2019 Essential hypertension 05/26/2019 Numbness of hand 10/14/2016 Encephalopathy Altered sensorium Immunizations Immunization Administration Dates Next Due Influenza, Quadrivalent, Hig h Dose, Preservative Free, Intrr 04/18/2021,01/13/2020 Influenza, Quadrivalent, Spl it, Preservative Free, Intramuscular 02/14/2015,02/14/2015 Influenza, Trivalent, High D ose, Split, Preservative Free, Intramuscular 01/26/2019,01/24/2018,01/21/2017,01/21,02/16/2016,02/16/2016 Influenza, Trivalent, IM (MDV) 02/07/2014,2013 Influenza, Trivalent, Preser vative Free, Intramuscular 03/22/2014,03/22/2014,03/24/2013,03/24 Pfizer SARS-CoV-2 Monovalent Vaccination (12+ Yrs) PURPLE 07/16/2020,06/18/2020 Pneumococcal Polysaccharide PPV23 02/10/2008,06/2007 Social History Tobacco Use Types Packs/Day Years Used Date Smoking Tobacco: Former Smokeless Tobacco: Never Comments:over 20 years quit AUDIT-C Answer Date Recorded Q1: How often do you have a drink containing alc ohol? 2-4 times a month 02/04/2021 Q2: How many drinks containi ng alcohol do you have on a typical day when you are drinking? 1 or 2 02/04/2021 Q3: How often do you have si x or more drinks on one occasion? Never 02/04/2021 Personal Safety Answer Date Recorded Have you ever been in or are you currently in a harmful physical or emotional relationship or is someone making you feel afraid or unsafe? Denies 01/09/2023 Sex and Gender Information Value Date Recorded Sex Assigned at Not on file Legal Sex Male 9:13 PM [employer] Gender Identity Not on file Sexual Orientation Straight 02/13/2021 7: 38 AM CDT Last Filed Vital Signs Vital Sign Reading Time Taken Comments Blood Pressure 120/58 01/13/2023 6:51 PM CDT Pulse 59 01/13/2023 5:36 PM CDT Temperature 36.8 C (98.3 F) 01/13/2023 5:36 PM CDT Respiratory Rate 16 01/13/2023 1:00 PM CDT Oxygen Saturation 99% 01/13/2023 5:36 PM CDT Inhaled Oxygen Concentration - - Weight 83.9 kg (185 lb) 01/09/2023 7:05 PM CDT Height 172.7 cm (5' 8 ) 01/09/2023 7:05 PM CDT Body Mass Index 28.13 01/09/2023 7:05 PM CDT Plan of Treatment Scheduled Procedures Name Priority Associated Diagnoses Date/Ti me COLONOSCOPY Encounter for screening colonoscopy Medical Devices Implanted Type Area Salon Designer Device Identifier Shelf Expiration Date Model / Serial / Lot s-[facility] 24-025-44 Titanium 1.8mm 8 Hole Sternal X Plate Bone Mini Sternotomy - [id number] Implanted:Qty: 2 on 03/29/2021 by Anu Lozano MD at [facility] [id number] / / [facility] Drill-Free; Maxdrive Od2.3 Mm L11 Mm Self Retaining; Lock Sternal - [id number] Implanted:Qty: 8 on 03/29/2021 by Anu Lozano MD at [facility] -[id number] 1 / / [facility] Drill-Free Maxdrive 2.3mm 15mm Self Retain Sternal Screw Bone - [id number] Implanted:Qty: 8 on 03/29/2021 by Anu Lozano MD at [facility] -[id number] 1 / / Procedures Procedure Name Priority Date/Time Associated Diagnosis Comments EGFR Routine 01/12/2023 8:27 PM CDT HEMOGLOBIN A1C Timed 01/09/2023 10:14 PM CDT LIPID PANEL Timed 01/09/2023 10:14 PM CDT HEPATITIS PANEL, ACUTE Routine 04/19/2021 8:[address] CHEST ABDOMEN PELVIS WO CONTRAST ED Urgent/IP Urgent 04/06/2021 2:06 AM [employer]ATING STONE CLEANER from Last 3 Months or Most Recently Relevant to Health Maintenance Results * (ABNORMAL) eGFR (01/12/2023 8:27 PM CDT) Pathologist [facility] [place] eGFR 76(L) 90 - 130 mL/min/1. 73 m2 [facility] Comment: Interpretive Data Reference Interval Normal >/= 90 mL/min/1.73m2 Mildly decreased* 60 - 89 mL/min/1.73m2 Mildly to moderately decreased 45 - 59 mL/min/1.73m2 Moderately to severely decreased 30 - 44 mL/min/1.73m2 Severely decreased 15 - 29 mL/min/1.73m2 Kidney Failure < 15 mL/min/1.73m2 *Relative to young adult level Estimated glomerular filtration rate is determined by the 2020 CKD-EPI equation recommended by the National Kidney Foundation (A Unifying Approach to GFR Estimation: Recommendations of the NKF-ASK Task Force on Reassessing the Inclusion of Race in Diagnosing Kidney Disease, JASN 202). The CKD-EPI equation should not be used for patients with unstable renal function and has not been validated in children and those over 70. Current interpretive data was last reviewed 2021. Blood 01/12/2023 8:27 PM CDT 01/12/2023 9:11 PM CDT Dione Marina MD LAB BLOOD ORDERABLES Kirti l Result Performing Organization Address [facility] de Phone Number [facility] [employer] [place] [address] * (ABNORMAL) Hemoglobin A1c (01/09/2023 10:14 PM CDT) Pathologist [facility] [place] Hgb A1C 6.6(H) 4.0 - 5.6 % [facility] Estimated Average Glucose 143 mg/dL [facility] Comment: The ADA recommends reporting an estimated Average Glucose (eAG) with all Hemoglobin A1c results using the equation derived from a study of 507 normal and diabetic adults. Minority populations were underrepresented and children were not included. (Diabetes Care 2020; 43(S1): S66-S76). The eAG is not equivalent to a fasting glucose. Blood 01/09/2023 10:1 4 PM CDT 01/09/2023 11:35 PM CDT Dione Marina MD LAB BLOOD ORDERABLES Kirti l Result Performing Organization Address [facility] Co de Phone Number [facility] of [employer] [place] [address] * (ABNORMAL) Lipid panel (01/09/2023 10:14 PM CDT) Cholesterol 95 30 - 199 mg/dL [facility] Comment: Interpretive Data Ages < or = 19 years Acceptable: <170 mg/dL Borderline high: 170-199 mg/dL High: >or= 200 mg/dL Ages > or = 20 years Desirable: <200 mg/dL Borderline high: 200-239 mg/dL High: >or= 240 mg/dL Literature References: 1. Expert Panel on Integrated Guidelines for Cardiovascular Health and Risk Reduction in Children and Adolescents. Pediatrics 2011;128:S213 2. NCEP Expert Panel. Circulation 2004;110:227 Current Interpretive Data was last revised on 2017. Triglycerides 88 <=149 mg/dL [facility] Comment: Interpretive Data Ages < or = 9 years Acceptable: <75 mg/dL Borderline high: 75-99 mg/dL High: >or= 100 mg/dL Ages 10 to 20 years Acceptable: <90 mg/dL Borderline high: 90-129 mg/dL High: >or= 130 mg/dL Ages > or = 20 years Desirable: <150 mg/dL Borderline high: 150-199 mg/dL High: 200-499 mg/dL Very high: >or= 499 mg/dL Literature References: 1. Expert Panel on Integrated Guidelines for Cardiovascular Health and Risk Reduction in Children and Adolescents. Pediatrics 2011;128:S213 2. NCEP Expert Panel. Circulation 2004;110:227 Current Interpretive Data was last revised on 2017. HDL 29(L) >=40 mg/dL [facility] Comment: Interpretive Data Ages < or = 19 years Acceptable: >45 mg/dL Borderline low: 40-45 mg/dL Low: <40 mg/dL Ages > or = 20 years Desirable: >or= 60 mg/dL Low: <40 mg/dL Literature References: 1. Expert Panel on Integrated Guidelines for Cardiovascular Health and Risk Reduction in Children and Adolescents. Pediatrics 2011;128:S213 2. NCEP Expert Panel. Circulation 2004;110:227 Current Interpretive Data was last revised on 2017. LDL, calculated 48 <=129 mg/dL [facility] Comment: Interpretive Data Ages < or = 19 years Acceptable: <110 mg/dL Borderline high: 110-129 mg/dL High: >or= 130 mg/dL Ages > or = 20 years Optimal: <100 mg/dL Near optimal: 100-129 mg/dL Borderline high: 130-159 mg/dL High: >160 mg/dL Literature References: 1. Expert Panel on Integrated Guidelines for Cardiovascular Health and Risk Reduction in Children and Adolescents. Pediatrics 2011;128:S213 2. NCEP Expert Panel. Circulation 2004;110:227 Current Interpretive Data was last revised on 2017. Non-HDL Cholesterol 66 mg/dL [facility] Comment: Interpretive Data Ages < or = 19 years Acceptable: <120 mg/dL Borderline high: 120-144 mg/dL High: >145 mg/dL Ages > or = 20 years When triglycerides are >200 mg/dL, Non-HDL cholesterol is a secondary target of therapy with treatment goals that are 30 mg/dL greater than the LDL cholesterol target. Literature References: 1. Expert Panel on Integrated Guidelines for Cardiovascular Health and Risk Reduction in Children and Adolescents. Pediatrics 2011;128:S213 2. NCEP Expert Panel. Circulation 2004;110:227 Current Interpretive Data was last revised on 2017. Chol/HDL ratio 3 [facility] Blood 01/09/2023 10:1 4 PM CDT 01/09/2023 11:35 PM CDT us Dione Marina MD LAB BLOOD ORDERABLES Kirti rodrigez Result [facility] Department [place] [address] * Hepatitis panel, acute (04/19/2021 8:05 AM [employer]ATING STONE CLEANER) Hep A IgM Nonreactive Nonreactive [facility] Comment: Interpretive Data: If Hep A IgM Ab is reported as Equivocal, a new sample should be drawn in two weeks for testing. Current interpretive data was last revised on 19. Hep B core IgM Nonreactive Nonreactive [facility] Comment: Interpretive Data If HepB Core IgM Ab is reported as Equivocal, a new sample should be drawn in two weeks for testing. Current interpretive data was last revised on 19. Hep C Ab Nonreactive Nonreactive [facility] Comment: Interpretive Data Nonreactive: Antibodies to HCV not detected. Does NOT exclude the possibility of recent exposure to HCV. Equivocal: Equivocal for HCV antibodies. Supplemental molecular testing will be automatically performed to determine infection status in accordance with current CDC screening recommendations. Reactive: Positive for HCV antibodies. This may represent current or past HCV infection. Supplemental molecular testing will be automatically performed to determine current infection status in accordance with current CDC screening recommendations. Interpretive data was last revised on 2019. HepBsAg Nonreactive Nonreactive [facility] Blood 04/19/2021 8:05 AM [employer]ATING STONE CLEANER 04/19/2021 8:05 AM [employer]ATING STONE CLEANER us Beto Quinn MD LAB MICROBIOLOGY - GENERAL ORDE LIZ Final Result [facility] [address] Department [place] [address] * CT Chest Abdomen Pelvis WO Contrast (04/06/2021 2:06 AM CARB[employer]ATING STONE CLEANER) Anatomical Region Laterality Modality Body N/A Computed Tomogra phy 04/06/2021 1:54 AM [employer]ATING STONE CLEANER Impressions 04/06/2021 8:37 AM CARBONATING STONE CLEANER 1. Bibasilar consolidations with air bronchograms may represent atelectasis or pneumonia. Evaluation is limited due to lack of intravenous contrast. 2. Dilated main pulmonary artery which can be seen in setting of pulmonary hypertension. 3. No acute abnormal imaging the abdomen or pelvis. Electronically signed by: Dalton Livingston M.D. Narrative 04/06/2021 8:37 AM CARBONATING STONE CLEANER Examination: CT chest, abdomen, and pelvis without intravenous contrast TECHNIQUE: Standard CT of the chest, abdomen, and pelvis was performed without intravenous contrast. HISTORY: Shock. FINDINGS: Comparison is made to the prior exam from 02/15/2021. Evaluation is mildly limited by motion artifacts. Endotracheal tube is seen terminating in the mid thoracic trachea. 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 Atherosclerotic calcifications of the aorta, visceral arteries, and coronary arteries are seen. The heart is mildly enlarged with small pericardial effusion. Epicardial pacing wires are present. Gastric tube seen terminating in the stomach. Feeding tube is seen terminating in the 1st portion of the duodenum. Right internal jugular central venous catheter is seen terminating in the superior vena cava. There is no axillary, supraclavicular, or mediastinal lymphadenopathy. The main pulmonary artery is dilated. The central airways are clear. Bibasilar consolidations are seen with air bronchograms. Small bilateral pleural effusions are seen, left greater than the right. There is no pneumothorax. The noncontrast examination of the liver is unremarkable. The gallbladder is unremarkable. The pancreas, spleen, and adrenal glands are unremarkable. Multiple hyperdense bilateral renal hemorrhagic cysts are seen. The urinary bladder is decompressed with a Patrick catheter. Colonic diverticulosis is seen without CT findings of diverticulitis. The appendix is normal. The colon and small bowel are otherwise grossly unremarkable. There is no free intra-abdominal air or fluid. There is no intra-abdominal lymphadenopathy. The bone window demonstrate cervical spine fusion hardware, partially visualized. No acute fracture or suspicious lytic or blastic osseous lesion. The preliminary results were reported by the tele-radiologist parking station attendant. Procedure Note Dalton Livingston MD - 04/06/2021 Examination: CT chest, abdomen, and pelvis without intravenous contrast TECHNIQUE: Standard CT of the chest, abdomen, and pelvis was performed without intravenous contrast. HISTORY: Shock. FINDINGS: Comparison is made to the prior exam from 02/15/2021. Evaluation is mildly limited by motion artifacts. Endotracheal tube is seen terminating in the mid thoracic trachea. 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 Atherosclerotic calcifications of the aorta, visceral arteries, and coronary arteries are seen. The heart is mildly enlarged with small pericardial effusion. Epicardial pacing wires are present. Gastric tube seen terminating in the stomach. Feeding tube is seen terminating in the 1st portion of the duodenum. Right internal jugular central venous catheter is seen terminating in the superior vena cava. There is no axillary, supraclavicular, or mediastinal lymphadenopathy. The main pulmonary artery is dilated. The central airways are clear. Bibasilar consolidations are seen with air bronchograms. Small bilateral pleural effusions are seen, left greater than the right. There is no pneumothorax. The noncontrast examination of the liver is unremarkable. The gallbladder is unremarkable. The pancreas, spleen, and adrenal glands are unremarkable. Multiple hyperdense bilateral renal hemorrhagic cysts are seen. The urinary bladder is decompressed with a Patrick catheter. Colonic diverticulosis is seen without CT findings of diverticulitis. The appendix is normal. The colon and small bowel are otherwise grossly unremarkable. There is no free intra-abdominal air or fluid. There is no intra-abdominal lymphadenopathy. The bone window demonstrate cervical spine fusion hardware, partially visualized. No acute fracture or suspicious lytic or blastic osseous lesion. The preliminary results were reported by the tele-radiologist parking station attendant. IMPRESSION: 1. Bibasilar consolidations with air bronchograms may represent atelectasis or pneumonia. Evaluation is limited due to lack of intravenous contrast. 2. Dilated main pulmonary artery which can be seen in setting of pulmonary hypertension. 3. No acute abnormal imaging the abdomen or pelvis. Electronically signed by: Dalton Livingston M.D. Vahid Aviles NP IMG CT PROCEDURES Final Result from Last 3 Months or Most Recently Relevant to Health Maintenance Insurance MEDICARE [facility] Address: [address] [address] [place] [address] T SIG [id number] [facility] MEDICARE ADVANTAGE [facility] Address: [address] [address] [place] [address] [facility] MEDICARE [facility] Address: [address] [address] [place] [address] [facility] MEDICARE ADVANTAGE [facility] Address: [address] [address] [place] [address] MEDICARE Advance Directives For more information, please contact: [phone] * LIMITED - No CPR (Latest Code Status on File) Date Activated Date Inactivated Comments 01/09/2023 10:19 PM 01/13/2023 11:02 PM Question Answer Comments Provide aggressive medical m anagement before a full cardiopulmonary arrest occurs. Use antibiotics, IV Fluids, and medical treatment unless specifically selected below: No intubationNo cardioversion * Full Code Date Activated Date Inactivated Comments 04/08/2021 4:31 PM 04/18/2021 5:54 PM * LIMITED - No CPR Date Activated Date Inactivated Comments 04/08/2021 9:46 AM 04/08/2021 4:31 PM Question Answer Comments Provide aggressive medical m anagement before a full cardiopulmonary arrest occurs. Use antibiotics, IV Fluids, and medical treatment unless specifically selected below: No intubation Discussed with the following attending physician : Ray * Full Code Date Activated Date Inactivated Comments 03/29/2021 6:52 PM 04/08/2021 9:46 AM Care Teams Early Learning Teacher Relationship Specialty Start Date End Date Sergio Hong MD PCP - General Family Medicine 01/12/23 Shobha Walsh NP Nurse Practitioner Hematology 06/19/20
--- OUTSIDE RECORDS SUMMARY | 2024-09-02 23:16 | XMS_ITS | CONTINUITY OF CARE DOCUMENT ---
Author Name anni hutton Address Unknown Organization [facility] Address [address] [place] [address] Phone [phone] Care Team Providers Care Posting Machine Operator Name Role Phone Jamal KEMP, Popeye Unavailable [phone] INSURANCE PROVIDERS Payer name Policy type / Coverage type Edwar red green party ID [place] Medicare [id number] [facility] [employer] insurance Intrinsic-ID [id number]
--- OUTSIDE RECORDS SUMMARY | 2024-09-02 23:16 | XMS_ITS | Clinical Summary ---
Author Organization [facility] Address [address] [place] [address] Care Team Providers Care Table And Desk Finisher Name Role Phone Shobha Walsh NP Unavailable [phone] Sergio Hong MD Primary Care Provider [phone] Allergies No known active allergies Medications brimonidine-khadar [...] 1 tablet (25 mcg total) by mouth grappler before breakfast 3 Active melatonin tablet Administer [...] Hematuria 01/09/2023 Coronary artery disease invo lving [place] heart without angina pectoris 02/07/2021 Overview (02/07/2021): Added automatically from request for surgery [id number] Abnormal cardiovascular stress test 01/24/2021 Overview (01/24/2021): Added automatically from request for surgery [id number] BARBOZA (dyspnea on exertion) 01/24/2021 Overview (01/24/2021): Added automatically from request for surgery [id number] History of stroke 02/22/2020 Assessment & Plan [...] study. 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 05/26/2019 [...] Yrs) PURPLE 07/16/2020,06/18/2020 Pneumococcal Polysaccharide PPV23 02/10/2008,06/2007 Surgical History Surgery Date Site/Laterality Comments WI ARTHRD ANT INTERBODY MIN DSC CRV BELOW C2 Cervical Vertebral Fusion - (Added by TW Conv) SPINE SURGERY HERNIA REPAIR AMPUTATION FOOT / TOE partial right great toe CARPAL TUNNEL RELEASE Bilateral CATARACT EXTRACTION Medical History Medical History Date Comments Personal history of transien t ischemic attack (TIA), and cerebral infarction without residual deficits H/O: CVA (cerebrovascular ac cident) - (Added by TW Conv) Hypertension Anxiety Arthritis Cataract Glaucoma Mixed conductive and sensori neural hearing loss Hyperlipidemia RBBB (right bundle branch block) SOB (shortness of breath) on exertion Stroke (HCC) X 4 Peripheral neuropathy Secondary polycythemia Vision loss of right eye Depression Type 2 diabetes mellitus wit hout complications (HCC) Coronary artery disease invo lving [place] heart without angina pectoris BARBOZA (dyspnea on exertion) Abnormal cardiovascular stress test 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 (HCC) Urinary urgency Urinary frequency Family History Medical History Relation Name Comments Arthritis Brother 1 Dewey Family history of arthritis - (Added by TW Conv) Diabetes Brother 2 Rich Family history of diabetes mellitus - (Added by TW Conv) Arthritis Father Miguel Family history of arthritis - (Added by TW Conv) Cancer Father Miguel Family history of malignant neoplasm - (Added by TW Conv) Diabetes Father Miguel Family history of diabetes mellitus - (Added by TW Conv) Heart disease Father Miguel Family history of cardiovascular disease - (Added by TW Conv) Hypertension Father Miguel Family history of hypertension - (Added by TW Conv) Stroke Father Miguel Family history of cerebrovascular accident (CVA) - (Added by TW Conv) Arthritis Mother Lisa Family history of arthritis - (Added by TW Conv) Diabetes Mother Lisa Family history of diabetes mellitus - (Added by TW Conv) Heart disease Mother Lisa Family history of cardiovascular disease - (Added by TW Conv) Hypertension Mother Lisa Family history of hypertension - (Added by TW Conv) Stroke Mother Lisa Family history of cerebrovascular accident (CVA) - (Added by TW Conv) Relation Name Status Comments Brother 1 Dewey Brother 2 Rich Father Miguel (Age 83) Mother Lisa (Age 78) Social History Tobacco Use Types Packs/Day Years [...] on file 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 Gender Identity Not on file Sexual Orientation Straight 02/13/2021 7: 38 AM CDT Obstetrics History Last Filed Vital Signs Vital Sign Reading [...] Date/Ti me COLONOSCOPY Encounter for screening colonoscopy Health Maintenance Due Date Last Done Comments Albumin Creatinine Ratio, Urine 1945 Depression Screening 1945 Dilated Eye Exam 1946 Foot Exam 1945 DTaP/Tdap/Td Vaccine (1 - Tdap) 1957 Hepatitis B Screening 1964 Zoster Vaccine (1 of 2) 1996 Pneumococcal vaccine 65+ (2 of 2 - PCV) 02/09/2009 02/10/2008, 02/10/2008 Well Visit 65+ 11/17/2011 Hemoglobin A1C 07/10/2023 01/09/2023, 03/12, 11/14/2020, Additional history exists Covid-19 Vaccine (3 - 2023-2 5 season) 2024 07/16/2020, 06/18/2020 Influenza Vaccine (#1) 2024 , 01/13/2020, 01/26/2019, Additional history exists Lipid Panel 01/10/2024 01/09/2023, 02/08, 01/09/2021, Additional history exists eGFR 01/13/2024 01/12/2023, 07/2022, 01/10/2023, Additional history exists Fall Risk Assessment 01/14/2024 01/13/2023, 02/14/20 21 Abdominal Aortic Aneurysm (A AA) Screen Completed 04/06/2021 Hepatitis C Screening Completed 04/19/2021 , 04/16/2021, 04/11/2021 Medical Devices Implanted Type Area Cash Posting Representative Device Identifier Shelf Expiration Date Model / Serial / Lot [facility] 24-025-44 Titanium 1.8mm 8 Hole Sternal X Plate Bone Mini Sternotomy - [id number] Implanted:Qty: 2 on 03/29/2021 by Anu Lozano MD at [facility] [id number] 9 / / [facility] - Drill-Free; Maxdrive Od2.3 Mm L11 Mm Self Retaining; Lock Sternal - [id number] Implanted:Qty: 8 on 03/29/2021 by Anu Lozano MD at [facility] [id number] 1 / / [facility] -15 Drill-Free Maxdrive 2.3mm 15mm Self Retain Sternal Screw Bone - [id number] Implanted:Qty: 8 on 03/29/2021 by Anu Lozano MD at [facility] [id number] 1 / / Procedures Procedure Name Priority Date/Time Associated Diagnosis Comments EGFR Routine 01/12/2023 8:27 PM CDT HEMOGLOBIN A1C Timed 01/09/2023 10:14 PM CDT LIPID PANEL Timed 01/09/2023 10:14 PM CDT HEPATITIS PANEL, ACUTE Routine 04/19/2021 8:[address] CHEST ABDOMEN PELVIS WO CONTRAST ED Urgent/IP Urgent 04/06/2021 2:06 AM CHAINSAW MECHANIC from Last 3 Months or Most Recently Relevant to Health Maintenance Results * (ABNORMAL) eGFR (01/12/2023 8:27 PM CDT) eGFR 76(L) 90 - 130 mL/min/1. 73 m2 [facility] Comment: Interpretive Data Reference Interval Normal >/= [...] of Race in Diagnosing Kidney Disease, JASN 2020). The CKD-EPI equation should not be used for patients with unstable renal function and has not been validated in children and those over 70. Current interpretive data was last reviewed 2021. Blood 01/12/2023 8:27 PM CDT 01/12/2023 9:11 PM CDT us Dione Marina MD LAB BLOOD ORDERABLES Kirti l Result [facility] Department [place] [address] * (ABNORMAL) Hemoglobin A1c (01/09/2023 10:14 PM CDT) Hgb A1C 6.6(H) 4.0 - 5.6 % [facility] Estimated Average Glucose 143 mg/dL [facility] Comment: The ADA recommends reporting an [...] MD LAB BLOOD ORDERABLES Kirti rodrigez Result Performing Organization Address City/State/[facility] Co de Phone Number [facility] Department [place] [address] * (ABNORMAL) Lipid panel (01/09/2023 10:14 PM CDT) Pathologist [facility] Cholesterol 95 30 - 199 mg/dL [facility] Comment: Interpretive Data Ages < or [...] revised on 2017. Triglycerides 88 <=149 mg/dL [facility] Comment: Interpretive Data Ages < or [...] revised on 2017. HDL 29(L) >=40 mg/dL [facility] Comment: Interpretive Data Ages < or = 19 years Acceptable: >45 mg/dL Borderline low: 40-45 mg/dL Low: <40 mg/dL Ages > or = 20 years Desirable: >or= 60 mg/dL Low: <40 mg/dL Literature References: 1. Expert Panel on Integrated Guidelines for Cardiovascular Health and Risk Reduction in Children and Adolescents. Pediatrics 2011;128:S213 2. NCEP Expert Panel. Circulation 2003;110:227 Current Interpretive Data was last revised on 2017. LDL, calculated 48 <=129 mg/dL [facility] Comment: Interpretive Data Ages < or [...] revised on 2017. Non-HDL Cholesterol 66 mg/dL [facility] Comment: Interpretive Data Ages < or [...] last revised on 2017. Chol/HDL ratio [address] [facility] Blood 01/09/2023 10:1 4 PM CDT 01/09/2023 11:35 PM CDT us Dione Marina MD LAB BLOOD ORDERABLES Kirti l Result Performing Organization Address City/[facility]/ZIP Co de Phone Number [facility] [place] [address] * Hepatitis panel, acute (04/19/2021 8:05 AM CHAINSAW MECHANIC) Hep A IgM Nonreactive Nonreactive [facility] Comment: Interpretive Data: If Hep A IgM Ab is reported as Equivocal, a new sample should be drawn in two weeks for testing. Current interpretive data was last revised on 19. Hep B core IgM Nonreactive Nonreactive [facility] Comment: Interpretive Data If HepB Core IgM Ab is reported as Equivocal, a new sample should be drawn in two weeks for testing. Current interpretive data was last revised on 19. Hep C Ab Nonreactive Nonreactive [facility] Comment: Interpretive Data Nonreactive: Antibodies to HCV [...] last revised on 2019. HepBsAg Nonreactive Nonreactive [facility] Blood 04/19/2021 8:05 AM CHAINSAW MECHANIC 04/19/2021 8:05 AM CHAINSAW MECHANIC us Beto Quinn MD LAB MICROBIOLOGY - GENERAL ORDPiper HILL Final Result [facility] [address] [place] [address] * CT Chest Abdomen Pelvis WO Contrast (04/06/2021 2:06 AM CHAINSAW MECHANIC) Anatomical Region Laterality Modality Body N/A Computed Tomogra phy 04/06/2021 1:54 AM CHAINSAW MECHANIC Impressions 04/06/2021 8:37 AM CHAINSAW MECHANIC 1. Bibasilar consolidations with air bronchograms may represent atelectasis or pneumonia. Evaluation is limited due to lack of intravenous contrast. 2. Dilated main pulmonary artery which can be seen in setting of pulmonary hypertension. 3. No acute abnormal imaging the abdomen or pelvis. Electronically signed by: Dalton Livingston M.D. Narrative 04/06/2021 8:37 AM CHAINSAW MECHANIC Examination: CT chest, abdomen, and pelvis without [...] preliminary results were reported by the tele-radiologist applications scientist. Procedure Note Dalton Livingston MD - 04/06/2021 [...] preliminary results were reported by the tele-radiologist applications scientist. IMPRESSION: 1. Bibasilar consolidations with air bronchograms may represent atelectasis or pneumonia. Evaluation is limited due to lack of intravenous contrast. 2. Dilated main pulmonary artery which can be seen in setting of pulmonary hypertension. 3. No acute abnormal imaging the abdomen or pelvis. Electronically signed by: Dalton Livingston M.D. Vahid Aviles NP IM CT PROCEDURES Final Result from Last 3 Months or Most Recently Relevant to Health Maintenance [id number] UHC MEDICARE ADVANTAGE [facility] MEDIC[facility] Address: [address] [address] [place] [address] [facility] MEDICARE MEDICARE UHC MEDICARE ADVANTAGE [facility] MEDICARE Address: [address] [address] [place] [address] MEDICARE Advance Directives For more information, please contact: [phone] * LIMITED - No CPR (Latest Code [...] 6:52 PM 04/08/2021 9:46 AM Care Teams Table And Desk Finisher Relationship Specialty Start Date End Date Sergio Hong MD PCP - General Family Medicine 01/12/23 Shobha Walsh NP Nurse Practitioner Hematology 06/19/20
--- OUTSIDE RECORDS SUMMARY | 2024-09-02 23:16 | XMS_ITS | Encounter Summary ---
Author Organization [facility] Address [address] [place] [address] Phone Care Team Providers Care Tile Sorter Name Role Phone Chris Ellison MD Primary Care Provider [phone] Shobha Walsh NP Unavailable [phone] Sergio Hong MD Primary Care Provider Encounter Details Date Type Department Care Team (Latest Contact Info) Description 11/21/2019 Orders Only [facility] Scanning, Provider Social History Tobacco Use Types Packs/Day Years Used Date Smoking Tobacco: Former Smokeless Tobacco: Never Sex and Gender Information Value Date Recorded Sex Assigned at Not on file 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
--- OUTSIDE RECORDS SUMMARY | 2024-09-02 23:16 | XMS_ITS | Clinical Summary ---
Author Organization [facility] [address] [place] [address] Address [address] [place] [address] Care Team Providers Care Mushroom Picker Name Role Phone Chris Ellison MD Primary Care Provider [phone] Allergies No known active allergies Medications aspirin-dipyrid amole SR 12 hour (AGGRENOX) 25-200 mg capsule Take 1 Capsule by mouth twice weekly. 08/12/2018 Active brimonidine-rosalino olol (COMBIGAN) 0.2-0.5 % solution Active SITagliptin (Januvia) 100 mg Tablet Take 100 mg by mouth daily. 08/13/2018 Active latanoprost (XALATAN) 0.005 % solution 1 Drop. Active sertraline (ZOLOFT) 25 mg tablet Take 25 mg by mouth daily. 08/17/2018 Active insulin aspart U-100 (NovoLOG U-100 Insulin aspart) 100 unit/mL vial INJECT WITH PUMP DIRECTED, UP TO 140 UNITS PER DAY 08/17/2018 Active ezetimibe (ZETIA) 10 mg tablet Take 10 mg by mouth daily. 08/12/2018 Active traZODone (DESYREL) 100 mg tablet Take 100 mg by mouth daily. 08/09/2018 Active valsartan (DIOVAN) 320 mg tablet Take 320 mg by mouth daily. 07/02/2018 Active Active Problems Patient Care Coordination No te Formatting of this note migh t be different from the original. Marketing Director Assisted Living - Dr. 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 05/26/2019 Essential hypertension 05/26/2019 Dyslipidemia 05/26/2019 Family History Medical History Relation Name Comments Diabetes Brother Hypertension Brother Heart Disease Father Hypertension Father Diabetes Maternal Grandmother Hypertension Maternal Grandmother Diabetes Mother Hypertension Mother Relation Name Status Comments Brother Father Maternal Grandmother Mother Social History Tobacco Use Types Packs/Day Years Used Date Smoking Tobacco: Former Cigarettes Q uit: 2001 Smokeless Tobacco: Never Alcohol Use Standard Drinks/Week Comments Yes 0 (1 standard drink = 0.6 oz pur e alcohol) Sex and Gender Information Value Date Recorded Sex Assigned at Not on file 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 Sex 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 Gender Identity Not on file Sexual Orientation Not on file Last Filed Vital Signs Vital Sign Reading Time Taken Comments Blood Pressure 127/72 05/31/2019 10:30 AM PORTAL DEVELOPER Pulse 67 05/31/2019 10:30 AM PORTAL DEVELOPER Temperature 36.3 C (97.3 F) 05/31/2019 7:06 AM PORTAL DEVELOPER Respiratory Rate 18 05/31/2019 10:30 AM PORTAL DEVELOPER Oxygen Saturation 99% 05/31/2019 10:30 AM PORTAL DEVELOPER Inhaled Oxygen Concentration - - Weight 101 kg (222 lb 11.2 oz) 05/31/2019 7:06 A M PORTAL DEVELOPER Height 170.2 cm (5' 7 ) 05/31/2019 7:06 AM PORTAL DEVELOPER Body Mass Index 34.88 05/31/2019 7:06 AM PORTAL DEVELOPER Plan of Treatment Health Maintenance Due Date Last Done Comments DIABETES ANNUAL FOOT EXAM 1964 DIABETES ANNUAL RETINAL EXAM 1964 DIABETES HBA1C Q 6 MONTHS 1964 DIABETES MICROALBUMIN ANNUAL SCREEN 1964 LDL CHOLESTEROL ANNUAL 1964 DTAP/TDAP/TD VACCINES (1 - Tdap) 1965 PNEUMOCOCCAL VACCINE 50+ YEARS (1 of 2 - PCV) 11/16/18 66 ZOSTER VACCINE (1 of 2) 1996 RSV VACCINE (60+ or ) (1 - 1-dose 75+ series) 2021 INFLUENZA VACCINE (#1) 2023 01/26/2019 Insurance MEDICARE PART A AND B [facility] Care Teams Mushroom Picker Relationship Specialty Start Date End Date Chris Ellison MD [address] [facility] [address] [place] [address] PCP - General Internal Medicine 05/18/19
--- OUTSIDE RECORDS SUMMARY | 2024-09-02 23:16 | XMS_ITS | Continuity of Care Document ---
Author Organization [facility] [place] Address [address] [place] [address] Angulo [address] [place] [phone] Phone Care Team Providers Care Turret Lathe Operator Name Role Phone Wale Alcala Unavailable Unavailable Procedures Procedure Date Eye Exam Established Pt Ophthalmoscopy, Subsequent Ophthalmoscopy, Subsequent Office/outpatient Visit, Est Visual Field Examination(s) Eye Exam Established Pt Ophthalmoscopy, Subsequent Ophthalmoscopy, Subsequent Office/outpatient Visit, Est Fundus Photography W/ Report Optic Nerve Topography Optic Nerve Topography Office/outpatient Visit, Est Eye Exam Established Pt Ophthalmoscopy, Subsequent Ophthalmoscopy, Subsequent Office/outpatient Visit, Est Eye Exam Established Pt Ophthalmoscopy, Subsequent Ophthalmoscopy, Subsequent Visual Field Examination(s) Eye Exam Established Pt Ophthalmoscopy, Subsequent Ophthalmoscopy, Subsequent Eye Exam & Treatment Treatment Of Retinal Lesion Ophthalmoscopy, Subsequent Ophthalmoscopy, Subsequent Optic Nerve Topography Optic Nerve Topography Office/outpatient Visit, Est Eye Exam Established Pt Office/outpatient Visit, Est Visual Field Examination(s) Office/outpatient Visit, Est Fundus Photography W/ Report Office Consultation Ophthalmoscopy Ophthalmoscopy Eye Exam Established Pt Corneal Pachymetry Advance Directives Directive Yes / No Effective Date File Name No Information Encounters Encounter Description Practice Location Reason(s) For Visit Diagnoses Date Provider Providers Copied on Encounter [facility], [id number] [place] [address] [address], [place], [place], [id number], [place] tel:[phone] [facility] [place] No Information 8-201 0 Cari Echevarria. [address] [place], [place], [facility], [place]. tel:[phone] Referring Provider: Wale Jones, [address] [place], [place], [facility]. tel:[phone] Office/outpati ent Visit, Est [facility], [address] [place] [address] [address], [place], [place], [id number], [place] tel:[phone] [facility] No Information 2-201 0 Pearl Ocasio. [address] [place] [address] , [address], [place], [place], [facility], [place]. tel:[phone] [facility], [address], [place], [place], [id number], [place] tel:[phone] [facility] No Information 0-201 0 Pearl [facility]casio. [facility] [address], [place], [address], [place]. tel:[phone] Referring Provider: Amarjit Livingston [facility] [place] [address], [place], [facility]. tel:[phone] [facility], [address], [place], [place], [id number], [place] tel:[phone] [facility] No Information 9201 0 Cari Echevarria. [address] [place], [address], [place]. tel:[phone] Office/outpati ent Visit, [facility], [address] [place] [address] [address], [place], [place], [id number], [place] tel:[phone] [facility] No Information 0 Pearl Ocasio. [address] [place], [place] [address]ate Center , [address], [place], [facility], [place]. tel:[phone] Referring Provider: Amarjit Livingston, [address] [place], [place] [address]ate [address], [place], [facility]. tel:[phone] [facility], [address] [place] [address] [address], [place], [place], [id number], [place] tel:[phone] [facility] No Information 0 Pearl Ocasio. [address] [place], [place] [address]ate Center , [address], [place], [facility], [place]. tel:[phone] Referring Provider: Amarjit Livingston, [address] [place], [place] [address]ate [address], [place], [facility]. tel:[phone] Office/outpati ent Visit, [facility], [address] [place] [address] [address], [place], [id number], [place] tel:[phone] [facility] No Information 9 Pearl Ocasio. [address] [place], [place] [address]ate Center , [address], [place], [facility], [place]. tel:[phone] [facility], [address] [place] [address] [address], [place], [place], [id number], [place] tel:[phone] [facility] No Information 200 9 Cari Echevarria. [address] [place], [facility], [place]. tel:[phone] Referring Provider: Wale Jones, [address] [place], [address]. tel:[phone] Office/outpati ent Visit, Est [facility], [address], [place], [place], [id number], [place] tel:[phone] [facility] [place] No Information 1200 9 Pearl Ocasio. [address] [facility] [place] , [address], [place], [address], [place]. tel:[phone] [facility], [address], [place], [place], [id number], [place] tel:[phone] [facility] [place] No Information 9 Cari Echevarria. [address] [place], [address], [place]. tel:[phone] Referring Provider: Wale Jones, [address] [place], [facility]. tel:[phone] [facility], [address], [place], [place], [address], [place] tel:[phone] [facility] [place] No Information 200 9 Pearl Ocasio. [facility] , [address], [place], [address], [place]. tel:[phone] Referring Provider: Amarjit Livingston, [facility] [address], [place], [address]. tel:[phone] [facility], [address], [place], [place], [id number], [place] tel:[phone] [facility] No Information 200 9 Cari Echevarria. [address] [place], [address], [place]. tel:[phone] [facility], [address], [place], [place], [id number], [place] tel:[phone] [facility] No Information Jul- 9-200 9 Cari Echevarria. [address] [facility], [place], [address], [place]. tel:[phone] Referring Provider: Amarjit Livingston, [facility] [address], [place], [facility]. tel:[phone] [facility], [facility], [address] [place] [address] [address], [place], [place], [id number], [place] tel:[phone] [facility] No Information 9200 8 Pearl Ocasio. [facility] , [address], [place], [facility], [place]. tel:[phone] [facility], [address] [place] [address] [address], [place], [place], [id number], [place] tel:[phone] [facility] No Information 0-200 8 Pearl Ocasio. [facility] [address], [address], [place], [facility], [place]. tel:[phone] Office/outpati ent Visit, [facility], [address] [place] [address] [address], [place], [place], [id number], [place] tel:[phone] [facility] No Information 5200 8 Pearl Ocasio. [facility] , [address], [place], [facility], [place]. tel:[phone] [facility], [address] [place] [address] [address], [place], [place], [id number], [place] tel:[phone] [facility] No Information Jul-2 7-200 8 Pearl Ocasio. [facility] , [address], [place], [facility], [place]. tel:[phone] Referring Provider: Amarjit Livingston, [facility] [address], [place], [facility]. tel:[phone] Office/outpati ent Visit, Est [facility], [address] [place] [address] [address], [place], [place], [address], tel:[phone] [facility] No Information Oct-2 2-200 7 Pearl Ocasio. [facility] [address], [address], [place], [facility], . tel:[phone] Referring Provider: [facility]ber[address], [place], [facility]. tel:[phone] Office Consultation [facility], [address] [place] [address] [address], [place], [place], [id number], tel:[phone] [facility] No Information Dec-2 0-200 7 Cari Echevarria. [address] [place], [facility], . tel:[phone] Referring Provider: [address], [place], [facility]. tel:[phone] [facility], [address] [place] [address] [address], [place], [place], [id number], tel:[phone] [facility] [place] No Information Aug-2 0-200 7 Pearl Ocasio. [facility] [address]relis R[address]os, [address], [place], [facility], [place]. tel:[phone] Referring Provider: [address], [place], [facility]. tel:[phone] Family History Family Member Type Diagnosis Age At Onset No Information Payers Payer name Insurance type Covered green party ID Authoriza tion(s) No Information Social History Type Description Quantity Date Captured Comments Sex Male Smoking Status No Information Chief Complaint And Reason For Visit No Information Reason For Referral Reason For Referral No Information History Of Present Illness Encounter Date Complaint History Of Prese nt Illness No Information Functional Status Date Functional Assessmen t No Information Instructions Date Instruction Additional Infor mation No Information Assessments Type Assessment Date No Information Patient Care Teams Name Effective Dates (start - stop) Status Members No Information
--- OUTSIDE RECORDS SUMMARY | 2024-09-02 23:16 | XMS_ITS ---
Author Organization [facility] Address [address] [place] [address] Care Team Providers Care Family Sociologist Name Role Phone Shobha Walsh NP Unavailable [phone] Sergio Hong MD Primary Care Provider Dialysis Access Sites Type Status Location Placement Date Removal Da te Hemodialysis Cath Triple 04/09/21 Non-tunneled catheter Right Internal Jugular Inactive Right Neck (side) - Anterior 04/09/2021 01/09/2023 Procedures Procedure Name Priority Date/Time Associated Diagnosis Comments EGFR Routine 01/12/2023 8:27 PM CDT HEMOGLOBIN A1C Timed 01/09/2023 10:14 PM CDT LIPID PANEL Timed 01/09/2023 10:14 PM CDT HEPATITIS PANEL, ACUTE Routine 04/19/2021 8:[address] CHEST ABDOMEN PELVIS WO CONTRAST ED Urgent/IP Urgent 04/06/2021 2:06 AM FASHION JOURNALIST from Last 3 Months or Most Recently Relevant to Health Maintenance Allergies No known active allergies Medications brimonidine-khadar [...] 1 tablet (25 mcg total) by mouth custodial manager before breakfast 3 Active melatonin tablet Administer [...] Hematuria 01/09/2023 Coronary artery disease invo lving [place] heart without angina pectoris 02/07/2021 Overview (02/07/2021): Added automatically from request for surgery [id number] Abnormal cardiovascular stress test 01/24/2021 Overview (01/24/2021): Added automatically from request for surgery [id number] BARBOZA (dyspnea on exertion) 01/24/2021 Overview (01/24/2021): Added automatically from request for surgery [id number] History of stroke 02/22/2020 Assessment & Plan [...] study. 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 Estimated Average Glucose 143 mg/dL MAGALY [facility] Comment: The ADA recommends reporting an estimated [...] MD LAB BLOOD ORDERABLES Kirti rodrigez Result [facility] Department [place] [address] * (ABNORMAL) Lipid panel (01/09/2023 10:14 PM CDT) Cholesterol 95 30 - 199 mg/dL MAGALY [facility] Comment: Interpretive Data Ages < or = [...] revised on 2017. Triglycerides 88 <=149 mg/dL MAGALY [facility] Comment: Interpretive Data Ages < or = [...] revised on 2017. HDL 29(L) >=40 mg/dL [facility] Comment: Interpretive Data Ages < or [...] on 2017. LDL, calculated 48 <=129 mg/dL [facility] Comment: Interpretive Data Ages < or = [...] revised on 2017. Non-HDL Cholesterol 66 mg/dL [facility] Comment: Interpretive Data Ages < or [...] last revised on 2017. Chol/HDL ratio 3 [facility] Blood 01/09/2023 10:1 4 PM CDT 01/09/2023 11:35 PM CDT us Dione Marina MD LAB BLOOD ORDERABLES Kirti l Result Performing Organization Address City/[facility]/ZIP Co de Phone Number [facility] Department [place] [address] * Hepatitis panel, acute (04/19/2021 8:05 AM FASHION JOURNALIST) Hep A IgM Nonreactive Nonreactive [facility] Comment: Interpretive Data: If Hep A IgM Ab is reported as Equivocal, a new sample should be drawn in two weeks for testing. Current interpretive data was last revised on 19. Hep B core IgM Nonreactive Nonreactive [facility] Comment: Interpretive Data If HepB Core IgM Ab is reported as Equivocal, a new sample should be drawn in two weeks for testing. Current interpretive data was last revised on 19. Hep C Ab Nonreactive Nonreactive [facility] Comment: Interpretive Data Nonreactive: Antibodies to [...] last revised on 2019. HepBsAg Nonreactive Nonreactive [facility] Blood 04/19/2021 8:05 AM FASHION JOURNALIST 04/19/2021 8:05 AM FASHION JOURNALIST us Beto Quinn MD LAB MICROBIOLOGY - GENERAL ORDPiper HILL Final Result [facility] [address] Department [place] [address] * CT Chest Abdomen Pelvis WO Contrast (04/06/2021 2:06 AM FASHION JOURNALIST) Anatomical Region Laterality Modality Body N/A Computed Tomogra phy 04/06/2021 1:54 AM FASHION JOURNALIST Impressions 04/06/2021 8:37 AM FASHION JOURNALIST 1. Bibasilar consolidations with air bronchograms may represent atelectasis or pneumonia. Evaluation is limited due to lack of intravenous contrast. 2. Dilated main pulmonary artery which can be seen in setting of pulmonary hypertension. 3. No acute abnormal imaging the abdomen or pelvis. Electronically signed by: Dalton Livingston M.D. Narrative 04/06/2021 8:37 AM FASHION JOURNALIST Examination: CT chest, abdomen, and pelvis without [...] preliminary results were reported by the tele-radiologist instructor [employer]. Procedure Note Dalton Livingston MD - 04/06/2021 [...] preliminary results were reported by the tele-radiologist instructor [employer]. IMPRESSION: 1. Bibasilar consolidations with air bronchograms [...]
--- NOTE | 2024-09-03 00:05 | PC.NURSE ---
at bedside inserting 16 fr suprapubic catheter (non-llatex)
== END 2024-09-03 00:48 | disposition hospice, inpatient (51) ==
PROVIDERS: Emergency Provider Physician Assistant; PCP Family Medicine
DX: T83.028A Displacement of other urinary catheter, initial encounter (principal); F03.90 Unspecified dementia, unspecified severity, without behavioral disturbance, psychotic disturbance, mood disturbance, and anxiety; Z79.4 Long term (current) use of insulin; N18.30 Chronic kidney disease, stage 3 unspecified; I69.319 Unspecified symptoms and signs involving cognitive functions following cerebral infarction; E10.9 Type 1 diabetes mellitus without complications; Z96.41 Presence of insulin pump (external) (internal); H40.9 Unspecified glaucoma; E78.00 Pure hypercholesterolemia, unspecified; Z87.891 Personal history of nicotine dependence
CPT/HCPCS: 51705; 99283

== ENCOUNTER 2024-11-05 10:56 | Emergency (ER) | payer MEDICARE, SELFPAY ==
--- NOTE | 2024-11-05 11:08 | ED_ITS ---
HPI - General Adult General Chief complaint: Recheck/Abnormal Lab/Rx Stated complaint: needs suprapubic cath Time Seen by Provider: 11/05/24 10:59 History of Present Illness HPI narrative: This is a 78-year-old male presenting for a dislodged suprapubic. Patient is severely demented and can provide no information. Related Data Home Medications ?Medication ?Instructions ?Recorded ?Confirmed ?Last Taken ?Type latanoprost 0.005 % eye drops 1 drp LEFT EYE HS 05/07/19 09/24/23 08/12/19 History brimonidine-timolol 2 drp LEFT EYE BID 12/17/22 09/24/23 Unknown History gabapentin 100 mg capsule 100 mg PO TID 12/17/22 09/24/23 Unknown History insulin glargine 100 unit/mL (3 25 unit subcut DAILY 12/17/22 09/24/23 Unknown History mL) subcutaneous pen (Lantus Solostar U-100 Insulin) insulin lispro 100 unit/mL 0 - 18 units subcut TID.ARISSI 12/17/22 09/24/23 Unknown History subcutaneous solution (Humalog U-100 Insulin) levothyroxine 25 mcg tablet 25 mcg PO DAILY 12/17/22 09/24/23 Unknown History artificial tears solution eye drops 2 drp ophthalmic (eye) PRN PRN Dry 12/31/22 09/24/23 Unknown History Eyes ferrous sulfate 325 tablet PO DAILY 12/31/22 09/24/23 Unknown History menthol 0.44 %-zinc oxide 20.6 % 1 applic topical DAILY PRN SKIN 12/31/22 09/24/23 Unknown History topical ointment (CalProtect) BREAKDOWN zinc oxide 1 applic topical BID 12/31/22 09/24/23 Unknown History zinc oxide 5 % topical cream (Skin 1 applic topical DAILY 12/31/22 09/24/23 Unknown History Protectant) cetirizine 10 mg tablet 10 mg PO DAILY 09/24/23 09/24/23 Unknown History dextromethorphan-guaifenesin ER 60 1 tablet PO Q12H PRN Congestion 09/24/23 09/24/23 Unknown History mg-1,200 mg tab,extend release,12hr (Mucinex DM) dextrose 15 gram/33 gram oral gel 33 g PO PRN PRN Hypoglycemia 09/24/23 09/24/23 Unknown History packet escitalopram oxalate 20 mg tablet 20 mg PO DAILY 09/24/23 09/24/23 Unknown History lidocaine HCl 2 % topical gel 1 applic topical TID PRN Pain 09/24/23 09/24/23 Unknown History multivitamin 1 tablet DAILY 09/24/23 09/24/23 Unknown History ondansetron 4 mg disintegrating 4 mg PO Q6H PRN Nausea 09/24/23 09/24/23 Unknown History tablet trazodone 50 mg tablet 50 mg HS 09/24/23 09/24/23 Unknown History Allergies Allergy/AdvReac Type Severity Reaction Status Date / Time No Known Allergies Allergy Verified 09/24/23 12:11 [facility] Past Medical History Medical History Amputation toe Partial right toe amputation Arthritis Back pain SPINAL STENOSIS, cervical stenosis CKD (chronic kidney disease) stage 3, GFR 30-59 ml/min CVA, old, 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 Stroke x 4 Surgical History Surgical History H/O bilateral cataract extraction H/O cataract extraction H/O cervical spine surgery Fusion H/O toe surgery Partial right toe amputated due to infected H/O umbilical hernia repair Family History Family History Father Cerebrovascular accident Family history of diabetes mellitus in first degree relative Mother Family history of diabetes mellitus in first degree relative Family history of congestive heart failure Social History Social History Social History: The patient lives with his Lesvia who is the durable power agricultural equipment test engineer for healthcare. She is agreeable to keeping the patient full code at this time however the patient does not want to live in a vegetative state. The patient is a former smoker. He occasionally has a glass wine maybe twice a month. He has 4 children. 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 Code status full Smoking packs per day: 1 Smoking cigarettes per day: 20.0 Years smoked: 40 Smoking pack-years: 40.00 Smoking status: Former smoker Tobacco type: cigarettes Second hand tobacco smoke exposure: No Additional smoking assessment comments: DATE PT QUIT SMOKING - UNKNOWN Alcohol intake: never Drinks per week: 2 Substance use: never Substance use type: does not use Lack of Transportation: No Lack of Food: Never True Current Housing: I Have Housing Concerned About Future Housing: No Difficulty Paying Gas/Electric Bills: No Difficulty Paying for Meds: No Currently Unemployed: No Education: Trade/Vocational Certificate Difficulty w/ Childcare or Family Care: No Living arrangements: long-term Gender identity (if verbalized by the patient): Male Spiritual care concerns: No Exam Narrative: APPEARANCE: No apparent distress. A&O times x1 Head: atraumatic. EYES: EOMI, NOSE: Atraumatic NECK: Trachea midline RESPIRATORY: No increased rate of breathing CTAB CARDIOVASCULAR: RRR, ABDOMINAL: No suprapubic abdominal pain, palpable suprapubic mass MUSCULOSKELETAl: No obvious deformities NEURO: Alert. Moving 4/4 extremities SKIN:: Warm, dry. Normal color PSYCHIATRIC: Normal affect Course Vital Signs Vital signs: Vital Signs Temperature 98.2 F 11/05/24 11:19 Pulse Rate 65 11/05/24 11:19 Respiratory Rate 16 11/05/24 11:19 Blood Pressure 148/71 H 11/05/24 11:19 Pulse Oximetry 97 11/05/24 11:19 Oxygen Delivery Room Air 11/05/24 11:19 Temperature 98.2 F 11/05/24 11:19 Pulse Rate 65 11/05/24 11:19 Respiratory Rate 18 11/05/24 11:19 Blood Pressure 148/71 H 11/05/24 11:19 Pulse Oximetry 97 11/05/24 11:19 Oxygen Delivery Room Air 11/05/24 11:19 Medical Decision Making MDM Narrative Medical decision making narrative: -Course: 78-year-old male dementia on hospice presenting after dislodging his suprapubic catheter. Bladder stone showed approximately 700 cc in the bladder. I attempted to replace the suprapubic catheter however was unable to advance the catheter appears the tract has closed. Urology was consulted and was able to easily place a urethral catheter. this should be switched once per month. Patient discharged back to hospice. Vital Signs Vital Signs: Vital Signs Temperature 98.2 F 11/05/24 11:19 Pulse Rate 65 11/05/24 11:19 Respiratory Rate 16 11/05/24 11:19 Blood Pressure 148/71 H 11/05/24 11:19 Pulse Oximetry 97 11/05/24 11:19 Oxygen Delivery Room Air 11/05/24 11:19 Temperature 98.2 F 11/05/24 11:19 Pulse Rate 65 11/05/24 11:19 Respiratory Rate 18 11/05/24 11:19 Blood Pressure 148/71 H 11/05/24 11:19 Pulse Oximetry 97 11/05/24 11:19 Oxygen Delivery Room Air 11/05/24 11:19 Discharge Plan Discharge Clinical Impression: Acute on chronic urinary retention Patient Disposition: Home Condition: Stable Instructions: Antibiotic Form, Patrick Catheter Placement and Care (ED) Additional Instructions: Alex was seen for a dislodged suprapubic catheter. His suprapubic fistula has completely closed. He now has a urethral catheter which should be changed once a month. If there are any concerns please contact Dr. Maguire - Urology. Patient Language: Sammarinese Prescriptions: No Action latanoprost 0.005 % drops 1 drp LEFTEYE HS levothyroxine 25 mcg Tablet 25 mcg PO DAILY brimonidine-timolol 2 drp LEFT EYE BID gabapentin 100 mg capsule 100 mg PO TID insulin glargine [Lantus Solostar U-100 Insulin] 100 unit/mL (3 mL) Insulin Pen 25 unit SUBCUT DAILY insulin lispro [Humalog U-100 Insulin] 100 unit/mL solution 0 - 18 units subcut TID.ARISSI Protocol: Insulin Corrective Low-Dose Condition: glucose < 70 mg/dl Dose/Route: Follow Hypoglycemia Order Condition: glucose 70-200 mg/dl Dose/Route: No additional insulin Condition: glucose 201-250 mg/dl Dose/Route: 2 units sub-Q Condition: glucose 251-300 mg/dl Dose/Route: 3 units sub-Q Condition: glucose 301-350 mg/dl Dose/Route: 4 units sub-Q Condition: glucose 351-400 mg/dl Dose/Route: 5 units sub-Q Condition: glucose > 400 mg/dl Dose/Route: Call MD Protocol Text: *No Correction Dose at Bedtime* Rx Instructions: SEE LONG TERM DOCUMENTS artificial tears solution Drops 2 drp OPHTHALMIC (EYE) PRN PRN (Reason: Dry Eyes) zinc oxide Cream 1 applic TOPICAL BID Rx Instructions: apply to scrotum menthol-zinc oxide [CalProtect] 0.44-20.6 % Ointment 1 applic TOPICAL DAILY PRN (Reason: SKIN BREAKDOWN) Rx Instructions: apply to buttocks Skin Protectant 5 % Cream 1 applic TOPICAL DAILY Rx Instructions: apply to buttocks ferrous sulfate 325 tablet PO DAILY multivitamin Tablet 1 tablet DAILY trazodone 50 mg Tablet 50 mg HS cetirizine 10 mg Tablet 10 mg PO DAILY dextromethorphan-guaifenesin [Mucinex DM] 60-1,200 mg Tablet Extended Release 12 Hr 1 tablet PO Q12H PRN (Reason: Congestion) ondansetron 4 mg Tablet,Disintegrating 4 mg PO Q6H PRN (Reason: Nausea) escitalopram oxalate 20 mg Tablet 20 mg PO DAILY dextrose 15 gram/33 gram Gel In Packet 33 g PO PRN PRN (Reason: Hypoglycemia) lidocaine HCl 2 % Gel 1 applic TOPICAL TID PRN (Reason: Pain) hydrocodone-acetaminophen 5-325 mg tablet 1 - 2 tablet PO Q6H PRN (Reason: pain) Qty: 20 0RF sulfamethoxazole-trimethoprim 800-160 mg tablet 1 tablet PO Q12H Qty: 6 0RF atorvastatin 40 mg Tablet 40 mg PO DAILY Qty: 0 0RF acetaminophen [Mapap (acetaminophen)] 325 mg Tablet 650 mg PO Q6H PRN (Reason: Mild Pain (1-3) Or Fever) Qty: 0 0RF amiodarone [Pacerone] 200 mg Tablet 200 mg PO DAILY@0800 Qty: 0 0RF aspirin [Children's Aspirin] 81 mg Tablet,Chewable 81 mg PO DAILY@0800 Qty: 0 0RF polyethylene glycol 3350 [Miralax] 17 gram Powder In Packet 17 g PO QAM Qty: 0 0RF sennosides-docusate sodium [Senokot-S] 8.6-50 mg Tablet 1 tab PO HS Qty: 0 0RF midodrine 5 mg Tablet 20 mg PO QID Qty: 0 0RF melatonin 3 mg Tablet 6 mg PO HS Qty: 0 0RF tamsulosin 0.4 mg Capsule 0.4 mg PO QAM Qty: 0 0RF GlucaGen Diagnostic Kit 1 mg/mL Recon Soln 1 mg IM PRN PRN (Reason: Hypoglycemia) Qty: 0 0RF Follow-up/Referrals: Sergio Hong MD [Primary Care Provider] -
[2024-11-05 11:19] VITALS: BP 148/71; PULSE 65; RESP 16; RESP 18; TEMP 36.8; O2SAT 97
--- NOTE | 2024-11-05 13:01 | WPDURCON ---
Assessment and Plan Assessment and plan (1) Urinary retention: Code(s): R33.9 - Retention of urine, unspecified Status: Acute Assessment and Plan: 78-year-old male with dementia and dislodged suprapubic tube with closed tract. Urethral catheter inserted without issue Plan -patient can be managed with indwelling Patrick catheter. Eighteen F Patrick catheter was placed without resistance at bedside today. Recommend monthly exchanges at nursing facility. Please call Urology with any questions or concerns. Urology Consult Note HPI Date Seen: 11/05/24 Primary Care Provider: Sergio Hong MD Consult Narrative Narrative: Tan Mendes is a 78 year old male who presents from senior care due to his suprapubic tube being removed. Is unclear when the catheter had fallen out the patient has now been in urinary retention. The emergency room staff has attempted to replace the SP tube unsuccessfully. Suprapubic tube placed initially September of 2023 for cosmetic reasons due to urethral erosion. Patient currently is A&O times 0. According to emergency department he is currently on hospice care. Urology called for Patrick catheter insertion PMFSH Past Medical History Medical History Amputation toe Partial right toe amputation Arthritis Back pain SPINAL STENOSIS, cervical stenosis CKD (chronic kidney disease) stage 3, GFR 30-59 ml/min CVA, old, 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 Stroke x 4 Surgical History Surgical History H/O bilateral cataract extraction H/O cataract extraction H/O cervical spine surgery Fusion H/O toe surgery Partial right toe amputated due to infected H/O umbilical hernia repair Family History Family History Father Cerebrovascular accident Family history of diabetes mellitus in first degree relative Mother Family history of diabetes mellitus in first degree relative Family history of congestive heart failure Social History Social History Social History: The patient lives with his Lesvia who is the durable power regulatory attorney for healthcare. She is agreeable to keeping the patient full code at this time however the patient does not want to live in a vegetative state. The patient is a former smoker. He occasionally has a glass wine maybe twice a month. He has 4 children. 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 Code status full Smoking packs per day: 1 Smoking cigarettes per day: 20.0 Years smoked: 40 Smoking pack-years: 40.00 Smoking status: Former smoker Tobacco type: cigarettes Second hand tobacco smoke exposure: No Additional smoking assessment comments: DATE PT QUIT SMOKING - UNKNOWN Alcohol intake: never Drinks per week: 2 Substance use: never Substance use type: does not use Lack of Transportation: No Lack of Food: Never True Current Housing: I Have Housing Concerned About Future Housing: No Difficulty Paying Gas/Electric Bills: No Difficulty Paying for Meds: No Currently Unemployed: No Education: Trade/Vocational Certificate Difficulty w/ Childcare or Family Care: No Living arrangements: senior care Gender identity (if verbalized by the patient): Male Spiritual care concerns: No Meds Home Medications and Allergies Home Medications ?Medication ?Instructions ?Recorded ?Confirmed ?Type latanoprost 0.005 % eye drops 1 drp LEFT EYE HS 05/07/09/24/23 History acetaminophen 325 mg tablet (Mapap 650 mg (2 x 325 mg) PO Q6H PRN 05/20/21 09/24/23 Rx (acetaminophen)) Mild Pain (1-3) Or Fever #0 tabs amiodarone 200 mg tablet (Pacerone) 200 mg PO DAILY@0800 #0 tabs 05/20/21 09/24/23 Rx aspirin 81 mg chewable tablet 81 mg PO DAILY@0800 #0 tabs 05/20/21 09/24/23 Rx (Children's Aspirin) atorvastatin 40 mg tablet 40 mg PO DAILY #0 tabs 05/20/21 09/24/23 Rx glucagon 1 mg/mL solution for 1 mg IM PRN PRN Hypoglycemia #0 ea 05/20/21 09/24/23 Rx injection (GlucaGen Diagnostic Kit) melatonin 3 mg tablet 6 mg (2 x 3 mg) PO HS #0 tabs 05/20/21 09/24/23 Rx midodrine 5 mg tablet 20 mg (4 x 5 mg) PO QID #0 tabs 05/20/21 09/24/23 Rx polyethylene glycol 3350 17 gram 17 g PO QAM #0 ea 05/20/21 09/24/23 Rx oral powder packet (Miralax) sennosides 8.6 mg-docusate sodium 1 tab PO HS #0 tabs 05/20/21 09/24/23 Rx 50 mg tablet (Senokot-S) tamsulosin 0.4 mg capsule 0.4 mg PO QAM #0 caps 05/20/21 09/24/23 Rx brimonidine-timolol 2 drp LEFT EYE BID 12/17/22 09/24/23 History gabapentin 100 mg capsule 100 mg PO TID 12/17/22 09/24/23 History insulin glargine 100 unit/mL (3 25 unit subcut DAILY 12/17/22 09/24/23 History mL) subcutaneous pen (Lantus Solostar U-100 Insulin) insulin lispro 100 unit/mL 0 - 18 units subcut TID.ARISSI 12/17/22 09/24/23 History subcutaneous solution (Humalog U-100 Insulin) levothyroxine 25 mcg tablet 25 mcg PO DAILY 12/17/22 09/24/23 History artificial tears solution eye drops 2 drp ophthalmic (eye) PRN PRN Dry 12/31/22 09/24/23 History Eyes ferrous sulfate 325 tablet PO DAILY 12/31/22 09/24/23 History menthol 0.44 %-zinc oxide 20.6 % 1 applic topical DAILY PRN SKIN 12/31/22 09/24/23 History topical ointment (CalProtect) BREAKDOWN zinc oxide 1 applic topical BID 12/31/22 09/24/23 History zinc oxide 5 % topical cream (Skin 1 applic topical DAILY 12/31/22 09/24/23 History Protectant) cetirizine 10 mg tablet 10 mg PO DAILY 09/24/23 09/24/23 History dextromethorphan-guaifenesin ER 60 1 tablet PO Q12H PRN Congestion 09/24/23 09/24/23 History mg-1,200 mg tab,extend release,12hr (Mucinex DM) dextrose 15 gram/33 gram oral gel 33 g PO PRN PRN Hypoglycemia 09/24/23 09/24/23 History packet escitalopram oxalate 20 mg tablet 20 mg PO DAILY 09/24/23 09/24/23 History lidocaine HCl 2 % topical gel 1 applic topical TID PRN Pain 09/24/23 09/24/23 History multivitamin 1 tablet DAILY 09/24/23 09/24/23 History ondansetron 4 mg disintegrating 4 mg PO Q6H PRN Nausea 09/24/23 09/24/23 History tablet trazodone 50 mg tablet 50 mg HS 09/24/23 09/24/23 History hydrocodone 5 mg-acetaminophen 325 1 - 2 tablet PO Q6H PRN pain #20 10/08/23 Rx mg tablet tabs sulfamethoxazole 800 1 tablet PO Q12H #6 tabs 10/08/23 Rx mg-trimethoprim 160 mg tablet Allergies Allergy/AdvReac Type Severity Reaction Status Date / Time No Known Allergies Allergy Verified 09/24/23 12:11 Vital Signs Vital Signs - 24 hr 11/05/24 11:19 11/05/24 11:19 Temperature 36.8 C Pulse Rate 65 Respiratory Rate 16 18 Blood Pressure 148/71 H Pulse Oximetry 97 Oxygen Delivery Room Air Exam Narrative: Patient is A&O times 0. He is unable to answer questions. His abdomen is soft nontender nondistended. There is a suprapubic tube site that appears nearly completely closed. The patient is ventral aspect of his penis is eroded due to previous catheter insertion. Patient was prepped in the normal sterile fashion an 18 F Patrick catheter was inserted through the urethra without resistance. There was good return of clear urine. Catheter left to gravity drainage.
[2024-11-05 13:13] VITALS: BP 126/75; PULSE 60; RESP 18; O2SAT 95
--- NOTE | 2024-11-05 13:15 | PC.NURSE ---
Urology at bedside at this time placing urinary catheter. Pt tolerated procedure, gonzales catheter placed w/ 800 output. Gonzales remains patent.
== END 2024-11-05 15:00 ==
PROVIDERS: Emergency Provider Emergency Medicine; PCP Family Medicine
DX: T83.028A Displacement of other urinary catheter, initial encounter (principal); R33.9 Retention of urine, unspecified; Z79.4 Long term (current) use of insulin; N18.30 Chronic kidney disease, stage 3 unspecified; I69.319 Unspecified symptoms and signs involving cognitive functions following cerebral infarction; E10.22 Type 1 diabetes mellitus with diabetic chronic kidney disease; I12.9 Hypertensive chronic kidney disease with stage 1 through stage 4 chronic kidney disease, or unspecified chronic kidney disease; E78.00 Pure hypercholesterolemia, unspecified; Z87.891 Personal history of nicotine dependence
CPT/HCPCS: 51705; 99283; J1630